=== PATIENT | female | born 1945 | race Hispanic/Latino ===

== ENCOUNTER 2018-02-15 12:09 | Observation (INO) | payer MEDICARE, OTHER ==
[~2018-02-15] VITALS: Ht 144.8 cm; Wt 90.7 kg
[~2018-02-15 12:09] MED LIST: ASPIR 8181 MG PO; BUSPAR15 MG PO; DIOVAN320 MG PO; FLUOXETINE HCL10 M1 PO; FLUOXETINE HCL20 MG PO; K-DUR20 ME2 PO; LEVAQUIN500 MG PO; NOVOLOG 70100 UNITS/ SC; NOVOLOG MI100 UNITS/ SQ; TRAMADOL-ACETAMI1 EA PO; VALIUM PO; VITAMIN D250000 UNIT PO; XARELTO10 MG PO; Z.0.DIOVAN160 MG PO; Z.0.GLUCOPHAGE500 MG PO; Z.0.JANUVIA100 MG PO; Z.0.LASIX40 MG PO; Z.0.NOVOLOG100 UNIT/ SQ; Z.0.PAXIL10 MG PO; Z.0.PRILOSEC OTC20 M PO; Z.0.TYLENOL325 MG PO; Z.0.VALIUM5 MG PO; Z.0.ZOCOR20 MG PO
[2018-02-15] MEDS ORDERED: TRAMADOL HCL 50 MG TAB PO ONE (12:45)
[2018-02-15] MEDS ORDERED: TRAMADOL HCL 50 MG TAB PO SCH (13:15)
[2018-02-15 13:30] LABS: BILIRUBIN,URINE NEGATIVE (NEGATIVE); KETONES,URINE NEGATIVE (NEGATIVE); LEUKOCYTE ESTERASE ,URINE 1+ (NEGATIVE); NITRITE,URINE NEGATIVE (NEGATIVE); PROTEIN,URINE DIPSTICK NEGATIVE (NEGATIVE); URINE UROBILINOGEN 0.2 mg/dL (0.2 - 1)
[2018-02-15 13:31] LABS: CLARITY,URINE HAZY (CLEAR); COLOR,URINE YELLOW (YELLOW)
[2018-02-15 13:32] LABS: BASOPHILS % 0.3 % (0.0-1.0); EOSINOPHILS # (AUTO) 0.2 (0.0-0.4); EOSINOPHILS % 3.1 % (0.0-6.0); HEMOGLOBIN 11.8 g/dL (12.0-16.0); LYMPHOCYTES # (AUTO) 1.9 (1.0-3.2); MEAN CORPUSCULAR HEMOGLOBIN 29.1 pg (28-32); MEAN CORPUSCULAR HGB CONC 32.8 g/dL (31-35); MEAN CORPUSCULAR VOLUME 88.9 fL (81-99); MONOCYTES # (AUTO) 0.5 (0.2-0.8); MONOCYTES % 8.2 % (4.4-11.3); NEUTROPHILS # (AUTO) 3.5 (2.1-6.9); NEUTROPHILS % 57.2 % (38.7-80.0); PLATELET COUNT 265 x10e3/uL (140-360); RED BLOOD COUNT 4.05 x10e6/uL (3.6-5.1); RED CELL DISTRIBUTION WIDTH 13.7 % (11.7-14.4)
[2018-02-15 13:35] LABS: BACTERIA,URINE FEW /HPF; EPITHELIAL CELLS,URINE FEW /LPF; RBC,URINE 0-5 /HPF (0-5)
[2018-02-15 13:46] LABS: INR 1.01; PROTHROMBIN TIME 12.5 seconds (11.9-14.5)
[2018-02-15 13:47] LABS: PARTIAL THROMBOPLASTIN TIME 30.6 seconds (23.8-35.5)
[2018-02-15 13:56] LABS: ALANINE AMINOTRANSFERASE 23 IU/L (0-55); ALBUMIN 3.6 g/dL (3.5-5.0); ALBUMIN/GLOBULIN RATIO 1.2 (0.8-2.0); ALKALINE PHOSPHATASE 76 IU/L (40-150); ANION GAP 9.6 mmol/L (8-16); BLOOD UREA NITROGEN 16 mg/dL (7-26); BUN/CREATININE RATIO 20 (6-25); CALCIUM 8.8 mg/dL (8.4-10.2); CARBON DIOXIDE 32 mmol/L (22-29); CHLORIDE 97 mmol/L (98-107); CREATINE KINASE 174 IU/L (29-168); CREATININE, SERUM 0.82 mg/dL (0.57-1.11); EST GLOMERULAR FILTRATION RATE > 60 ML/MIN (60-); GLUCOSE 190 mg/dL (74-118); MAGNESIUM 1.8 MG/DL (1.3-2.1); POTASSIUM 3.6 mmol/L (3.5-5.1); SODIUM 135 mmol/L (136-145)
--- NOTE | 2018-02-15 14:31 | Diagnostic Imaging Report ---
EXAMINATION: RIBS BILAT W/CXR INDICATION: Low sugar. Cannot breathe. COMPARISON: None FINDINGS: TUBES and LINES: None. LUNGS: Lungs are well inflated. Lungs are clear. There is no evidence of pneumonia or pulmonary edema. PLEURA: No pleural effusion or pneumothorax. HEART AND MEDIASTINUM: The cardiomediastinal silhouette is unremarkable. BONES AND SOFT TISSUES: No acute osseous lesion. Soft tissues are unremarkable. UPPER ABDOMEN: No free air under the diaphragm. IMPRESSION: No acute thoracic abnormality. Signed by: Dr. Emir Collado M.D. on 02/15/2018 2:27 PM
[2018-02-15] MEDS ORDERED: ONDANSETRON HCL INJ 2 MG/ML VIAL IV PRN (15:45)
[2018-02-15] MEDS ORDERED: FAMOTIDINE 20 MG/2 ML VIAL IV SCH (15:45)
[2018-02-15] MEDS ORDERED: DEXTROSE 50% SYRINGE 50 ML IV PRN (15:45)
--- OUTSIDE RECORDS SUMMARY | 2018-02-15 16:05 | XMS REPORT ---
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 Allergies, Adverse Reactions, Alerts This patient has no known allergies or adverse reactions. Medications This patient has no known medications. Results Test Description Test Time Test Comments Text Results Atomic Results Result Comments RIBS BILAT W/CXR [place] [address] Patient Name: SHARI DEAN MR #: [id number] : 1945 Age/Sex: 73/F Req # : [id number] Adm Physician: Ordered by: TARIK KAHN NP Report #: [id number] Location: ER Room/Bed: Procedure: [id number] DX/RIBS BILAT W/CXR Exam Date: 02/15/18 Exam Time: 1335 REPORT STATUS: Signed EXAMINATION: RIBS BILAT W/CXR INDICATION: Low sugar. Cannot breathe. COMPARISON: None FINDINGS: TUBES and LINES: None. LUNGS: Lungs are well inflated. Lungs are clear. There is no evidence of pneumonia or pulmonary edema. PLEURA: No pleural effusion or pneumothorax. HEART AND MEDIASTINUM: The cardiomediastinal silhouette is unremarkable. BONES AND SOFT TISSUES: No acute osseous lesion. Soft tissues are unremarkable. UPPER ABDOMEN: No free air under the diaphragm. IMPRESSION: No acute thoracic abnormality. Signed by: Dr. Carmenza Collado M.D. on 02/15/2018 2:27 PM Dictated By: CARMENZA COLLADO MD 26 Transcribed By: GAUDENCIO on 02/15/181426 COPY TO: TARIK KAHN NP
--- NOTE | 2018-02-15 16:39 | Diagnostic Imaging Report ---
EXAM: CT Chest WITH contrast 02/15/2018 3:27 PM INDICATION: Shortness of breath. \S\PE PROTOCOL. Fell with bruising to the upper body and chest. COMPARISON: None TECHNIQUE: Chest was scanned utilizing a multidetector helical scanner from the lung apex through the level of the adrenal glands without administration of IV contrast. Coronal and sagittal reformations were obtained. Routine protocol was performed. IV CONTRAST: 100 mL of Isovue 370 COMPLICATIONS: None RADIATION DOSE: Total DLP: 528.5 mGy*cm Estimated effective dose: (DLP x 0.014 x size factor) mSv CTDIvol has been reviewed. It is below the limits set by the Radiation Protocol Committee (RPC). FINDINGS: LINES/ TUBES: None. LUNGS AND AIRWAYS: No filling defect is identified within the pulmonary arteries to the segmental level. The lungs are unremarkable. Airways are normal. PLEURA: The pleural spaces are clear. HEART AND MEDIASTINUM: The thyroid gland is normal. No mediastinal, hilar or axillary lymphadenopathy. The heart is normal in size. There is no pericardial effusion. . Main pulmonary artery measures 2.7 cm in diameter and the ascending aorta measures 3.6 cm. UPPER ABDOMEN: Unremarkable BONES: The visualized bony thorax is within normal limits. SOFT TISSUES: Unremarkable. IMPRESSION: No pulmonary emboli. Normal chest. Signed by: Dr. Emir Collado M.D. on 02/15/2018 4:36 PM
--- NOTE | 2018-02-15 16:57 | Diagnostic Imaging Report ---
EXAM: CT Abdomen and Pelvis WITH contrast INDICATION: Low blood sugar. Abdominal pain after fall. Bruising to the upper abdomen. COMPARISON: None. TECHNIQUE: Abdomen and pelvis were scanned utilizing a multidetector helical scanner from the lung base to the pubic symphysis after administration of IV contrast. Coronal and sagittal reformations were obtained. Routine protocol was performed. Scan was performed when during portal venous phase. IV CONTRAST: 100 mL of Isovue 370 ORAL CONTRAST: Water COMPLICATIONS: None RADIATION DOSE: Total DLP: 709.82 mGy*cm Estimated effective dose: (DLP x 0.015 x size factor) mSv CTDIvol has been reviewed. It is below the limits set by the Radiation Protocol Committee (RPC). FINDINGS: LINES and TUBES: None. LOWER THORAX: Unremarkable calcified granuloma in the right lower lobe. HEPATOBILIARY: No focal hepatic lesions. No biliary ductal dilation. GALLBLADDER: No radio-opaque stones or sludge. No wall thickening. SPLEEN: No splenomegaly. PANCREAS: No focal masses or ductal dilatation. ADRENALS: No adrenal nodules KIDNEYS/URETERS: Kidneys enhance symmetrically. No hydronephrosis. No cystic or solid mass lesions. No stones. GI TRACT: No abnormal distention, wall thickening, or evidence of bowel obstruction. There are diverticula within the colon without evidence of diverticulitis. Appendix is not clearly identified. There is however no fat stranding or adenopathy in the right lower quadrant to suggest appendicitis. PELVIC ORGANS/BLADDER: Mild pelvic floor prolapse. Uterus and both ovaries are unremarkable. LYMPH NODES: No lymphadenopathy. VESSELS: There is mild atherosclerotic disease in the aorta and major arterial branches. PERITONEUM / RETROPERITONEUM: No free air or fluid. BONES: There are degenerative changes in the lumbar spine. SOFT TISSUES: Fat-containing umbilical hernia. IMPRESSION: No acute abnormalities in the abdomen and pelvis. Signed by: Dr. Emir Collado M.D. on 02/15/2018 4:53 PM
[2018-02-15] MEDS: INSULIN REGULAR, HUMAN 100 UNIT/1 ML 3ML VIAL SQ SCH ×2 (17:59→20:27)
[2018-02-15] MEDS ORDERED: FAMOTIDINE 10MG/ML 20ML VIAL IV SCH (18:26)
[2018-02-15] MEDS: ENOXAPARIN SOD INJ 40 MG/0.4 ML SYR SC SCH (18:30)
[2018-02-15] MEDS ORDERED: CEFTRIAXONE SOD 1 GM VIAL IM SCH (18:30)
[2018-02-15] MEDS ORDERED: CEFTRIAXONE SOD 1 GM VIAL IV SCH (18:30)
[2018-02-15 19:55] VITALS: BP 136/84
[2018-02-15 20:00] VITALS: BP 137/61
[2018-02-15 20:13] VITALS: BP 136/84
[2018-02-15 21:10] VITALS: BP 136/84
[2018-02-16] VITALS (7 sets, daily range): BP systolic 111–170; BP diastolic 56–72
[2018-02-16 01:56] LABS: CREATINE KINASE MB 3.8 ng/mL (0-5.0)
[2018-02-16] MEDS ORDERED: FAMOTIDINE 20 MG/2 ML VIAL IV SCH (06:15)
[2018-02-16 06:57] LABS: BASOPHILS % 0.2 % (0.0-1.0); EOSINOPHILS # (AUTO) 0.2 (0.0-0.4); EOSINOPHILS % 4.2 % (0.0-6.0); HEMOGLOBIN 12.1 g/dL (12.0-16.0); LYMPHOCYTES # (AUTO) 1.8 (1.0-3.2); LYMPHOCYTES % 32.1 % (18.0-39.1); MEAN CORPUSCULAR HEMOGLOBIN 28.5 pg (28-32); MEAN CORPUSCULAR HGB CONC 31.8 g/dL (31-35); MEAN CORPUSCULAR VOLUME 89.6 fL (81-99); MONOCYTES # (AUTO) 0.5 (0.2-0.8); MONOCYTES % 8.4 % (4.4-11.3); NEUTROPHILS % 54.9 % (38.7-80.0); PLATELET COUNT 278 x10e3/uL (140-360); RED BLOOD COUNT 4.24 x10e6/uL (3.6-5.1); RED CELL DISTRIBUTION WIDTH 13.9 % (11.7-14.4)
[2018-02-16 07:41] LABS: ALANINE AMINOTRANSFERASE 19 IU/L (0-55); ALBUMIN 3.2 g/dL (3.5-5.0); ALBUMIN/GLOBULIN RATIO 1.1 (0.8-2.0); ALKALINE PHOSPHATASE 70 IU/L (40-150); BLOOD UREA NITROGEN 14 mg/dL (7-26); BUN/CREATININE RATIO 17 (6-25); CARBON DIOXIDE 29 mmol/L (22-29); CHLORIDE 102 mmol/L (98-107); CHOL/HDL RATIO 2.6 (3.0-3.6); CHOLESTEROL 125 MD/DL (0-199); CREATININE, SERUM 0.82 mg/dL (0.57-1.11); EST GLOMERULAR FILTRATION RATE > 60 ML/MIN (60-); GLUCOSE 279 mg/dL (74-118); HDL CHOLESTEROL 48 MG/DL (40-60); LDL CHOLESTEROL 50 MG/DL (60-130); MAGNESIUM 1.7 MG/DL (1.3-2.1); PHOSPHORUS 3.2 MG/DL (2.3-4.7); SODIUM 139 mmol/L (136-145); TRIGLYCERIDES 133 MG/DL (0-149)
[2018-02-16] MEDS: INSULIN REGULAR, HUMAN 100 UNIT/1 ML 3ML VIAL SQ SCH ×4 (08:09→20:07)
[2018-02-16] MEDS: ASPIRIN 81 MG ENTERIC COATED PO SCH (08:09)
[2018-02-16] MEDS ORDERED: ACETAMINOPHEN 325 MG TAB PO PRN (11:30)
[2018-02-16] MEDS ORDERED: METFORMIN HCL 500 MG TAB PO SCH (11:30)
[2018-02-16] MEDS ORDERED: VALSARTAN 160 MG PO SCH (11:30)
[2018-02-16] MEDS: ALBUTEROL/IPRATROPIUM 3 ML NEB NEB SCH ×2 (12:00→19:30)
[2018-02-16] MEDS ORDERED: AZITHROMYCIN 500MG/NS 250 ML 250 ML IV SCH (12:00)
[2018-02-16] MEDS ORDERED: SODIUM CHLORIDE 0.9% 250ML 250 ML ONE (12:32)
[2018-02-16] MEDS: GUAIFENESIN 600MG/DEXTROMETHORPHAN 30MG TABSR PO SCH ×3 (12:39→23:05)
--- NOTE | 2018-02-16 12:58 | History and Physical ---
PRIMARY CARE PROVIDER: Dr. North Rousseau CHIEF COMPLAINT: Dyspnea and weakness. HISTORY OF PRESENT ILLNESS: Ms. Parmar is a 73-year-old lady who for the last couple of days has been complaining of generalized weakness, a nonproductive cough and shortness of breath worse with exertion. REVIEW OF SYSTEMS: She denies fever, chills or weight loss. She denies sinus congestion or sore throat. She denies chest pain or palpitation. She has shortness of breath, dyspnea with exertion and a nonproductive cough. She denies wheezing. She denies abdominal pain, nausea, vomiting, or melena. She denies dysuria or flank pain. She denies rash or pruritus. She denies joint pain or swelling. She denies headache, vertigo or loss of consciousness. She denies depression, agitation, homicide, or suicidal ideation. PAST MEDICAL HISTORY: Significant for long-standing hypertension, type 2 diabetes, venous insufficiency, gastroesophageal reflux. CURRENT MEDICATIONS 1. Prozac 20 mg daily. 2. Zocor 20 mg daily. 3. Valsartan 160 mg daily. 4. Tylenol as needed. 5. Omeprazole 20 mg daily. 6. Tramadol as needed. 7. Lasix 40 mg daily. 8. Potassium 20 mEq daily. 9. 70/30 insulin 40 units in the morning and 35 units in the evening. 10. Diazepam 5 mg daily as needed. 11. Aspirin 81 mg daily. She has a history of appendectomy, cataract surgery and left knee surgery. ALLERGIES: SHE HAS A STATED ALLERGY TO PENICILLIN. FAMILY HISTORY: Significant for hypertension and diabetes. SOCIAL HISTORY: The patient is and speaks only Cambodian. She does not smoke, drink or use illegal drugs. She is generally independently functioning. PHYSICAL EXAMINATION PSYCHIATRIC: She is alert and oriented times 3 with normal mood and affect. CONSTITUTIONAL: She has a normal body habitus. Is in no acute distress. She is moderately overweight. VITAL SIGNS: Blood pressure initially 174/74 and currently 149/62, pulse 93 and regular, respiratory rate 18, O2 sat 97% on room air, temperature 97.2. HEENT: Her head is atraumatic. Her eyes are anicteric with clear conjunctivae. Ears and nares are without erythema or discharge. Oropharynx is clear. NECK: Supple with no mass or thyromegaly. LYMPHATICS: She has no palpable cervical, axillary or inguinal adenopathy. CARDIOVASCULAR: Her heart has a regular rate and rhythm without murmur or extra heart sounds. She has no carotid bruit. She has trace bipedal edema. She has palpable dorsal pedal pulses. RESPIRATORY: Lungs reveal diminished breath sounds throughout without wheezing. She has a nonproductive cough and normal respiratory effort. GASTROINTESTINAL: Her abdomen is soft without organomegaly, masses or tenderness. She has normal bowel sounds present. CUTANEOUS: Her skin is warm and dry to touch. No rash or skin breakdown. MUSCULOSKELETAL: Her joints are in normal alignment without erythema or swelling. She has no calf tenderness. She has a contusion with some ecchymosis on the left posterior lower rib cage from a fall a couple of days ago. NEUROLOGIC: Nonfocal with intact cranial nerves and no motor or sensory deficits. Patient is ambulating with a walker. DIAGNOSTIC STUDIES: Chest x-ray shows no acute disease. CT scan of the chest with no acute disease. CT scan of the abdomen and pelvis with no acute disease. UA has 6-10 white cells. Culture with 10,000-50,000 mixed shannan. Flu screen is negative. Troponin 0.002 and 0.004. Cholesterol 125, triglyceride 133, HDL 48, LDL 50. Magnesium 1.7. Phosphorus 3.2. Her chemistry shows normal electrolytes. CO2 29, creatinine 0.82, BUN 14 for a normal GFR. Calcium 9. Glucose initially 44 and currently 279. Transaminases, bilirubin, and alk phos are normal. CBC shows a white count of 5.49 with a normal differential. Hemoglobin 12.1, hematocrit 38, and platelet count 278,000. IMPRESSION AND PLAN 1. Shortness of breath: Likely due to bronchitis and acute asthma exacerbation. The patient will be receiving nebulizer treatments q.6 h. while awake along with intravenous Zithromax and Rocephin, and Mucinex for expectoration and cough control. 2. Generalized weakness: Will check the patient's thyroid levels. Will check hemoglobin A1c level. Will check echocardiogram and carotid Dopplers. 3. Hypertension: Will continue the patient on valsartan and aspirin. 4. Type 2 diabetes: The patient will continue on a slightly reduced dose of 70/30 insulin and sliding scale insulin for additional coverage. 5. For prophylaxis, the patient will be receiving Lovenox for deep venous thrombosis prophylaxis and Pepcid for gastrointestinal prophylaxis. Physical and occupational therapy have been consulted to assess the patient's strength and ambulatory abilities. Job#: [id number] RI
[2018-02-16] MEDS ORDERED: INSULIN ASPART 70/30 100 UNITS/ML VIAL SC SCH (16:30)
--- NOTE | 2018-02-16 16:42 | Cardiology Report ---
DATE OF STUDY: February 16, 2018 ECHOCARDIOGRAM M-MODE: Dilated left atrium. Left ventricular hypertrophy. Normal contractility. Normal mitral and aortic valves. No pericardial effusion. SECTOR SCAN: Dilated left atrium. Left ventricular hypertrophy. Normal contractility. Ejection fraction is approximately 55%. Mitral, aortic, and tricuspid valves are grossly normal. There is no pericardial effusion. No evidence of ASD or VSD. No evidence of intracardiac thrombi or masses. CARDIAC DOPPLER STUDY WITH COLOR: Trace mitral and tricuspid regurgitation. The aortic valve is 1.3 meters per second. CONCLUSIONS 1. Left ventricular hypertrophy with ejection fraction of approximately 55%. 2. Trace mitral regurgitation with mildly dilated left atrium. 3. Trace tricuspid regurgitation. 4. No evidence of atrial septal defect, ventricular septal defect or intracardiac thrombi or masses. Job#: [id number] STEVO cc:MEKHI KLEIN MD
[2018-02-16] MEDS: ENOXAPARIN SOD INJ 40 MG/0.4 ML SYR SC SCH (17:13)
[2018-02-16] MEDS: FAMOTIDINE 20 MG TAB PO SCH (17:13)
[2018-02-16] MEDS ORDERED: CEFTRIAXONE SOD 1 GM VIAL IV SCH (18:30)
[2018-02-16] MEDS ORDERED: SIMVASTATIN 20 MG TAB PO SCH (21:00)
[2018-02-17 04:10] VITALS: BP 156/67
[2018-02-17] MEDS: GUAIFENESIN 600MG/DEXTROMETHORPHAN 30MG TABSR PO SCH (05:17)
[2018-02-17 06:22] LABS: EOSINOPHILS # (AUTO) 0.2 (0.0-0.4); EOSINOPHILS % 3.2 % (0.0-6.0); HEMATOCRIT 36.3 % (34.2-44.1); LYMPHOCYTES % 34.6 % (18.0-39.1); MEAN CORPUSCULAR HEMOGLOBIN 28.7 pg (28-32); MEAN CORPUSCULAR HGB CONC 33.1 g/dL (31-35); MEAN CORPUSCULAR VOLUME 86.8 fL (81-99); MONOCYTES # (AUTO) 0.5 (0.2-0.8); MONOCYTES % 8.5 % (4.4-11.3); NEUTROPHILS # (AUTO) 3.1 (2.1-6.9); NEUTROPHILS % 53.5 % (38.7-80.0); PLATELET COUNT 264 x10e3/uL (140-360); RED BLOOD COUNT 4.18 x10e6/uL (3.6-5.1); RED CELL DISTRIBUTION WIDTH 13.7 % (11.7-14.4)
[2018-02-17 06:45] LABS: ANION GAP 12.7 mmol/L (8-16); BLOOD UREA NITROGEN 11 mg/dL (7-26); BUN/CREATININE RATIO 16 (6-25); CALCIUM 9.1 mg/dL (8.4-10.2); CARBON DIOXIDE 27 mmol/L (22-29); CHLORIDE 104 mmol/L (98-107); CREATININE, SERUM 0.69 mg/dL (0.57-1.11); EST GLOMERULAR FILTRATION RATE > 60 ML/MIN (60-); GLUCOSE 124 mg/dL (74-118); POTASSIUM 3.7 mmol/L (3.5-5.1); SODIUM 140 mmol/L (136-145)
[2018-02-17 07:09] LABS: FREE T4 (FREE THYROXINE) 1.08 ng/dL (0.9-1.8); THYROID STIMULATING HORMONE 1.017 uIU/mL (0.350-4.940)
[2018-02-17] MEDS ORDERED: INSULIN ASPART 70/30 100 UNITS/ML VIAL SC SCH (07:30)
[2018-02-17] MEDS: ALBUTEROL/IPRATROPIUM 3 ML NEB NEB SCH (07:30)
[2018-02-17] MEDS: INSULIN REGULAR, HUMAN 100 UNIT/1 ML 3ML VIAL SQ SCH ×2 (07:30→11:30)
[2018-02-17 07:40] VITALS: BP 159/72
[2018-02-17] MEDS: ASPIRIN 81 MG ENTERIC COATED PO SCH (08:12)
[2018-02-17] MEDS: FAMOTIDINE 20 MG TAB PO SCH (08:50)
[2018-02-17] MEDS ORDERED: FLUOXETINE HCL 20 MG CAP PO SCH (09:00)
[2018-02-17] MEDS ORDERED: ACETAMINOPHEN 325 MG TAB PO PRN (10:00)
[2018-02-17] MEDS ORDERED: ONDANSETRON HCL INJ 2 MG/ML VIAL IV PRN (10:00)
[2018-02-17] MEDS ORDERED: HYDRALAZINE HCL 20 MG/ML VIAL IV PRN (10:00)
[2018-02-17 10:01] VITALS: BP 159/72
[2018-02-17] MEDS ORDERED: CEFTIN PO (10:26)
[2018-02-17] MEDS ORDERED: MUCINEX DM ER1 EACH PO (10:26)
[2018-02-17] MEDS ORDERED: ZITHROMAX500 MG PO (10:26)
[2018-02-17 11:25] VITALS: BP 178/75
[2018-02-17] MEDS ORDERED: VALSARTAN 160 MG TAB PO SCH (12:00)
--- NOTE | 2018-02-17 15:27 | Discharge Summary ---
ADMISSION DIAGNOSES 1. Shortness of breath. 2. Bronchitis. 3. Asthma exacerbation. 4. Hypertension. 5. Generalized weakness. 6. Type 2 diabetes. 7. Hyperlipidemia. DISCHARGE DIAGNOSES 1. Shortness of breath. 2. Bronchitis. 3. Asthma exacerbation. 4. Hypertension. 5. Generalized weakness. 6. Type 2 diabetes. 7. Hyperlipidemia. 8. Ruled out flu. HISTORY: Has a history of hypertension, type 2 diabetes, venous insufficiency and GERD. HOSPITAL COURSE: A 73-year-old female has complaint of generalized weakness for the last couple of days along with nonproductive cough and shortness of breath worse with exertion. She also admits to falling out of bed a week ago as her bed is too high. She was able to pick herself up with no issues. On admission the patient was started on Zithromax and Rocephin as well as Mucinex and nebulizer treatments. Her A1c level was checked, which was 7.5. On admission, chest x-ray with ribs was negative. CT of the chest showed no PE. CT of the abdomen and pelvis was negative. Carotid Doppler showed left carotid evidence of carotid disease without stenosis, and the right was negative. Echo was 55% to 60% with trace tricuspid regurge and mitral regurge. EKG showed normal sinus. Blood cultures were negative x24 hours, and the urine culture was contaminated. The patient did not have any urinary symptoms. Patient was started on home medications of insulin 70/30, sliding-scale insulin and valsartan. For the weakness, she had a PT eval, and TSH-T4 were both within normal limits. On date of discharge, patient was not wheezing and breathing much better. She appointment she made a month ago and she had to get to it today; so, I discharged her home. She has oxygen at home as well as nebulizer and a walker and lives with family. Per PT eval, does not need PT at home. Patient is doing much better and will follow up with . Dictated by: Gardenia Carreon NP MEKHI KLEIN MD Job#: [id number] EV
== END 2018-02-17 12:00 | disposition home or self-care (01) ==
LOC: ER 12:09 → ERHOLD 15:35 → IMCU 17:37
PROVIDERS: ADMIT Internal Medicine; ATTEND Internal Medicine
DX: J45.901 Unspecified asthma with (acute) exacerbation (principal); E16.2 Hypoglycemia, unspecified; I10 Essential (primary) hypertension; E11.9 Type 2 diabetes mellitus without complications; N39.0 Urinary tract infection, site not specified; R53.1 Weakness; E78.5 Hyperlipidemia, unspecified; S30.1XXA Contusion of abdominal wall, initial encounter; I87.2 Venous insufficiency (chronic) (peripheral); I34.0 Nonrheumatic mitral (valve) insufficiency; I07.1 Rheumatic tricuspid insufficiency; K21.9 Gastro-esophageal reflux disease without esophagitis; Z88.0 Allergy status to penicillin; W19.XXXA Unspecified fall, initial encounter; Z99.81 Dependence on supplemental oxygen; Z79.4 Long term (current) use of insulin; Z79.82 Long term (current) use of aspirin
CPT/HCPCS: 36415 ×3; 71111; 71260; 74177; 80048; 80053 ×2; 80061; 81001; 82550 ×2; 82553 ×2; 82948 ×3; 83036; 83735 ×2; 83880; 84100; 84439; 84443; 84484 ×2; 85025 ×3; 85379; 85610; 85730; 87040; 87086; 87400; 93005; 93306; 93880; 94640 ×3; 97116; 97161; 99284; G0378 ×3; J0456; J0696 ×2; J1650 ×2; J1815; J7050

== ENCOUNTER 2018-03-24 13:37 | Emergency (ER) | payer MEDICARE, OTHER ==
[~2018-03-24] VITALS: Ht 144.8 cm; Wt 93.0 kg
[~2018-03-24 13:37] MED LIST changes: +CEFTIN PO; +MUCINEX DM ER1 EACH PO; +ZITHROMAX500 MG PO
--- OUTSIDE RECORDS SUMMARY | 2018-03-24 13:40 | XMS REPORT | Continuity of Care Document ---
Author Author [facility] Organization [facility] Address [address] [place] [address] Phone Unavailable Care Team Providers Care Market Development Director Name Role Phone ADITI SANDERSON MD PCP Insurance Providers Guarantor Shari Parmar Address [address] [place] [address] Email [email or web address] Payer [employer] Hmo Policy Number [id number] Subscriber's Name Shari Parmar Relationship 18 Self / Same As Patient Group Number [id number] Group Name [facility] Effective Date 17 Advance Directives Directive Response Recorded Date/Time Does the patient have an advance directive? No 02/15/18 7:57pm If yes, is advance directive on file with [facility]? No 02/15/18 7:57pm If not on file with [facility] will patient provide a copy? No 02/15/18 7:57pm Do you have a Directive to Physician? No 02/15/18 1:31pm Do you have a Medical Power of Probe Operator? No 02/15/18 1:31pm Do you have an out of hospital Do Not Resuscitate Order? No 02/15/18 1:31pm Do you have any special needs we should be aware of? No 02/15/18 1:31pm Do you have a support person here with you today? Yes 02/15/18 1:31pm Did patient receive Notice of Privacy Practices? Yes 02/15/18 1:31pm Did patient receive patient rights and responsibilities? Yes 02/15/18 1:31pm Problems Medical Problem Onset Date Status Contusion of flank and back Unknown Cough Unknown Diabetes 11/04/2015 Acute Dyspnea 11/04/2015 Acute Fall Unknown Fever 11/04/2015 Acute Hypoglycemia Unknown UTI (urinary tract infection) Unknown Upper respiratory infection 11/04/2015 Acute Medications Current Home Medications Medication Dose Units Route Directions Days Qty Instructions Start Date Acetaminophen (Tylenol) 325 Mg Tablet 325 Mg Oral Every 4 Hours as needed Aspirin (Aspir 81) 81 Mg Tablet. 81 Mg Oral Daily Azithromycin (Zithromax) 500 Mg Tablet 500 Mg Oral Daily 6 Days Ceftin 500 Mg Oral Twice A Day 6 Days 02/17/18 Diazepam (Valium) 5 Mg Tablet 5 Mg Oral Daily as needed Ergocalciferol (Vitamin D2) (Vitamin D2) 50,000 Unit Capsule 1 Tab Oral Weekly Fluoxetine Hcl 20 Mg Capsule 20 Mg Oral Daily 30 Cap Furosemide (Lasix) 40 Mg Tablet 40 Mg Oral Daily Guaifenesin/Dextromethorphan (Mucinex Dm Er 600-30 Mg Tablet) 1 Each Tab.er.12h 1 Each Oral Every 6 Hours 10 Days 02/17/18 Insulin Aspart (Novolog 70/30 10ML Vial) 100 Units/Ml Ml 35 Units Subcutaneously Before Supper Insulin Aspart (Novolog Mix 70-30 Vial) 100 Units/Ml Ml 40 Units Sub-Q Before Breakfast Omeprazole Magnesium (Prilosec Otc) 20 Mg Tablet.dr 20 Mg Oral Daily Potassium Chloride (K-Dur) 20 Meq Tab.er.prt Oral Daily Simvastatin (Zocor) 20 Mg Tablet 20 Mg Oral Daily Tramadol/Acetaminophen (Tramadol-Acetaminophn 37.5-325) 1 Ea Tab 1 Tab Oral As Needed Valsartan (Diovan) 320 Mg Tablet 160 Mg Oral Daily Past Home Medications Medication Directions Ordered Status Diazepam (Valium) 5 Mg/1 Ml Vial, Oral Daily as needed Discontinued Fluoxetine Hcl 10 Mg Tablet, 10 Mg Oral Daily Discontinued Insulin Aspart (Novolog) 100 Unit/1 Ml Cartridge, 25 Unit Sub-Q Pm Hypoglycemic Discontinued Levofloxacin (Levaquin) 500 Mg Tablet, 500 Mg Oral Daily Discontinued Levofloxacin (Levaquin) 500 Mg Tablet, 500 Mg Oral Daily 11/09/15 Discontinued Metformin Hcl (Glucophage) 500 Mg Tablet, 1000 Mg Oral Twice Daily Breakfast & Supper Discontinued Rivaroxaban (Xarelto) 10 Mg Tablet, 15 Mg Oral Twice A Day Discontinued Social History Social History Problem Response Recorded Date/Time Onset Date Status Hx Psychiatric Problems No 02/15/2018 7:57pm Not Applicable Not Applicable Hx Eating Disorder No 02/15/2018 7:57pm Not Applicable Not Applicable Hx Substance Use Disorder No 02/15/2018 7:57pm Not Applicable Not Applicable Hx Depression Yes 02/15/2018 7:57pm Not Applicable Not Applicable Hx Alcohol Use No 02/15/2018 7:57pm Not Applicable Not Applicable Hx Substance Use Treatment No 02/15/2018 7:57pm Not Applicable Not Applicable Hx Physical Abuse No 02/15/2018 7:57pm Not Applicable Not Applicable Smoking Status Start Date Stop Date Never Smoker Hospital Discharge Instructions No hospital discharge instruction information available. Plan of Care Discharge Date 02/17/18 12:00pm Disposition HOME, SELF-CARE Instructions/Education Provided Fall Prevention Prescriptions See Medication Section Additional Instructions/Education F/U WITH PCP IN 1-2 WEEKS Functional Status Query Response Date Recorded Assistive Devices Standard Walker February 15, 2018 8:13pm Ambulation Ability Independent February 15, 2018 8:13pm Toileting Ability Independent February 15, 2018 8:13pm Allergies, Adverse Reactions, Alerts Allergen Type Severity Reaction Status Last Updated Penicillin Allergy Mild Active 02/15/18 Immunizations No immunization information available. Vital Signs Acute Vital Signs Vital Response Date/Time Temperature (Fahrenheit) 98.6 degrees F (97.6 - 99.5) 02/17/2018 11:25am Pulse Pulse Rate (adult) 91 bpm (60 - 90) 02/17/2018 11:25am Respiratory Rate 20 bpm (12 - 24) 02/17/2018 11:25am Blood Pressure 178/75 mm Hg 02/17/2018 11:25am Height 4 ft 9 in 02/15/2018 12:20pm Weight 200.04 lb 02/16/2018 8:20am Body Mass Index 43.3 kg/m^2 02/16/2018 8:20am Results Laboratory Results Test Name Result Units Flags Reference Collection Date/Time Result Date/ Time Comments White Blood Count 5.86 x10e3/uL 4.8-10.8 02/17/2018 5:55am 02/17/2018 6 :24am Red Blood Count 4.18 x10e6/uL 3.6-5.1 02/17/2018 5:55am 02/17/2018 6: 24am Hemoglobin 12.0 g/dL 12.0-16.0 02/17/2018 5:55am 02/17/2018 6:24am Hematocrit 36.3 % 34.2-44.1 02/17/2018 5:55am 02/17/2018 6:24am Mean Corpuscular Volume 86.8 fL 81-99 02/17/2018 5:55am 02/17/2018 6: 24am Mean Corpuscular Hemoglobin 28.7 pg 28-32 02/17/2018 5:55am 02/17/2018 6:24am Mean Corpuscular Hemoglobin Concent 33.1 g/dL 31-35 02/17/2018 5:55am 02/17/2018 6:24am Red Cell Distribution Width 13.7 % 11.7-14.4 02/17/2018 5:55am 2017 6:24am Platelet Count 264 x10e3/uL 140-360 02/17/2018 5:55am 02/17/2018 6: 24am Neutrophils (%) (Auto) 53.5 % 38.7-80.0 02/17/2018 5:55am 02/17/2018 6: 24am Lymphocytes (%) (Auto) 34.6 % 18.0-39.1 02/17/2018 5:55am 02/17/2018 6: 24am Monocytes (%) (Auto) 8.5 % 4.4-11.3 02/17/2018 5:55am 02/17/2018 6: 24am Eosinophils (%) (Auto) 3.2 % 0.0-6.0 02/17/2018 5:55am 02/17/2018 6: 24am Basophils (%) (Auto) 0.0 % 0.0-1.0 02/17/2018 5:55am 02/17/2018 6:24am IM GRANULOCYTES % 0.2 % 0.0-1.0 02/17/2018 5:55am 02/17/2018 6:24am Neutrophils # (Auto) 3.1 2.1-6.9 02/17/2018 5:55am 02/17/2018 6:24am Lymphocytes # (Auto) 2.0 1.0-3.2 02/17/2018 5:55am 02/17/2018 6:24am Monocytes # (Auto) 0.5 0.2-0.8 02/17/2018 5:55am 02/17/2018 6:24am Eosinophils # (Auto) 0.2 0.0-0.4 02/17/2018 5:55am 02/17/2018 6:24am Basophils # (Auto) 0.0 0.0-0.1 02/17/2018 5:55am 02/17/2018 6:24am Absolute Immature Granulocyte (auto 0.01 x10e3/uL 0-0.1 02/17/2018 5: 55am 02/17/2018 6:24am Prothrombin Time 12.5 seconds 11.9-14.5 02/15/2018 12:55pm 02/15/2018 1 :52pm Prothromb Time International Ratio 1.01 02/15/2018 12:55pm 2017 1:52pm Oral Anticoagulant Therapy INR Values: 1. Low Intensity Therapy 1.5 - 2.0 2. Moderate Intensity Therapy 2.0 - 3.0 3. High Intensity Therapy(1) 2.5 - 3.5 4. High Intensity Therapy(2) 3.0 - 4.0 5. Panic Value INR > 5.0 Activated Partial Thromboplast Time 30.6 seconds 23.8-35.5 02/15/2018 12 :55pm 02/15/2018 1:52pm D-Dimer Quantitative (PE/DVT) 0.48 ug/mLFEU H 0.00-0.45 02/15/2018 12: 55pm 02/15/2018 2:07pm As with all in vitro diagnostic tests, the test results should be interpreted by the physician in conjunction with clinical findings and other test results. Test results are reported in NEW D-dimer units(ug/mLFEU). Urine Color YELLOW YELLOW 02/15/2018 12:26pm 02/15/2018 1:31pm Urine Clarity HAZY CLEAR 02/15/2018 12:26pm 02/15/2018 1:31pm Urine Specific [place] 1.005 L 1.010-1.025 02/15/2018 12:26pm 2017 1:31pm Urine pH 5 5 - 7 02/15/2018 12:26pm 02/15/2018 1:31pm Urine Leukocyte Esterase 1+ H NEGATIVE 02/15/2018 12:pm 02/15/2018 1 :31pm Urine Nitrite NEGATIVE NEGATIVE 02/15/2018 12:26pm 02/15/2018 1:31pm Urine Protein NEGATIVE NEGATIVE 02/15/2018 12:26pm 02/15/2018 1:31pm Urine Glucose (UA) NEGATIVE NEGATIVE 02/15/2018 12:pm 02/15/2018 1: 31pm Urine Ketones NEGATIVE NEGATIVE 02/15/2018 12:26pm 02/15/2018 1:31pm Urine Urobilinogen 0.2 mg/dL 0.2 - 1 02/15/2018 12:26pm 02/15/2018 1: 31pm Urine Bilirubin NEGATIVE NEGATIVE 02/15/2018 12:26pm 02/15/2018 1: 31pm Urine Blood NEGATIVE NEGATIVE 02/15/2018 12:26pm 02/15/2018 1:31pm Urine WBC 6-10 /HPF H 0-5 02/15/2018 12:26pm 02/15/2018 1:35pm Urine RBC 0-5 /HPF 0-5 02/15/2018 12:26pm 02/15/2018 1:35pm Urine Bacteria FEW /HPF NONE 02/15/2018 12:26pm 02/15/2018 1:35pm Urine Epithelial Cells FEW /LPF NONE 02/15/2018 12:26pm 02/15/2018 1: 35pm Sodium Level 140 mmol/L 136-145 02/17/2018 5:55am 02/17/2018 6:51am Potassium Level 3.7 mmol/L 3.5-5.1 02/17/2018 5:55am 02/17/2018 6:51am Chloride Level 104 mmol/L 98-107 02/17/2018 5:55am 02/17/2018 6:51am Influenza Virus Types A,B Antigen NEGATIVE NEGATIVE 02/15/2018 12: 55pm 02/15/2018 1:55pm Carbon Dioxide Level 27 mmol/L 22-02/17/2018 5:55am 02/17/2018 6: 51am Anion Gap 12.7 mmol/L 8-16 02/17/2018 5:55am 02/17/2018 6:51am Blood Urea Nitrogen 11 mg/dL 7-02/17/2018 5:55am 02/17/2018 6:51am Creatinine 0.69 mg/dL 0.57-1.11 02/17/2018 5:55am 02/17/2018 6:51am BUN/Creatinine Ratio 16 6-25 02/17/2018 5:55am 02/17/2018 6:51am Estimat Glomerular Filtration Rate > 60 ML/MIN 60- 02/17/2018 5:55am 6:51am Ranges were taken from the National Kidney Disease Education Program and the National Kidney Foundation literature. Reference ranges: 60 or greater: Normal 16-59 (for 3 consecutive months): Chronic kidney disease 15 or less: Kidney failure Glucose Level 124 mg/dL H 74-118 02/17/2018 5:55am 02/17/2018 6:51am Calcium Level 9.1 mg/dL 8.4-10.2 02/17/2018 5:55am 02/17/2018 6:51am Bedside Glucose 208 mg/dL H 70-120 02/17/2018 11:16am 02/17/2018 11: 53am Meter ID: [id number] Hemoglobin A1c Percent 7.5 % H 4.0-7.0 02/17/2018 5:55am 02/17/2018 6: 50am Phosphorus Level 3.2 MG/DL 2.3-4.7 02/16/2018 6:45am 02/16/2018 8:19am Magnesium Level 1.7 MG/DL 1.3-2.1 02/16/2018 6:45am 02/16/2018 8:19am Total Bilirubin 0.4 mg/dL 0.2-1.2 02/16/2018 6:45am 02/16/2018 8:19am Aspartate Amino Transf (AST/SGOT) 23 IU/L 5-34 02/16/2018 6:45am 2017 8:19am Alanine Aminotransferase (ALT/SGPT) 19 IU/L 0-55 02/16/2018 6:45am 8:19am Total Protein 6.0 g/dL L 6.5-8.1 02/16/2018 6:45am 02/16/2018 8:19am Albumin 3.2 g/dL L 3.5-5.0 02/16/2018 6:45am 02/16/2018 8:19am Globulin 2.8 g/dL 2.3-3.5 02/16/2018 6:45am 02/16/2018 8:19am Albumin/Globulin Ratio 1.1 0.8-2.0 02/16/2018 6:45am 02/16/2018 8: 19am Alkaline Phosphatase 70 IU/L 40-150 02/16/2018 6:45am 02/16/2018 8: 19am Triglycerides Level 133 MG/DL 0-149 02/16/2018 6:45am 02/16/2018 8: 19am Cholesterol Level 125 MD/DL 0-199 02/16/2018 6:45am 02/16/2018 8:19am Less than 200 mg/dL Low Risk 201 - 239 mg/dL Borderline Risk 240 mg/dl and greater High Risk LDL Cholesterol 50 MG/DL L 60-130 02/16/2018 6:45am 02/16/2018 8:19am HDL Cholesterol 48 MG/DL 40-60 02/16/2018 6:45am 02/16/2018 8:19am Cholesterol/HDL Ratio 2.6 L 3.0-3.6 02/16/2018 6:45am 02/16/2018 8: 19am B-Type Natriuretic Peptide 30.9 pg/mL 0-100 02/15/2018 12:55pm 2017 1:55pm Creatine Kinase 119 IU/L 29-168 02/16/2018 12:42am 02/16/2018 1:40am Creatine Kinase MB 3.80 ng/mL 0-5.0 02/16/2018 12:42am 02/16/2018 1: 57am Troponin I 0.002 ng/mL 0-0.300 02/16/2018 12:42am 02/16/2018 1:57am Free Thyroxine 1.08 ng/dL 0.9-1.8 02/17/2018 5:55am 02/17/2018 7:11am Thyroid Stimulating Hormone (TSH) 1.017 uIU/mL 0.350-4.940 02/17/2018 5: 55am 02/17/2018 7:11am Microbiology Results Procedure Source Organism/Result Collection Date/Time Result Date/Time Result Status Blood Culture Blood NO GROWTH AFTER 24 HOURS 02/15/2018 6:45am 02/17/2018 7:14am Preliminary Procedures Procedure Status Date Provider(s) Computed tomography of abdomen and pelvis with contrast Active 02/15/18 FROILAN GOFF Computed tomography of chest with contrast Active 02/15/18 FROILAN GOFF Encounters Encounter Location Arrival/Admit Date Discharge/Depart Date Attending Provider Discharged Inpatient (obs) [facility] 02/15/18 3:35pm 12:00pm MEKHI KLEIN MD Departed Emergency Room [facility] 06/03/17 12:20pm 06/03 4:24pm JEAN CLAUDE MARTINEZ MD
--- NOTE | 2018-03-24 14:33 | Diagnostic Imaging Report ---
PROCEDURE:X-RAY PELVIS, AP VIEW COMPARISON:None. INDICATIONS:FALL, PAIN FINDINGS: There are no fractures, dislocations, lytic or blastic lesions. Degenerative changes of the bilateral hips, SI joints, and lower lumbar spine. The soft-tissues are unremarkable. Pelvic phleboliths. CONCLUSION: No acute fracture or dislocation of the pelvis. Dictated by: Baldemar Mcintosh M.D. on 03/24/2018 at 14:35 Electronically approved by: Baldemar Mcintosh M.D. on 03/24/2018 at 14:35
[2018-03-24 20:37] VITALS: BP 198/86
== END 2018-03-24 20:41 | disposition home or self-care (01) ==
LOC: ER 13:37
DX: M54.5 Low back pain (principal); S30.0XXA Contusion of lower back and pelvis, initial encounter; W01.0XXA Fall on same level from slipping, tripping and stumbling without subsequent striking against object, initial encounter; Y92.008 Other place in unspecified non-institutional (private) residence as the place of occurrence of the external cause; I10 Essential (primary) hypertension; E78.5 Hyperlipidemia, unspecified; J45.909 Unspecified asthma, uncomplicated; E07.9 Disorder of thyroid, unspecified; Z86.718 Personal history of other venous thrombosis and embolism
CPT/HCPCS: 72170; 99283

== ENCOUNTER 2018-11-01 00:53 | Emergency (ER) | payer MEDICARE ==
[~2018-11-01] VITALS: Ht 144.8 cm; Wt 93.0 kg
[2018-11-01 02:51] LABS: BASOPHILS % 0.2 % (0.0-1.0); EOSINOPHILS # (AUTO) 0.2 (0.0-0.4); EOSINOPHILS % 2.4 % (0.0-6.0); HEMATOCRIT 37.5 % (34.2-44.1); HEMOGLOBIN 11.9 g/dL (12.0-16.0); LYMPHOCYTES # (AUTO) 2.1 (1.0-3.2); MEAN CORPUSCULAR HGB CONC 31.7 g/dL (31-35); MEAN CORPUSCULAR VOLUME 88.2 fL (81-99); MONOCYTES % 10.3 % (4.4-11.3); NEUTROPHILS # (AUTO) 6.2 (2.1-6.9); NEUTROPHILS % 64.9 % (38.7-80.0); PLATELET COUNT 289 x10e3/uL (140-360); RED BLOOD COUNT 4.25 x10e6/uL (3.6-5.1); RED CELL DISTRIBUTION WIDTH 15.8 % (11.7-14.4)
[2018-11-01 03:03] LABS: BILIRUBIN,URINE NEGATIVE (NEGATIVE); CLARITY,URINE CLOUDY (CLEAR); COLOR,URINE YELLOW (YELLOW); KETONES,URINE TRACE (NEGATIVE); LEUKOCYTE ESTERASE ,URINE TRACE (NEGATIVE); NITRITE,URINE NEGATIVE (NEGATIVE); PROTEIN,URINE DIPSTICK NEGATIVE (NEGATIVE); URINE UROBILINOGEN 0.2 mg/dL (0.2 - 1)
[2018-11-01 03:06] LABS: INR 0.81
[2018-11-01 03:16] LABS: ALBUMIN 3.7 g/dL (3.5-5.0); CREATININE, SERUM 0.91 mg/dL (0.57-1.11); MAGNESIUM 2.4 MG/DL (1.3-2.1)
[2018-11-01 03:23] LABS: BACTERIA,URINE MODERATE /HPF; EPITHELIAL CELLS,URINE MANY /LPF; MUCUS,URINE MANY (RARE); RBC,URINE 0-5 /HPF (0-5)
--- NOTE | 2018-11-01 04:19 | Diagnostic Imaging Report ---
History:Fall Comparison studies:None Technique: Axial images were obtained from the skull base to the vertex. Coronal and sagittal images reconstructed from the axial data. Intravenous contrast: None Dose modulation, iterative reconstruction, and/or weight based adjustment of the mA/kV was utilized to reduce the radiation dose to as low as reasonably achievable. Findings: Scalp/skull: No abnormalities. Extra-axial spaces: No masses. No fluid collections. Brain sulci: Mildly prominent. Ventricles: Mild compensatory dilatation. No hydrocephalus. Parenchyma: Few hypodensities in the supratentorial white matter are small vessel ischemic changes. No masses, hemorrhage, acute or chronic cortical vascular insults. Sellar/suprasellar region: No abnormalities. Craniocervical junction: Patent foramen magnum. No Chiari one malformation. Incidental findings: Atherosclerotic calcifications in the carotid siphons . Impression: No acute abnormalities. Chronic findings: 1. Mild generalized volume loss. 2. Mild supratentorial white matter small vessel ischemic changes. Signed by: DR Rodrigo Corrales M.D. on 11/01/2018 4:16 AM
--- NOTE | 2018-11-01 04:22 | Diagnostic Imaging Report ---
History: Fall Comparison studies: None Technique: Axial images were obtained through the cervical region.. Coronal and sagittal images reconstructed from the axial data.. Intravenous contrast: None Dose modulation, iterative reconstruction, and/or weight based adjustment of the mA/kV was utilized to reduce the radiation dose to as low as reasonably achievable. Findings: Fractures: None. Soft tissues: No gross abnormalities. Atlantoaxial articulation: Intact. Alignment: Straightening of the normal lordosis. No scoliosis. Cervicomedullary junction: No abnormalities. The foramen magnum is patent. Vertebrae: No infection or neoplasm. Degenerative changes: Patent canal and foramina. IMPRESSION: 1. No acute cervical spine abnormalities. 2. Cannot exclude ligament, spinal cord and or vascular abnormalities on the basis of this examination. Signed by: DR Rodrigo Corrales M.D. on 11/01/2018 4:19 AM
--- NOTE | 2018-11-01 04:56 | Diagnostic Imaging Report ---
EXAM: CHEST 2 VIEWS, RIBS UNILAT W/CXR, INDICATION: Right rib pain after fall COMPARISON: PA and lateral view of the chest February 15, 2018 FINDINGS: LINES/TUBES: None LUNGS: No consolidations or edema. PLEURA: No effusions or pneumothorax. HEART AND MEDIASTINUM: Normal size and contour. BONES AND SOFT TISSUES: No acute findings. IMPRESSION: No acute thoracic abnormality. No evidence of a left rib fracture. Signed by: Dr. Josselin Rodríguez M.D. on 11/01/2018 4:52 AM
--- NOTE | 2018-11-01 04:57 | Diagnostic Imaging Report ---
EXAM: PELVIS AP 1-2 VIEWS INDICATION: Fall COMPARISON: None FINDINGS: BONES: No acute fractures. JOINTS: Degenerative changes of the lumbar spine and sacroiliac joints. SOFT TISSUES: Normal IMPRESSION: No pelvic fracture. Signed by: Dr. Josselin Rodríguez M.D. on 11/01/2018 4:53 AM
--- NOTE | 2018-11-01 04:58 | Diagnostic Imaging Report ---
EXAM: KNEE RIGHT THREE VIEWS, AP, lateral and oblique INDICATION: Fall, right knee pain COMPARISON: None FINDINGS: BONES: No acute fractures. JOINTS: Mild tricompartmental osteophytosis and medial compartment joint space narrowing. SOFT TISSUES: Soft tissue swelling of the anterior knee and possible small joint effusion. IMPRESSION: 1. Soft tissue swelling of the anterior knee and possible small joint effusion. 2. No evidence of an acute fracture. 3. Moderate degenerative changes. Signed by: Dr. Josselin Rodríguez M.D. on 11/01/2018 4:55 AM
== END 2018-11-01 05:47 | disposition home or self-care (01) ==
LOC: ER 00:53
DX: S80.02XA Contusion of left knee, initial encounter (principal); S80.01XA Contusion of right knee, initial encounter; S20.212A Contusion of left front wall of thorax, initial encounter; S29.011A Strain of muscle and tendon of front wall of thorax, initial encounter; W01.0XXA Fall on same level from slipping, tripping and stumbling without subsequent striking against object, initial encounter; Y93.01 Activity, walking, marching and hiking; Y92.008 Other place in unspecified non-institutional (private) residence as the place of occurrence of the external cause
CPT/HCPCS: 36415; 70450; 71046; 71101; 72125; 72170; 80053; 81001; 82550; 82553; 83735; 84484; 85025; 85610; 85730; 99284

== ENCOUNTER 2019-05-19 00:23 | Emergency (ER) | payer MEDICARE, OTHER ==
[~2019-05-19] VITALS: Ht 144.8 cm; Wt 93.0 kg
[2019-05-19 00:54] LABS: BASOPHILS % 0.3 % (0.0-1.0); EOSINOPHILS # (AUTO) 0.1 (0.0-0.4); EOSINOPHILS % 1.4 % (0.0-6.0); HEMATOCRIT 40.4 % (34.2-44.1); HEMOGLOBIN 13.1 g/dL (12.0-16.0); LYMPHOCYTES # (AUTO) 2.1 (1.0-3.2); LYMPHOCYTES % 27.3 % (18.0-39.1); MEAN CORPUSCULAR HEMOGLOBIN 28.9 pg (28-32); MEAN CORPUSCULAR HGB CONC 32.4 g/dL (31-35); MONOCYTES # (AUTO) 0.7 (0.2-0.8); NEUTROPHILS # (AUTO) 4.8 (2.1-6.9); NEUTROPHILS % 61.6 % (38.7-80.0); PLATELET COUNT 278 x10e3/uL (140-360); RED BLOOD COUNT 4.54 x10e6/uL (3.6-5.1)
[2019-05-19 01:19] LABS: ALBUMIN 3.5 g/dL (3.5-5.0); ANION GAP 12.9 mmol/L (8-16); CALCIUM 9.7 mg/dL (8.4-10.2); CREATININE, SERUM 0.99 mg/dL (0.57-1.11); POTASSIUM 3.9 mmol/L (3.5-5.1)
[2019-05-19 01:21] LABS: BILIRUBIN,URINE NEGATIVE (NEGATIVE); CLARITY,URINE CLOUDY (CLEAR); COLOR,URINE YELLOW (YELLOW); KETONES,URINE 1+ (NEGATIVE); LEUKOCYTE ESTERASE ,URINE SMALL (NEGATIVE); NITRITE,URINE NEGATIVE (NEGATIVE); PROTEIN,URINE DIPSTICK TRACE (NEGATIVE); URINE UROBILINOGEN 0.2 mg/dL (0.2 - 1)
[2019-05-19 01:31] LABS: BACTERIA,URINE MANY /HPF; EPITHELIAL CELLS,URINE MANY /LPF; MUCUS,URINE MODERATE (RARE); RBC,URINE 21-50 /HPF (0-5); WBC,URINE (MAN) 21-50 /HPF (0-5)
[2019-05-19] MEDS ORDERED: CEFTRIAXONE SOD 1 GM/NS 50 ML 50 ML IV ONE ×2 (01:45→01:49)
[2019-05-19 02:36] VITALS: BP 130/57
== END 2019-05-19 02:46 | disposition home or self-care (01) ==
LOC: ER 00:23
DX: R25.2 Cramp and spasm (principal); N30.91 Cystitis, unspecified with hematuria; I10 Essential (primary) hypertension; E11.9 Type 2 diabetes mellitus without complications; K21.9 Gastro-esophageal reflux disease without esophagitis; E78.5 Hyperlipidemia, unspecified; F41.9 Anxiety disorder, unspecified; Z96.652 Presence of left artificial knee joint
CPT/HCPCS: 36415; 80053; 81001; 85025; 87086; 99283; J0696

== ENCOUNTER 2019-12-27 16:37 | Inpatient (IN) | payer OTHER ==
[~2019-12-27] VITALS: Ht 137.2 cm; Wt 99.0 kg
[2019-12-27 17:40] LABS: BASOPHILS % 0.1 % (0.0-1.0); EOSINOPHILS # (AUTO) 0.2 (0.0-0.4); HEMATOCRIT 37.8 % (34.2-44.1); HEMOGLOBIN 12.2 g/dL (12.0-16.0); LYMPHOCYTES # (AUTO) 1.9 (1.0-3.2); LYMPHOCYTES % 25.9 % (18.0-39.1); MEAN CORPUSCULAR HEMOGLOBIN 28.4 pg (28-32); MEAN CORPUSCULAR HGB CONC 32.3 g/dL (31-35); MEAN CORPUSCULAR VOLUME 88.1 fL (81-99); MONOCYTES # (AUTO) 0.6 (0.2-0.8); MONOCYTES % 8.5 % (4.4-11.3); NEUTROPHILS # (AUTO) 4.7 (2.1-6.9); NEUTROPHILS % 63.4 % (38.7-80.0); PLATELET COUNT 197 x10e3/uL (140-360); RED BLOOD COUNT 4.29 x10e6/uL (3.6-5.1); RED CELL DISTRIBUTION WIDTH 15.3 % (11.7-14.4)
[2019-12-27 17:51] LABS: ALANINE AMINOTRANSFERASE 37 IU/L (0-55); ALBUMIN 3.6 g/dL (3.5-5.0); ALBUMIN/GLOBULIN RATIO 1.2 (0.8-2.0); ALKALINE PHOSPHATASE 107 IU/L (40-150); ANION GAP 11.7 mmol/L (8-16); BLOOD UREA NITROGEN 17 mg/dL (7-26); BUN/CREATININE RATIO 24 (6-25); CALCIUM 9.2 mg/dL (8.4-10.2); CARBON DIOXIDE 28 mmol/L (22-29); CHLORIDE 102 mmol/L (98-107); CREATININE, SERUM 0.72 mg/dL (0.57-1.11); EST GLOMERULAR FILTRATION RATE > 60 ML/MIN (60-); GLUCOSE 138 mg/dL (74-118); POTASSIUM 3.7 mmol/L (3.5-5.1); SODIUM 138 mmol/L (136-145)
[2019-12-27] MEDS ORDERED: SODIUM CHLORIDE FLUSH 10 ML SYR INJ PRN (18:00)
[2019-12-27] MEDS ORDERED: IOPAMIDOL 370 MG/ML 200 ML INFUS..BTL INJ ONE (18:17)
[2019-12-27] MEDS ORDERED: SODIUM CHLORIDE 0.9% 50ML 50 ML ONE (18:17)
[2019-12-27] MEDS: CEFEPIME 1GM/NS 0.9% 50 ML 50 ML IV SCH (19:05)
[2019-12-27 19:10] LABS: CLARITY,URINE CLEAR (CLEAR); COLOR,URINE YELLOW (YELLOW); KETONES,URINE NEGATIVE (NEGATIVE); LEUKOCYTE ESTERASE ,URINE NEGATIVE (NEGATIVE); NITRITE,URINE POSITIVE (NEGATIVE); PROTEIN,URINE DIPSTICK NEGATIVE (NEGATIVE)
[2019-12-27 19:11] LABS: BACTERIA,URINE FEW /HPF; BILIRUBIN,URINE NEGATIVE (NEGATIVE); EPITHELIAL CELLS,URINE FEW /LPF; URINE UROBILINOGEN 0.2 mg/dL (0.2 - 1)
[2019-12-27 20:03] LABS: PLATELET MORPHOLOGY COMMENT FEW LARGE
--- NOTE | 2019-12-27 20:05 | Diagnostic Imaging Report ---
EXAM: CT Pelvis WITH contrast INDICATION: Labia majora abscess COMPARISON: Abdominal CT 02/15/2018 TECHNIQUE: Pelvis were scanned utilizing a multidetector helical scanner from the iliac crest to the pubic symphysis after administration of IV contrast. Coronal and sagittal reformations were obtained. Routine protocol was performed. Scan was performed when during portal venous phase. IV CONTRAST: 100 mL of Isovue 370 ORAL CONTRAST: None COMPLICATIONS: None RADIATION DOSE: Total DLP: 381 mGy*cm Estimated effective dose: (DLP x 0.015 x size factor) mSv CTDIvol has been reviewed. It is below the limits set by the Radiation Protocol Committee (RPC). Dose modulation, iterative reconstruction, and/or weight based adjustment of the mA/kV was utilized to reduce the radiation dose to as low as reasonably achievable. FINDINGS: LINES and TUBES: None. GI TRACT: No abnormal distention, wall thickening, or evidence of bowel obstruction. There are diverticula within the colon without evidence of diverticulitis. Appendix is not clearly identified. There is however no fat stranding or adenopathy in the right lower quadrant to suggest appendicitis. PELVIC ORGANS/BLADDER: Trace air in the nondependent bladder lumen. Bladder is underdistended with mild circumferential bladder wall thickening. Small uterine fibroids. Calcifications in the uterine wall. LYMPH NODES: No lymphadenopathy. VESSELS: Nonstenotic arterial calcific atherosclerosis. PERITONEUM / RETROPERITONEUM: No free air or fluid. BONES: There are degenerative changes in the lumbar spine. SOFT TISSUES: Asymmetric mild soft tissue thickening and subtle heterogeneity in the area of the right labia majora. No discrete fluid loculation. Small fat-containing ventral abdominal hernia. IMPRESSION: 1. Subtle focal inflammatory changes in the area of the right labia majora, without obvious abscess on CT. A subcentimeter abscess is possible. No acute intrapelvic abnormality. 2. Colonic diverticulosis without diverticulitis. 3. Trace air in the bladder lumen, correlate with urinalysis and history of recent catheterization/instrumentation. Signed by: Grant Chacon DO on 12/27/2019 8:03 PM
[2019-12-27] MEDS: CLINDAMYCIN PHOS 900MG/ 50ML 50 ML IV SCH (21:22)
[2019-12-27 22:09] VITALS: BP 140/63
[2019-12-27] MEDS: MORPHINE SULFATE 2 MG/ML SYR 1ML IV PRN (22:31)
[2019-12-27] MEDS: ONDANSETRON HCL INJ 2MG/ML 2ML 2 MG/ML VIAL IV PRN (22:31)
[2019-12-27] MEDS ORDERED: DEXTROSE 50% SYRINGE 50 ML IV PRN (22:45)
[2019-12-27] MEDS: DIAZEPAM 5 MG TAB PO SCH (23:02)
[2019-12-28] VITALS (8 sets, daily range): BP systolic 83–129; BP diastolic 44–60
[2019-12-28] MEDS: CLINDAMYCIN PHOS 900MG/ 50ML 50 ML IV SCH ×2 (03:02→04:01)
[2019-12-28] MEDS: HYDROCODONE/APAP 7.5MG-325MG 1 EA TAB PO PRN (03:02)
[2019-12-28] MEDS ORDERED: SODIUM CHLORIDE 0.9% 250ML 250 ML ONE (03:06)
[2019-12-28] MEDS: MORPHINE SULFATE 2 MG/ML SYR 1ML IV PRN ×2 (04:01→20:15)
[2019-12-28] MEDS: CEFEPIME 1GM/NS 0.9% 50 ML 50 ML IV SCH ×2 (04:01→17:36)
[2019-12-28 05:29] LABS: BASOPHILS % 0.1 % (0.0-1.0); EOSINOPHILS # (AUTO) 0.2 (0.0-0.4); HEMATOCRIT 36.3 % (34.2-44.1); HEMOGLOBIN 11.5 g/dL (12.0-16.0); LYMPHOCYTES % 28.8 % (18.0-39.1); MEAN CORPUSCULAR HEMOGLOBIN 28.1 pg (28-32); MEAN CORPUSCULAR HGB CONC 31.7 g/dL (31-35); MEAN CORPUSCULAR VOLUME 88.8 fL (81-99); MONOCYTES # (AUTO) 0.6 (0.2-0.8); MONOCYTES % 8.1 % (4.4-11.3); NEUTROPHILS # (AUTO) 4.2 (2.1-6.9); NEUTROPHILS % 59.9 % (38.7-80.0); PLATELET COUNT 273 x10e3/uL (140-360); RED BLOOD COUNT 4.09 x10e6/uL (3.6-5.1); RED CELL DISTRIBUTION WIDTH 15.5 % (11.7-14.4)
[2019-12-28] MEDS ORDERED: SODIUM CHLORIDE 0.9% 500ML 500 ML ONE (05:32)
[2019-12-28 05:53] LABS: ALANINE AMINOTRANSFERASE 32 IU/L (0-55); ALBUMIN 3.1 g/dL (3.5-5.0); ALBUMIN/GLOBULIN RATIO 1.1 (0.8-2.0); ALKALINE PHOSPHATASE 81 IU/L (40-150); ANION GAP 10.2 mmol/L (8-16); BLOOD UREA NITROGEN 16 mg/dL (7-26); BUN/CREATININE RATIO 20 (6-25); CALCIUM 8.5 mg/dL (8.4-10.2); CARBON DIOXIDE 28 mmol/L (22-29); CHLORIDE 101 mmol/L (98-107); CREATININE, SERUM 0.82 mg/dL (0.57-1.11); EST GLOMERULAR FILTRATION RATE > 60 ML/MIN (60-); GLUCOSE 257 mg/dL (74-118); POTASSIUM 4.2 mmol/L (3.5-5.1); SODIUM 135 mmol/L (136-145)
--- NOTE | 2019-12-28 07:00 | NUR ---
BEDSIDE REPORT DONE. PT IS ALERT RESTING IN BED, NO S/S OF DISTRESS. PT ASKED RN IF SHE WAS GOING HOME TODAY, INFORMED THE PT THAT THE DR HAD TO SEE THE PATIENT FIRST. CALL LIGHT WITHIN REACH AND INSTRUCTED PT TO CALL RN FOR HELP
[2019-12-28] MEDS ORDERED: INSULIN ASPART 70/30 100 UNITS/ML VIAL SC SCH ×3 (08:00→20:00)
[2019-12-28] MEDS: INSULIN REGULAR, HUMAN 100 UNIT/1 ML 3ML VIAL SQ SCH ×2 (08:10→12:00)
[2019-12-28] MEDS: NYSTATIN 15 GM POWDER UD BTL TOP SCH ×2 (09:59→17:13)
[2019-12-28] MEDS ORDERED: FLUCONAZOLE 100 MG TAB PO ONE (10:00)
[2019-12-28] MEDS: ASPIRIN 81 MG CHEW TAB PO SCH (10:16)
[2019-12-28] MEDS: OMEPRAZOLE 20 MG CAP PO SCH (10:16)
[2019-12-28] MEDS: FLUOXETINE HCL 20 MG CAP PO SCH (10:16)
--- NOTE | 2019-12-28 13:15 | NUR ---
inserted 16F parekh, one attempt, received urine return. assisted by Ginna Callejas LVN
[2019-12-28] MEDS: CLINDAMYCIN 300MG 50 ML IV SCH ×3 (13:22→23:33)
[2019-12-28 14:48] LABS: FREE T4 (FREE THYROXINE) 0.73 ng/dL (0.8-1.8); THYROID STIMULATING HORMONE 2.044 uIU/mL (0.350-4.940)
--- NOTE | 2019-12-28 15:46 | NUR ---
WOUND CARE NURSE INITIAL EVALUATION. 74 YEAR OLD FEMALE ADMITTED TO [facility] WITH DX OF LABIAL ABSCESS. UPON ASSESSMENT PT PRESENTS WITH YEAST INFECTION TO ABDOMINAL FOLDS AND PERINEUM. ERYTHEMA AND TENDERNESS TO MONS PUBIS ALSO NOTED. ORDERS IN CHART FOR NYSTATIN POWDER AND ANTIFUNGAL CREAM. DR. REY CONSULTED FOR POSSIBLE SURGICAL INTERVENTION. NO OTHER AREAS OF CONCERN NOTED AT THIS TIME. LABS: WBC: 7.06 GLUCOSE: 242 ALB: 3.1 URINE AND BLOOD CX PENDING. CT RESULTS PENDING. RECOMMENDATIONS: CONTINUE WITH NYSTATIN POWDER AND ANTIFUNGAL CREAM TO ABDOMINAL FOLDS AND PERINEUM. RECONSULT WOUND CARE PRN. Addendum: 12/28/19 at 1600 by Sudha Luciano RN Amended: Links added.
[2019-12-28] MEDS ORDERED: LOSARTAN POTASS25 MG PO (16:01)
[2019-12-28] MEDS ORDERED: LASIX40 MG PO (16:01)
[2019-12-28] MEDS ORDERED: ATORVASTATIN CA20 MG PO (16:01)
[2019-12-28] MEDS ORDERED: CENTRUM SILVER1 EAC3 PO (16:01)
[2019-12-28] MEDS ORDERED: LUTEIN-ZEAXANT1 EACH PO (16:01)
[2019-12-28] MEDS ORDERED: ACETAMINOPHEN650 M3 PO (16:01)
[2019-12-28] MEDS ORDERED: CALCIUM 600 +1 EAC3 PO (16:01)
[2019-12-28] MEDS ORDERED: INSULIN LISPRO 100 UNIT/1 ML 3ML VIAL SQ SCH (16:30)
[2019-12-28] MEDS: ENOXAPARIN SOD INJ 40 MG/0.4 ML SYR SC SCH (17:13)
[2019-12-28] MEDS: INSULIN LISPRO 100 UNIT/1 ML 3ML VIAL SQ SCH ×3 (17:14→21:00)
--- NOTE | 2019-12-28 19:34 | NUR ---
Received change of shift report from AM nurse. Walking rounds completed.
--- NOTE | 2019-12-28 19:51 | NUR ---
Dr Burns on the floor to see patient. Will f/u with orders.
[2019-12-28] MEDS: DIAZEPAM 5 MG TAB PO SCH (20:12)
[2019-12-28] MEDS: SIMVASTATIN 20 MG TAB PO SCH (20:12)
--- NOTE | 2019-12-28 20:13 | NUR ---
Maribell care completed. Nystatin powder applied. Patient given pain meds as requested.
[2019-12-28] MEDS: ONDANSETRON HCL INJ 2MG/ML 2ML 2 MG/ML VIAL IV PRN (20:16)
[2019-12-28] MEDS ORDERED: INSULIN GLARGINE 100 UNITS/ML VIAL SQ SCH (21:00)
--- NOTE | 2019-12-28 21:34 | Consultation ---
DATE OF CONSULTATION: 12/28/2019 This is the patient of Dr. Lua. HISTORY OF PRESENT ILLNESS: Thank you very much for referring this patient. This is a 74-year-old lady, who was referred to me for evaluation of uncontrolled diabetes mellitus. The patient came to the hospital because of fever and labial cellulitis. She also has urinary tract infection. The patient is a known diabetic for almost 40 years and takes 70/30 insulin, about 30 units in the morning and 20 units in the afternoon. She also has history of obesity, obstructive pulmonary disease, hypertension, hyperlipidemia. The patient is on several other medications at home including Prozac, simvastatin, and Diovan 320 mg once daily. PHYSICAL EXAMINATION: GENERAL: Today, the patient is alert, awake, and a little bit apprehensive. She is moderate to morbidly obese. VITAL SIGNS: Her heart rate is around 70 and her blood pressure 130/80 mmHg. HEENT: Essentially unremarkable. Thyroid is palpable. Clinically, she is near euthyroid. CHEST: Bilateral vesicular breathing. She has mild bronchospasm. CARDIAC: First and second heart sounds. There is no 3rd or 4th heart sound. Ejection systolic murmur sound grade 2/6. EXTREMITIES: The patient has evidence of diabetic sensory neuropathy in both lower extremities. She has bilateral pedal edema and she has also cellulitis of the vulvar area. LABORATORY DATA: Her blood sugars have been significantly elevated during the hospitalization about 350 range. IMPRESSION: 1. Diabetes mellitus type 2, uncontrolled with complications. 2. Labial cellulitis. 3. Candidiasis. 4. Obstructive pulmonary disease. 5. Hypertension. 6. Hyperlipidemia. PLAN: At this time is to change her insulin to Lantus and Humalog insulin. Monitor her blood sugars closely and adjust insulin dose. Thanks again for referring this patient. I will follow this patient with you. MD LADONNA Thomas/ALOL /[id number]
[2019-12-29] VITALS (7 sets, daily range): BP systolic 114–144; BP diastolic 58–72
--- NOTE | 2019-12-29 02:39 | Consultation ---
DATE OF CONSULTATION: 12/28/2019 CHIEF COMPLAINT: Labial pain. HISTORY OF PRESENT ILLNESS: The patient is a 74-year-old female with one-week history of redness and swelling and pain in the labial region. The patient has known history of urinary incontinence with candidiasis. The patient has noted increased swelling and redness in the area. She denies fever or chills. PAST MEDICAL HISTORY: Positive for metabolic syndrome with hypertension, diabetes, hyperlipidemia with morbid obesity and anxiety disorder, and urinary incontinence. PAST SURGICAL HISTORY: Positive for knee surgery. ALLERGIES: THE PATIENT IS ALLERGIC TO PENICILLIN. SOCIAL HABITS: She does not smoke or drink. REVIEW OF SYSTEMS: No chest pain or shortness of breath. PHYSICAL EXAMINATION: VITAL SIGNS: The patient's vital signs stable, afebrile. GENERAL: She is awake, alert, in moderate discomfort. HEENT: Sclerae nonicteric. NECK: Supple. LUNGS: Clear. HEART: Regular rate and rhythm. ABDOMEN: Soft and nontender. GENITAL REGION: Revealed significant erythema around the vagina, introitus with inflamed labia majora bilaterally with the 1 cm open ulcers on the left labia. There is also whitish thick discharge consistent with candidiasis. EXTREMITIES: No cyanosis edema. LABORATORY DATA: The patient's white cell count is 7, hemoglobin 11, hemoglobin A1c of 9.7, and creatinine is 0.8. The patient had CT of the pelvis, which showed inflammatory changes in the labia majora, particularly on the right side without abscess. ASSESSMENT: Vaginal candidiasis with ulceration in the left labia. Planned topical analgesic along with antifungal therapy. Thank you for consultation. Salomón Burns MD DNKaren/MODL /[id number]
--- NOTE | 2019-12-29 04:32 | NUR ---
Patient asst to turn q 2 hours. Patient medicated for pain. Continue monitor.
[2019-12-29] MEDS: CEFEPIME 1GM/NS 0.9% 50 ML 50 ML IV SCH ×2 (05:21→17:40)
[2019-12-29] MEDS: CLINDAMYCIN 300MG 50 ML IV SCH ×4 (05:21→23:32)
[2019-12-29 05:47] LABS: BASOPHILS % 0.1 % (0.0-1.0); EOSINOPHILS % 0.3 % (0.0-6.0); HEMOGLOBIN 11.3 g/dL (12.0-16.0); LYMPHOCYTES % 12.6 % (18.0-39.1); MEAN CORPUSCULAR HEMOGLOBIN 28.1 pg (28-32); MEAN CORPUSCULAR HGB CONC 31.4 g/dL (31-35); MEAN CORPUSCULAR VOLUME 89.6 fL (81-99); MONOCYTES # (AUTO) 0.3 (0.2-0.8); MONOCYTES % 3.6 % (4.4-11.3); NEUTROPHILS # (AUTO) 6.3 (2.1-6.9); NEUTROPHILS % 82.9 % (38.7-80.0); PLATELET COUNT 258 x10e3/uL (140-360); RED BLOOD COUNT 4.02 x10e6/uL (3.6-5.1); RED CELL DISTRIBUTION WIDTH 15.5 % (11.7-14.4)
[2019-12-29 06:04] LABS: ANION GAP 11.6 mmol/L (8-16); BLOOD UREA NITROGEN 17 mg/dL (7-26); BUN/CREATININE RATIO 22 (6-25); CALCIUM 8.5 mg/dL (8.4-10.2); CARBON DIOXIDE 27 mmol/L (22-29); CHLORIDE 100 mmol/L (98-107); CREATININE, SERUM 0.78 mg/dL (0.57-1.11); EST GLOMERULAR FILTRATION RATE > 60 ML/MIN (60-); GLUCOSE 198 mg/dL (74-118); POTASSIUM 4.6 mmol/L (3.5-5.1); SODIUM 134 mmol/L (136-145)
--- NOTE | 2019-12-29 07:00 | NUR ---
bedside rounds done. pt is resting in bed , no s/s of distress. call light within reach and bed safety implemented
[2019-12-29] MEDS ORDERED: INSULIN ASPART 70/30 100 UNITS/ML VIAL SC SCH (07:30)
[2019-12-29] MEDS: INSULIN LISPRO 100 UNIT/1 ML 3ML VIAL SQ SCH ×7 (08:00→21:00)
[2019-12-29] MEDS: OMEPRAZOLE 20 MG CAP PO SCH (08:36)
[2019-12-29] MEDS: FLUOXETINE HCL 20 MG CAP PO SCH (08:36)
[2019-12-29] MEDS: FLUCONAZOLE 100 MG TAB PO SCH (08:36)
[2019-12-29] MEDS: ASPIRIN 81 MG CHEW TAB PO SCH (08:36)
[2019-12-29] MEDS: NYSTATIN 15 GM POWDER UD BTL TOP SCH ×2 (08:36→17:40)
[2019-12-29] MEDS: LACTOBACILLUS ACIDOPHILUS CAPSULE PO SCH ×3 (08:38→21:00)
[2019-12-29] MEDS: HYDROCODONE/APAP 7.5MG-325MG 1 EA TAB PO PRN ×2 (12:00→21:18)
--- NOTE | 2019-12-29 15:09 | NUR ---
Nutrition Screen Note RD Recommendation for Physician: - Continue current diet - Recommend outpatient CDE appointment upon discharge for additional DM management education Plan of Care: RD following, monitoring for tolerance and adequacy Nutrition reason for involvement: MD Consult Primary Diagnose(s): labial abscess PMH: DM2, obesity, COPD, HTN, HLD, candidiasis Ht: 54 in Wt: 214 lb BMI: 51.6 kg/m2 IBW: [address] Assessment: (12/29) 74 YOF admitted for a labial abscess seen today per MD consult- no reason listed. Pt with uncontrolled DM and an A1C of 9.6 on admit. Pt sleeping heavily at time of visit, would fall back asleep immediately when able to wake. 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 Pt's son reports pt does not follow DM diet restrictions, checks her BG once a day in am, and is compliant with insulin. Pt's son provided with diet education materials in American as pt is not appropriate for diet education. Chart reviewed. Labs and meds reviewed. Will continue to monitor. Current Diet: 1800 ADA, Renal Malnutrition Evaluation (12/29/19) The patient does not meet criteria for a specified degree of malnutrition at this time. Will re-evaluate at follow-up as appropriate. Diet Education Needs Assessment: Diet education not indicated. Learner(s): pt's son Barriers: pt sleeping at time of visit Cultural/Language Modifications: education materials in American Readiness: pt sleeping, education provided to pt's son Method: handout, discussion Topics: DM2 nutrition therapy Understanding/Compliance: unable to assess pt comprehension, pt's son reports poor diet compliance previously Diet tolerance: tolerating po Nutrition Care Level: low Signed: Emily Stone RD, LD, [facility]
[2019-12-29] MEDS: ENOXAPARIN SOD INJ 40 MG/0.4 ML SYR SC SCH (17:40)
--- NOTE | 2019-12-29 19:00 | NUR ---
Received change of shift report from AM nurse. Walking rounds completed.
--- NOTE | 2019-12-29 19:59 | NUR ---
Patient sitting up in bed with no noted c/o. Denies pain at this time. Continue monitor for changes in patient status.
[2019-12-29] MEDS: SIMVASTATIN 20 MG TAB PO SCH (21:00)
[2019-12-29] MEDS: DIAZEPAM 5 MG TAB PO SCH (21:00)
[2019-12-29] MEDS ORDERED: INSULIN GLARGINE 100 UNITS/ML VIAL SQ SCH (21:00)
[2019-12-30] VITALS (8 sets, daily range): BP systolic 99–143; BP diastolic 49–57
[2019-12-30] MEDS: CEFEPIME 1GM/NS 0.9% 50 ML 50 ML IV SCH ×2 (05:09→18:14)
[2019-12-30] MEDS: MORPHINE SULFATE 2 MG/ML SYR 1ML IV PRN (05:27)
[2019-12-30] MEDS: ONDANSETRON HCL INJ 2MG/ML 2ML 2 MG/ML VIAL IV PRN (05:27)
[2019-12-30] MEDS: CLINDAMYCIN 300MG 50 ML IV SCH ×3 (05:34→18:36)
--- NOTE | 2019-12-30 07:00 | NUR ---
BEDSIDE SHIFT REPORT RECEIVED FROM FAIZAN SHAHID. PT DENIES NEEDS AT THIS TIME.
[2019-12-30] MEDS: LACTOBACILLUS ACIDOPHILUS CAPSULE PO SCH ×3 (09:05→20:22)
[2019-12-30] MEDS: FLUCONAZOLE 100 MG TAB PO SCH (09:05)
[2019-12-30] MEDS: NYSTATIN 15 GM POWDER UD BTL TOP SCH ×2 (09:05→17:35)
[2019-12-30] MEDS: ASPIRIN 81 MG CHEW TAB PO SCH (09:05)
[2019-12-30] MEDS: OMEPRAZOLE 20 MG CAP PO SCH (09:05)
[2019-12-30] MEDS: FLUOXETINE HCL 20 MG CAP PO SCH (09:05)
[2019-12-30] MEDS: INSULIN LISPRO 100 UNIT/1 ML 3ML VIAL SQ SCH ×7 (09:23→20:27)
[2019-12-30] MEDS: ENOXAPARIN SOD INJ 40 MG/0.4 ML SYR SC SCH (16:27)
--- NOTE | 2019-12-30 19:15 | NUR ---
patient received awake, alert, lying quietly in bed. respirations even and unlabored. 02/2l/nc in use. no c/o pain noted. pm assessment complete. call solis placed with in reach. patient instructed to call for assistance when needed.
[2019-12-30] MEDS: SIMVASTATIN 20 MG TAB PO SCH (20:22)
[2019-12-30] MEDS: DIAZEPAM 5 MG TAB PO SCH (20:22)
[2019-12-30] MEDS: INSULIN GLARGINE 100 UNITS/ML VIAL SQ SCH (20:29)
[2019-12-31] VITALS (8 sets, daily range): BP systolic 101–145; BP diastolic 49–67
[2019-12-31] MEDS: CEFEPIME 1GM/NS 0.9% 50 ML 50 ML IV SCH ×2 (05:09→17:01)
[2019-12-31] MEDS: CLINDAMYCIN 300MG 50 ML IV SCH ×5 (06:00→23:15)
--- NOTE | 2019-12-31 07:25 | NUR ---
PATIENT IN BED TALKING ON THE PHONE, NO DISTRESS NOTED. CALL LIGHT AT REACH.
[2019-12-31] MEDS: INSULIN LISPRO 100 UNIT/1 ML 3ML VIAL SQ SCH ×7 (07:30→20:21)
[2019-12-31] MEDS: OMEPRAZOLE 20 MG CAP PO SCH (08:45)
[2019-12-31] MEDS: NYSTATIN 15 GM POWDER UD BTL TOP SCH ×2 (09:51→17:01)
[2019-12-31] MEDS: FLUOXETINE HCL 20 MG CAP PO SCH (09:51)
[2019-12-31] MEDS: FLUCONAZOLE 100 MG TAB PO SCH (09:51)
[2019-12-31] MEDS: ASPIRIN 81 MG CHEW TAB PO SCH (09:51)
[2019-12-31] MEDS: LACTOBACILLUS ACIDOPHILUS CAPSULE PO SCH ×3 (09:51→20:21)
--- NOTE | 2019-12-31 11:03 | NUR ---
HUTCHINS CATHETER DISCONTINUE ORDERED. PATIENT IS DUE TO VOID. PO FLUID ENCOURAGED. CALL LIGHT AT REACH.
--- NOTE | 2019-12-31 14:00 | NUR ---
PATIENT VOIDED LARGE CLEAR YELLOW URINE TO THE TOILET. BACK TO BED WITH CALL LIGHT AT REACH.
--- NOTE | 2019-12-31 15:55 | NUR ---
PATIENT NOTED WITH BLOOD SUGAR OF 45. NO S/S OF HYPOGLYCEMIA NOTED. DEXTROSE 50% GIVEN ORDERED. ORANGE JUICE GIVEN AND WELL TOLERATED. BLOOD SUGAR RECHECKED WITH THE READING OF 227. WILL CLOSELY MONITOR.
--- NOTE | 2019-12-31 16:20 | NUR ---
PATIENT IN BED WATCHING TV, NO S/S OF DISCOMFORT.
[2019-12-31] MEDS: ENOXAPARIN SOD INJ 40 MG/0.4 ML SYR SC SCH (17:01)
--- NOTE | 2019-12-31 19:15 | NUR ---
Patient received awake, alert, siting up in bed. no c/o pain noted. family at the bedside. pm assessment complete. call solis placed within reach. bed alarm remains on for patient safety. patient instructed to call for assistance when needed.
[2019-12-31] MEDS: SIMVASTATIN 20 MG TAB PO SCH (20:21)
[2019-12-31] MEDS: DIAZEPAM 5 MG TAB PO SCH (20:21)
[2019-12-31] MEDS: INSULIN GLARGINE 100 UNITS/ML VIAL SQ SCH (20:23)
[2020-01-01] VITALS: BP 116/58
[2020-01-01 04:00] VITALS: BP 117/55
[2020-01-01] MEDS: CEFEPIME 1GM/NS 0.9% 50 ML 50 ML IV SCH (05:45)
[2020-01-01] MEDS: CLINDAMYCIN 300MG 50 ML IV SCH ×2 (06:00→12:00)
[2020-01-01 07:15] VITALS: BP 136/64
--- NOTE | 2020-01-01 07:15 | NUR ---
PATIENT IN BED RESTING WITH EYES CLOSED, NO DISTRESS NOTED. CALL LIGHT AT REACH.
[2020-01-01] MEDS: INSULIN LISPRO 100 UNIT/1 ML 3ML VIAL SQ SCH ×4 (07:30→11:30)
[2020-01-01 08:00] VITALS: BP 136/64
[2020-01-01] MEDS: OMEPRAZOLE 20 MG CAP PO SCH (08:15)
[2020-01-01] MEDS: NYSTATIN 15 GM POWDER UD BTL TOP SCH (09:19)
[2020-01-01] MEDS: LACTOBACILLUS ACIDOPHILUS CAPSULE PO SCH (09:19)
[2020-01-01] MEDS: ASPIRIN 81 MG CHEW TAB PO SCH (09:19)
[2020-01-01] MEDS: FLUOXETINE HCL 20 MG CAP PO SCH (09:19)
[2020-01-01] MEDS: FLUCONAZOLE 100 MG TAB PO SCH (09:19)
[2020-01-01 11:28] VITALS: BP 122/58
[2020-01-01] MEDS ORDERED: ONDANSETRON HCL 4 MG ORAL DISINTEGRATING TAB PO PRN (11:30)
--- NOTE | 2020-01-01 11:52 | NUR ---
ORDERS FOR HOME HEALTH REC'D CHOICE LETTER SIGNED BY PT FOR [facility] [phone] FAX: [phone] SPOKE WITH JOYA SANTIAGOS FAXED; CONFIRMATION REC'D [place] IMM EXPLAINED TO PT, SIGNED BY PT AND PLACED IN CHART COPY OF CHOICE LETTER AND IMM PUT IN PT CARE TRANSITION FOLDER TRANSLATION PHONE USED FOR COMMUNICATION
[2020-01-01] MEDS: HYDROCODONE/APAP 7.5MG-325MG 1 EA TAB PO PRN (12:25)
[2020-01-01] MEDS ORDERED: DIFLUCAN100 MG PO (12:40)
[2020-01-01] MEDS ORDERED: KEFLEX500 MG (12:41)
--- NOTE | 2020-01-01 13:02 | NUR ---
PATIENT C/O PAIN, MEDICATED. NO FURTHER C/O PAIN. SITTING AT BED SIDE EATING LUNCH, CALL LIGHT AT REACH.
--- NOTE | 2020-01-01 13:25 | NUR ---
PATIENT DISCHARGED HOME. DISCHARGE INSTRUCTION, PRESCRIPTIONS, AND FOLLOW UP GIVEN TO PATIENT AND SON, THEY VERBALIZED UNDERSTANDING. IV TO RIGHT WRIST REMOVED WITH TIP INTACT. ALL PERSONAL ITEMS TAKEN WITH PATIENT. LEFT UNIT PER WHEEL CHAIR TO FRONT LOBBY IN STABLE CONDITION.
--- NOTE | 2020-01-02 06:08 | Discharge Summary ---
PRIMARY CARE PHYSICIAN: Dr. North Rousseau. CONSULTANTS: Dr. Alfredito Valdez, Dr. Salomón Burns. FINAL DIAGNOSES: 1. Bilateral labial infection secondary to urinary incontinent and swelling associated with candidiasis. 2. Morbidly obese with diabetes type 2, on insulin therapy at home. The patient glycohemoglobin A1c was 9.6. 3. Chronic multiple medical problems. SUMMARY: The patient is 74 years female, came in with labial infection. The patient had a CT of the pelvis showed that she has subtle focal inflammatory changes in the area of the right labia majora without any obvious abscess. The patient is otherwise stable. She was incontinent and a Espinoza catheter placed and the healing much improved. Espinoza catheter was discontinued and urinary bladder training given to the patient. Discussed with the patient at length regarding using the bathroom instead of depending on the diaper at all time. She may use a diaper, but she need to go to the bathroom more frequently. The patient is otherwise stable. She will go home with Diflucan 100 mg once a day for 10 days, Keflex 500 mg t.i.d. for 10 days. The patient will resume home medication. Discussed with the patient regarding diabetic treatment. The patient expressed understanding. She will follow up with Dr. North Rousseau, her family physician within a week. The patient is stable, discharged today. MD STEVEN Tovar/MODL /[id number]
== END 2020-01-01 13:22 | disposition home or self-care (01) | DRG 758 ==
LOC: ER 16:37 → ERHOLD 17:49 → MED/SURG3 21:57
PROVIDERS: ADMIT Internal Medicine; ATTEND Internal Medicine
DX: N76.4 Abscess of vulva (principal); Z68.43 Body mass index [BMI] 50.0-59.9, adult; B37.3 Candidiasis of vulva and vagina; E11.9 Type 2 diabetes mellitus without complications; E66.01 Morbid (severe) obesity due to excess calories; Z71.3 Dietary counseling and surveillance
CPT/HCPCS: 36415; 72193; 80048; 80053; 81001; 82948; 83036; 84439; 84443; 85025; 87040; 87086; 87186; 99284; J0692; J1650; J1815; J1817; J2270; J2405; J7040; J7050; J7799; Q9967

== ENCOUNTER 2020-04-07 09:18 | Observation (INO) | payer OTHER ==
[~2020-04-07] VITALS: Ht 137.2 cm; Wt 100.4 kg
[~2020-04-07 09:18] MED LIST changes: +ACETAMINOPHEN650 M3 PO; +ATORVASTATIN CA20 MG PO; +CALCIUM 600 +1 EAC3 PO; +CENTRUM SILVER1 EAC3 PO; +DIFLUCAN100 MG PO; +KEFLEX500 MG; +LASIX40 MG PO; +LOSARTAN POTASS25 MG PO; +LUTEIN-ZEAXANT1 EACH PO
[2020-04-07] MEDS ORDERED: ASPIRIN 81 MG CHEW TAB PO ONE ×2 (09:30→12:15)
[2020-04-07 09:52] LABS: BASOPHILS % 0.2 % (0.0-1.0); EOSINOPHILS % 0.3 % (0.0-6.0); HEMATOCRIT 39.6 % (34.2-44.1); HEMOGLOBIN 12.4 g/dL (12.0-16.0); LYMPHOCYTES # (AUTO) 1.6 (1.0-3.2); LYMPHOCYTES % 15.7 % (18.0-39.1); MEAN CORPUSCULAR HEMOGLOBIN 26.5 pg (28-32); MEAN CORPUSCULAR HGB CONC 31.3 g/dL (31-35); MEAN CORPUSCULAR VOLUME 84.6 fL (81-99); MONOCYTES # (AUTO) 0.8 (0.2-0.8); MONOCYTES % 7.5 % (4.4-11.3); NEUTROPHILS # (AUTO) 7.8 (2.1-6.9); NEUTROPHILS % 76.1 % (38.7-80.0); PLATELET COUNT 277 x10e3/uL (140-360); RED BLOOD COUNT 4.68 x10e6/uL (3.6-5.1); RED CELL DISTRIBUTION WIDTH 15.9 % (11.7-14.4)
[2020-04-07 10:12] LABS: ALANINE AMINOTRANSFERASE 14 IU/L (0-55); ALBUMIN 3.3 g/dL (3.5-5.0); ALBUMIN/GLOBULIN RATIO 0.9 (0.8-2.0); ALKALINE PHOSPHATASE 77 IU/L (40-150); ANION GAP 13.7 mmol/L (8-16); BLOOD UREA NITROGEN 13 mg/dL (7-26); BUN/CREATININE RATIO 15 (6-25); CALCIUM 8.9 mg/dL (8.4-10.2); CARBON DIOXIDE 30 mmol/L (22-29); CHLORIDE 100 mmol/L (98-107); CREATINE KINASE 74 IU/L (29-168); CREATININE, SERUM 0.87 mg/dL (0.57-1.11); EST GLOMERULAR FILTRATION RATE > 60 ML/MIN (60-); GLUCOSE 222 mg/dL (74-118); POTASSIUM 3.7 mmol/L (3.5-5.1); SODIUM 140 mmol/L (136-145)
--- NOTE | 2020-04-07 10:32 | Diagnostic Imaging Report ---
EXAMINATION: CHEST SINGLE (PORTABLE) INDICATION: Fever COMPARISON: Chest radiograph 11/01/2018 FINDINGS: LINES/TUBES:EKG leads overlie the chest. LUNGS:The lungs are moderately inflated. No focal consolidation or pulmonary edema. PLEURA:No pleural effusion or pneumothorax. MEDIASTINUM:The cardiomediastinal silhouette appears unchanged in size and shape. Atherosclerotic calcifications of the thoracic aorta. BONES/SOFT TISSUES:No acute osseous injury. ABDOMEN:No free air under the diaphragm. IMPRESSION: No focal pneumonia or pulmonary edema. Signed by: Rivera Martino MD on 04/07/2020 10:29 AM
[2020-04-07] MEDS: LEVOFLOXACIN 750MG/D5W 150ML 150 ML IV SCH (10:40)
[2020-04-07 10:42] LABS: STREPTOCOCCUS GRP A ANTIGEN NEGATIVE (NEGATIVE)
[2020-04-07 10:53] LABS: INFLUENZAE A&B ANTIGEN (RAPID) NEGATIVE (NEGATIVE)
[2020-04-07] MEDS ORDERED: BENZONATATE100 MG PO (12:30)
[2020-04-07] MEDS ORDERED: CLINDAMYCIN HC150 MG PO (12:30)
--- NOTE | 2020-04-07 12:45 | NUR ---
home medications reconcilled.
[2020-04-07] MEDS ORDERED: ACETAMINOPHEN 325 MG TAB PO STA (14:27)
[2020-04-07] MEDS ORDERED: DEXTROSE 50% SYRINGE 50 ML IV PRN (15:45)
--- NOTE | 2020-04-07 15:55 | NUR ---
Report given to Radha GLORIA with inpatient psych of patient's status Addendum: 04/07/20 at 1928 by PERLITA REY RN ERROR
--- NOTE | 2020-04-07 16:28 | NUR ---
Received patient from ER via stretcher. AAOX4 to time, person, place, situation. Respirations even and unlabored. On room Air [id number] Tele #[phone]. Oriented patient to room. Instructed to use call light for assistance. Voiced understanding.
[2020-04-07 16:57] VITALS: BP 107/55
[2020-04-07 17:00] VITALS: BP 107/55
[2020-04-07] MEDS: INSULIN REGULAR, HUMAN 100 UNIT/1 ML 3ML VIAL SQ SCH ×2 (17:29→22:41)
[2020-04-07] MEDS ORDERED: BENGAY113 GM TOP (17:47)
[2020-04-07] MEDS ORDERED: DIABETIC TUSSI118 ML PO (17:47)
--- NOTE | 2020-04-07 19:15 | NUR ---
Report given to oncoming nurse of patient's status. Resting in bed AAOX4 to time, person,place, situation, croatian speaking. Respirations even and unlabored. O2 2L NC. Oncoming nurse aware patient due to void. Side rails upx2, call light within reach.
[2020-04-07 20:00] VITALS: BP 102/55
[2020-04-07] MEDS ORDERED: ACETAMINOPHEN 325 MG TAB ONE (21:37)
[2020-04-07] MEDS: ACETAMINOPHEN 325 MG TAB PO PRN (21:46)
[2020-04-08] VITALS (7 sets, daily range): BP systolic 106–129; BP diastolic 54–73
[2020-04-08] MEDS ORDERED: ONDANSETRON HCL INJ 2MG/ML 2ML 2 MG/ML VIAL IV PRN
[2020-04-08] MEDS ORDERED: ALBUTEROL/IPRATROPIUM 3 ML NEB NEB PRN
[2020-04-08] MEDS: GUAIFENESIN 600MG/DEXTROMETHORPHAN 30MG TABSR PO SCH ×6 (00:50→17:11)
--- NOTE | 2020-04-08 00:50 | NUR ---
CARDIAC ENZYME LAB DRAWN W/O DIFFICULTY, SENT TO LAB AWAITING RESULT
[2020-04-08 01:38] LABS: CREATINE KINASE MB 2.4 ng/mL (0-5.0)
[2020-04-08] MEDS: ALBUTEROL/IPRATROPIUM 3 ML NEB NEB SCH ×2 (02:45→07:24)
[2020-04-08 05:24] LABS: BASOPHILS % 0.2 % (0.0-1.0); EOSINOPHILS # (AUTO) 0.1 (0.0-0.4); EOSINOPHILS % 1.1 % (0.0-6.0); HEMATOCRIT 39.7 % (34.2-44.1); HEMOGLOBIN 12.1 g/dL (12.0-16.0); LYMPHOCYTES # (AUTO) 2.1 (1.0-3.2); MEAN CORPUSCULAR HEMOGLOBIN 26.4 pg (28-32); MEAN CORPUSCULAR HGB CONC 30.5 g/dL (31-35); MEAN CORPUSCULAR VOLUME 86.7 fL (81-99); MONOCYTES # (AUTO) 1.1 (0.2-0.8); MONOCYTES % 10.5 % (4.4-11.3); NEUTROPHILS # (AUTO) 7.1 (2.1-6.9); NEUTROPHILS % 67.9 % (38.7-80.0); PLATELET COUNT 208 x10e3/uL (140-360); RED BLOOD COUNT 4.58 x10e6/uL (3.6-5.1); RED CELL DISTRIBUTION WIDTH 16.1 % (11.7-14.4)
[2020-04-08] MEDS: ACETAMINOPHEN 325 MG TAB PO PRN ×2 (05:51→21:25)
[2020-04-08 05:58] LABS: CREATINE KINASE MB 2.3 ng/mL (0-5.0)
[2020-04-08 06:30] LABS: ALBUMIN 2.8 g/dL (3.5-5.0); ALBUMIN/GLOBULIN RATIO 0.8 (0.8-2.0); ANION GAP 10.5 mmol/L (8-16); CREATININE, SERUM 1.01 mg/dL (0.57-1.11); POTASSIUM 4.5 mmol/L (3.5-5.1)
--- NOTE | 2020-04-08 06:55 | NUR ---
A PRECAUTION PATIENT IS TO BE MOVED TO COVID UNIT PER MD REQUEST. CNO AWARE. PM NURSE TO PASS IN REPORT TO AM NURSE TO MOVE PATIENT TO OBS RM#[phone]. PATIENT COVID TEST PENDING
[2020-04-08] MEDS ORDERED: SODIUM CHLORIDE 0.9% 250ML 250 ML ONE (08:54)
[2020-04-08] MEDS: INSULIN REGULAR, HUMAN 100 UNIT/1 ML 3ML VIAL SQ SCH ×4 (09:13→21:00)
[2020-04-08] MEDS: FLUOXETINE HCL 20 MG CAP PO SCH (09:14)
[2020-04-08] MEDS: BENZONATATE 100 MG CAP PO SCH ×3 (09:14→21:00)
[2020-04-08] MEDS: LEVOFLOXACIN 750MG/D5W 150ML 150 ML IV SCH (09:14)
[2020-04-08] MEDS: INSULIN ASPART 70/30 100 UNITS/ML VIAL SC SCH ×2 (09:15→16:30)
--- NOTE | 2020-04-08 09:25 | NUR ---
ASSUMED CARE AT APPROXIMATELY 0905. PATIENT AAOX3. ACYANOTIC. RESTING IN BED. O2 AT 4L NC. NO DISTRESS NOTED. CALL LIGHT IN REACH. SIDE RAILS UP X2. PATIENT'S RELATIVE, ELIDA WAS ON TELEPHONE WITH PATIENT AND TRANSLATED COMMUNICATION BETWEEN MYSELF AND PATIENT ABOUT TODAY'S PLAN, MEDICATIONS I HAD TO ADMINISTER AND HOW TO USE CALL LIGHT FOR ASSISTANCE. PATIENT VERBALIZED UNDERSTANDING.
--- NOTE | 2020-04-08 09:59 | Diagnostic Imaging Report ---
X-ray chest AP portable Comparison: 04/07/2020 History: Altered mental status, fever. Findings: Central airways unremarkable. Heart size borderline enlarged. No definite pleural effusion. No pneumothorax. Poor respiratory effort leads to crowding of the vascular markings in the lungs. No definite focal lung disease. No acute changes in the visualized skeleton are upper abdomen. Impression: No acute disease on this exam. Signed by: Arturo Burns MD on 04/08/2020 9:56 AM
[2020-04-08] MEDS ORDERED: FUROSEMIDE INJ 10 MG/ML 4 ML VIAL IV ONE (11:25)
[2020-04-08] MEDS: LORATADINE 10 MG TAB PO SCH (11:56)
[2020-04-08] MEDS ORDERED: IPRATROPIUM/ALBUTEROL SULFATE 4 GM INH INH PRN (12:45)
[2020-04-08] MEDS: IPRATROPIUM/ALBUTEROL SULFATE 4 GM INH INH SCH ×2 (14:00→19:42)
--- NOTE | 2020-04-08 17:22 | NUR ---
REPORT RECEIVED BY FAIZAN SARKAR FOR PATIENT'S TRANSFER OFF THIS UNIT TO BED 207.
--- NOTE | 2020-04-08 20:30 | NUR ---
report received on patient at this time. patient awake, lying quietly in bed. vss. no c/o pain noted. call [facility]is placed within reach. patient instructed to call for assistance when needed.
[2020-04-08] MEDS ORDERED: SODIUM CHLORIDE 0.9% 50ML 50 ML ONE (20:48)
[2020-04-08] MEDS ORDERED: IOPAMIDOL 370 MG/ML 200 ML INFUS..BTL INJ ONE (20:48)
--- NOTE | 2020-04-08 20:49 | NUR ---
patient to ct via bed for ct abd/pelvis r/o infection at this time.
[2020-04-08] MEDS ORDERED: DIAZEPAM 5 MG TAB PO SCH (21:00)
[2020-04-08] MEDS ORDERED: ATORVASTATIN 40 MG TAB PO SCH (21:00)
--- NOTE | 2020-04-08 21:10 | NUR ---
patient returned to room from ct via bed.
--- NOTE | 2020-04-08 21:25 | NUR ---
patient medicated with tylenol 650mg po for c/o headache 04/10 at this time.
--- NOTE | 2020-04-08 22:00 | NUR ---
report on this patient given to Cornell Lara RN at this time.
--- NOTE | 2020-04-08 22:26 | Diagnostic Imaging Report ---
EXAM: CT Abdomen and Pelvis WITH contrast INDICATION: Fever, cough, short of breath, rule out infection COMPARISON: Abdominal CT 02/15/2018 TECHNIQUE: Abdomen and pelvis were scanned utilizing a multidetector helical scanner from the lung base to the pubic symphysis after administration of IV contrast. Coronal and sagittal reformations were obtained. Routine protocol was performed. Scan was performed when during portal venous phase. IV CONTRAST: 100 mL of Isovue 370 ORAL CONTRAST: None COMPLICATIONS: None RADIATION DOSE: Total DLP: 1212 mGy*cm Estimated effective dose: (DLP x 0.015 x size factor) mSv CTDIvol has been reviewed. It is below the limits set by the Radiation Protocol Committee (RPC). Dose modulation, iterative reconstruction, and/or weight based adjustment of the mA/kV was utilized to reduce the radiation dose to as low as reasonably achievable. FINDINGS: LINES and TUBES: None. LOWER THORAX: Left coronary artery calcific atherosclerosis. Aortic valve calcifications. Mild bibasilar atelectasis. HEPATOBILIARY: No focal hepatic lesions. No biliary ductal dilation. GALLBLADDER: No radio-opaque stones or sludge. No wall thickening. SPLEEN: No splenomegaly. PANCREAS: No focal masses or ductal dilatation. ADRENALS: No adrenal nodules KIDNEYS/URETERS: Kidneys enhance symmetrically. No hydronephrosis. tiny right renal hypodensity, too small to characterize, likely benign No stones. GI TRACT: No abnormal distention, wall thickening, or evidence of bowel obstruction. Appendix is not seen, no inflammation in the right lower quadrant.. PELVIC ORGANS/BLADDER: Unremarkable uterus. No adnexal masses. Urinary bladder unremarkable. . LYMPH NODES: No lymphadenopathy. VESSELS: Arterial calcifications. PERITONEUM / RETROPERITONEUM: No free air or fluid. BONES: Mild L2 vertebral body compression fracture, slightly worse compared to 02/15/2018. Degenerative changes. SOFT TISSUES: Increased size of a fat-containing periumbilical hernia with subtle associated edema. Bilateral gluteal subcutaneous calcified granulomas.. IMPRESSION: 1. Increased size of a fat-containing periumbilical hernia with subtle associated edema, correlate for point tenderness 2. Colonic diverticulosis with no diverticulitis. 3. Left coronary artery calcific atherosclerosis.. 4. Mild L2 vertebral body compression fracture, slightly worse compared to 02/15/2018 Signed by: Grant Chacon DO on 04/08/2020 10:22 PM
[2020-04-09] MEDS: IPRATROPIUM/ALBUTEROL SULFATE 4 GM INH INH SCH ×3 (00:57→12:36)
[2020-04-09 05:47] VITALS: BP 139/65
[2020-04-09] MEDS: GUAIFENESIN 600MG/DEXTROMETHORPHAN 30MG TABSR PO SCH ×3 (06:00→12:09)
[2020-04-09] MEDS: ACETAMINOPHEN 325 MG TAB PO PRN (06:58)
[2020-04-09] MEDS: INSULIN REGULAR, HUMAN 100 UNIT/1 ML 3ML VIAL SQ SCH (07:30)
[2020-04-09 08:16] VITALS: BP 175/77
[2020-04-09] MEDS: LEVOFLOXACIN 750MG/D5W 150ML 150 ML IV SCH (08:48)
[2020-04-09] MEDS: LORATADINE 10 MG TAB PO SCH (08:49)
[2020-04-09] MEDS: FLUOXETINE HCL 20 MG CAP PO SCH (08:49)
[2020-04-09] MEDS ORDERED: FUROSEMIDE INJ 10 MG/ML 4 ML VIAL IV SCH (09:00)
--- NOTE | 2020-04-09 09:50 | NUR ---
/Chanell here to see pt.
[2020-04-09] MEDS ORDERED: FUROSEMIDE INJ 10 MG/ML 4 ML VIAL IV ONE (10:00)
[2020-04-09] MEDS: BENZONATATE 100 MG CAP PO SCH (10:52)
[2020-04-09 11:04] VITALS: BP 175/77
--- NOTE | 2020-04-09 14:00 | NUR ---
pt alert resp even no distress noted at this time, pt discharged, home with family members, pt given prescription and medications and pt was educated on medications, pt iv site removed no swelling no redness to site.
--- NOTE | 2020-04-11 09:53 | Discharge Summary ---
The patient is on observation. FINAL DIAGNOSES: 1. Upper respiratory infection. COVID-19 negative. 2. Allergic rhinitis associated with wheezing and cough much improved. 3. Acute on chronic diastolic dysfunction congestive heart failure with fluid overload. SUMMARY: A 75-year-old morbidly obese female with chronic heart failure, diastolic dysfunction. The patient is morbidly obese with pulmonary hypertension. She has taken oral Lasix 80 mg once a day. The patient again came in because she was worried that she may have the coronavirus. The patient in the emergency room, she was stable, she was doing okay, but because of her low-grade fever and cough, the patient wanted the coronavirus test and that was done and which came back to be negative. She was started on oral antibiotics and giving cough medication and also decongestant. The patient is doing much better today. She will get extra dose of IV furosemide since the patient did not take oral medication. The patient is stable. She will go home today. Resume home medication. Levaquin 500 mg daily for 7 days, Cheratussin AC 5 mL q.4h p.r.n. for cough, Claritin-D 24 hours one tab as needed for sinus congestion. The patient is stable. Resume her other usual home medication. The patient will be discharged home today after furosemide IV. MD STEVEN Tovar/LIAM /[id number]
--- NOTE | 2020-04-11 09:58 | Progress Note ---
DATE: SUBJECTIVE: Ms. Watkins is doing better. REVIEW OF SYSTEMS: HEENT: Negative. PULMONARY: Negative. CARDIAC: Negative. GI: Negative. There is no cough. No shortness of breath. PHYSICAL EXAMINATION: GENERAL: She is currently alert, oriented, does not seem to be in acute distress. VITAL SIGNS: Stable. Afebrile. HEENT: She is not icteric. NECK: Supple. CHEST: Clear. HEART: S1, S2. ABDOMEN: Soft. Bowel sounds present. No tenderness. No hepatosplenomegaly. EXTREMITIES: No edema. SKIN: No rash. LABORATORY DATA: Cultures were negative. White count is 10.53, hemoglobin of 12. The patient with fever and chills on admission, so far workup is negative. CAT scan showed periumbilical hernia, diverticulosis. Chest x-ray was negative. COVID-19 was negative. Influenza is negative. IMPRESSION: Fever, clinically stable, probably viral illness, so far workup is negative, could be discharged home. Discontinue antibiotic. MD CLINT Mendez/LIAM /[id number]
--- NOTE | 2020-04-11 10:08 | Consultation ---
DATE OF CONSULTATION: HISTORY OF PRESENT ILLNESS: This is a 75-year-old female, history of diabetes mellitus, history of hypertension, and obesity, comes in the emergency room with 4 days of cough and pain in the right side of the chest as well as right upper quadrant. She denies any fever and chills. She denies any contact with any one with COVID-19. The patient is being admitted to be ruled out for COVID-19. PAST MEDICAL HISTORY: Hypertension, diabetes, and obesity. PAST SURGICAL HISTORY: She denies. ALLERGIES: NKA. SOCIAL HISTORY: Otherwise, no smoking, drug abuse, or alcohol abuse. FAMILY HISTORY: Noncontributory. REVIEW OF SYSTEMS: At present time, HEENT: Negative. PULMONARY: Negative. CARDIAC: Negative except the pain, which as mentioned and dry cough, she denies any. LABORATORY DATA: White count 10.53, hemoglobin 12, and her platelet 258. Her COVID-19 was negative. Influenza A and B negative. MEDICATIONS: She is currently on Claritin, insulin, and levofloxacin. PHYSICAL EXAMINATION: GENERAL: She is currently alert and oriented. Does not seem to be in acute distress. VITAL SIGNS: Stable, currently afebrile. HEENT: She is not icteric. NECK: Supple. CHEST: Clear bilateral. HEART: S1 and S2. No S3, S4, or murmur. ABDOMEN: Soft. Bowel sounds present. No tenderness. EXTREMITIES: No edema. SKIN: No rash. IMPRESSION: Abdominal pain, chest pain, cough, concerned about abdominal process. We will obtain CAT scan of abdomen and pelvis. Agree with Levaquin for the time being. Recheck liver enzyme and discontinue isolation, and we will follow with you. MD CLINT Mendez/MODL /[id number]
== END 2020-04-09 14:02 | disposition home or self-care (01) ==
LOC: ER 09:18 → ERHOLD 09:28 → MED/SURG2 16:43 → IMCU 04-08 08:32 → MED/SURG2 04-08 18:30
PROVIDERS: ADMIT Internal Medicine; ATTEND Internal Medicine
DX: J06.9 Acute upper respiratory infection, unspecified (principal); I11.0 Hypertensive heart disease with heart failure; Z03.818 Encounter for observation for suspected exposure to other biological agents ruled out; J30.9 Allergic rhinitis, unspecified; I50.33 Acute on chronic diastolic (congestive) heart failure
CPT/HCPCS: 36415 ×2; 71045 ×2; 74177; 80053 ×2; 82550 ×2; 82553 ×2; 82948 ×3; 83518; 83880; 84484 ×2; 85025 ×2; 87040; 87070; 87400; 87635; 93005; 94640 ×2; 96372; 99285; G0378 ×3; J1815 ×2; J1817 ×2; J1940 ×2; J2405; J7050; Q9967

== ENCOUNTER 2020-04-28 15:05 | Emergency (ER) | payer OTHER ==
[~2020-04-28] VITALS: Ht 137.2 cm; Wt 100.2 kg
[~2020-04-28 15:05] MED LIST changes: +BENGAY113 GM TOP; +BENZONATATE100 MG PO; +CLINDAMYCIN HC150 MG PO; +DIABETIC TUSSI118 ML PO
--- OUTSIDE RECORDS SUMMARY | 2020-04-28 15:09 | XMS REPORT ---
Author Author [facility] t Organization [facility] Address [address] Ernandez [address] [place] [id number] Phone Unavailable Care Team Providers Care Harness Brusher Name Role Phone MARIA E NUNEZ, MD [place] PCP LILLI, RENZO Attphys Unavailable SANDHIR, AMBICA Attphys Unavailable SWEET, A LAIRD Attphys Unavailable HUSBY, T JEAN CLAUDE Attphys Unavailable KILLAM, MEKHI Attphys Unavailable REEDER, RENZO Admphys Unavailable KILLAM, MEKHI Admphys Unavailable Payers Payer Name Policy Type Policy Number Effective Date Expiration Date Oscar Noonan Plus NA 2019 00:00:00 [facility] Medicare [id number] 2008 00:00[facility]00 [facility] [id number] 2017 00:00:00 [facility] Problems Condition Name Condition Details Condition Category Status Onset Date Resolution Date Last Treatment Date Treating Clinician Comments Source Diabetes mellitus Diabetes Problem Active 2015-11-04 00:00:00 [facility] Dyspnea Dyspnea Problem Active 2015-11-04 00:00:00 [facility] Fever Fever Problem Active 2015-11-04 00:00:00 [facility] Upper respiratory tract infection Upper respiratory infection Probl em Active 2015-11-04 00:00:00 [facility] Contusion of flank Contusion of flank and back Problem Active [facility] Cough Cough Problem Active [facility] Fall Fall Problem Active [facility] Hypoglycemia Hypoglycemia Problem Active [facility] Urinary tract infection UTI (urinary tract infection) Problem Active [facility] Allergies, Adverse Reactions, Alerts Allergy Name Allergy Type Status Severity Reaction(s) Onset Date Inacti ve Date Treating Clinician Comments Source Penicillin Allergy to substance Active Mild 2018-02-15 00:00:00 [facility] Social History Social Habit Start Date Stop Date Quantity Comments Source Sex Assigned At 1945 00:00:00 1945 00:00:00 Female [facility] Medications Ordered Medication Name Filled Medication Name Start Date Stop Da te Current Medication? Ordering Clinician Indication Dosage Frequency Signature (SIG) Comments Components Source Guaifenesin/Dextromethorphan (Mucinex Dm Er 600-30 Mg Tablet) 1 Each TAB.ER.12H Guaifenesin/Dextromethorphan (Mucinex Dm Er 600-30 Mg Tablet) 1 Each TAB.ER.12H 2018-02-17 10:26:00 Yes 1 Every 6 Hours [facility] Azithromycin (Zithromax) 500 Mg TABLET Azithromycin (Zithrom ax) 500 Mg TABLET 2018-02-17 10:26:00 2019-12-28 00:00:00 No 500 Daily [facility] Ceftin Ceftin 2018-02-17 10:26:00 2019-12-28 00:00:00 No 50 0 Twice A Day [facility] Levofloxacin (Levaquin) 500 Mg TABLET Levofloxacin (Levaquin ) 500 Mg TABLET 2015-11-09 15:07:00 2018-02-17 00:00:00 No 500 Daily [facility] Acetaminophen (Acetaminophen 8 Hour) 650 Mg TABLET.ER Acetaminophen (Acetaminophen 8 Hour) 650 Mg TABLET.ER Yes 2 Twice A Day [facility] Atorvastatin Calcium Atorvastatin Calcium Yes 40 Bedtime [facility] Benzonatate Benzonatate Yes 100 Three Times A Da y [facility] Calcium Carbonate/Vitamin D3 (Calcium 600 + Vit D Tabl et) 1 Each TABLET Calcium Carbonate/Vitamin D3 (Calcium 600 + Vit D Tablet) 1 Each TABLET Yes 1 Daily [facility] Diazepam (Valium) 5 Mg TABLET Diazepam (Valium) 5 Mg TABLET Yes 5 Bedtime [facility] Fluoxetine Hcl Fluoxetine Hcl Yes 20 Daily [facility] Furosemide (Lasix) 40 Mg TABLET Furosemide (Lasix) 40 Mg TABLET Yes 80 Daily [facility] Guaifenesin/Dextromethorphan (Diabetic Tussin Dm Liqui d) 118 Ml LIQUID Guaifenesin/Dextromethorphan (Diabetic Tussin Dm Liquid) 118 Ml LIQUID Yes 10 Every 6 Hours [facility] Insulin Aspart (Novolog 70/30 10ML Vial) 100 Units/Ml ML Insulin Aspart (Novolog 70/30 10ML Vial) 100 Units/Ml ML Yes 35 Twice A Day [facility] Losartan Potassium Losartan Potassium Yes 50 Da darvin [facility] Lutein/Zeaxanthin (Lutein-Zeaxanthin 25-5 Mg Sfgl) 1 E ach CAPSULE Lutein/Zeaxanthin (Lutein-Zeaxanthin 25-5 Mg Sfgl) 1 Each CAPSULE Yes 1 Daily [facility] Menthol ([facility]) 113 Gm GEL..GRAM. Menthol (Bengay) 113 Gm GEL..GRAM. Yes 1 As Needed [facility] Mu-Vits-Min Th/Lycopene/Lutein (Centrum Silver Tablet) 1 Each TABLET Mu-Vits-Min Th/Lycopene/Lutein (Centrum Silver Tablet) 1 Each TABLET Yes 1 Daily [facility] Omeprazole Magnesium (Prilosec Otc) 20 Mg TABLET.DR Geol eprazole Magnesium (Prilosec Otc) 20 Mg TABLET. Yes 20 Daily [facility] Clindamycin Hcl Clindamycin Hcl 2020-04-09 00:00:00 No 150 Every 8 Hours [facility] Aspirin (Aspir 81) 81 Mg TABLET. Aspirin (Aspir 81) 81 Mg TABL ET. 2020-04-07 00:00:00 No 81 Daily [facility] Cephalexin Monohydrate (Keflex) 500 Mg CAPSULE Cephale jazzmine Monohydrate (Keflex) 500 Mg CAPSULE 2020-04-07 00:00:00 No 500 Three Davey es A Day [facility] Fluconazole (Diflucan) 100 Mg TABLET Fluconazole (Diflucan) 100 Mg TABLET 2020-04-07 00:00:00 No 100 Daily [facility] Insulin Aspart (Novolog Mix 70-30 Vial) 100 Units/Ml M L Insulin Aspart (Novolog Mix 70-30 Vial) 100 Units/Ml ML 2020-04-07 00:00:00 No 40 Before Breakfast [facility] Potassium Chloride (K-Dur) 20 Meq TAB.ER.PRT Potassium Chloride (K-Dur) 20 Meq TAB.ER.PRT 2020-04-07 00:00:00 No Daily [facility] Tramadol/Acetaminophen (Tramadol-Acetaminophn 37.5-325 ) 1 Ea TAB Tramadol/Acetaminophen (Tramadol-Acetaminophn 37.5-325) 1 Ea TAB 2020-04-07 00:00:00 No 1 As Needed [facility] Acetaminophen (Tylenol) 325 Mg TABLET Acetaminophen (Tylenol) 32 5 Mg TABLET 2019-12-28 00:00:00 No 325 Every 4 Hours as nee ded [facility] Ergocalciferol (Vitamin D2) (Vitamin D2) 50,000 Unit C APSULE Ergocalciferol (Vitamin D2) (Vitamin D2) 50,000 Unit CAPSULE 2019-12-28 00:00:00 No 1 Weekly [facility] Furosemide (Lasix) 40 Mg TABLET Furosemide (Lasix) 40 Mg TABLET 2019-12-28 00:00:00 No 40 Daily [facility] Simvastatin (Zocor) 20 Mg TABLET Simvastatin (Zocor) 20 Mg TABLE T 2019-12-28 00:00:00 No 20 Daily [facility] Valsartan (Diovan) 320 Mg TABLET Valsartan (Diovan) 320 Mg TABLE T 2019-12-28 00:00:00 No 160 Daily [facility] Levofloxacin (Levaquin) 500 Mg TABLET Levofloxacin (Levaquin) 50 0 Mg TABLET 2018-02-17 00:00:00 No 500 Daily [facility] Metformin Hcl (Glucophage) 500 Mg TABLET Metformin Hcl (Glucophage) 500 Mg TABLET 2018-02-17 00:00:00 No 1000 Twice Daily Break fast & Supper [facility] Rivaroxaban (Xarelto) 10 Mg TABLET Rivaroxaban (Xarelto) 10 Mg T ABLET 2015-11-04 00:00:00 No 15 Twice A Day [facility] Fluoxetine Hcl Fluoxetine Hcl 2015-02-21 00:00:00 No 10 Daily [facility] Insulin Aspart (Novolog) 100 Unit/1 Ml CARTRIDGE Insul in Aspart (Novolog) 100 Unit/1 Ml CARTRIDGE 2014-06-11 00:00:00 No 25 Pm H ypoglycemic [facility] Diazepam (Valium) 5 Mg/1 Ml VIAL Diazepam (Valium) 5 Mg/1 Ml VIA L 2012-07-23 00:00:00 No Daily as needed [facility] Vital Signs Vital Name Observation Time Observation Value Comments Source Body Temperature 2020-04-09 11:04:00 100.2 [degF] [facility] Weight 2020-04-07 17:40:00 221.31 [lb_av] [facility] BMI (Body Mass Index) 2020-04-07 17:40:00 53.4 kg/m2 [facility] Procedures Procedure Date / Time Performed Performing Clinician [facility] e Computed tomography of abdomen and pelvis with contrast 00:00:00 [facility] Computed tomography of pelvis with contrast 2019-12-27 00:00:00 SUZANNE CARRILLO [facility] Computed tomography of brain without radiopaque contrast 00:00:00 MARTHA MORRIS [facility] Computed tomography of cervical spine without contrast 12-04 00:00:00 MARTHA MORRIS [facility] Plan of Care Planned Activity Planned Date Details Comments Source Instructions Diabetes and Diet [facility] Instructions Upper Respiratory Infection - Adult [facility] Encounters Start Date/Time End Date/Time Encounter Type Admission Type [facility] Care Facility Care Department Encounter ID Source 2020-04-07 09:28:00 2020-04-09 14:02:00 Discharged Inpatient (obs) 1 RENZO REEDER [facility] [id number] [facility] 2019-12-27 16:49:00 2020-01-01 12:22:00 Discharged Inpatient 1 RENZO REEDER [facility] [id number] [facility] 2019-12-18 13:27:00 2019-12-18 15:15:00 Departed Emergency Room [facility] [id number] [facility] 2019-12-04 17:05:00 2019-12-04 20:10:00 Departed Emergency Room 1 SHAYLEE MORROW [facility] [id number] [facility] 2019-05-19 00:23:00 2019-05-19 02:46:00 Departed Emergency Room [facility] [id number] [facility] 2018-11-01 00:53:00 2018-11-01 05:47:00 Departed Emergency Room 1 KRISTEN COLVIN [facility] [id number] [facility] 2018-03-24 13:37:00 2018-03-24 20:41:00 Departed Emergency Room ER JEAN CLAUDE MARTINEZ [facility] [id number] [facility] 2018-02-15 15:35:00 2018-02-17 12:00:00 Discharged Inpatient (obs) ER MEKHI KLEIN [facility] [id number] [facility] 2017-06-03 12:20:00 2017-06-03 16:24:00 Departed Emergency Room [facility] [id number] [facility]. [facility] Results Test Description Test Time Test Comments Results Result Comments Source Capillary blood glucose measurement by glucometer (mas s/volume) 2020-04-09 10:58:00 Test Item Bedside Glucose (test code = 11560-5) 324 70-120 Meter ID: [id number] [facility] W 2020-04-08 22:13:00 [facility] [address] [address] Patient Name: SHARI DEAN MR #: [id number] : 1945 Age/Sex: 75/F Req #: [id number] Adm Physician: RENZO REEDER MD Ordered by: KALYN JOYCE MD Report #: [id number] Location: MED/SURG2 Room/Bed: [facility] Procedure: [id number] CT/CT ABDOMEN/P JOSS W Exam Date: 04/08/20 Exam Time: 2049 REPORT STATUS: Signed EXAM: CT Abdomen a nd Pelvis WITH contrast INDICATION: Fever, cough, short of breath, rule out infection COMPARISON: Abdominal CT 02/15/2018 TECHNIQUE: Abdomen and pe lvis were scanned utilizing a multidetector helical scanner from the lung base to the pubic symphysis after administration of IV contrast. Coronal and sagit tammy reformations were obtained. Routine protocol was performed. Scan was perfo rmed when during portal venous phase. IV CONTRAST: 100 mL of Isovue 3 70 ORAL CONTRAST: None COMPLICATIONS: None RADIATIO N DOSE: Total DLP: 1212 mGy*cm Estimated effective dose: (DLP x 0. 015 x size factor) mSv CTDIvol has been reviewed. It is below the limits set by the Radiation Protocol Committee (RPC). Dose modulation, iterati ve reconstruction, and/or weight based adjustment of the mA/kV was utilized to reduce the radiation dose to as low as reasonably achievable. FINDINGS: LINES and TUBES: None. LOWER THORAX: Left coronary artery calcific a therosclerosis. Aortic valve calcifications. Mild bibasilar atelectasis. HEPATOBILIARY: No focal hepatic lesions. No biliary ductal dilation. GALLBLADDER: No radio-opaque stones or sludge. No wall thickening. SPLEEN: No splenomegaly. PANCREAS: No focal masses or ductal dilatation. A DRENALS: No adrenal nodules KIDNEYS/URETERS: Kidneys enhance symmetrica lly. No hydronephrosis. tiny right renal hypodensity, too small to character ize, likely benign No stones. GI TRACT: No abnormal distention, wall thick ening, or evidence of bowel obstruction. Appendix is not seen, no inflam mation in the right lower quadrant.. PELVIC ORGANS/BLADDER: Unremarkable uterus. No adnexal masses. Urinary bladder unremarkable. . LYMPH NODES: N o lymphadenopathy. VESSELS: Arterial calcifications. PERITONEUM / RETR OPERITONEUM: No free air or fluid. BONES: Mild L2 vertebral body compressio n fracture, slightly worse compared to 02/15/2018. Degenerative changes. S OFT TISSUES: Increased size of a fat-containing periumbilical hernia with subt le associated edema. Bilateral gluteal subcutaneous calcified granulomas.. IMPRESSION: 1. Increased size of a fat-containing periu mbilical hernia with subtle associated edema, correlate for point tenderness 2. Colonic diverticulosis with no diverticulitis. 3. Left coronary ar cholo calcific atherosclerosis.. 4. Mild L2 vertebral body compression fra cture, slightly worse compared to 02/15/2018 Signed by: Grant Celeste DO on 04/08/2020 10:22 PM Dictated By: GRANT CELESTE DO Electronically Si gned By: GRANT CELESTE DO on 04/08/202221 Transcribed By: GAUDENCIO on 2221 COPY TO: KALYN JOYCE MD CHEST SINGLE (PORTABLE) 2020-04-08 09:54:[address] [address] Patient Name: SHARI DEAN MR #: [id number] : 1945 Age/Sex: 75/F Req #: [id number] Adm Physician: RENZO REEDER MD Ordered by: TARIK REEDER DO Report #: [id number] Location: [facility] Room/Bed: [address] [address] Procedure: [id number] DX/CHEST SINGLE (PORTABLE) Exam Date: 04/08/20 Exam Time: 609 REPORT STATUS: Signed X-ray chest AP portable Comparison: 04/07/2020 History: Altered mental status, fever. Findings: Central airways unremarkable. Heart size borderline enlarged. No definite pleural effusion. No pneumothorax. Poor respiratory effort leads to crowding of the vascular markings in the lungs. No definite focal lung disease. No acute changes in the visualized skeleton are upper abdomen. Impressio n: No acute disease on this exam. Signed by: Arturo Savage MD on 04/08/2020 9:56 AM Dictated By: ARTURO SAVAGE MD 0956 Transcribed By: GAUDENCIO on 04/08/20 0956 CO PY TO: TARIK REEDER DO Blood leukocytes automated count (number/volume)2020-04-08 04:30:00* Test Item Value Reference Range Interpretation Comments White Blood Count (test code = 6690-2) 10.53 4.8-10.8 [facility] automated count (number/volume)2020-04-08 04:30:00* Test Item Value Reference Range Interpretation Comments Red Blood Count (test code = 789-8) 4.58 3.6-5.1 [facility] hemoglobin measurement (moles/volume)2020-04-08 04:30:00* Test Item Value Reference Range Interpretation Comments Hemoglobin (test code = 31572-0) 12.1 12.0-16.0 [facility]ney[facility] blood hematocrit (volume fraction)2020-04-08 04:30:00* Test Item Value Reference Range Interpretation Comments Hematocrit (test code = 4544-3) 39.7 34.2-44.1 [facility]ney[facility] erythrocyte mean corpuscular [id number] 04:30:00* Test Item Value Reference Range Interpretation Comments Mean Corpuscular Volume (test code = 787-2) 86.7 81-99 [facility]ney[facility] erythrocyte mean corpuscular hemoglobin (mass per erythrocyte)2020-04-08 04:30:00* Test Item Value Reference Range Interpretation Comments Mean Corpuscular Hemoglobin (test code = 785-6) 26.4 28-32 [facility]ney[facility] erythrocyte mean corpuscular hemoglobin concentration measurement (mass/volume)2020-04-08 04:30:00* Test Item Value Reference Range Interpretation Comments Mean Corpuscular Hemoglobin Concent (test code = 786-4) 30.5 31-35 [facility] McKinneyRDW [id number]-[id number] 04:30:00* Test Item Value Reference Range Interpretation Comments Red Cell Distribution Width (test code = 99183-9) 16.1 11.7 -14.4 [facility]ney[facility] blood platelet count (count/volume)2020-04-08 04:30:00* Test Item Value Reference Range Interpretation Comments Platelet Count (test code = 777-3) 208 140-360 [facility]neyAutom[facility] blood segmented neutrophil count as percentage of total [id number] 04:30:00* Test Item Value Reference Range Interpretation Comments Neutrophils (%) (Auto) (test code = 18088-0) 67.9 38.7-80.0 [facility]ney[facility] blood lymphocyte count as percentage ot total [id number] 04:30:00* Test Item Value Reference Range Interpretation Comments Lymphocytes (%) (Auto) (test code = 736-9) 20.0 18.0-39.1 [facility]ney[facility] blood monocyte count as percentage of total pwmjqrrvum7133-89-71 04:30:00* Test Item Value Reference Range Interpretation Comments Monocytes (%) (Auto) (test code = 5905-5) 10.5 4.4-11.3 [facility]ney[facility] blood eosinophil count as percentage of total [id number] 04:30:00* Test Item Value Reference Range Interpretation Comments Eosinophils (%) (Auto) (test code = 713-8) 1.1 0.0-6.0 [facility]ney[facility] blood basophil count as percentage of total [id number] 04:30:00* Test Item Value Reference Range Interpretation Comments Basophils (%) (Auto) (test code = 706-2) 0.2 0.0-1.0 [facility] McKinneyFluoroscopic procedure less than one hour [id number] 04:30:00* Test Item Value Reference Range Interpretation Comments IM GRANULOCYTES % (test code = IM GRANULOCYTES %) 0.3 0.0- 1.0 [facility]ney[facility] blood neutrophil count 2020-04-08 04:30:00* Test Item Value Reference Range Interpretation Comments Neutrophils # (Auto) (test code = 751-8) 7.1 2.1-6.9 [facility]ney[facility] lymphocytes count (number/volume) 2020-04-08 04:30:00* Test Item Value Reference Range Interpretation Comments Lymphocytes # (Auto) (test code = 90614-9) 2.1 1.0-3.2 [facility]ney[facility] monocytes automated count (number/volume)2020-04-08 04:30:00* Test Item Value Reference Range Interpretation Comments Monocytes # (Auto) (test code = 742-7) 1.1 0.2-0.8 [facility]ney[facility] blood eosinophil count 2020-04-08 04:30:00* Test Item Value Reference Range Interpretation Comments Eosinophils # (Auto) (test code = 711-2) 0.1 0.0-0.4 [facility]ney[facility] blood basophil count (count/volume)2020-04-08 04:30:00* Test Item Value Reference Range Interpretation Comments Basophils # (Auto) (test code = 704-7) 0.0 0.0-[address] [facility] procedure less than one hour [id number] 04:30:00* Test Item Value Reference Range Interpretation Comments Absolute Immature Granulocyte (auto (nazia t code = Absolute Immature Granulocyte (auto) 0.03 0-0.1 [facility] sodium measurement (moles/volume)2020-04-08 04:30:00* Test Item Value Reference Range Interpretation Comments Sodium Level (test code = 2951-2) 138 136-145 [facility] potassium measurement (moles/volume)2020-04-08 04:30:00* Test Item Value Reference Range Interpretation Comments Potassium Level (test code = 2823-3) 4.5 3.5-5.1 [facility] chloride measurement (moles/volume)2020-04-08 04:30:00* Test Item Value Reference Range Interpretation Comments Chloride Level (test code = 2075-0) 101 98-107 [facility] plasma carbon dioxide, total measurement (moles/volume)2020-04-08 04:30:00* Test Item Value Reference Range Interpretation Comments Carbon Dioxide Level (test code = 2028-9) 31 22-29 [facility] plasma anion [id number] 04:30:00* Test Item Value Reference Range Interpretation Comments Anion Gap (test code = 54308-1) 10.5 8-16 [facility] urea nitrogen measurement (mass/volume)2020-04-08 04:30:00* Test Item Value Reference Range Interpretation Comments Blood Urea Nitrogen (test code = 3094-0) 13 7-26 [facility] creatinine measurement (mass/volume)2020-04-08 04:30:00* Test Item Value Reference Range Interpretation Comments Creatinine (test code = 2160-0) 1.01 0.57-1.11 [facility] plasma urea nitrogen/creatinine mass [id number] 04:30:00* Test Item Value Reference Range Interpretation Comments BUN/Creatinine Ratio (test code = 3097-3) 13 6-25 [facility]neyEstimated glomerular filtration rate (GFR) keoqmuapwfmmq4355-73-89 04:30:00* Test Item Value Reference Range Interpretation Comments Estimat Glomerular Filtration Rate (test code = 698737254) 53 >60 Ranges were taken from the National Kidney Disease Education Program and the [facility] literature.Reference ranges:60 or greater: Vkehsp07-28 ( for 3 consecutive months): Chronic kidney disease 15 or less: Kidney failureB[facility] McKinneyGlucose axkprsrzvek9396-61-86 04:30:00* Test Item Value Reference Range Interpretation Comments Glucose Level (test code = BTQ6462) 234 74-118 [facility] plasma calcium measurement (mass/volume)2020-04-08 04:30:00* Test Item Value Reference Range Interpretation Comments Calcium Level (test code = 88186-6) 9.0 8.4-10.2 [facility] plasma total bilirubin measurement (mass/volume)2020-04-08 04:30:00* Test Item Value Reference Range Interpretation Comments Total Bilirubin (test code = 1975-2) 0.4 0.2-1.2 [facility] McKinneyFluoroscopic procedure less than one hour pvvuqmjx2458-55-53 04:30:00* Test Item Value Reference Range Interpretation Comments Aspartate Amino Transf (AST/SGOT) (test code = Aspartate Amino Transf (AST/SGOT)) 20 5-34 [facility]um or plasma alanine aminotransferase measurement (enzymatic activity/volume)2020-04-08 04:30:00* Test Item Value Reference Range Interpretation Comments Alanine Aminotransferase (ALT/SGPT) (test code = 1742-6) 15 0-55 [facility] plasma protein measurement (mass/volume)2020-04-08 04:30:00* Test Item Value Reference Range Interpretation Comments Total Protein (test code = 2885-2) 6.5 6.5-8.1 [facility] Hospital[facility] or plasma albumin measurement (mass/volume)2020-04-08 04:30:00* Test Item Value Reference Range Interpretation Comments Albumin (test code = 1751-7) 2.8 3.5-5.0 [facility] McKinneyPlasma globulin measurement (mass/volume) 2020-04-08 04:30:00* Test Item Value Reference Range Interpretation Comments Globulin (test code = 62393-4) 3.7 2.3-3.5 [facility] plasma albumin/globulin mass pilos2364-45-60 04:30:00* Test Item Value Reference Range Interpretation Comments Albumin/Globulin Ratio (test code = 1759-0) 0.8 0.8-2.0 [facility]er[facility] or plasma alkaline phosphatase measurement (enzymatic activity/volume)2020-04-08 04:30:00* Test Item Value Reference Range Interpretation Comments Alkaline Phosphatase (test code = 6768-6) 69 40-150 [facility]erum or plasma creatine kinase measurement (enzymatic activity/volume)2020-04-08 04:30:00* Test Item Value Reference Range Interpretation Comments Creatine Kinase (test code = 2157-6) 122 29-168 [facility] Hospitalerum or plasma creatine kinase MB measurement (mass/volume)2020-04-08 04:30:00* Test Item Value Reference Range Interpretation Comments Creatine Kinase MB (test code = 75125-5) 2.30 0-5.0 [facility] McKinneyTroponin I measurement by highly sensitive enzyme sragnaujwug1111-25-39 04:30:00* Test Item Value Reference Range Interpretation Comments Troponin I (test code = 17850-8) 0.011 0-0.300 [facility]neyCHEST SINGLE (PORTABLE)2020-04-07 10:28:00 [place] [address] Patient Name: SHARI DEAN MR #: [id number] : 1945 Age/Sex: 75/F Req #: [id number] Adm Physician: Ordered by: TARIK REEDER DO Report #: [id number] Location: ER Room/Bed: Procedure: [id number] DX/CHEST SINGLE (PORTABLE) Exam Date: 04/07/20 Exam Time: 0945 REPORT STATUS: Signed EXAMINATION: CHEST SINGLE (PORTABLE) INDICATION: Fever COMPARISON: Chest radiog raph 11/01/2018 FINDINGS: LINES/TUBES:EKG leads overlie the chest. LUNGS:The lungs are moderately inflated. No focal consolidation or pulmona ry edema. PLEURA:No pleural effusion or pneumothorax. MEDIASTINUM:Th e cardiomediastinal silhouette appears unchanged in size and shape. Atheroscle rotic calcifications of the thoracic aorta. BONES/SOFT TISSUES:No acute os seous injury. ABDOMEN:No free air under the diaphragm. IMPRESSION: No focal pneumonia or pulmonary edema. Signed by: Destiny Rizzo MD on 2019 10:29 AM Dictated By: DESTINY RIZZO MD 1029 Transcribed By: GAUDENCIO on 04/07/20 1029 COPY T O: TARIK REEDER DO Influenza virus A and B antigen identification by pjvrzhnqxipuzbaocc8746-11-37 10:09:00* Test Item Value Reference Range Interpretation Comments Influenza Virus Types A,B Antigen (test code = 31102-6) NEGATIVE NEGATIVE [facility] McKinneyFluoroscopic procedure less than one hour uyasooah5539-66-17 10:09:00* Test Item Value Reference Range Interpretation Comments Coronavirus (PCR) (test code = Coronavirus (PCR)) NOT DETECTED NOTD ETECTED [facility] Hospitaltreptococcus pyogenes antigen detection in dgfqad2932-26-90 10:09:00* Test Item Value Reference Range Interpretation Comments Group A Streptococcus Screen (test code = 21715-5) NEGATIVE NEG ATIVE [facility] McKinneyBNP Mkn-rZgc2764-94-07 09:33:00* Test Item Value Reference Range Interpretation Comments B-Type Natriuretic Peptide (test code = 44971-0) 79.6 0-100 [facility] McKinneyBlood kulrkbq7794-74-64 09:33:00* Test Item Value Reference Range Interpretation Comments Blood Culture (test code = 17298376) NO GROWTH AFTER 48 HOURS [facility] McKinneyBedside Ohhqisb8300-40-60 12:48:00* Test Item Value Reference Range Interpretation Comments Bedside Glucose (test code = 44155-1) 120 70-120 Meter ID: [id number] [facility] Stephenvilleood Culture 2019-12-30 17:49:00* Test Item Value Reference Range Interpretation Comments Blood Culture (test code = 77180468) NO GROWTH AFTER 72 HOURS [facility] McKinneyUrine Xvauoks4558-33-84 10:26:00* Test Item Value Reference Range Interpretation Comments Urine Culture (test code = 630-4) No Result Data Provided [facility] Hospitalodium Ntogz9668-88-15 06:05:00* Test Item Value Reference Range Interpretation Comments Sodium Level (test code = 2951-2) 134 136-145 L [facility] McKinneyPotassium Pjjzy5318-27-10 06:05:00* Test Item Value Reference Range Interpretation Comments Potassium Level (test code = 2823-3) 4.6 3.5-5.1 [facility] McKinneyChloride Rzvwm4808-89-26 06:05:00* Test Item Value Reference Range Interpretation Comments Chloride Level (test code = 2075-0) 100 98-107 [facility] McKinneyCarbon Dioxide Wrplw1878-08-12 06:05:00* Test Item Value Reference Range Interpretation Comments Carbon Dioxide Level (test code = 2028-9) 27 - [facility] McKinneyAnion Pka5160-30-83 06:05:00* Test Item Value Reference Range Interpretation Comments Anion Gap (test code = 32019-4) 11.6 8-16 [facility] McKinneyBlood Urea Hqqigaiz2529-75-06 06:05:00* Test Item Value Reference Range Interpretation Comments Blood Urea Nitrogen (test code = 3094-0) 17 7-26 [facility] McKinneyCreatinine2020-01-28 06:05:00* Test Item Value Reference Range Interpretation Comments Creatinine (test code = 2160-0) 0.78 0.57-1.11 [facility] McKinneyBUN/Creatinine Clebj5817-77-86 06:05:00* Test Item Value Reference Range Interpretation Comments BUN/Creatinine Ratio (test code = 3097-3) 22 6-25 [facility] McKinneyEstimat Glomerular Filtration Rate 2019-12-29 06:05:00* Test Item Value Reference Range Interpretation Comments Estimat Glomerular Filtration Rate (test code = 314469359) > 60 >60 Ranges were taken from the National Kidney Disease Education Program and the [facility] [employer] literature.Reference ranges:60 or greater: Oddwja62-54 ( for 3 consecutive months): Chronic kidney disease 15 or less: Kidney failureBaylor Scott & White Medical Center – McKinneyGlucose Tfumm2421-95-42 06:05:00* Test Item Value Reference Range Interpretation Comments Glucose Level (test code = JFJ9894) 198 74-118 H [facility] McKinneyCalcium Ezuqz5044-04-37 06:05:00* Test Item Value Reference Range Interpretation Comments Calcium Level (test code = 15643-1) 8.5 8.4-10.2 [facility] McKinneyHemoglobin A1c Zlsekzl1041-44-04 05:55:00 * Test Item Value Reference Range Interpretation Comments Hemoglobin A1c Percent (test code = Hemoglobin A1c Percent) 9.6 4.0-7.0 H [facility] McKinneyWhite Blood Aspck6344-08-08 05:49:00* Test Item Value Reference Range Interpretation Comments White Blood Count (test code = 6690-2) 7.56 4.8-10.8 [facility] McKinneyRed Blood Ijazs0465-12-55 05:49:00* Test Item Value Reference Range Interpretation Comments Red Blood Count (test code = 789-8) 4.02 3.6-5.1 [facility] McKinneyHemoglobin2020-01-28 05:49:00* Test Item Value Reference Range Interpretation Comments Hemoglobin (test code = 16420-7) 11.3 12.0-16.0 L [facility] McKinneyHematocrit2020-01-28 05:49:00* Test Item Value Reference Range Interpretation Comments Hematocrit (test code = 4544-3) 36.0 34.2-44.1 [facility] McKinneyMean Corpuscular Awevnk0236-42-93 05:49:00* Test Item Value Reference Range Interpretation Comments Mean Corpuscular Volume (test code = 787-2) 89.6 81-99 [facility] McKinneyMean Corpuscular Fcunowfzlw8936-12-32 05:49:00* Test Item Value Reference Range Interpretation Comments Mean Corpuscular Hemoglobin (test code = 785-6) 28.1 28-32 [facility] McKinneyMean Corpuscular Hemoglobin Concent 2019-12-29 05:49:00* Test Item Value Reference Range Interpretation Comments Mean Corpuscular Hemoglobin Concent (test code = 786-4) 31.4 31-35 [facility] McKinneyRed Cell Distribution Ydayg7992-21-99 05:49:00* Test Item Value Reference Range Interpretation Comments Red Cell Distribution Width (test code = 27475-8) 15.5 11.7 -14.4 H [facility] McKinneyPlatelet Velwy9080-68-39 05:49:00* Test Item Value Reference Range Interpretation Comments Platelet Count (test code = 777-3) 258 140-360 [facility] McKinneyNeutrophils (%) (Auto)2019-12-29 05:49:00 * Test Item Value Reference Range Interpretation Comments Neutrophils (%) (Auto) (test code = 78109-5) 82.9 38.7-80.0 H [facility] McKinneyLymphocytes (%) (Auto)2019-12-29 05:49:00 * Test Item Value Reference Range Interpretation Comments Lymphocytes (%) (Auto) (test code = 736-9) 12.6 18.0-39.1 L [facility] McKinneyMonocytes (%) (Auto)2019-12-29 05:49:00* Test Item Value Reference Range Interpretation Comments Monocytes (%) (Auto) (test code = 5905-5) 3.6 4.4-11.3 L [facility] McKinneyEosinophils (%) (Auto)2019-12-29 05:49:00 * Test Item Value Reference Range Interpretation Comments Eosinophils (%) (Auto) (test code = 713-8) 0.3 0.0-6.0 [facility] McKinneyBasophils (%) (Auto)2019-12-29 05:49:00* Test Item Value Reference Range Interpretation Comments Basophils (%) (Auto) (test code = 706-2) 0.1 0.0-1.0 [facility] McKinneyIM GRANULOCYTES %2019-12-29 05:49:00* Test Item Value Reference Range Interpretation Comments IM GRANULOCYTES % (test code = IM GRANULOCYTES %) 0.5 0.0- 1.0 [facility] McKinneyNeutrophils # (Auto)2019-12-29 05:49:00* Test Item Value Reference Range Interpretation Comments Neutrophils # (Auto) (test code = 751-8) 6.3 2.1-6.9 [facility] McKinneyLymphocytes # (Auto)2019-12-29 05:49:00* Test Item Value Reference Range Interpretation Comments Lymphocytes # (Auto) (test code = 26455-7) 1.0 1.0-3.2 [facility] McKinneyMonocytes # (Auto)2019-12-29 05:49:00* Test Item Value Reference Range Interpretation Comments Monocytes # (Auto) (test code = 742-7) 0.3 0.2-0.8 [facility] McKinneyEosinophils # (Auto)2019-12-29 05:49:00* Test Item Value Reference Range Interpretation Comments Eosinophils # (Auto) (test code = 711-2) 0.0 0.0-0.4 [facility] McKinneyBasophils # (Auto)2019-12-29 05:49:00* Test Item Value Reference Range Interpretation Comments Basophils # (Auto) (test code = 704-7) 0.0 0.0-0.1 [facility] McKinneyAbsolute Immature Granulocyte (auto 2019-12-29 05:49:00* Test Item Value Reference Range Interpretation Comments Absolute Immature Granulocyte (auto (nazia t code = Absolute Immature Granulocyte (auto) 0.04 0-0.1 [facility] McKinneyFluoroscopic procedure less than one hour sdbsagaj4426-55-07 04:35:00* Test Item Value Reference Range Interpretation Comments Hemoglobin A1c Percent (test code = Hemoglobin A1c Percent) 9.6 4.0-7.0 [facility] McKinneyFree Suewuqqgl5105-19-83 14:50:00* Test Item Value Reference Range Interpretation Comments Free Thyroxine (test code = 3024-7) 0.73 0.8-1.8 L [facility] McKinneyThyroid Stimulating Hormone (TSH) 2019-12-28 14:50:00* Test Item Value Reference Range Interpretation Comments Thyroid Stimulating Hormone (TSH) (test code = 42838-9) 2.044 0.350-4.940 [facility] McKinneyTotal Sdolaccte4460-68-11 05:56:00* Test Item Value Reference Range Interpretation Comments Total Bilirubin (test code = 1975-2) 0.4 0.2-1.2 [facility] McKinneyAspartate Amino Transf (AST/SGOT) 2019-12-28 05:56:00* Test Item Value Reference Range Interpretation Comments Aspartate Amino Transf (AST/SGOT) (test code = Aspartate Amino Transf (AST/SGOT)) 24 5-34 [facility] McKinneyAlanine Aminotransferase (ALT/SGPT) 2019-12-28 05:56:00* Test Item Value Reference Range Interpretation Comments Alanine Aminotransferase (ALT/SGPT) (test code = 1742-6) 32 0-55 [facility] McKinneyTotal Ossvtvm3956-78-45 05:56:00* Test Item Value Reference Range Interpretation Comments Total Protein (test code = 2885-2) 5.8 6.5-8.1 L [facility] McKinneyAlbumin2020-01-27 05:56:00* Test Item Value Reference Range Interpretation Comments Albumin (test code = 1751-7) 3.1 3.5-5.0 L [facility] McKinneyGlobulin2020-01-27 05:56:00* Test Item Value Reference Range Interpretation Comments Globulin (test code = 57444-3) 2.7 2.3-3.5 [facility] McKinneyAlbumin/Globulin Xstki3963-82-08 05:56:00 * Test Item Value Reference Range Interpretation Comments Albumin/Globulin Ratio (test code = 1759-0) 1.1 0.8-2.0 [facility] McKinneyAlkaline Ajwdumvtldg7621-19-34 05:56:00* Test Item Value Reference Range Interpretation Comments Alkaline Phosphatase (test code = 6768-6) 81 40-150 [facility] Hospitalerum or plasma thyroxine (T4) free measurement (mass/volume)2019-12-28 04:18:00* Test Item Value Reference Range Interpretation Comments Free Thyroxine (test code = 3024-7) 0.73 0.8-1.8 [facility] Hospitalerum or plasma thyrotropin measurement by detection limit <= 0.005 miu/l (units/volume)2019-12-28 04:18:00* Test Item Value Reference Range Interpretation Comments Thyroid Stimulating Hormone (TSH) (test code = 60810-2) 2.044 0.350-4.940 [facility] McKinneyPlatelet Morphology Tmbqsbe9601-01-91 20:03:00* Test Item Value Reference Range Interpretation Comments Platelet Morphology Comment (test code = 24848-3) FEW LARGE NO EDTA PLT CLUMPS SEENBaylor Scott & White Medical Center – McKinneyCT PELVIS W 2019-12-27 19:57:00 [facility] [address] [place] [address] Patient Name: SHARI DEAN MR #: [id number] : 1945 Age/Sex: 74/F Req #: [id number] Adm Physician: RENZO REEDER MD Ordered by: SUZANNE CARRILLO [employer] Report #: [id number] Location: [facility] Room/Bed: [place] [address] Procedure: [id number] C T/CT PELVIS W Exam Date: 12/27/19 Exam Time: 1830 REPORT STATUS: Signed EXAM: CT Pel vis WITH contrast INDICATION: Labia majora abscess COMPARISON: Abdominal CT 02/15/2018 TECHNIQUE: Pelvis were scanned utilizing a multidetector helical scanner from the iliac crest to the pubic symphysis after administration of I V contrast. Coronal and sagittal reformations were obtained. Routine protocol was performed. Scan was performed when during portal venous phase. IV C ONTRAST: 100 mL of Isovue 370 ORAL CONTRAST: None COMPLI CATIONS: None RADIATION DOSE: Total DLP: 381 mGy*cm Estimated effective dose: (DLP x 0.015 x size factor) mSv CTDIvol has been reviewe d. It is below the limits set by the Radiation Protocol Committee (RPC). Dose modulation, iterative reconstruction, and/or weight based adjustment of the mA/kV was utilized to reduce the radiation dose to as low as reasonably a chievable. FINDINGS: LINES and TUBES: None. GI TRACT: No abnorma l distention, wall thickening, or evidence of bowel obstruction. There are di verticula within the colon without evidence of diverticulitis. Appendix is no t clearly identified. There is however no fat stranding or adenopathy in the r ight lower quadrant to suggest appendicitis. PELVIC ORGANS/BLADDER: Trace a ir in the nondependent bladder lumen. Bladder is underdistended with mild circ umferential bladder wall thickening. Small uterine fibroids. Calcifications in the uterine wall. LYMPH NODES: No lymphadenopathy. VESSELS: Nonstenot ic arterial calcific atherosclerosis. PERITONEUM / RETROPERITONEUM: No free air or fluid. BONES: There are degenerative changes in the lumbar spine. SOFT TISSUES: Asymmetric mild soft tissue thickening and subtle heterogeneit y in the area of the right labia majora. No discrete fluid loculation. Sm all fat-containing ventral abdominal hernia. IMPRESSION: 1. Cano btle focal inflammatory changes in the area of the right labia majora, without obvious abscess on CT. A subcentimeter abscess is possible. No acute intrapel ute abnormality. 2. Colonic diverticulosis without diverticulitis. 3. Trac e air in the bladder lumen, correlate with urinalysis and history of recent ca theterization/instrumentation. Signed by: Grant Celeste DO on 12/27/2019 8 :03 PM Dictated By: GRANT CELESTE DO 02 Transcribed By: GAUDENCIO on 12/27/192002 [place] OPY TO: SUZANNE CARRILLO NP Urine Hekkv0948-49-96 19:11:00* Test Item Value Reference Range Interpretation Comments Urine Color (test code = 5778-6) YELLOW YELLOW [facility] McKinneyUrine Wapzaaz4178-26-45 19:11:00* Test Item Value Reference Range Interpretation Comments Urine Clarity (test code = 17210-2) CLEAR CLEAR [facility] McKinneyUrine Specific Wirkydu9148-52-39 19:11:00 * Test Item Value Reference Range Interpretation Comments Urine Specific [place] (test code = 5811-5) 1.020 1.010-1.02 5 [facility] McKinneyUrine yI2440-52-81 19:11:00* Test Item Value Reference Range Interpretation Comments Urine pH (test code = 36445-0) 6 5-7 [facility] McKinneyUrine Leukocyte Zaexpktz1100-57-06 19:11:00* Test Item Value Reference Range Interpretation Comments Urine Leukocyte Esterase (test code = 5799-2) NEGATIVE NEGATIVE [facility] McKinneyUrine Wmqeise2439-83-19 19:11:00* Test Item Value Reference Range Interpretation Comments Urine Nitrite (test code = 49874-8) POSITIVE NEGATIVE [facility] McKinneyUrine Fkchdgz1197-21-71 19:11:00* Test Item Value Reference Range Interpretation Comments Urine Protein (test code = 5804-0) NEGATIVE NEGATIVE [facility] McKinneyUrine Glucose (UA)2019-12-27 19:11:00* Test Item Value Reference Range Interpretation Comments Urine Glucose (UA) (test code = 2349-9) NEGATIVE NEGATIVE [facility] McKinneyUrine Tpbhmlg5412-72-51 19:11:00* Test Item Value Reference Range Interpretation Comments Urine Ketones (test code = 51606-6) NEGATIVE NEGATIVE [facility] McKinneyUrine Svybjhugphzm2918-33-48 19:11:00* Test Item Value Reference Range Interpretation Comments Urine Urobilinogen (test code = 44928-9) 0.2 0.2-1 [facility] McKinneyUrine Dslofnrco4392-88-22 19:11:00* Test Item Value Reference Range Interpretation Comments Urine Bilirubin (test code = 1978-6) NEGATIVE NEGATIVE [facility] McKinneyUrine Wwuap2878-74-24 19:11:00* Test Item Value Reference Range Interpretation Comments Urine Blood (test code = 92387-3) 1+ NEGATIVE [facility] McKinneyUrine GCA4534-27-44 19:11:00* Test Item Value Reference Range Interpretation Comments Urine WBC (test code = 5821-4) 6-10 0-5 H [facility] McKinneyUrine DVX9045-35-34 19:11:00* Test Item Value Reference Range Interpretation Comments Urine RBC (test code = 35267-0) 6-10 0-5 H [facility] McKinneyUrine Rcgfxdnz0488-14-51 19:11:00* Test Item Value Reference Range Interpretation Comments Urine Bacteria (test code = 30907-7) FEW NONE [facility] McKinneyUrine Epithelial Rfzfu8775-27-53 19:11:00 * Test Item Value Reference Range Interpretation Comments Urine Epithelial Cells (test code = 67177-2) FEW NONE [facility] McKinneyUrine color zarofmxevxosj6616-86-80 17:29:00* Test Item Value Reference Range Interpretation Comments Urine Color (test code = 5778-6) YELLOW YELLOW [facility] McKinneyUrine tauvzdi4135-65-41 17:29:00* Test Item Value Reference Range Interpretation Comments Urine Clarity (test code = 99548-0) CLEAR CLEAR [facility] Hospitalpecific gravity of Urine by Test strip 2019-12-27 17:29:00* Test Item Value Reference Range Interpretation Comments Urine Specific [place] (test code = 5811-5) 1.020 1.010-1.02 5 [facility] McKinneyUrine pH measurement by automated test eiksl4341-10-69 17:29:00* Test Item Value Reference Range Interpretation Comments Urine pH (test code = 02201-7) 6 5-7 [facility] McKinneyUrine leukocyte esterase detection by uxxxifmr1871-08-41 17:29:00* Test Item Value Reference Range Interpretation Comments Urine Leukocyte Esterase (test code = 5799-2) NEGATIVE NEGATIVE [facility] McKinneyUrine nitrite spqmcifzy5077-87-11 17:29:00* Test Item Value Reference Range Interpretation Comments Urine Nitrite (test code = 92519-5) POSITIVE NEGATIVE [facility] McKinneyUrine protein measurement by test strip (mass/volume)2019-12-27 17:29:00* Test Item Value Reference Range Interpretation Comments Urine Protein (test code = 5804-0) NEGATIVE NEGATIVE [facility] McKinneyUrine glucose krwxyzrpo1823-41-74 17:29:00* Test Item Value Reference Range Interpretation Comments Urine Glucose (UA) (test code = 2349-9) NEGATIVE NEGATIVE [facility] McKinneyUrine ketones detection by automated test sitix4835-36-14 17:29:00* Test Item Value Reference Range Interpretation Comments Urine Ketones (test code = 43331-9) NEGATIVE NEGATIVE [facility] McKinneyUrine urobilinogen measurement by test strip (mass/volume)2019-12-27 17:29:00* Test Item Value Reference Range Interpretation Comments Urine Urobilinogen (test code = 20224-3) 0.2 0.2-1 [facility] McKinneyUrine total bilirubin measurement (mass/volume)2019-12-27 17:29:00* Test Item Value Reference Range Interpretation Comments Urine Bilirubin (test code = 1978-6) NEGATIVE NEGATIVE [facility] McKinneyUrine erythrocytes ynmhkwymq7213-36-70 17:29:00* Test Item Value Reference Range Interpretation Comments Urine Blood (test code = 73640-1) 1+ NEGATIVE [facility] McKinneyAutomated urine sediment leukocyte count by microscopy (number/high power field)2019-12-27 17:29:00* Test Item Value Reference Range Interpretation Comments Urine WBC (test code = 5821-4) 6-10 0-5 [facility] McKinneyErythrocytes detection in urine sediment by light xuoxmqswux4162-23-94 17:29:00* Test Item Value Reference Range Interpretation Comments Urine RBC (test code = 02943-4) 6-10 0-5 [facility] McKinneyBacteria detection in urine sediment by light esfgkldnbf5710-62-30 17:29:00* Test Item Value Reference Range Interpretation Comments Urine Bacteria (test code = 96491-9) FEW NONE [facility] McKinneyEpithelial cells detection in urine sediment by light wznoovbyvz9795-69-59 17:29:00* Test Item Value Reference Range Interpretation Comments Urine Epithelial Cells (test code = 37915-2) FEW NONE [facility] McKinneyBacterial urine tqoyrgr5402-41-53 17:29:00* Test Item Value Reference Range Interpretation Comments Urine Culture (test code = 630-4) ENTEROBACTER AEROGENES [facility] McKinneyPlatelet kmgrsjhgvo7051-62-43 16:10:00* Test Item Value Reference Range Interpretation Comments Platelet Morphology Comment (test code = 22057-7) FEW LARGE NO EDTA PLT CLUMPS SEENBaylor Scott & White Medical Center – McKinneyCT CERVICAL SPINE VO1062-89-70 19:52:00 [facility] [address] [address] Patient Name: SHARI DEAN MR #: [id number] : 1945 Age/Sex: 74/F Req #: [id number] Adm Physician: Ordered by: MARTHA MORRIS [employer] S[employer] COUNSELOR Report #: [id number] Location: ER Room/Bed: Procedure: [id number] CT/CT CERVICAL SPINE WO Exam Date: Exam Time: REPORT STATUS: Signed History: Statu s post fall. Comparison studies: CT cervical spine from 11/01/2018. Jaiden kessler: Axial images were obtained through the cervical region.. Coronal a nd sagittal images reconstructed from the axial data. Dose modulation, iterati ve reconstruction, and/or weight based adjustment of the mA/kV was utilized to reduce the radiation dose to as low as reasonably achievable. Intravenou s contrast: None Findings: Fractures: None. Soft tissue injuries: No ne. Atlantoaxial articulation: Intact. Alignment: Loss of normal cervical lordosis is either positional or due to muscle spasm. No scoliosis. No sublux ation. Cervicomedullary junction: No abnormalities. The foramen magnum is pimentel nt. Soft tissues: No abnormalities. Vertebrae: No fractures, infectio n or neoplasm. Degenerative changes: Mild right uncovertebral arthrosis at C5-C6 and left uncovertebral arthrosis at C6-C7 without significant foramin al stenosis. No canal stenosis. IMPRESSION: 1. No acute cervical sp ine fracture or dislocation. Loss of normal cervical lordosis is either positi onal or due to muscle spasm. 2. Ligament, spinal cord and or vascular abno rmalities cannot be excluded on the basis of this examination. Sign ed by: Dr. Nitza Saucedo M.D. on 12/04/2019 7:57 PM Dictated By: CABRERA SAUCEDO MD 54 Reeder scribed By: GAUDENCIO on 12/04/191956 COPY TO: MARTHA MORRIS NP CT BRAIN [id number] 19:48:00 [place] [id number] Patient Name: SHARI DEAN MR #: [id number] : 1945 Age/Sex: 74/F Req #: [id number] Adm Physician: Ordered by: MARTHA MORRIS NP Report #: [id number] Location: Room/Bed: Procedure: [id number] CT/CT BRAIN WO Exam Date: Exam Time: REPORT STATUS: Signed EXAMINATION: Head CT wi thout contrast. HISTORY:Status post fall. COMPARISON:CT brain fro m 11/01/2018. TECHNIQUE: Multidetector axial images were obtained from the fora men magnum to the vertex without contrast. The images were reconstructed using brain and bone algorithms. Thin section brain images were reformatted into c oronal and sagittal planes. Dose modulation, iterative reconstruction, and/o r weight based adjustment of the mA/kV was utilized to reduce the radiation do se to as low as reasonably achievable. Intravenous contrast: None IMAGE QUALITY: Acceptable. FINDINGS: Skull/scalp: Mild posterior francia etal scalp soft tissue edema/hematoma. No radiopaque foreign body or soft tiss ue emphysema. No acute displaced or depressed calvarial fracture. No lytic o r blastic. lesions. No surgical changes. Parenchyma: Nonspecific few, sca ttered supratentorial white matter hypodensity are likely related to small ves allyssa ischemic changes. No acute hemorrhage, mass or acute major vascular territ orial infarct. Arteries: No density suggestive of thrombosis. Mild atheros clerotic calcification in bilateral carotid siphon. Dural sinuses: No abnormal density suggestive of thrombosis. Ventricles: No hydrocephalus or displacement. Extra-axial spaces: No abnormal density. Brain vo lume: Normal for age. Craniocervical junction: No mass, Chiari malformatio n, or basilar invagination. Sella: No mass. Paranasal/mastoid sin uses: Partial opacification with air-fluid level in right sphenoid sinus. IMPRESSION: No acute intracranial abnormality. Mild posterior parietal s calp soft tissue edema/hematoma. No acute fracture. Otherwise no change since CT brain from 11/01/2018. Chronic findings: 1. Mild generalized cerebral v olume loss. 2. Mild supratentorial white matter microvascular ischemic changes . Signed by: Dr. Nitza Saucedo M.D. on 12/04/2019 7:52 PM Dictated By: NITZA SAUCEDO MD 51 Transcribed By: GAUDENCIO on 12/04/191951 COPY TO: MARTHA MORRIS [employer] Urine [id number] 01:31:00* Test Item Value Reference Range Interpretation Comments Urine WBC (test code = 5821-4) 21-50 0-5 [facility] [id number] 01:31:00* Test Item Value Reference Range Interpretation Comments Urine RBC (test code = 71911-0) 21-50 0-5 [facility] Aqbxxjzv0589-33-27 01:31:00* Test Item Value Reference Range Interpretation Comments Urine Bacteria (test code = 34777-4) MANY NONE [facility] Epithelial Tzcuv1435-60-87 01:31:00 * Test Item Value Reference Range Interpretation Comments Urine Epithelial Cells (test code = 20470-7) MANY NONE [facility] Gdzok3829-22-92 01:31:00* Test Item Value Reference Range Interpretation Comments Urine Mucus (test code = 8247-9) MODERATE RARE H [facility] [id number] 01:31:00* Test Item Value Reference Range Interpretation Comments Urine WBC (test code = 5821-4) 21-50 0-5 [facility] [id number] 01:31:00* Test Item Value Reference Range Interpretation Comments Urine RBC (test code = 02088-4) 21-50 0-5 [facility] Hvkyndez1085-34-18 01:31:00* Test Item Value Reference Range Interpretation Comments Urine Bacteria (test code = 91978-9) MANY NONE [facility] Epithelial Tirqp5424-85-41 01:31:00 * Test Item Value Reference Range Interpretation Comments Urine Epithelial Cells (test code = 79624-4) MANY NONE [facility] Vpjge6901-52-15 01:31:00* Test Item Value Reference Range Interpretation Comments Urine Mucus (test code = 8247-9) MODERATE RARE H [facility] [id number] 01:31:00* Test Item Value Reference Range Interpretation Comments Urine WBC (test code = 5821-4) 21-50 0-5 [facility] [id number] 01:31:00* Test Item Value Reference Range Interpretation Comments Urine RBC (test code = 77112-8) 21-50 0-5 [facility] Gxestkot8405-88-90 01:31:00* Test Item Value Reference Range Interpretation Comments Urine Bacteria (test code = 53135-1) MANY NONE [facility] Epithelial Zjnco1529-34-30 01:31:00 * Test Item Value Reference Range Interpretation Comments Urine Epithelial Cells (test code = 59120-3) MANY NONE [facility] Itbzy1916-29-91 01:31:00* Test Item Value Reference Range Interpretation Comments Urine Mucus (test code = 8247-9) MODERATE RARE [facility] Mhowe5050-74-13 01:31:00* Test Item Value Reference Range Interpretation Comments Urine Mucus (test code = 8247-9) MODERATE RARE [facility] Hzvyk8848-81-67 01:22:00* Test Item Value Reference Range Interpretation Comments Urine Color (test code = 5778-6) YELLOW YELLOW [facility] Hqtpixw3341-73-70 01:22:00* Test Item Value Reference Range Interpretation Comments Urine Clarity (test code = 07913-6) CLOUDY CLEAR H [facility] Specific Kjtfvay0708-75-47 01:22:00 * Test Item Value Reference Range Interpretation Comments Urine Specific [place] (test code = 5811-5) 1.025 1.010-1.02 5 [facility] [id number] 01:22:00* Test Item Value Reference Range Interpretation Comments Urine pH (test code = 90014-3) 6 5-7 [facility] Leukocyte Qcdkdpqc0694-91-83 01:22:00* Test Item Value Reference Range Interpretation Comments Urine Leukocyte Esterase (test code = 88797-6) SMALL NEGATIV E [facility] Srtyuro6285-72-92 01:22:00* Test Item Value Reference Range Interpretation Comments Urine Nitrite (test code = 78721-8) NEGATIVE NEGATIVE [facility] Zzpehtb0308-59-68 01:22:00* Test Item Value Reference Range Interpretation Comments Urine Protein (test code = 21624-0) TRACE NEGATIVE H [facility] Glucose (UA)2019-05-19 01:22:00* Test Item Value Reference Range Interpretation Comments Urine Glucose (UA) (test code = 62290-5) 2+ NEGATIVE [facility] Mmyrhkm9739-45-33 01:22:00* Test Item Value Reference Range Interpretation Comments Urine Ketones (test code = 31394-8) 1+ NEGATIVE H [facility] Mzshtjnjfvut5583-56-89 01:22:00* Test Item Value Reference Range Interpretation Comments Urine Urobilinogen (test code = 10060-1) 0.2 0.2-1 [facility] Zxgqowqxd8606-65-16 01:22:00* Test Item Value Reference Range Interpretation Comments Urine Bilirubin (test code = 1977-8) NEGATIVE NEGATIVE [facility] Mmxpi9731-59-52 01:22:00* Test Item Value Reference Range Interpretation Comments Urine Blood (test code = 56037-0) MODERATE NEGATIVE [facility] Nghcz9050-31-73 01:22:00* Test Item Value Reference Range Interpretation Comments Urine Color (test code = 5778-6) YELLOW YELLOW [facility] Pkgtiez6194-01-26 01:22:00* Test Item Value Reference Range Interpretation Comments Urine Clarity (test code = 23494-0) CLOUDY CLEAR H [facility] Specific Zilvnaq6234-56-85 01:22:00 * Test Item Value Reference Range Interpretation Comments Urine Specific [place] (test code = 5811-5) 1.025 1.010-1.02 5 [facility] pJ9096-56-30 01:22:00* Test Item Value Reference Range Interpretation Comments Urine pH (test code = 20266-7) 6 5-7 [facility] Leukocyte Jhfkkrzd6561-89-16 01:22:00* Test Item Value Reference Range Interpretation Comments Urine Leukocyte Esterase (test code = 96817-7) SMALL NEGATIV E [facility] Xmhizmm0260-42-15 01:22:00* Test Item Value Reference Range Interpretation Comments Urine Nitrite (test code = 89170-2) NEGATIVE NEGATIVE [facility] Sfyqnfl9641-51-87 01:22:00* Test Item Value Reference Range Interpretation Comments Urine Protein (test code = 27133-8) TRACE NEGATIVE [facility] Glucose (UA)2019-05-19 01:22:00* Test Item Value Reference Range Interpretation Comments Urine Glucose (UA) (test code = 31402-2) 2+ NEGATIVE [facility] Amndcge0565-81-41 01:22:00* Test Item Value Reference Range Interpretation Comments Urine Ketones (test code = 84456-3) 1+ NEGATIVE [facility] Mrvsprlsuupf6648-71-98 01:22:00* Test Item Value Reference Range Interpretation Comments Urine Urobilinogen (test code = 54441-0) 0.2 0.2-1 [facility] Syjlzzcul4848-89-84 01:22:00* Test Item Value Reference Range Interpretation Comments Urine Bilirubin (test code = 1977-8) NEGATIVE NEGATIVE [facility] Iqlow6293-52-08 01:22:00* Test Item Value Reference Range Interpretation Comments Urine Blood (test code = 03018-6) MODERATE NEGATIVE [facility] Kvdxa9737-02-28 01:22:00* Test Item Value Reference Range Interpretation Comments Urine Color (test code = 5778-6) YELLOW YELLOW [facility] Kvclver9213-90-91 01:22:00* Test Item Value Reference Range Interpretation Comments Urine Clarity (test code = 19716-3) CLOUDY CLEAR H [facility] Specific Shhiqlu2226-34-33 01:22:00 * Test Item Value Reference Range Interpretation Comments Urine Specific [place] (test code = 5811-5) 1.025 1.010-1.02 5 [facility] [id number] 01:22:00* Test Item Value Reference Range Interpretation Comments Urine pH (test code = 53788-3) 6 5-7 [facility] Leukocyte Rzooqsld0167-63-97 01:22:00* Test Item Value Reference Range Interpretation Comments Urine Leukocyte Esterase (test code = 56283-9) SMALL NEGATIV E [facility] Tpfsycr0735-22-29 01:22:00* Test Item Value Reference Range Interpretation Comments Urine Nitrite (test code = 94601-5) NEGATIVE NEGATIVE [facility] Fkedudq4355-88-72 01:22:00* Test Item Value Reference Range Interpretation Comments Urine Protein (test code = 09153-9) TRACE NEGATIVE [facility] Glucose (UA)2019-05-19 01:22:00* Test Item Value Reference Range Interpretation Comments Urine Glucose (UA) (test code = 68487-1) 2+ NEGATIVE [facility] Omrpall8841-32-68 01:22:00* Test Item Value Reference Range Interpretation Comments Urine Ketones (test code = 52666-5) 1+ NEGATIVE H [facility] Tfngvmpofipc5070-55-44 01:22:00* Test Item Value Reference Range Interpretation Comments Urine Urobilinogen (test code = 63665-3) 0.2 0.2-1 [facility] Wtitldmly1399-59-17 01:22:00* Test Item Value Reference Range Interpretation Comments Urine Bilirubin (test code = 1977-8) NEGATIVE NEGATIVE [facility] Wzehp9920-87-68 01:22:00* Test Item Value Reference Range Interpretation Comments Urine Blood (test code = 99665-4) MODERATE NEGATIVE [facility] Dwqmx3011-76-59 01:21:00* Test Item Value Reference Range Interpretation Comments Sodium Level (test code = 2951-2) 139 136-145 [facility]neyPotassium Byogv1002-58-45 01:21:00* Test Item Value Reference Range Interpretation Comments Potassium Level (test code = 2823-3) 3.9 3.5-5.1 [facility] McKinneyChloride Egygo9582-78-63 01:21:00* Test Item Value Reference Range Interpretation Comments Chloride Level (test code = 2075-0) 101 98-107 [facility] McKinneyCarbon Dioxide Kvlsl2961-88-38 01:21:00* Test Item Value Reference Range Interpretation Comments Carbon Dioxide Level (test code = 2028-9) 29 22-29 [facility] McKinneyAnion Acw7392-89-84 01:21:00* Test Item Value Reference Range Interpretation Comments Anion Gap (test code = 08405-2) 12.9 8-16 [facility] McKinneyBlood Urea Lvrkgmxv6887-71-53 01:21:00* Test Item Value Reference Range Interpretation Comments Blood Urea Nitrogen (test code = 3094-0) 18 7-26 [facility] McKinneyCreatinine2019-06-18 01:21:00* Test Item Value Reference Range Interpretation Comments Creatinine (test code = 2160-0) 0.99 0.57-1.11 [facility]neyBUN/Creatinine Sfszd3593-19-72 01:21:00* Test Item Value Reference Range Interpretation Comments BUN/Creatinine Ratio (test code = 3097-3) 18 6-25 [facility] McKinneyEstimat Glomerular Filtration Rate 2019-05-19 01:21:00* Test Item Value Reference Range Interpretation Comments Estimat Glomerular Filtration Rate (test code = 528287988) 55 >60 L Ranges were taken from the National Kidney Disease Education Program and the [facility] Kid[facility] Foundation literature.Reference ranges:60 or greater: Snvkea42-86 ( for 3 consecutive months): Chronic kidney disease 15 or less: Kidney failureBaylor Scott & [facility] Medical Center – McKinneyGlucose Cfzrx6246-62-76 01:21:00* Test Item Value Reference Range Interpretation Comments Glucose Level (test code = ECW3837) 136 74-118 H [facility] McKinneyCalcium Uvtyf5613-83-07 01:21:00* Test Item Value Reference Range Interpretation Comments Calcium Level (test code = 53621-1) 9.7 8.4-10.2 [facility] McKinneyTotal Wfralfddl9803-69-98 01:21:00* Test Item Value Reference Range Interpretation Comments Total Bilirubin (test code = 1975-2) 0.3 0.2-1.2 [facility] McKinneyAspartate Amino Transf (AST/SGOT) 2019-05-19 01:21:00* Test Item Value Reference Range Interpretation Comments Aspartate Amino Transf (AST/SGOT) (test code = Aspartate Amino Transf (AST/SGOT)) 17 5-34 [facility] McKinneyAlanine Aminotransferase (ALT/SGPT) 2019-05-19 01:21:00* Test Item Value Reference Range Interpretation Comments Alanine Aminotransferase (ALT/SGPT) (test code = 1742-6) 22 0-55 [facility] Czcqlyw0480-82-81 01:21:00* Test Item Value Reference Range Interpretation Comments Total Protein (test code = 2885-2) 7.0 6.5-8.1 [facility] McKinneyAlbumin2019-06-18 01:21:00* Test Item Value Reference Range Interpretation Comments Albumin (test code = 1751-7) 3.5 3.5-5.0 [facility] McKinneyGlobulin2019-06-18 01:21:00* Test Item Value Reference Range Interpretation Comments Globulin (test code = 89180-9) 3.5 2.3-3.5 [facility] McKinneyAlbumin/Globulin Fimnp5030-55-84 01:21:00 * Test Item Value Reference Range Interpretation Comments Albumin/Globulin Ratio (test code = 1759-0) 1.0 0.8-2.0 [facility] McKinneyAlkaline Xkibppaobni1242-80-50 01:21:00* Test Item Value Reference Range Interpretation Comments Alkaline Phosphatase (test code = 6768-6) 127 40-150 [facility] Szfnu3273-37-54 01:21:00* Test Item Value Reference Range Interpretation Comments Sodium Level (test code = 2951-2) 139 136-145 [facility] McKinneyPotassium Cjwtg2270-22-88 01:21:00* Test Item Value Reference Range Interpretation Comments Potassium Level (test code = 2823-3) 3.9 3.5-5.1 [facility] McKinneyChloride Xwfug6365-06-53 01:21:00* Test Item Value Reference Range Interpretation Comments Chloride Level (test code = 2075-0) 101 98-107 [facility] McKinneyCarbon Dioxide Sgnuv5728-69-30 01:21:00* Test Item Value Reference Range Interpretation Comments Carbon Dioxide Level (test code = 2028-9) 29 22-29 [facility] McKinneyAnion Klp7836-45-74 01:21:00* Test Item Value Reference Range Interpretation Comments Anion Gap (test code = 22969-2) 12.9 8-16 [facility] McKinneyBlood Urea Ayyhdhik2174-04-18 01:21:00* Test Item Value Reference Range Interpretation Comments Blood Urea Nitrogen (test code = 3094-0) 18 7-26 [facility] McKinneyCreatinine2019-06-18 01:21:00* Test Item Value Reference Range Interpretation Comments Creatinine (test code = 2160-0) 0.99 0.57-1.11 [facility] McKinneyBUN/Creatinine Wtofe9777-92-24 01:21:00* Test Item Value Reference Range Interpretation Comments BUN/Creatinine Ratio (test code = 3097-3) 18 6-25 [facility] McKinneyEstimat Glomerular Filtration Rate 2019-05-19 01:21:00* Test Item Value Reference Range Interpretation Comments Estimat Glomerular Filtration Rate (test code = 316486276) 55 >60 L Ranges were taken from the National Kidney Disease Education Program and the [facility] Kid[facility] Foundation literature.Reference ranges:60 or greater: Ypfvbd27-27 ( for 3 consecutive months): Chronic kidney disease 15 or less: Kidney failureBaylor Scott & White Medical Center – McKinneyGlucose Yotmg1600-69-03 01:21:00* Test Item Value Reference Range Interpretation Comments Glucose Level (test code = ANZ3148) 136 74-118 H [facility] McKinneyCalcium Vcrlm2153-38-62 01:21:00* Test Item Value Reference Range Interpretation Comments Calcium Level (test code = 56922-8) 9.7 8.4-10.2 [facility] McKinneyTotal Ozbsmnran3830-20-81 01:21:00* Test Item Value Reference Range Interpretation Comments Total Bilirubin (test code = 1975-2) 0.3 0.2-1.2 [facility] McKinneyAspartate Amino Transf (AST/SGOT) 2019-05-19 01:21:00* Test Item Value Reference Range Interpretation Comments Aspartate Amino Transf (AST/SGOT) (test code = Aspartate Amino Transf (AST/SGOT)) 17 5-34 [facility] McKinneyAlanine Aminotransferase (ALT/SGPT) 2019-05-19 01:21:00* Test Item Value Reference Range Interpretation Comments Alanine Aminotransferase (ALT/SGPT) (test code = 1742-6) 22 0-55 [facility] Mibxozp6173-55-40 01:21:00* Test Item Value Reference Range Interpretation Comments Total Protein (test code = 2885-2) 7.0 6.5-8.1 [facility] McKinneyAlbumin2019-06-18 01:21:00* Test Item Value Reference Range Interpretation Comments Albumin (test code = 1751-7) 3.5 3.5-5.0 [facility] McKinneyGlobulin2019-06-18 01:21:00* Test Item Value Reference Range Interpretation Comments Globulin (test code = 17537-2) 3.5 2.3-3.5 [facility] McKinneyAlbumin/Globulin Cspzt8526-11-63 01:21:00 * Test Item Value Reference Range Interpretation Comments Albumin/Globulin Ratio (test code = 1759-0) 1.0 0.8-2.0 [facility] McKinneyAlkaline Cyadljxnncw6844-33-87 01:21:00* Test Item Value Reference Range Interpretation Comments Alkaline Phosphatase (test code = 6768-6) 127 40-150 [facility]odium Aanqw4370-73-16 01:21:00* Test Item Value Reference Range Interpretation Comments Sodium Level (test code = 2951-2) 139 136-145 [facility] McKinneyPotassium Jeqka1628-65-78 01:21:00* Test Item Value Reference Range Interpretation Comments Potassium Level (test code = 2823-3) 3.9 3.5-5.1 [facility] McKinneyChloride Zllnw5696-46-85 01:21:00* Test Item Value Reference Range Interpretation Comments Chloride Level (test code = 2075-0) 101 98-107 [facility] McKinneyCarbon Dioxide Oksbd6381-12-59 01:21:00* Test Item Value Reference Range Interpretation Comments Carbon Dioxide Level (test code = 2028-9) 29 22-29 [facility] McKinneyAnion Uqs5440-07-55 01:21:00* Test Item Value Reference Range Interpretation Comments Anion Gap (test code = 66294-7) 12.9 8-16 [facility] McKinneyBlood Urea Qgxmnrai4684-10-40 01:21:00* Test Item Value Reference Range Interpretation Comments Blood Urea Nitrogen (test code = 3094-0) 18 7-26 [facility] McKinneyCreatinine2019-06-18 01:21:00* Test Item Value Reference Range Interpretation Comments Creatinine (test code = 2160-0) 0.99 0.57-1.11 [facility]neyBUN/Creatinine Spwgp2961-84-77 01:21:00* Test Item Value Reference Range Interpretation Comments BUN/Creatinine Ratio (test code = 3097-3) 18 6-25 [facility] McKinneyEstimat Glomerular Filtration Rate 2019-05-19 01:21:00* Test Item Value Reference Range Interpretation Comments Estimat Glomerular Filtration Rate (test code = 899297680) 55 >60 L Ranges were taken from the National Kidney Disease Education Program and the [facility] Kid[facility] Foundation literature.Reference ranges:60 or greater: Nvexpf77-20 ( for 3 consecutive months): Chronic kidney disease 15 or less: Kidney failureBaylor Scott & White Medical Center – McKinneyGlucose Fehda4782-58-11 01:21:00* Test Item Value Reference Range Interpretation Comments Glucose Level (test code = FMY5802) 136 74-118 H [facility] McKinneyCalcium Lripv6268-52-50 01:21:00* Test Item Value Reference Range Interpretation Comments Calcium Level (test code = 49379-5) 9.7 8.4-10.2 [facility] McKinneyTotal Rrztlrsty3532-74-41 01:21:00* Test Item Value Reference Range Interpretation Comments Total Bilirubin (test code = 1975-2) 0.3 0.2-1.2 [facility] McKinneyAspartate Amino Transf (AST/SGOT) 2019-05-19 01:21:00* Test Item Value Reference Range Interpretation Comments Aspartate Amino Transf (AST/SGOT) (test code = Aspartate Amino Transf (AST/SGOT)) 17 5-34 [facility] McKinneyAlanine Aminotransferase (ALT/SGPT) 2019-05-19 01:21:00* Test Item Value Reference Range Interpretation Comments Alanine Aminotransferase (ALT/SGPT) (test code = 1742-6) 22 0-55 [facility]neyTotal Daejxtw0941-54-31 01:21:00* Test Item Value Reference Range Interpretation Comments Total Protein (test code = 2885-2) 7.0 6.5-8.1 [facility] McKinneyAlbumin2019-06-18 01:21:00* Test Item Value Reference Range Interpretation Comments Albumin (test code = 1751-7) 3.5 3.5-5.0 [facility]neyGlobulin2019-06-18 01:21:00* Test Item Value Reference Range Interpretation Comments Globulin (test code = 28321-5) 3.5 2.3-3.5 [facility] McKinneyAlbumin/Globulin Pwxfm8401-39-26 01:21:00 * Test Item Value Reference Range Interpretation Comments Albumin/Globulin Ratio (test code = 1759-0) 1.0 0.8-2.0 [facility] McKinneyAlkaline Xkjhuzyicpj3291-00-00 01:21:00* Test Item Value Reference Range Interpretation Comments Alkaline Phosphatase (test code = 6768-6) 127 40-150 [facility] McKinneyWhite Blood Nzwnm9715-81-92 00:58:00* Test Item Value Reference Range Interpretation Comments White Blood Count (test code = 6690-2) 7.85 4.8-10.8 [facility] McKinneyRed Blood Vhdnh1491-41-96 00:58:00* Test Item Value Reference Range Interpretation Comments Red Blood Count (test code = 789-8) 4.54 3.6-5.1 [facility] McKinneyHemoglobin2019-06-18 00:58:00* Test Item Value Reference Range Interpretation Comments Hemoglobin (test code = 16274-3) 13.1 12.0-16.0 [facility] McKinneyHematocrit2019-06-18 00:58:00* Test Item Value Reference Range Interpretation Comments Hematocrit (test code = 4544-3) 40.4 34.2-44.1 [facility]neyMean Corpuscular Azozzt6143-38-81 00:58:00* Test Item Value Reference Range Interpretation Comments Mean Corpuscular Volume (test code = 787-2) 89.0 81-99 [facility]neyMean Corpuscular Jogrbfwzqh2359-32-50 00:58:00* Test Item Value Reference Range Interpretation Comments Mean Corpuscular Hemoglobin (test code = 785-6) 28.9 28-32 [facility]neyMean Corpuscular Hemoglobin Concent 2019-05-19 00:58:00* Test Item Value Reference Range Interpretation Comments Mean Corpuscular Hemoglobin Concent (test code = 786-4) 32.4 31-35 [facility]neyRed Cell Distribution Igqws8528-48-60 00:58:00* Test Item Value Reference Range Interpretation Comments Red Cell Distribution Width (test code = 03355-6) 14.0 11.7 -14.4 [facility] McKinneyPlatelet Hdgdb4947-04-24 00:58:00* Test Item Value Reference Range Interpretation Comments Platelet Count (test code = 777-3) 278 140-360 [facility] McKinneyNeutrophils (%) (Auto)2019-05-19 00:58:00 * Test Item Value Reference Range Interpretation Comments Neutrophils (%) (Auto) (test code = 72617-0) 61.6 38.7-80.0 [facility] McKinneyLymphocytes (%) (Auto)2019-05-19 00:58:00 * Test Item Value Reference Range Interpretation Comments Lymphocytes (%) (Auto) (test code = 736-9) 27.3 18.0-39.1 [facility] McKinneyMonocytes (%) (Auto)2019-05-19 00:58:00* Test Item Value Reference Range Interpretation Comments Monocytes (%) (Auto) (test code = 5905-5) 9.0 4.4-11.3 [facility] McKinneyEosinophils (%) (Auto)2019-05-19 00:58:00 * Test Item Value Reference Range Interpretation Comments Eosinophils (%) (Auto) (test code = 713-8) 1.4 0.0-6.0 [facility]neyBasophils (%) (Auto)2019-05-19 00:58:00* Test Item Value Reference Range Interpretation Comments Basophils (%) (Auto) (test code = 706-2) 0.3 0.0-1.0 [facility] McKinneyIM GRANULOCYTES %2019-05-19 00:58:00* Test Item Value Reference Range Interpretation Comments IM GRANULOCYTES % (test code = IM GRANULOCYTES %) 0.4 0.0- 1.0 [facility] McKinneyNeutrophils # (Auto)2019-05-19 00:58:00* Test Item Value Reference Range Interpretation Comments Neutrophils # (Auto) (test code = 751-8) 4.8 2.1-6.9 [facility] McKinneyLymphocytes # (Auto)2019-05-19 00:58:00* Test Item Value Reference Range Interpretation Comments Lymphocytes # (Auto) (test code = 53289-3) 2.1 1.0-3.2 [facility]neyMonocytes # (Auto)2019-05-19 00:58:00* Test Item Value Reference Range Interpretation Comments Monocytes # (Auto) (test code = 742-7) 0.7 0.2-0.8 [facility]neyEosinophils # (Auto)2019-05-19 00:58:00* Test Item Value Reference Range Interpretation Comments Eosinophils # (Auto) (test code = 711-2) 0.1 0.0-0.4 [facility] McKinneyBasophils # (Auto)2019-05-19 00:58:00* Test Item Value Reference Range Interpretation Comments Basophils # (Auto) (test code = 704-7) 0.0 0.0-0.1 [facility] McKinneyAbsolute Immature Granulocyte (auto 2019-05-19 00:58:00* Test Item Value Reference Range Interpretation Comments Absolute Immature Granulocyte (auto (nazia t code = Absolute Immature Granulocyte (auto) 0.03 0-0.1 [facility]neyWhite Blood Qashb1601-51-65 00:58:00* Test Item Value Reference Range Interpretation Comments White Blood Count (test code = 6690-2) 7.85 4.8-10.8 [facility]neyRed Blood Pttze7977-05-54 00:58:00* Test Item Value Reference Range Interpretation Comments Red Blood Count (test code = 789-8) 4.54 3.6-5.1 [facility] McKinneyHemoglobin2019-06-18 00:58:00* Test Item Value Reference Range Interpretation Comments Hemoglobin (test code = 21287-5) 13.1 12.0-16.0 [facility] McKinneyHematocrit2019-06-18 00:58:00* Test Item Value Reference Range Interpretation Comments Hematocrit (test code = 4544-3) 40.4 34.2-44.1 [facility]neyMean Corpuscular Iwkmqg7870-61-13 00:58:00* Test Item Value Reference Range Interpretation Comments Mean Corpuscular Volume (test code = 787-2) 89.0 81-99 [facility]neyMean Corpuscular Gsjhweasmu2177-70-33 00:58:00* Test Item Value Reference Range Interpretation Comments Mean Corpuscular Hemoglobin (test code = 785-6) 28.9 28-32 [facility] McKinneyMean Corpuscular Hemoglobin Concent 2019-05-19 00:58:00* Test Item Value Reference Range Interpretation Comments Mean Corpuscular Hemoglobin Concent (test code = 786-4) 32.4 31-35 [facility]neyRed Cell Distribution Rtunh9830-18-94 00:58:00* Test Item Value Reference Range Interpretation Comments Red Cell Distribution Width (test code = 08716-1) 14.0 11.7 -14.4 [facility] McKinneyPlatelet Skskx3179-80-09 00:58:00* Test Item Value Reference Range Interpretation Comments Platelet Count (test code = 777-3) 278 140-360 [facility] McKinneyNeutrophils (%) (Auto)2019-05-19 00:58:00 * Test Item Value Reference Range Interpretation Comments Neutrophils (%) (Auto) (test code = 48662-0) 61.6 38.7-80.0 [facility] McKinneyLymphocytes (%) (Auto)2019-05-19 00:58:00 * Test Item Value Reference Range Interpretation Comments Lymphocytes (%) (Auto) (test code = 736-9) 27.3 18.0-39.1 [facility]neyMonocytes (%) (Auto)2019-05-19 00:58:00* Test Item Value Reference Range Interpretation Comments Monocytes (%) (Auto) (test code = 5905-5) 9.0 4.4-11.3 [facility]neyEosinophils (%) (Auto)2019-05-19 00:58:00 * Test Item Value Reference Range Interpretation Comments Eosinophils (%) (Auto) (test code = 713-8) 1.4 0.0-6.0 [facility]neyBasophils (%) (Auto)2019-05-19 00:58:00* Test Item Value Reference Range Interpretation Comments Basophils (%) (Auto) (test code = 706-2) 0.3 0.0-1.0 [facility] McKinneyIM GRANULOCYTES %2019-05-19 00:58:00* Test Item Value Reference Range Interpretation Comments IM GRANULOCYTES % (test code = IM GRANULOCYTES %) 0.4 0.0- 1.0 [facility]neyNeutrophils # (Auto)2019-05-19 00:58:00* Test Item Value Reference Range Interpretation Comments Neutrophils # (Auto) (test code = 751-8) 4.8 2.1-6.9 [facility] McKinneyLymphocytes # (Auto)2019-05-19 00:58:00* Test Item Value Reference Range Interpretation Comments Lymphocytes # (Auto) (test code = 43437-6) 2.1 1.0-3.2 [facility]neyMonocytes # (Auto)2019-05-19 00:58:00* Test Item Value Reference Range Interpretation Comments Monocytes # (Auto) (test code = 742-7) 0.7 0.2-0.8 [facility]neyEosinophils # (Auto)2019-05-19 00:58:00* Test Item Value Reference Range Interpretation Comments Eosinophils # (Auto) (test code = 711-2) 0.1 0.0-0.4 [facility]neyBasophils # (Auto)2019-05-19 00:58:00* Test Item Value Reference Range Interpretation Comments Basophils # (Auto) (test code = 704-7) 0.0 0.0-0.1 [facility]neyAbsolute Immature Granulocyte (auto 2019-05-19 00:58:00* Test Item Value Reference Range Interpretation Comments Absolute Immature Granulocyte (auto (nazia t code = Absolute Immature Granulocyte (auto) 0.03 0-0.1 [facility]neyWhite Blood Xdekq9851-91-40 00:58:00* Test Item Value Reference Range Interpretation Comments White Blood Count (test code = 6690-2) 7.85 4.8-10.8 [facility]neyRed Blood Wdjib5196-15-24 00:58:00* Test Item Value Reference Range Interpretation Comments Red Blood Count (test code = 789-8) 4.54 3.6-5.1 [facility] McKinneyHemoglobin2019-06-18 00:58:00* Test Item Value Reference Range Interpretation Comments Hemoglobin (test code = 67581-4) 13.1 12.0-16.0 [facility] McKinneyHematocrit2019-06-18 00:58:00* Test Item Value Reference Range Interpretation Comments Hematocrit (test code = 4544-3) 40.4 34.2-44.1 [facility]neyMean Corpuscular Kjqlly8496-43-93 00:58:00* Test Item Value Reference Range Interpretation Comments Mean Corpuscular Volume (test code = 787-2) 89.0 81-99 [facility]neyMean Corpuscular Jdporxbfgs7127-62-40 00:58:00* Test Item Value Reference Range Interpretation Comments Mean Corpuscular Hemoglobin (test code = 785-6) 28.9 28-32 [facility]neyMean Corpuscular Hemoglobin Concent 2019-05-19 00:58:00* Test Item Value Reference Range Interpretation Comments Mean Corpuscular Hemoglobin Concent (test code = 786-4) 32.4 31-35 [facility] McKinneyRed Cell Distribution Oexci7194-20-42 00:58:00* Test Item Value Reference Range Interpretation Comments Red Cell Distribution Width (test code = 65986-3) 14.0 11.7 -14.4 [facility] McKinneyPlatelet Yzija3520-56-55 00:58:00* Test Item Value Reference Range Interpretation Comments Platelet Count (test code = 777-3) 278 140-360 [facility] McKinneyNeutrophils (%) (Auto)2019-05-19 00:58:00 * Test Item Value Reference Range Interpretation Comments Neutrophils (%) (Auto) (test code = 87969-0) 61.6 38.7-80.0 [facility] McKinneyLymphocytes (%) (Auto)2019-05-19 00:58:00 * Test Item Value Reference Range Interpretation Comments Lymphocytes (%) (Auto) (test code = 736-9) 27.3 18.0-39.1 [facility]neyMonocytes (%) (Auto)2019-05-19 00:58:00* Test Item Value Reference Range Interpretation Comments Monocytes (%) (Auto) (test code = 5905-5) 9.0 4.4-11.3 [facility]neyEosinophils (%) (Auto)2019-05-19 00:58:00 * Test Item Value Reference Range Interpretation Comments Eosinophils (%) (Auto) (test code = 713-8) 1.4 0.0-6.0 [facility]neyBasophils (%) (Auto)2019-05-19 00:58:00* Test Item Value Reference Range Interpretation Comments Basophils (%) (Auto) (test code = 706-2) 0.3 0.0-1.0 [facility]neyIM GRANULOCYTES %2019-05-19 00:58:00* Test Item Value Reference Range Interpretation Comments IM GRANULOCYTES % (test code = IM GRANULOCYTES %) 0.4 0.0- 1.0 [facility]neyNeutrophils # (Auto)2019-05-19 00:58:00* Test Item Value Reference Range Interpretation Comments Neutrophils # (Auto) (test code = 751-8) 4.8 2.1-6.9 [facility] McKinneyLymphocytes # (Auto)2019-05-19 00:58:00* Test Item Value Reference Range Interpretation Comments Lymphocytes # (Auto) (test code = 90725-7) 2.1 1.0-3.2 [facility]neyMonocytes # (Auto)2019-05-19 00:58:00* Test Item Value Reference Range Interpretation Comments Monocytes # (Auto) (test code = 742-7) 0.7 0.2-0.8 [facility]neyEosinophils # (Auto)2019-05-19 00:58:00* Test Item Value Reference Range Interpretation Comments Eosinophils # (Auto) (test code = 711-2) 0.1 0.0-0.4 [facility]neyBasophils # (Auto)2019-05-19 00:58:00* Test Item Value Reference Range Interpretation Comments Basophils # (Auto) (test code = 704-7) 0.0 0.0-0.1 [facility] McKinneyAbsolute Immature Granulocyte (auto 2019-05-19 00:58:00* Test Item Value Reference Range Interpretation Comments Absolute Immature Granulocyte (auto (nazia t code = Absolute Immature Granulocyte (auto) 0.03 0-0.1 [facility]CR M[facility]M BILATERAL JASON CAD DIGITAL 2019-02-18 16:30:28 - SCR MAMM BILATERAL JASON CAD DIGITALBILATERAL DIGITAL SCREENING MAMMOGRAM 3D/2D WITH CAD: 02/18/2019CLINICAL: Asymptomatic. Current mammographic images were evaluated by either a sciencebite-Vu or an mCASH version 7.2 computer aided detection system. Comparison is made to exams dated 10/11/2017 mammogram, 11/10/2015 mammogram, and 11/01/2014 mammogram - [facility]. There are scattered fibroglandular tissues in both breasts. No suspicious mass, architectural distortion, malignant type calcification, or lymph node abnormality detected. Breast architecture is stable compared to prior exams.IMPRESSION: NEGATIVEThere is no mammographic evidence of malignancy. Resume annual screening mammography in one year. Yordan macn/penrad:02/18/2019 16:30:28 Attending Technologist: Albertina MCKNIGHT, [facility]FWImaging Technologist: Allison MCKNIGHT, [facility]FWletter sent: BIRADS 1-2 Normal Mammogram BI-RADS: 1 NegativeKNEE RIGHT THREE UGDMX9322-77-39 04:53:00 [facility] [address] [place] [address] Patient Name: SHARI DEAN MR #: [id number] : 1945 Age/Sex: 73/F Req #: [id number] Adm Physician: Ordered by: KRISTEN COLVIN MD Report #: [id number] Location: ER Room/Bed: Procedure: [id number] DX/ KNEE RIGHT THREE VIEWS Exam Date: 11/01/18 Exam Time : 0430 REPORT STATUS: Signed EXA M: KNEE RIGHT THREE VIEWS, AP, lateral and oblique INDICATION: Fall, right kne e pain COMPARISON: None FINDINGS: BONES: No acute fractures. ELKE INTS: Mild tricompartmental osteophytosis and medial compartment joint space narrowing. SOFT TISSUES: Soft tissue swelling of the anterior knee and p ossible small joint effusion. IMPRESSION: 1. Soft tissue swelling of t he anterior knee and possible small joint effusion. 2. No evidence of an acute fracture. 3. Moderate degenerative changes. Signed by: Dr. Lizandro Rodríguez M.D. on 11/01/2018 4:55 AM Dictated By: LIZANDRO RODRÍGUEZ MD Electro nically Signed By: LIZANDRO RODRÍGUEZ MD on 11/01/18454 Transcribed By: GAUDENCIO on 11/01/18454 COPY TO: KRISTEN COLVIN MD PELVIS AP 1-2 VIEWS 2018-11-01 04:52:00 [place] [address] Patient Name: SHARI DEAN MR #: [id number] : 1945 Age/Sex: 73/F Req #: [id number] Adm Physician: Ordered by: KRISTEN COLVIN MD Report #: [id number] Location: ER Room/Bed: Procedure: [id number] DX/ PELVIS AP 1-2 VIEWS Exam Date: 11/01/18 Exam Time: 0 430 REPORT STATUS: Signed EXAM: PELVIS AP 1-2 VIEWS INDICATION: Fall COMPARISON: None FINDINGS: BONES : No acute fractures. JOINTS: Degenerative changes of the lumbar spine and sacroiliac joints. SOFT TISSUES: Normal IMPRESSION: No pelvic fracture. Signed by: Dr. Lizandro Rodríguez M.D. on 11/01/2018 4:53 AM Dictated By: LIZANDRO RODRÍGUEZ MD 2 Transcribed By: GAUDENCIO on 11/01/18452 COPY TO: KRISTEN GRAYSON MD RIBS UNILAT W/CIX3522-40-77 04:50:00 [place] [address] Patient Name: SHARI DEAN MR #: [id number] : 1945 Age/Sex: 73/F Req #: [id number] Adm Physician: Ordered by: KRISTEN COLVIN MD Report #: [id number] Location: ER Room/Bed: Procedure: [id number] DX/ RIBS UNILAT W/CXR Exam Date: 11/01/18 Exam Time: 041 5 REPORT STATUS: Signed EXAM: CH EST 2 VIEWS, RIBS UNILAT W/CXR, INDICATION: Right rib pain after fall ALFRED RISON: PA and lateral view of the chest February 15, 2018 FINDINGS: LINES/TU BES: None LUNGS: No consolidations or edema. PLEURA: No effusions or pneumothorax. HEART AND MEDIASTINUM: Normal size and contour. BONES AN D SOFT TISSUES: No acute findings. IMPRESSION: No acute thoracic abnorma lity. No evidence of a left rib fracture. Signed by: Dr. Lizandro Rodríguez M.D. on 11/01/2018 4:52 AM Dictated By: LIZANDRO RODRÍGUEZ MD Elec tronically Signed By: LIZANDRO RODRÍGUEZ MD on 11/01/18451 Transcribed By: GAUDENCIO on 11/01/18451 COPY TO: KRISTEN COLVIN MD CHEST 2 VIEWS 2018-11-01 04:50:00 [place] [address] Patient Name: SHARI DEAN MR #: [id number] : 1945 Age/Sex: 73/F Req #: [id number] Adm Physician: Ordered by: KRISTEN COLVIN MD Report #: [id number] Location: ER Room/Bed: Procedure: [id number] DX/ CHEST 2 VIEWS Exam Date: 11/01/18 Exam Time: 0415 REPORT STATUS: Signed EXAM: CHEST 2 VIEWS, RIBS UNILAT W/CXR, INDICATION: Right rib pain after fall COMPARISO N: PA and lateral view of the chest February 15, 2018 FINDINGS: LINES/TUBES: None LUNGS: No consolidations or edema. PLEURA: No effusions or pneu mothorax. HEART AND MEDIASTINUM: Normal size and contour. BONES AND SO FT TISSUES: No acute findings. IMPRESSION: No acute thoracic abnormality . No evidence of a left rib fracture. Signed by: Dr. Lizandro us M.D. on 11/01/2018 4:52 AM Dictated By: LIZANDRO RODRÍGUEZ MD [facility] Signed By: LIZANDRO RODRÍGUEZ MD on 11/01/18451 Transcribed By: GAUDENCIO on 11/01/18451 COPY TO: KRISTEN COLVIN MD CT CERVICAL SPINE WO 2018-11-01 04:16:00 [place] [address] Patient Name: SHARI DEAN MR #: [id number] : 1945 Age/Sex: 73/F Req #: [id number] Adm Physician: Ordered by: KRISTEN COLVIN MD Report #: [id number] Location: ER Room/Bed: Procedure: [id number] CT/ CT CERVICAL SPINE WO Exam Date: Exam Time: REPORT STATUS: Signed History: Fall C omparison studies: None Technique: Axial images were obtained through th e cervical region.. Coronal and sagittal images reconstructed from the axial d purnima.. Intravenous contrast: None Dose modulation, iterative reconstructio n, and/or weight based adjustment of the mA/kV was utilized to reduce the radi ation dose to as low as reasonably achievable. Findings: Fractures: None. Soft tissues: No gross abnormalities. Atlantoaxial articulation: In tact. Alignment: Straightening of the normal lordosis. No scoliosis. Cervico medullary junction: No abnormalities. The foramen magnum is patent. Vertebr ae: No infection or neoplasm. Degenerative changes: Patent canal and foramina. IMPRESSION: 1. No acute cervical spine abnormalities. 2. Cannot exclude ligament, spinal cord and or vascular abnormalities on the basis of this examination. Signed by: DR Rodrigo Corrales M.D. on 11/01 4:19 AM Dictated By: RODRIGO MATHEWS MD 0419 Transcribed By: GAUDENCIO on 11/01/18 0 419 COPY TO: KRISTEN COLVIN MD CT BRAIN [id number] 04:14:00 [place] [address] Patient Name: SHARI DEAN MR #: [id number] : 1945 [facility] 73[id number] Req #: [id number] Adm Physician: Ordered by: KRISTEN COLVIN MD Report #: [id number] Location: Room/Bed: Procedure: [id number] CT/ CT BRAIN WO Exam Date: Exam Time: REPORT STATUS: Signed History:Fall Comparison studies:None Technique: Axial images were obtained from the skull base to the vertex. Coronal and sagittal images reconstructed from the axial data. Intravenous contrast: None Dose modulation, iterative reconstruction, and/or w eight based adjustment of the mA/kV was utilized to reduce the radiation dose to as low as reasonably achievable. Findings: Scalp/skull: No abn ormalities. Extra-axial spaces: No masses. No fluid collections. B rain sulci: Mildly prominent. Ventricles: Mild compensatory dilatation. No hyd rocephalus. Parenchyma: Few hypodensities in the supratentorial white ma tter are small vessel ischemic changes. No masses, hemorrhage, acute or chroni c cortical vascular insults. Sellar/suprasellar region: No abnormalities. Craniocervical junction: Patent foramen magnum. No Chiari one malformation. Incidental findings: Atherosclerotic calcifications in the carotid siphons . Impression: No acute abnormalities. Chronic findings: 1. Mil d generalized volume loss. 2. Mild supratentorial white matter small vessel i schemic changes. Signed by: DR Rodrigo Corrales M.D. on 11/01/2018 4:16 AM Dictated By: RODRIGO MATHEWS MD 5 Transcribed By: GAUDENCIO on 11/01/18415 COPY TO: KRISTEN COLVIN MD Creatine Kinase DF2019-20-03 03:33:00* Test Item Value Reference Range Interpretation Comments Creatine Kinase MB (test code = 62182-4) 3.00 0-5.0 [facility]neyTroponin [id number] 03:33:00* Test Item Value Reference Range Interpretation Comments Troponin I (test code = FXI4995) 0.005 0-0.300 [facility] McKinneyCreatine Kinase RI1104-84-64 03:33:00* Test Item Value Reference Range Interpretation Comments Creatine Kinase MB (test code = 38622-2) 3.00 0-5.0 [facility] McKinneyTroponin [id number] 03:33:00* Test Item Value Reference Range Interpretation Comments Troponin I (test code = SCY3419) 0.005 0-0.300 [facility] Ivrzj4913-23-16 03:24:00* Test Item Value Reference Range Interpretation Comments Sodium Level (test code = 2951-2) 140 136-145 [facility] McKinneyPotassium Yekvk7719-09-23 03:24:00* Test Item Value Reference Range Interpretation Comments Potassium Level (test code = 2823-3) 4.0 3.5-5.1 [facility] McKinneyChloride Btoai8585-98-11 03:24:00* Test Item Value Reference Range Interpretation Comments Chloride Level (test code = 2075-0) 100 98-107 [facility] McKinneyCarbon Dioxide Qkbpp5607-61-73 03:24:00* Test Item Value Reference Range Interpretation Comments Carbon Dioxide Level (test code = 2028-9) 31 22-29 H [facility] McKinneyAnion Ein6249-52-28 03:24:00* Test Item Value Reference Range Interpretation Comments Anion Gap (test code = 14793-4) 13.0 8-16 [facility] McKinneyBlood Urea Tbuhfnny7122-73-93 03:24:00* Test Item Value Reference Range Interpretation Comments Blood Urea Nitrogen (test code = 3094-0) 20 7-26 [facility] McKinneyCreatinine2018-12-01 03:24:00* Test Item Value Reference Range Interpretation Comments Creatinine (test code = 2160-0) 0.91 0.57-1.11 [facility] McKinneyBUN/Creatinine Rrhgo9512-16-24 03:24:00* Test Item Value Reference Range Interpretation Comments BUN/Creatinine Ratio (test code = 3097-3) 22 6-25 [facility] McKinneyEstimat Glomerular Filtration Rate 2018-11-01 03:24:00* Test Item Value Reference Range Interpretation Comments Estimat Glomerular Filtration Rate (test code = 063683089) 60 >60 Ranges were taken from the National Kidney Disease Education Program and the [facility] literature.Reference ranges:60 or greater: Jpxkpa90-94 ( for 3 consecutive months): Chronic kidney disease 15 or less: Kidney failureB[facility] – McKinneyGlucose Zkdtd1593-47-97 03:24:00* Test Item Value Reference Range Interpretation Comments Glucose Level (test code = AOK4341) 202 74-118 H [facility] McKinneyCalcium Dfwlg3951-67-50 03:24:00* Test Item Value Reference Range Interpretation Comments Calcium Level (test code = 25086-4) 10.0 8.4-10.2 [facility] McKinneyMagnesium Inlxo0131-65-17 03:24:00* Test Item Value Reference Range Interpretation Comments Magnesium Level (test code = 53050-4) 2.4 1.3-2.1 H [facility] McKinneyTotal Bgqrzsnqw5364-34-11 03:24:00* Test Item Value Reference Range Interpretation Comments Total Bilirubin (test code = 1975-2) 0.3 0.2-1.2 [facility] McKinneyAspartate Amino Transf (AST/SGOT) 2018-11-01 03:24:00* Test Item Value Reference Range Interpretation Comments Aspartate Amino Transf (AST/SGOT) (test code = Aspartate Amino Transf (AST/SGOT)) 24 5-34 [facility] McKinneyAlanine Aminotransferase (ALT/SGPT) 2018-11-01 03:24:00* Test Item Value Reference Range Interpretation Comments Alanine Aminotransferase (ALT/SGPT) (test code = 1742-6) 22 0-55 [facility] McKinneyTotal Wmwrhrb7724-18-19 03:24:00* Test Item Value Reference Range Interpretation Comments Total Protein (test code = 2885-2) 7.3 6.5-8.1 [facility] McKinneyAlbumin2018-12-01 03:24:00* Test Item Value Reference Range Interpretation Comments Albumin (test code = 1751-7) 3.7 3.5-5.0 [facility] McKinneyGlobulin2018-12-01 03:24:00* Test Item Value Reference Range Interpretation Comments Globulin (test code = 72706-2) 3.6 2.3-3.5 H [facility] McKinneyAlbumin/Globulin Xqjpe3808-10-50 03:24:00 * Test Item Value Reference Range Interpretation Comments Albumin/Globulin Ratio (test code = 1759-0) 1.0 0.8-2.0 [facility] McKinneyAlkaline Bwsyiwrapbb5660-05-18 03:24:00* Test Item Value Reference Range Interpretation Comments Alkaline Phosphatase (test code = 6768-6) 114 40-150 [facility] McKinneyCreatine Ifmorl2601-69-52 03:24:00* Test Item Value Reference Range Interpretation Comments Creatine Kinase (test code = 2157-6) 188 29-168 H [facility] McKinneyMagnesium Oipjr1528-15-82 03:24:00* Test Item Value Reference Range Interpretation Comments Magnesium Level (test code = 21540-0) 2.4 1.3-2.1 H [facility] McKinneyCreatine Fbjiir7851-38-25 03:24:00* Test Item Value Reference Range Interpretation Comments Creatine Kinase (test code = 2157-6) 188 29-168 [facility] McKinneyUrine VOP2294-01-77 03:23:00* Test Item Value Reference Range Interpretation Comments Urine WBC (test code = 5821-4) 6-10 0-5 H [facility] McKinneyUrine TBP8569-55-09 03:23:00* Test Item Value Reference Range Interpretation Comments Urine RBC (test code = 21288-6) 0-5 0-5 [facility] McKinneyUrine Odtzbpht7609-96-44 03:23:00* Test Item Value Reference Range Interpretation Comments Urine Bacteria (test code = 23065-0) MODERATE NONE H [facility] McKinneyUrine Epithelial Fjhmp0319-17-27 03:23:00 * Test Item Value Reference Range Interpretation Comments Urine Epithelial Cells (test code = 16936-9) MANY NONE [facility] McKinneyUrine Whhui4144-92-60 03:23:00* Test Item Value Reference Range Interpretation Comments Urine Mucus (test code = 8247-9) MANY RARE H [facility] McKinneyProthrombin Jcep3123-84-62 03:08:00* Test Item Value Reference Range Interpretation Comments Prothrombin Time (test code = 5902-2) 12.0 11.9-14.5 [facility] McKinneyProthromb Time International Ratio 2018-11-01 03:08:00* Test Item Value Reference Range Interpretation Comments Prothromb Time International Ratio (test code = 6301-6) 0.81 Oral Anticoagulant Therapy INR Values:1. Low Intensity Therapy 1.5 - 2.02 . Moderate Intensity Therapy 2.0 - 3.03. High Intensity Therapy(1) 2.5 - 3. 54. High Intensity Therapy(2) 3.0 - 4.05. Panic Value INR > 5.0 [facility] McKinneyActivated Partial Thromboplast Time 2018-11-01 03:08:00* Test Item Value Reference Range Interpretation Comments Activated Partial Thromboplast Time (test code = 01232-4) 28.0 23.8-35.5 [facility] McKinneyProthrombin Avtq4738-52-02 03:08:00* Test Item Value Reference Range Interpretation Comments Prothrombin Time (test code = 5902-2) 12.0 11.9-14.5 [facility] McKinneyProthromb Time International Ratio 2018-11-01 03:08:00* Test Item Value Reference Range Interpretation Comments Prothromb Time International Ratio (test code = 6301-6) 0.81 Oral Anticoagulant Therapy INR Values:1. Low Intensity Therapy 1.5 - 2.02 . Moderate Intensity Therapy 2.0 - 3.03. High Intensity Therapy(1) 2.5 - 3. 54. High Intensity Therapy(2) 3.0 - 4.05. Panic Value INR > 5.0 [facility] McKinneyActivated Partial Thromboplast Time 2018-11-01 03:08:00* Test Item Value Reference Range Interpretation Comments Activated Partial Thromboplast Time (test code = 52165-3) 28.0 23.8-35.5 [facility] McKinneyUrine Xxyoz0286-57-41 03:04:00* Test Item Value Reference Range Interpretation Comments Urine Color (test code = 5778-6) YELLOW YELLOW [facility] McKinneyUrine Mnjficw6692-92-54 03:04:00* Test Item Value Reference Range Interpretation Comments Urine Clarity (test code = 49768-0) CLOUDY CLEAR [facility] HospitalU[facility] Specific Jaefojz9104-57-99 03:04:00 * Test Item Value Reference Range Interpretation Comments Urine Specific [place] (test code = 5811-5) 1.020 1.010-1.02 5 [facility] McKinneyUrine bR0810-74-29 03:04:00* Test Item Value Reference Range Interpretation Comments Urine pH (test code = 56623-6) 6 5-7 [facility] McKinneyUrine Leukocyte Ozyqpuqy9802-76-75 03:04:00* Test Item Value Reference Range Interpretation Comments Urine Leukocyte Esterase (test code = 5799-2) TRACE NEGATIVE [facility] HospitalUrine Feanbak1224-46-38 03:04:00* Test Item Value Reference Range Interpretation Comments Urine Nitrite (test code = 85421-3) NEGATIVE NEGATIVE [facility] McKinneyUrine Qgvdryh8064-39-79 03:04:00* Test Item Value Reference Range Interpretation Comments Urine Protein (test code = 5804-0) NEGATIVE NEGATIVE [facility] McKinneyUrine Glucose (UA)2018-11-01 03:04:00* Test Item Value Reference Range Interpretation Comments Urine Glucose (UA) (test code = 2349-9) 2+ NEGATIVE H [facility] McKinneyUrine Rfjjxyn5461-10-68 03:04:00* Test Item Value Reference Range Interpretation Comments Urine Ketones (test code = 21552-2) TRACE NEGATIVE H [facility]neyUrine Ovzwsbjzopjk9765-39-99 03:04:00* Test Item Value Reference Range Interpretation Comments Urine Urobilinogen (test code = 86495-3) 0.2 0.2-1 [facility] McKinneyUrine Utbfqommy7022-95-03 03:04:00* Test Item Value Reference Range Interpretation Comments Urine Bilirubin (test code = 1978-6) NEGATIVE NEGATIVE [facility]neyUrine Coaoc2472-44-53 03:04:00* Test Item Value Reference Range Interpretation Comments Urine Blood (test code = 43595-8) NEGATIVE NEGATIVE [facility] McKinneyWhite Blood Obthn1147-43-65 02:58:00* Test Item Value Reference Range Interpretation Comments White Blood Count (test code = 6690-2) 9.59 4.8-10.8 [facility] McKinneyRed Blood Vlhpn0032-14-78 02:58:00* Test Item Value Reference Range Interpretation Comments Red Blood Count (test code = 789-8) 4.25 3.6-5.1 [facility] McKinneyHemoglobin2018-12-01 02:58:00* Test Item Value Reference Range Interpretation Comments Hemoglobin (test code = 65399-2) 11.9 12.0-16.0 L [facility] McKinneyHematocrit2018-12-01 02:58:00* Test Item Value Reference Range Interpretation Comments Hematocrit (test code = 4544-3) 37.5 34.2-44.1 [facility] McKinneyMean Corpuscular Wrufik9651-84-11 02:58:00* Test Item Value Reference Range Interpretation Comments Mean Corpuscular Volume (test code = 787-2) 88.2 81-99 [facility] McKinneyMean Corpuscular Ygiiocvstb5586-02-47 02:58:00* Test Item Value Reference Range Interpretation Comments Mean Corpuscular Hemoglobin (test code = 785-6) 28.0 28-32 [facility] McKinneyMean Corpuscular Hemoglobin Concent 2018-11-01 02:58:00* Test Item Value Reference Range Interpretation Comments Mean Corpuscular Hemoglobin Concent (test code = 786-4) 31.7 31-35 [facility] McKinneyRed Cell Distribution Tqlld9800-31-03 02:58:00* Test Item Value Reference Range Interpretation Comments Red Cell Distribution Width (test code = 71987-8) 15.8 11.7 -14.4 H [facility] McKinneyPlatelet Lbnef5651-01-65 02:58:00* Test Item Value Reference Range Interpretation Comments Platelet Count (test code = 777-3) 289 140-360 [facility] McKinneyNeutrophils (%) (Auto)2018-11-01 02:58:00 * Test Item Value Reference Range Interpretation Comments Neutrophils (%) (Auto) (test code = 17578-4) 64.9 38.7-80.0 [facility] McKinneyLymphocytes (%) (Auto)2018-11-01 02:58:00 * Test Item Value Reference Range Interpretation Comments Lymphocytes (%) (Auto) (test code = 736-9) 22.0 18.0-39.1 [facility] McKinneyMonocytes (%) (Auto)2018-11-01 02:58:00* Test Item Value Reference Range Interpretation Comments Monocytes (%) (Auto) (test code = 5905-5) 10.3 4.4-11.3 [facility]neyEosinophils (%) (Auto)2018-11-01 02:58:00 * Test Item Value Reference Range Interpretation Comments Eosinophils (%) (Auto) (test code = 713-8) 2.4 0.0-6.0 [facility]neyBasophils (%) (Auto)2018-11-01 02:58:00* Test Item Value Reference Range Interpretation Comments Basophils (%) (Auto) (test code = 706-2) 0.2 0.0-1.0 [facility] McKinneyIM GRANULOCYTES %2018-11-01 02:58:00* Test Item Value Reference Range Interpretation Comments IM GRANULOCYTES % (test code = IM GRANULOCYTES %) 0.2 0.0- 1.0 [facility] McKinneyNeutrophils # (Auto)2018-11-01 02:58:00* Test Item Value Reference Range Interpretation Comments Neutrophils # (Auto) (test code = 751-8) 6.2 2.1-6.9 [facility] McKinneyLymphocytes # (Auto)2018-11-01 02:58:00* Test Item Value Reference Range Interpretation Comments Lymphocytes # (Auto) (test code = 58736-8) 2.1 1.0-3.2 [facility] McKinneyMonocytes # (Auto)2018-11-01 02:58:00* Test Item Value Reference Range Interpretation Comments Monocytes # (Auto) (test code = 742-7) 1.0 0.2-0.8 H [facility]neyEosinophils # (Auto)2018-11-01 02:58:00* Test Item Value Reference Range Interpretation Comments Eosinophils # (Auto) (test code = 711-2) 0.2 0.0-0.4 [facility]neyBasophils # (Auto)2018-11-01 02:58:00* Test Item Value Reference Range Interpretation Comments Basophils # (Auto) (test code = 704-7) 0.0 0.0-0.1 [facility] McKinneyAbsolute Immature Granulocyte (auto 2018-11-01 02:58:00* Test Item Value Reference Range Interpretation Comments Absolute Immature Granulocyte (auto (nazia t code = Absolute Immature Granulocyte (auto) 0.02 0-0.1 [facility] McKinneyBlood Idmsflx7789-43-48 07:14:00* Test Item Value Reference Range Interpretation Comments Blood Culture (test code = 14513097) NO GROWTH AFTER 5 DAYS, FINAL REPORT [facility] Wxmxjdf9529-93-16 07:14:00* Test Item Value Reference Range Interpretation Comments Blood Culture (test code = 63738495) NO GROWTH AFTER 5 DAYS, FINAL REPORT [facility] Zdwzecl9703-74-65 11:53:00* Test Item Value Reference Range Interpretation Comments Bedside Glucose (test code = 66099-0) 208 70-120 H Meter ID: [id number] Glucose 2018-02-17 11:53:00* Test Item Value Reference Range Interpretation Comments Bedside Glucose (test code = 99806-6) 208 70-120 H Meter ID: [id number] [facility] Glucose 2018-02-17 11:53:00* Test Item Value Reference Range Interpretation Comments Bedside Glucose (test code = 46463-0) 208 70-120 H Meter ID: [id number] [facility] ParkwayBlood Culture 2018-02-17 07:14:00* Test Item Value Reference Range Interpretation Comments Blood Culture (test code = 72938640) NO GROWTH AFTER 24 HOURS [facility] Evxzwhydl5578-29-31 07:11:00* Test Item Value Reference Range Interpretation Comments Free Thyroxine (test code = 3024-7) 1.08 0.9-1.8 [facility] McKinneyThyroid Stimulating Hormone (TSH) 2018-02-17 07:11:00* Test Item Value Reference Range Interpretation Comments Thyroid Stimulating Hormone (TSH) (test code = 96620-3) 1.017 0.350-4.940 [facility] Zgwywftjw0465-19-23 07:11:00* Test Item Value Reference Range Interpretation Comments Free Thyroxine (test code = 3024-7) 1.08 0.9-1.8 [facility] McKinneyThyroid Stimulating Hormone (TSH) 2018-02-17 07:11:00* Test Item Value Reference Range Interpretation Comments Thyroid Stimulating Hormone (TSH) (test code = 24771-7) 1.017 0.350-4.940 [facility] Bpdgncgnd2578-66-66 07:11:00* Test Item Value Reference Range Interpretation Comments Free Thyroxine (test code = 3024-7) 1.08 0.9-1.8 [facility] McKinneyThyroid Stimulating Hormone (TSH) 2018-02-17 07:11:00* Test Item Value Reference Range Interpretation Comments Thyroid Stimulating Hormone (TSH) (test code = 41191-6) 1.017 0.350-4.940 [facility] Cfwgk5699-28-02 06:51:00* Test Item Value Reference Range Interpretation Comments Sodium Level (test code = 2951-2) 140 136-145 [facility] McKinneyPotassium Xxyej4570-42-44 06:51:00* Test Item Value Reference Range Interpretation Comments Potassium Level (test code = 2823-3) 3.7 3.5-5.1 [facility] McKinneyChloride Zlwtv6720-06-95 06:51:00* Test Item Value Reference Range Interpretation Comments Chloride Level (test code = 2075-0) 104 98-107 [facility] McKinneyCarbon Dioxide Chvfz5124-31-31 06:51:00* Test Item Value Reference Range Interpretation Comments Carbon Dioxide Level (test code = 2028-9) 27 22-29 [facility] McKinneyAnion Amj6254-06-77 06:51:00* Test Item Value Reference Range Interpretation Comments Anion Gap (test code = 08058-1) 12.7 8-16 [facility] McKinneyBlood Urea Byrgnuaq8242-63-03 06:51:00* Test Item Value Reference Range Interpretation Comments Blood Urea Nitrogen (test code = 3094-0) 11 7-26 [facility] McKinneyCreatinine2018-03-19 06:51:00* Test Item Value Reference Range Interpretation Comments Creatinine (test code = 2160-0) 0.69 0.57-1.11 [facility] McKinneyBUN/Creatinine Ntqjm9286-56-99 06:51:00* Test Item Value Reference Range Interpretation Comments BUN/Creatinine Ratio (test code = 3097-3) 16 6-25 [facility] McKinneyEstimat Glomerular Filtration Rate 2018-02-17 06:51:00* Test Item Value Reference Range Interpretation Comments Estimat Glomerular Filtration Rate (test code = 03135-2) 60- >60 Ranges were taken from the National Kidney Disease Education Program and the [facility] Kid[facility] Foundation literature.Reference ranges:60 or greater: Wmptru51-23 ( for 3 consecutive months): Chronic kidney disease 15 or less: Kidney failureCHI [facility] ParkwayGlucose Fnrao6248-86-91 06:51:00* Test Item Value Reference Range Interpretation Comments Glucose Level (test code = VPG9789) 124 74-118 H [facility] McKinneyCalcium Jjpkk3994-16-67 06:51:00* Test Item Value Reference Range Interpretation Comments Calcium Level (test code = 01089-6) 9.1 8.4-10.2 [facility]odium Ykxmx7507-07-29 06:51:00* Test Item Value Reference Range Interpretation Comments Sodium Level (test code = 2951-2) 140 136-145 [facility] McKinneyPotassium Spfsg0354-43-95 06:51:00* Test Item Value Reference Range Interpretation Comments Potassium Level (test code = 2823-3) 3.7 3.5-5.1 [facility] McKinneyChloride Enduh1029-36-94 06:51:00* Test Item Value Reference Range Interpretation Comments Chloride Level (test code = 2075-0) 104 98-107 [facility] McKinneyCarbon Dioxide Hwjju4896-59-93 06:51:00* Test Item Value Reference Range Interpretation Comments Carbon Dioxide Level (test code = 2028-9) 27 22-29 [facility] McKinneyAnion Qei1573-24-87 06:51:00* Test Item Value Reference Range Interpretation Comments Anion Gap (test code = 16421-6) 12.7 8-16 [facility] McKinneyBlood Urea Nqrqprxv5182-60-55 06:51:00* Test Item Value Reference Range Interpretation Comments Blood Urea Nitrogen (test code = 3094-0) 11 7-26 [facility] McKinneyCreatinine2018-03-19 06:51:00* Test Item Value Reference Range Interpretation Comments Creatinine (test code = 2160-0) 0.69 0.57-1.11 [facility] McKinneyBUN/Creatinine Kvuaf9721-52-37 06:51:00* Test Item Value Reference Range Interpretation Comments BUN/Creatinine Ratio (test code = 3097-3) 16 6-25 [facility] McKinneyEstimat Glomerular Filtration Rate 2018-02-17 06:51:00* Test Item Value Reference Range Interpretation Comments Estimat Glomerular Filtration Rate (test code = 06535-5) 60- >60 Ranges were taken from the National Kidney Disease Education Program and the [facility] Kidney Foundation literature.Reference ranges:60 or greater: Sjegzw50-62 ( for 3 consecutive months): Chronic kidney disease 15 or less: Kidney failureB[facility] McKinneyGlucose Zstdg4045-54-11 06:51:00* Test Item Value Reference Range Interpretation Comments Glucose Level (test code = FMS7080) 124 74-118 H [facility] McKinneyCalcium Jtjyh0132-10-00 06:51:00* Test Item Value Reference Range Interpretation Comments Calcium Level (test code = 02027-5) 9.1 8.4-10.2 [facility] McKinneyHemoglobin A1c Offeqyr4246-39-60 06:50:00 * Test Item Value Reference Range Interpretation Comments Hemoglobin A1c Percent (test code = Hemoglobin A1c Percent) 7.5 4.0-7.0 H [facility] McKinneyHemoglobin A1c Cdiwgyq0705-76-27 06:50:00 * Test Item Value Reference Range Interpretation Comments Hemoglobin A1c Percent (test code = Hemoglobin A1c Percent) 7.5 4.0-7.0 H [facility] McKinneyHemoglobin A1c Ymcnwot5451-81-33 06:50:00 * Test Item Value Reference Range Interpretation Comments Hemoglobin A1c Percent (test code = Hemoglobin A1c Percent) 7.5 4.0-7.0 H [facility] McKinneyWhite Blood Kruwa8808-34-72 06:24:00* Test Item Value Reference Range Interpretation Comments White Blood Count (test code = 6690-2) 5.86 4.8-10.8 [facility] McKinneyRed Blood Nujoa2070-45-37 06:24:00* Test Item Value Reference Range Interpretation Comments Red Blood Count (test code = 789-8) 4.18 3.6-5.1 [facility] McKinneyHemoglobin2018-03-19 06:24:00* Test Item Value Reference Range Interpretation Comments Hemoglobin (test code = 57061-9) 12.0 12.0-16.0 [facility] McKinneyHematocrit2018-03-19 06:24:00* Test Item Value Reference Range Interpretation Comments Hematocrit (test code = 4544-3) 36.3 34.2-44.1 [facility] McKinneyMean Corpuscular Ehxfas0621-99-68 06:24:00* Test Item Value Reference Range Interpretation Comments Mean Corpuscular Volume (test code = 787-2) 86.8 81-99 [facility] McKinneyMean Corpuscular Fhlxaqhuko0044-70-58 06:24:00* Test Item Value Reference Range Interpretation Comments Mean Corpuscular Hemoglobin (test code = 785-6) 28.7 28-32 [facility] McKinneyMean Corpuscular Hemoglobin Concent 2018-02-17 06:24:00* Test Item Value Reference Range Interpretation Comments Mean Corpuscular Hemoglobin Concent (test code = 786-4) 33.1 31-35 [facility] McKinneyRed Cell Distribution Hugxv2474-91-40 06:24:00* Test Item Value Reference Range Interpretation Comments Red Cell Distribution Width (test code = 03027-9) 13.7 11.7 -14.4 [facility] McKinneyPlatelet Jiagi2184-78-05 06:24:00* Test Item Value Reference Range Interpretation Comments Platelet Count (test code = 777-3) 264 140-360 [facility] McKinneyNeutrophils (%) (Auto)2018-02-17 06:24:00 * Test Item Value Reference Range Interpretation Comments Neutrophils (%) (Auto) (test code = 43818-8) 53.5 38.7-80.0 [facility] McKinneyLymphocytes (%) (Auto)2018-02-17 06:24:00 * Test Item Value Reference Range Interpretation Comments Lymphocytes (%) (Auto) (test code = 736-9) 34.6 18.0-39.1 [facility]neyMonocytes (%) (Auto)2018-02-17 06:24:00* Test Item Value Reference Range Interpretation Comments Monocytes (%) (Auto) (test code = 5905-5) 8.5 4.4-11.3 [facility]neyEosinophils (%) (Auto)2018-02-17 06:24:00 * Test Item Value Reference Range Interpretation Comments Eosinophils (%) (Auto) (test code = 713-8) 3.2 0.0-6.0 [facility] McKinneyBasophils (%) (Auto)2018-02-17 06:24:00* Test Item Value Reference Range Interpretation Comments Basophils (%) (Auto) (test code = 706-2) 0.0 0.0-1.0 [facility] McKinneyIM GRANULOCYTES %2018-02-17 06:24:00* Test Item Value Reference Range Interpretation Comments IM GRANULOCYTES % (test code = IM GRANULOCYTES %) 0.2 0.0- 1.0 [facility]neyNeutrophils # (Auto)2018-02-17 06:24:00* Test Item Value Reference Range Interpretation Comments Neutrophils # (Auto) (test code = 751-8) 3.1 2.1-6.9 [facility] McKinneyLymphocytes # (Auto)2018-02-17 06:24:00* Test Item Value Reference Range Interpretation Comments Lymphocytes # (Auto) (test code = 32789-9) 2.0 1.0-3.2 [facility] McKinneyMonocytes # (Auto)2018-02-17 06:24:00* Test Item Value Reference Range Interpretation Comments Monocytes # (Auto) (test code = 742-7) 0.5 0.2-0.8 [facility]neyEosinophils # (Auto)2018-02-17 06:24:00* Test Item Value Reference Range Interpretation Comments Eosinophils # (Auto) (test code = 711-2) 0.2 0.0-0.4 [facility]neyBasophils # (Auto)2018-02-17 06:24:00* Test Item Value Reference Range Interpretation Comments Basophils # (Auto) (test code = 704-7) 0.0 0.0-0.1 [facility] McKinneyAbsolute Immature Granulocyte (auto 2018-02-17 06:24:00* Test Item Value Reference Range Interpretation Comments Absolute Immature Granulocyte (auto (nazia t code = Absolute Immature Granulocyte (auto) 0.01 0-0.1 [facility] McKinneyWhite Blood Tijqj9960-05-84 06:24:00* Test Item Value Reference Range Interpretation Comments White Blood Count (test code = 6690-2) 5.86 4.8-10.8 [facility] [facility]neyRed Blood Rzcww3069-96-07 06:24:00* Test Item Value Reference Range Interpretation Comments Red Blood Count (test code = 789-8) 4.18 3.6-5.1 [facility]neyHemoglobin2018-03-19 06:24:00* Test Item Value Reference Range Interpretation Comments Hemoglobin (test code = 67673-0) 12.0 12.0-16.0 [facility]neyHematocrit2018-03-19 06:24:00* Test Item Value Reference Range Interpretation Comments Hematocrit (test code = 4544-3) 36.3 34.2-44.1 [facility]neyMean Corpuscular Hmirom2825-46-19 06:24:00* Test Item Value Reference Range Interpretation Comments Mean Corpuscular Volume (test code = 787-2) 86.8 81-99 [facility]neyMean Corpuscular Zmpqvsklhs6301-07-51 06:24:00* Test Item Value Reference Range Interpretation Comments Mean Corpuscular Hemoglobin (test code = 785-6) 28.7 28-32 [facility]neyMean Corpuscular Hemoglobin Concent 2018-02-17 06:24:00* Test Item Value Reference Range Interpretation Comments Mean Corpuscular Hemoglobin Concent (test code = 786-4) 33.1 31-35 [facility]neyRed Cell Distribution Kapgu0333-46-28 06:24:00* Test Item Value Reference Range Interpretation Comments Red Cell Distribution Width (test code = 71500-4) 13.7 11.7 -14.4 [facility] McKinneyPlatelet Yeujq3084-75-56 06:24:00* Test Item Value Reference Range Interpretation Comments Platelet Count (test code = 777-3) 264 140-360 [facility] McKinneyNeutrophils (%) (Auto)2018-02-17 06:24:00 * Test Item Value Reference Range Interpretation Comments Neutrophils (%) (Auto) (test code = 40462-4) 53.5 38.7-80.0 [facility] McKinneyLymphocytes (%) (Auto)2018-02-17 06:24:00 * Test Item Value Reference Range Interpretation Comments Lymphocytes (%) (Auto) (test code = 736-9) 34.6 18.0-39.1 [facility]neyMonocytes (%) (Auto)2018-02-17 06:24:00* Test Item Value Reference Range Interpretation Comments Monocytes (%) (Auto) (test code = 5905-5) 8.5 4.4-11.3 [facility]neyEosinophils (%) (Auto)2018-02-17 06:24:00 * Test Item Value Reference Range Interpretation Comments Eosinophils (%) (Auto) (test code = 713-8) 3.2 0.0-6.0 [facility]neyBasophils (%) (Auto)2018-02-17 06:24:00* Test Item Value Reference Range Interpretation Comments Basophils (%) (Auto) (test code = 706-2) 0.0 0.0-1.0 [facility]neyIM GRANULOCYTES %2018-02-17 06:24:00* Test Item Value Reference Range Interpretation Comments IM GRANULOCYTES % (test code = IM GRANULOCYTES %) 0.2 0.0- 1.0 [facility]neyNeutrophils # (Auto)2018-02-17 06:24:00* Test Item Value Reference Range Interpretation Comments Neutrophils # (Auto) (test code = 751-8) 3.1 2.1-6.9 [facility] McKinneyLymphocytes # (Auto)2018-02-17 06:24:00* Test Item Value Reference Range Interpretation Comments Lymphocytes # (Auto) (test code = 74866-0) 2.0 1.0-3.2 [facility]neyMonocytes # (Auto)2018-02-17 06:24:00* Test Item Value Reference Range Interpretation Comments Monocytes # (Auto) (test code = 742-7) 0.5 0.2-0.8 [facility]neyEosinophils # (Auto)2018-02-17 06:24:00* Test Item Value Reference Range Interpretation Comments Eosinophils # (Auto) (test code = 711-2) 0.2 0.0-0.4 [facility]neyBasophils # (Auto)2018-02-17 06:24:00* Test Item Value Reference Range Interpretation Comments Basophils # (Auto) (test code = 704-7) 0.0 0.0-0.1 [facility] McKinneyAbsolute Immature Granulocyte (auto 2018-02-17 06:24:00* Test Item Value Reference Range Interpretation Comments Absolute Immature Granulocyte (auto (nazia t code = Absolute Immature Granulocyte (auto) 0.01 0-0.1 [facility] McKinneyPhosphorus Ccpna0980-31-94 08:19:00* Test Item Value Reference Range Interpretation Comments Phosphorus Level (test code = YGF6794) 3.2 2.3-4.7 [facility] McKinneyMagnesium Ykdby3079-25-28 08:19:00* Test Item Value Reference Range Interpretation Comments Magnesium Level (test code = 94401-7) 1.7 1.3-2.1 [facility] McKinneyTotal Glawnetrm5720-46-18 08:19:00* Test Item Value Reference Range Interpretation Comments Total Bilirubin (test code = 1975-2) 0.4 0.2-1.2 [facility] McKinneyAspartate Amino Transf (AST/SGOT) 2018-02-16 08:19:00* Test Item Value Reference Range Interpretation Comments Aspartate Amino Transf (AST/SGOT) (test code = Aspartate Amino Transf (AST/SGOT)) 23 5-34 [facility] McKinneyAlanine Aminotransferase (ALT/SGPT) 2018-02-16 08:19:00* Test Item Value Reference Range Interpretation Comments Alanine Aminotransferase (ALT/SGPT) (test code = 1742-6) 19 0-55 [facility] McKinneyTotal Tzpbjaf5292-66-96 08:19:00* Test Item Value Reference Range Interpretation Comments Total Protein (test code = 2885-2) 6.0 6.5-8.1 L [facility] McKinneyAlbumin2018-03-18 08:19:00* Test Item Value Reference Range Interpretation Comments Albumin (test code = 1751-7) 3.2 3.5-5.0 L [facility] McKinneyGlobulin2018-03-18 08:19:00* Test Item Value Reference Range Interpretation Comments Globulin (test code = 77087-1) 2.8 2.3-3.5 [facility] McKinneyAlbumin/Globulin Iwzqx2355-27-88 08:19:00 * Test Item Value Reference Range Interpretation Comments Albumin/Globulin Ratio (test code = 1759-0) 1.1 0.8-2.0 [facility] McKinneyAlkaline Trtvavopwiw1549-41-00 08:19:00* Test Item Value Reference Range Interpretation Comments Alkaline Phosphatase (test code = 6768-6) 70 40-150 [facility] McKinneyTriglycerides Fgsaf8725-40-83 08:19:00* Test Item Value Reference Range Interpretation Comments Triglycerides Level (test code = 2571-8) 133 0-149 [facility] McKinneyCholesterol Fzlho0528-49-96 08:19:00* Test Item Value Reference Range Interpretation Comments Cholesterol Level (test code = 2093-3) 125 0-199 Less than 200 mg/dL Low Npjq837 - 239 mg/dL Borderline Ycsh353 m g/dl and greater High Risk [facility] McKinneyLDL Tquukfavont3010-27-48 08:19:00* Test Item Value Reference Range Interpretation Comments LDL Cholesterol (test code = 2089-1) 50 60-130 L [facility] McKinneyHDL Rhpqeoyzrdj0510-76-57 08:19:00* Test Item Value Reference Range Interpretation Comments HDL Cholesterol (test code = 2085-9) 48 40-60 [facility] McKinneyCholesterol/HDL Vamdk9550-38-34 08:19:00 * Test Item Value Reference Range Interpretation Comments Cholesterol/HDL Ratio (test code = 9830-1) 2.6 3.0-3.6 L [facility] McKinneyPhosphorus Hrezi1901-95-46 08:19:00* Test Item Value Reference Range Interpretation Comments Phosphorus Level (test code = NTU2019) 3.2 2.3-4.7 [facility] McKinneyMagnesium Fucda7204-50-99 08:19:00* Test Item Value Reference Range Interpretation Comments Magnesium Level (test code = 68706-9) 1.7 1.3-2.1 [facility] McKinneyTotal Omldkmxfw6802-03-00 08:19:00* Test Item Value Reference Range Interpretation Comments Total Bilirubin (test code = 1975-2) 0.4 0.2-1.2 [facility] McKinneyAspartate Amino Transf (AST/SGOT) 2018-02-16 08:19:00* Test Item Value Reference Range Interpretation Comments Aspartate Amino Transf (AST/SGOT) (test code = Aspartate Amino Transf (AST/SGOT)) 23 5-34 [facility] McKinneyAlanine Aminotransferase (ALT/SGPT) 2018-02-16 08:19:00* Test Item Value Reference Range Interpretation Comments Alanine Aminotransferase (ALT/SGPT) (test code = 1742-6) 19 0-55 [facility] Zifmmbj3748-10-18 08:19:00* Test Item Value Reference Range Interpretation Comments Total Protein (test code = 2885-2) 6.0 6.5-8.1 L [facility] McKinneyAlbumin2018-03-18 08:19:00* Test Item Value Reference Range Interpretation Comments Albumin (test code = 1751-7) 3.2 3.5-5.0 L [facility] McKinneyGlobulin2018-03-18 08:19:00* Test Item Value Reference Range Interpretation Comments Globulin (test code = 43344-2) 2.8 2.3-3.5 [facility]neyAlbumin/Globulin Dgrbw2607-60-24 08:19:00 * Test Item Value Reference Range Interpretation Comments Albumin/Globulin Ratio (test code = 1759-0) 1.1 0.8-2.0 [facility] McKinneyAlkaline Kqdwoztvxag3728-01-06 08:19:00* Test Item Value Reference Range Interpretation Comments Alkaline Phosphatase (test code = 6768-6) 70 40-150 [facility] McKinneyTriglycerides Mnwdw4141-46-31 08:19:00* Test Item Value Reference Range Interpretation Comments Triglycerides Level (test code = 2571-8) 133 0-149 [facility]neyCholesterol Mmfdl8666-45-51 08:19:00* Test Item Value Reference Range Interpretation Comments Cholesterol Level (test code = 2093-3) 125 0-199 Less than 200 mg/dL Low Sbjt286 - 239 mg/dL Borderline Uctf465 m g/dl and greater High Risk [facility] McKinneyLDL Dsireargqdx0919-71-94 08:19:00* Test Item Value Reference Range Interpretation Comments LDL Cholesterol (test code = 2089-1) 50 60-130 L [facility] McKinneyHDL Rvstblobelb0876-03-89 08:19:00* Test Item Value Reference Range Interpretation Comments HDL Cholesterol (test code = 2085-9) 48 40-60 [facility]neyCholesterol/HDL Zeoqq2342-82-91 08:19:00 * Test Item Value Reference Range Interpretation Comments Cholesterol/HDL Ratio (test code = 9830-1) 2.6 3.0-3.6 L [facility] McKinneyPhosphorus Wnrgk9440-57-47 08:19:00* Test Item Value Reference Range Interpretation Comments Phosphorus Level (test code = NYB5543) 3.2 2.3-4.7 [facility]neyTriglycerides Bkvjy4215-96-84 08:19:00* Test Item Value Reference Range Interpretation Comments Triglycerides Level (test code = 2571-8) 133 0-149 [facility]neyCholesterol Tmwcy6854-77-61 08:19:00* Test Item Value Reference Range Interpretation Comments Cholesterol Level (test code = 2093-3) 125 0-199 Less than 200 mg/dL Low Fsyx783 - 239 mg/dL Borderline Lxlx471 m g/dl and greater High Risk [facility] McKinneyLDL Bahehkhmvsu2673-42-00 08:19:00* Test Item Value Reference Range Interpretation Comments LDL Cholesterol (test code = 2089-1) 50 60-130 L [facility] McKinneyHDL Xnahujdyhrt7613-03-97 08:19:00* Test Item Value Reference Range Interpretation Comments HDL Cholesterol (test code = 2085-9) 48 40-60 [facility]neyCholesterol/HDL Mftzx7526-61-22 08:19:00 * Test Item Value Reference Range Interpretation Comments Cholesterol/HDL Ratio (test code = 9830-1) 2.6 3.0-3.6 L [facility] McKinneyCreatine Kinase ZC9733-16-09 01:57:00* Test Item Value Reference Range Interpretation Comments Creatine Kinase MB (test code = 83242-3) 3.80 0-5.0 [facility] McKinneyTroponin M3271-16-96 01:57:00* Test Item Value Reference Range Interpretation Comments Troponin I (test code = CMY6303) 0.002 0-0.300 [facility] McKinneyCreatine Kinase BZ6773-89-50 01:57:00* Test Item Value Reference Range Interpretation Comments Creatine Kinase MB (test code = 73559-1) 3.80 0-5.0 [facility] McKinneyTropon U5576-60-57 01:57:00* Test Item Value Reference Range Interpretation Comments Troponin I (test code = ERX0098) 0.002 0-0.300 [facility] McKinneyCreatine Dqprle2125-90-39 01:40:00* Test Item Value Reference Range Interpretation Comments Creatine Kinase (test code = 2157-6) 119 29-168 [facility] McKinneyCreatine Lneoen9027-11-02 01:40:00* Test Item Value Reference Range Interpretation Comments Creatine Kinase (test code = 2157-6) 119 29-168 [facility] McKinneyD-Dimer Quantitative (PE/DVT)2018-02-15 14:07:00* Test Item Value Reference Range Interpretation Comments D-Dimer Quantitative (PE/DVT) (test code = 70941-8) 0.48 0. 00-0.45 H As with all in vitro diagnostic tests, the test results should be interpreted by the physician in conjunction with clinical findings and other test results.Test results are reported in NEW D-dimer units(ug/mLFEU).[facility] McKinneyD-Dimer Quantitative (PE/DVT)2018-02-15 14:07:00* Test Item Value Reference Range Interpretation Comments D-Dimer Quantitative (PE/DVT) (test code = 84878-8) 0.48 0. 00-0.45 H As with all in vitro diagnostic tests, the test results should be interpreted by the physician in conjunction with clinical findings and other test results.Test results are reported in NEW D-dimer units(ug/mLFEU).[facility] McKinneyD-Dimer Quantitative (PE/DVT)2018-02-15 14:07:00* Test Item Value Reference Range Interpretation Comments D-Dimer Quantitative (PE/DVT) (test code = 37573-2) 0.48 0. 00-0.45 H As with all in vitro diagnostic tests, the test results should be interpreted by the physician in conjunction with clinical findings and other test results.Test results are reported in NEW D-dimer units(ug/mLFEU).[facility] McKinneyInfluenza Virus Types A,B Qlatavj3866-18-70 13:55:00* Test Item Value Reference Range Interpretation Comments Influenza Virus Types A,B Antigen (test code = 41645-1) NEGATIVE NEGATIVE [facility] McKinneyB-Type Natriuretic Vzhyrju2483-53-80 13:55:00* Test Item Value Reference Range Interpretation Comments B-Type Natriuretic Peptide (test code = 22118-3) 30.9 0-100 [facility] McKinneyInfluenza Virus Types A,B Antigen 2018-02-15 13:55:00* Test Item Value Reference Range Interpretation Comments Influenza Virus Types A,B Antigen (test code = 80708-8) NEGATIVE NEGATIVE [facility] McKinneyB-Type Natriuretic Eyqgdht3721-74-01 13:55:00* Test Item Value Reference Range Interpretation Comments B-Type Natriuretic Peptide (test code = 04839-9) 30.9 0-100 [facility] McKinneyInfluenza Virus Types A,B Antigen 2018-02-15 13:55:00* Test Item Value Reference Range Interpretation Comments Influenza Virus Types A,B Antigen (test code = 24225-0) NEGATIVE NEGATIVE [facility] McKinneyB-Type Natriuretic Scdrckp2040-51-94 13:55:00* Test Item Value Reference Range Interpretation Comments B-Type Natriuretic Peptide (test code = 64043-9) 30.9 0-100 [facility] McKinneyProthrombin Xnqp9275-75-36 13:52:00* Test Item Value Reference Range Interpretation Comments Prothrombin Time (test code = 5902-2) 12.5 11.9-14.5 [facility] McKinneyProthromb Time International Ratio 2018-02-15 13:52:00* Test Item Value Reference Range Interpretation Comments Prothromb Time International Ratio (test code = 6301-6) 1.01 Oral Anticoagulant Therapy INR Values:1. Low Intensity Therapy 1.5 - 2.02 . Moderate Intensity Therapy 2.0 - 3.03. High Intensity Therapy(1) 2.5 - 3. 54. High Intensity Therapy(2) 3.0 - 4.05. Panic Value INR > 5.0 [facility] McKinneyActivated Partial Thromboplast Time 2018-02-15 13:52:00* Test Item Value Reference Range Interpretation Comments Activated Partial Thromboplast Time (test code = 00351-2) 30.6 23.8-35.5 [facility] McKinneyProthrombin Tcak0605-70-36 13:52:00* Test Item Value Reference Range Interpretation Comments Prothrombin Time (test code = 5902-2) 12.5 11.9-14.5 [facility] McKinneyProthromb Time International Ratio 2018-02-15 13:52:00* Test Item Value Reference Range Interpretation Comments Prothromb Time International Ratio (test code = 6301-6) 1.01 Oral Anticoagulant Therapy INR Values:1. Low Intensity Therapy 1.5 - 2.02 . Moderate Intensity Therapy 2.0 - 3.03. High Intensity Therapy(1) 2.5 - 3. 54. High Intensity Therapy(2) 3.0 - 4.05. Panic Value INR > 5.0 [facility] McKinneyActivated Partial Thromboplast Time 2018-02-15 13:52:00* Test Item Value Reference Range Interpretation Comments Activated Partial Thromboplast Time (test code = 38328-3) 30.6 23.8-35.5 [facility] McKinneyUrine LQL1453-86-50 13:35:00* Test Item Value Reference Range Interpretation Comments Urine WBC (test code = 5821-4) 6-10 0-5 H [facility] McKinneyUrine PXK0626-15-48 13:35:00* Test Item Value Reference Range Interpretation Comments Urine RBC (test code = 47815-4) 0-5 0-5 [facility] McKinneyUrine Ceheveej9032-99-22 13:35:00* Test Item Value Reference Range Interpretation Comments Urine Bacteria (test code = 38120-1) FEW NONE [facility] McKinneyUrine Epithelial Rsolx1238-57-91 13:35:00 * Test Item Value Reference Range Interpretation Comments Urine Epithelial Cells (test code = 20960-5) FEW NONE [facility] McKinneyUrine TTI9596-66-70 13:35:00* Test Item Value Reference Range Interpretation Comments Urine WBC (test code = 5821-4) 6-10 0-5 H [facility] McKinneyUrine XMO1352-01-49 13:35:00* Test Item Value Reference Range Interpretation Comments Urine RBC (test code = 72307-4) 0-5 0-5 [facility] McKinneyUrine Tnyavxfk4375-85-51 13:35:00* Test Item Value Reference Range Interpretation Comments Urine Bacteria (test code = 91454-7) FEW NONE [facility] McKinneyUrine Epithelial Xyvwd8790-09-18 13:35:00 * Test Item Value Reference Range Interpretation Comments Urine Epithelial Cells (test code = 00808-3) FEW NONE [facility] McKinneyUrine Sblry8126-35-85 13:31:00* Test Item Value Reference Range Interpretation Comments Urine Color (test code = 5778-6) YELLOW YELLOW [facility] McKinneyUrine Zcedddt6093-64-43 13:31:00* Test Item Value Reference Range Interpretation Comments Urine Clarity (test code = 86962-5) HAZY CLEAR [facility] Specific Dugccax7153-27-81 13:31:00 * Test Item Value Reference Range Interpretation Comments Urine Specific [place] (test code = 5811-5) 1.005 1.010-1.02 5 L [facility] McKinneyUrine bV8772-38-39 13:31:00* Test Item Value Reference Range Interpretation Comments Urine pH (test code = 35958-2) 5 5-7 [facility] Leukocyte Zlvyeowv3872-96-34 13:31:00* Test Item Value Reference Range Interpretation Comments Urine Leukocyte Esterase (test code = 5799-2) 1+ NEGATIVE H [facility] Kzqqomn6031-30-22 13:31:00* Test Item Value Reference Range Interpretation Comments Urine Nitrite (test code = 74644-7) NEGATIVE NEGATIVE [facility] Mseeedq0138-97-32 13:31:00* Test Item Value Reference Range Interpretation Comments Urine Protein (test code = 5804-0) NEGATIVE NEGATIVE [facility] Glucose (UA)2018-02-15 13:31:00* Test Item Value Reference Range Interpretation Comments Urine Glucose (UA) (test code = 2349-9) NEGATIVE NEGATIVE [facility] Pshtiaj6886-29-45 13:31:00* Test Item Value Reference Range Interpretation Comments Urine Ketones (test code = 66558-2) NEGATIVE NEGATIVE [facility] Okfigejrbrmi5796-75-00 13:31:00* Test Item Value Reference Range Interpretation Comments Urine Urobilinogen (test code = 52673-8) 0.2 0.2-1 [facility] Dncjmergi2204-83-66 13:31:00* Test Item Value Reference Range Interpretation Comments Urine Bilirubin (test code = 1978-6) NEGATIVE NEGATIVE [facility] Suoma0230-64-92 13:31:00* Test Item Value Reference Range Interpretation Comments Urine Blood (test code = 10043-3) NEGATIVE NEGATIVE [facility]neyUrine Vusep2831-18-37 13:31:00* Test Item Value Reference Range Interpretation Comments Urine Color (test code = 5778-6) YELLOW YELLOW [facility]neyUrine Fzgedag4140-26-42 13:31:00* Test Item Value Reference Range Interpretation Comments Urine Clarity (test code = 99340-3) HAZY CLEAR [facility] McKinneyUrine Specific Etnchor8086-55-25 13:31:00 * Test Item Value Reference Range Interpretation Comments Urine Specific [place] (test code = 5811-5) 1.005 1.010-1.02 5 L [facility] McKinneyUrine tL6437-51-58 13:31:00* Test Item Value Reference Range Interpretation Comments Urine pH (test code = 57393-7) 5 5-7 [facility] Leukocyte Rwxklcjr4304-86-28 13:31:00* Test Item Value Reference Range Interpretation Comments Urine Leukocyte Esterase (test code = 5799-2) 1+ NEGATIVE H [facility] Wnwdsta4204-75-86 13:31:00* Test Item Value Reference Range Interpretation Comments Urine Nitrite (test code = 62294-6) NEGATIVE NEGATIVE [facility] Managrv3622-30-09 13:31:00* Test Item Value Reference Range Interpretation Comments Urine Protein (test code = 5804-0) NEGATIVE NEGATIVE [facility] Glucose (UA)2018-02-15 13:31:00* Test Item Value Reference Range Interpretation Comments Urine Glucose (UA) (test code = 2349-9) NEGATIVE NEGATIVE [facility] Qljbakr8552-82-18 13:31:00* Test Item Value Reference Range Interpretation Comments Urine Ketones (test code = 12210-9) NEGATIVE NEGATIVE [facility] Fvdkwnrtdibu7103-16-26 13:31:00* Test Item Value Reference Range Interpretation Comments Urine Urobilinogen (test code = 97843-7) 0.2 0.2-1 [facility]neyUrine Ndwjabrsw9490-42-08 13:31:00* Test Item Value Reference Range Interpretation Comments Urine Bilirubin (test code = 1978-6) NEGATIVE NEGATIVE [facility] Fakgw1467-86-17 13:31:00* Test Item Value Reference Range Interpretation Comments Urine Blood (test code = 39903-1) NEGATIVE NEGATIVE [facility]wayPELVIS AP 1-2 VIEWS [place] [address] Patient Name: SHARI DEAN MR #: [id number] : 1945 Age/Sex: 73/F Req #: [id number] Adm Physician: Ordered by: JEAN CLAUDE MARTINEZ MD Report #: [id number] Location: ER Room/Bed: Procedure: [id number] DX/PELVIS AP 1-2 VIEWS Exam Date: 03/24/18 Exam Time: 1415 REPORT STATUS: Signed PROCEDURE: X-RAY PELVIS, AP VIEW COMPARISON: None. IND ICATIONS: FALL, PAIN FINDINGS: There are no fractures, dislocations , lytic or blastic lesions. Degenerative changes of the bilateral hips, SI elke ints, and lower lumbar spine. The soft-tissues are unremarkable. Pelvic phleb oliths. CONCLUSION: No acute fracture or dislocation of the pelvi s. Dictated by: Baldemar Cohen M.D. on 03/24/2018 at 14:35 Electro nically approved by: Baldemar Cohen M.D. on 03/24/2018 at 14:35 Dictated By: BALDEMAR COHEN MD 1435 COPY TO: THONG MARTINEZ MD CT CHEST W [place] [address] Patient Name: SHARI DEAN MR #: [id number] : 1945 Age/Sex: 73/F Req #: [id number] Adm Physician: MEKHI KLEIN MD Ordered by: FROILAN GOFF MD, MD Report #: [id number] [facility]: [facility] Room/Bed: [place] [address] Procedure: [id number]/CT CHEST W Exam Date: 02/15/18 Exam Time: 1550 REPORT STATUS: Signed EXAM: CT Chest WITH contrast 02/15/2018 3:27 PM INDICATION: Shortness of breath. S PE PROTOCOL. Fell with bruising to the up per body and chest. COMPARISON: None TECHNIQUE: Chest was scanned utili 360Learningng a multidetector helical scanner from the lung apex through the level of t he adrenal glands without administration of IV contrast. Coronal and sagittal reformations were obtained. Routine protocol was performed. IV CONTRAST : 100 mL of Isovue 370 COMPLICATIONS: None RADIATION DOSE: Tot al DLP: 528.5 mGy*cm Estimated effective dose: (DLP x 0.014 x size factor ) mSv CTDIvol has been reviewed. It is below the limits set by the Radiat ion Protocol Committee (RPC). FINDINGS: LINES/ TUBES: None. CAROL GS AND AIRWAYS: No filling defect is identified within the pulmonary arteries to the segmental level. The lungs are unremarkable. Airways are normal. PLEURA: The pleural spaces are clear. HEART AND MEDIASTINUM: The thyroid g land is normal. No mediastinal, hilar or axillary lymphadenopathy. The heart is normal in size. There is no pericardial effusion. . Main pulmonary ar cholo measures 2.7 cm in diameter and the ascending aorta measures 3.6 cm. UPPER ABDOMEN: Unremarkable BONES: The visualized bony thorax is within no rmal limits. SOFT TISSUES: Unremarkable. IMPRESSION: No pulmonary e mboli. Normal chest. Signed by: Dr. Emir Melvin M.D. on 02/15/2018 4:36 PM Dictated By: EMIR MELVIN MD 1 636 Transcribed By: GAUDENCIO on 02/15/18 1636 COPY TO: FROILAN GOFF CT ABDOMEN/PELVIS W [place] [address] Patient Name: SHARI DEAN MR #: [id number] : 1945 Age/Sex: 73/F Req #: [id number] Adm Physician: MEKHI KLEIN MD Ordered by: FROILAN GOFF MD, MD Report #: [id number] Location: [facility] Room/Bed: [place] [address] Procedure: [id number]/CT ABDOMEN/PELVIS W Exam Date: 02/15/18 Exam Ti me: 1550 REPORT STATUS: Signed EXAM: CT Abdomen and Pelvis WITH contras t INDICATION: Low blood sugar. Abdominal pain after fall. Bruising to t he upper abdomen. COMPARISON: None. TECHNIQUE: Abdomen and pelvis were sc anned utilizing a multidetector helical scanner from the lung base to the pubi c symphysis after administration of IV contrast. Coronal and sagittal reformat ions were obtained. Routine protocol was performed. Scan was performed when du ring portal venous phase. IV CONTRAST: 100 mL of Isovue 370 OR AL CONTRAST: Water COMPLICATIONS: None RADIATION DOSE: Total DLP: 709.82 mGy*cm Estimated effective dose: (DLP x 0.015 x siz e factor) mSv CTDIvol has been reviewed. It is below the limits set by [facility] Radiation Protocol Committee (RPC). FINDINGS: LINES and TUBES: Non e. LOWER THORAX: Unremarkable calcified granuloma in the right lower lobe. HEPATOBILIARY: No focal hepatic lesions. No biliary ductal dilation. GALLBLADDER: No radio-opaque stones or sludge. No wall thickening. S PLEEN: No splenomegaly. PANCREAS: No focal masses or ductal dilatation. ADRENALS: No adrenal nodules KIDNEYS/URETERS: Kidneys enhance symm etrically. No hydronephrosis. No cystic or solid mass lesions. No stones. GI TRACT: No abnormal distention, wall thickening, or evidence of bowel obs truction. There are diverticula within the colon without evidence of divertic ulitis. Appendix is not clearly identified. There is however no fat stranding or adenopathy in the right lower quadrant to suggest appendicitis. PELVIC ORGANS/BLADDER: Mild pelvic floor prolapse. Uterus and both ovaries are unrema rkable. LYMPH NODES: No lymphadenopathy. VESSELS: There is mild athero sclerotic disease in the aorta and major arterial branches. PERITONEUM / RETROPERITONEUM: No free air or fluid. BONES: There are degenerative change s in the lumbar spine. SOFT TISSUES: Fat-containing umbilical hernia. IMPRESSION: No acute abnormalities in the abdomen and pelvis. Signed by: Dr. Emir Melvin M.D. on 02/15/2018 4:53 PM Dictated By: EMIR MELVIN MD 52 Transcribed By: DENTON ALAMO on 02/15/181652 COPY TO: FROILAN GOFF ECHO COMPLETE (ECHOCARDIOGRAM) [place] [address] Patient Name : SHARI DEAN MR #: [id number] : 1945 Age/Sex: 73/F Adm Physician : MEKHI KLEIN MD Admit Date : 02/15/18 Location : [facility] Room/Bed : [place] [address] REPORT: Cardiology Repor t DATE OF STUDY: February 16, 2018 ECHOCARDIOGRAM M-MODE: Dilated left atrium. Left ventricular hypertrophy. Normal contractility. Normal m itral and aortic valves. No pericardial effusion. SECTOR SCAN: Dilat ed left atrium. Left ventricular hypertrophy. Normal contractility. Ejecti on fraction is approximately 55%. Mitral, aortic, and tricuspid valves are g rossly normal. There is no pericardial effusion. No evidence of ASD or VSD. No evidence of intracardiac thrombi or masses. CARDIAC DOPPLER STUDY WITH COLOR: Trace mitral and tricuspid regurgitation. The aortic valve is 1.3 meters per second. CONCLUSIONS 1. Left ventricular hypertrophy wit h ejection fraction of approximately 55%. 2. Trace mitral regurgitation wi th mildly dilated left atrium. 3. Trace tricuspid regurgitation. 4. No evidence of atrial septal defect, ventricular septal defect or intracardiac thrombi or masses. Elke b#: [id number] STEVO cc: MEKHI KLEIN MD Signature Date Dictated By: MIRELLA SILVER MD Transcribed By: SMEDS on 02/16/18 < Electronically signed by MIRELLA SILVER MD><<Signature on File>>02/17/18 0943 COPY TO: NOLA FRIEDMAN W/CXR [place] [address] Patient Name: SHARI DEAN MR #: [id number] : 1945 Age/Sex: 73/F Req #: [id number] Adm Physician: Ordered by: TARIK KAHN [employer] Report #: [id number] Location: ER Room/Bed: Procedure: [id number] DX/NOLA FRIEDMAN W/CXR Exam Da te: 02/15/18 Exam Time: 1335 REPORT STATUS: Sig rosie EXAMINATION: RIBS BILAT W/CXR INDICATION: Low sugar. Canno t breathe. COMPARISON: None FINDINGS: TUBES and LINES: None. LUNGS: Lungs are well inflated. Lungs are clear. There is no evidence o f pneumonia or pulmonary edema. PLEURA: No pleural effusion or pneumotho rax. HEART AND MEDIASTINUM: The cardiomediastinal silhouette is unremarkab le. BONES AND SOFT TISSUES: No acute osseous lesion. Soft tissues are unremarkable. UPPER ABDOMEN: No free air under the diaphragm. I MPRESSION: No acute thoracic abnormality. Signed by: Dr. Emir Melvin M.D. o n 02/15/2018 2:27 PM Dictated By: EMIR MELVIN MD 26 Transcribed By: GAUDENCIO on 02/15/181426 COPY T O: TARIK KAHN NP
[2020-04-28 16:03] LABS: BILIRUBIN,URINE NEGATIVE (NEGATIVE); CLARITY,URINE SL CLOUDY (CLEAR); COLOR,URINE YELLOW (YELLOW); KETONES,URINE NEGATIVE (NEGATIVE); LEUKOCYTE ESTERASE ,URINE SMALL (NEGATIVE); NITRITE,URINE NEGATIVE (NEGATIVE); PROTEIN,URINE DIPSTICK TRACE (NEGATIVE); URINE UROBILINOGEN 0.2 mg/dL (0.2 - 1)
[2020-04-28 16:17] LABS: BACTERIA,URINE MANY /HPF; EPITHELIAL CELLS,URINE MODERATE /LPF
[2020-04-28 16:18] LABS: AMORPHOUS SEDIMENT,URINE MODERATE (FEW); HYALINE CASTS 0-1 (0-1)
--- NOTE | 2020-04-28 16:25 | Diagnostic Imaging Report ---
EXAMINATION: CHEST SINGLE (PORTABLE) INDICATION: Fever COMPARISON: Chest radiograph of 04/07/2020 FINDINGS: LINES/TUBES:None LUNGS:The lungs are well-inflated. No focal consolidation or pulmonary edema. PLEURA:No pleural effusion or pneumothorax. MEDIASTINUM:The cardiomediastinal silhouette appears normal in size and shape. BONES/SOFT TISSUES:No acute osseous injury. ABDOMEN:No free air under the diaphragm. IMPRESSION: No focal pneumonia or pulmonary edema. Signed by: Rivera Martino MD on 04/28/2020 4:21 PM
--- NOTE | 2020-04-28 16:41 | Emergency Department Note ---
History of Present Illnes History of Present Illness Chief Complaint: General Medicine Complaints History of Present Illness This is a 75 year old female states she had fever x 2 days says it got up to 104 denies n/v denies muscle aches denies chills denies pain denies cough/sore throat states she feels a little sob. Historian: Patient Arrival Mode: Car Dental Service Chief Required: No Onset (how long ago): day(s) (2) Radiation: non-radiation Severity: mild Timing of current episode: intermittent Chronicity: new Context: recent illness Relieving factors: none Exacerbating factors: none Associated symptoms: denies other symptoms Treatments prior to arrival: none Past Medical/Family History Physician Review I have reviewed the patient's past medical and family history. Any updates have been documented here. Past Medical History Recent Fever: Yes Clinical Suspicion of Infectio: No New/Unexplained Change in Ment: No Past Medical History: Hypertension, Diabetes, CVA, Anxiety, Depression, Osteoarthritis Other Medical History: VENOUS STASIS MORBID OBESITY Past Surgical History: Appendectomy, Hysterectomy, Cataract Removal Other Surgery: CATARACT Left knee replacement Other Last Tetanus: UNK Review of Systems Review of Systems Constitutional: fever EENTM: no symptoms Cardiovascular: no symptoms Respiratory: no symptoms Gastrointestinal: no symptoms Genitourinary: no symptoms Musculoskeletal: no symptoms Neurological: no symptoms Psychological: no symptoms Endocrine: no symptoms Hematological/Lymphatic: no symptoms Review of other systems All other systems reviewed and negative. Physical Exam Related Data Allergies: Coded Allergies: Penicillins (Verified Allergy, Mild, 02/15/18) Triage Vital Signs Vital Signs Date Time Temp Pulse Resp B/P (MAP) Pulse Ox O2 Delivery O2 Flow Rate FiO2 04/28/20 15:25 98.5 83 16 102/59 97 Vital signs reviewed: Yes Physical Exam CONSTITUTIONAL Constitutional: well-developed, well-nourished HENT HENT: normocephalic, atraumatic, oropharynx clear/moist, oropharynx normal, nose normal HENT L/R: left ext ear normal, right ext ear normal EYES Eyes: PERRL, conjunctivae normal NECK Neck: ROM normal PULMONARY Pulmonary: effort normal, breath sounds normal; respiratory distress, rales, rhonchi CARDIOVASCULAR Cardiovascular: regular rhythm, heart sounds normal, capillary refill normal, normal rate GASTROINTESTINAL Abdominal: soft, nontender, bowel sounds normal; tender GENITOURINARY Genitourinary: exam deferred SKIN Skin: warm, dry MUSCULOSKELETAL Musculoskeletal: ROM normal NEUROLOGICAL Neurological: alert, oriented x 3, no gross motor or sensory deficits PSYCHOLOGICAL Psychological: mood/affect normal, judgement normal Results Laboratory Laboratory Laboratory Tests Test 04/28/20 15:30 Urine Color Yellow (YELLOW) Urine Clarity Sl cloudy (CLEAR) Urine pH 5.5 (5 - 7) Urine Specific [place] 1.015 (1.010-1.025) Urine Protein Trace (NEGATIVE) Urine Glucose (UA) Negative (NEGATIVE) Urine Ketones Negative (NEGATIVE) Urine Blood Moderate (NEGATIVE) Urine Nitrite Negative (NEGATIVE) Urine Bilirubin Negative (NEGATIVE) Urine Urobilinogen 0.2 mg/dL (0.2 - 1) Urine Leukocyte Esterase Small (NEGATIVE) Urine RBC 11-20 /HPF (0-5) Urine WBC 6-10 /HPF (0-5) Urine Epithelial Cells Moderate /LPF (NONE) Urine Amorphous Sediment Moderate (FEW) Urine Bacteria Many /HPF (NONE) Urine Hyaline Casts 0-1 (0-1) Urine Waxy Casts 1-5 (0) Lab results reviewed: Yes Laboratory comments uti Imaging Imaging results reviewed: Yes Impressions EXAMINATION: CHEST SINGLE (PORTABLE) INDICATION: Fever COMPARISON: Chest radiograph of 04/07/2020 FINDINGS: LINES/TUBES:None LUNGS:The lungs are well-inflated. No focal consolidation or pulmonary edema. PLEURA:No pleural effusion or pneumothorax. MEDIASTINUM:The cardiomediastinal silhouette appears normal in size and shape. BONES/SOFT TISSUES:No acute osseous injury. ABDOMEN:No free air under the diaphragm. IMPRESSION: No focal pneumonia or pulmonary edema. Signed by: Rivera Martino MD on 04/28/2020 4:21 PM Diagnostics Tests Diagnostic test(s) reviewed: Yes Critical Care Time Subsequent provider I assumed direction of critical care for this patient from another provider of my specialty. Assessment & Plan Assessment & Plan Final Impression: (1) UTI (urinary tract infection) Assessment & Plan dc home, Omnicef 300 mg po BID x 10 days Depart Disposition: HOME, SELF-CARE Last Vital Signs Date Time Temp Pulse Resp B/P (MAP) Pulse Ox O2 Delivery O2 Flow Rate FiO2 04/28/20 15:25 98.5 83 16 102/59 97 Home Meds Active Scripts Guaifenesin/Dextromethorphan (MUCINEX DM ER 600-30 MG TABLET) 1 Each Tab.er.12h, 1 EACH PO Q6HR for 10 Days Prov:VALE SOL CUT OFF SAW OPERATOR METAL 02/17/18 Reported Medications Menthol (BENGAY) 113 Gm Gel..gram., 1 APPLIC TOP PRN 04/07/20 Guaifenesin/Dextromethorphan (DIABETIC TUSSIN DM LIQUID) 118 Ml Liquid, 10 ML PO Q6H 04/07/20 Benzonatate (BENZONATATE) 100 Mg Capsule, 100 MG PO TID, CAP 04/07/20 Lutein/Zeaxanthin (LUTEIN-ZEAXANTHIN 25-5 MG SFGL) 1 Each Capsule, 1 CAP PO DAILY 12/28/19 Calcium Carbonate/Vitamin D3 (CALCIUM 600 + VIT D TABLET) 1 Each Tablet, 1 TAB PO DAILY 12/28/19 Mu-Vits-Min Th/Lycopene/Lutein (CENTRUM SILVER TABLET) 1 Each Tablet, 1 TAB PO DAILY 12/28/19 Acetaminophen (ACETAMINOPHEN 8 HOUR) 650 Mg Tablet.er, 2 TAB PO BID 12/28/19 Atorvastatin Calcium (ATORVASTATIN CALCIUM) 20 Mg Tablet, 40 MG PO HS, #30 TAB 12/28/19 Losartan Potassium (LOSARTAN POTASSIUM) 25 Mg Tablet, 50 MG PO DAILY 12/28/19 Furosemide (LASIX) 40 Mg Tablet, 80 MG PO DAILY, #30 TAB 12/28/19 Fluoxetine Hcl (FLUOXETINE HCL) 20 Mg Capsule, 20 MG PO DAILY, #30 CAP 02/21/15 Diazepam (Valium) 5 Mg Tablet, 5 MG PO HS 07/23/12 Insulin Aspart (Novolog 70/30 10ML Vial) 100 Units/Ml Ml, 35 UNITS SC BID 07/23/12 Omeprazole Magnesium (Prilosec Otc) 20 Mg Tablet.dr, 20 MG PO DAILY 07/23/12 KRISTEN COLVIN MD April 28, 2020 16:41
== END 2020-04-28 17:09 | disposition home or self-care (01) ==
LOC: ER 15:05
DX: R50.9 Fever, unspecified (principal); R06.02 Shortness of breath; N39.0 Urinary tract infection, site not specified; I10 Essential (primary) hypertension; E11.9 Type 2 diabetes mellitus without complications; F41.9 Anxiety disorder, unspecified; Z96.652 Presence of left artificial knee joint; Z86.73 Personal history of transient ischemic attack (TIA), and cerebral infarction without residual deficits
CPT/HCPCS: 71045; 81001; 87086; 99283

== ENCOUNTER 2020-10-13 00:37 | Observation (INO) | payer OTHER ==
[~2020-10-13] VITALS: Ht 137.2 cm; Wt 97.1 kg
[2020-10-13 01:06] LABS: BASOPHILS % 0.2 % (0.0-1.0); EOSINOPHILS # (AUTO) 0.2 (0.0-0.4); EOSINOPHILS % 2.3 % (0.0-6.0); HEMATOCRIT 35.5 % (34.2-44.1); HEMOGLOBIN 11.3 g/dL (12.0-16.0); LYMPHOCYTES % 22.6 % (18.0-39.1); MEAN CORPUSCULAR HEMOGLOBIN 28.3 pg (28-32); MEAN CORPUSCULAR HGB CONC 31.8 g/dL (31-35); MEAN CORPUSCULAR VOLUME 88.8 fL (81-99); MONOCYTES # (AUTO) 0.6 (0.2-0.8); MONOCYTES % 7.3 % (4.4-11.3); NEUTROPHILS # (AUTO) 5.8 (2.1-6.9); NEUTROPHILS % 67.3 % (38.7-80.0); PLATELET COUNT 322 x10e3/uL (140-360); RED CELL DISTRIBUTION WIDTH 14.2 % (11.7-14.4)
--- NOTE | 2020-10-13 01:08 | Emergency Department Note ---
History of Present Illnes History of Present Illness Chief Complaint: General Medicine Complaints History of Present Illness This is a 75 year old female . Chief Complaint Comment PT C/O PAIN TO AREA UNDER LEFT BREAST, PAIN IS REPRODUCIBLE, PAIN BEGAN APPROX 5 HOURS, PAIN IS WORSE WITH MOVEMENT AND WITH DEEP RESPIRATIONS, PT HAD MD APPT IN AM WITH REG DOC FOR BLE SWELLING, STATES SHE FELL LAST WEEK SATURDAY AND SINCE THEN HAS HAD GENERALIZED ACHES AND PAIN TO BODY GIGI TO BLE, BUT THE PAIN TO AREA UNDER LEFT BREAST ONLY STARTED TODAY. Historian: Patient Arrival Mode: Car Onset (how long ago): hour(s) Radiation: Reports non-radiation Severity: mild Onset quality: sudden Duration (how long): hour(s) Timing of current episode: constant Progression: worsening Chronicity: recurrent Context: Denies recent illness Relieving factors: none Past Medical/Family History Physician Review I have reviewed the patient's past medical and family history. Any updates have been documented here. Past Medical History Recent Fever: No Clinical Suspicion of Infectio: No New/Unexplained Change in Ment: No Past Medical History: Hypertension, Diabetes, CVA, Anxiety, Depression, Osteoarthritis Other Medical History: VENOUS STASIS MORBID OBESITY Past Surgical History: Appendectomy, Hysterectomy, Cataract Removal Other Surgery: CATARACT Left knee replacement Social History Smoking Cessation: Never Smoker Counseling Performed: No Alcohol Use: None Any Illegal Drug Use: No Physically hurt or threatened: No Other Last Tetanus: UNK Any Pre-Existing Lines (PICC,: No Review of Systems Review of Systems Constitutional: Reports no symptoms EENTM: Reports no symptoms Cardiovascular: Reports as per HPI, Reports chest pain, Reports edema, Reports palpitations Respiratory: Reports no symptoms Gastrointestinal: Reports no symptoms Genitourinary: Reports no symptoms Musculoskeletal: Reports no symptoms Integumentary: Reports no symptoms Neurological: Reports no symptoms Psychological: Reports no symptoms Endocrine: Reports no symptoms Hematological/Lymphatic: Reports no symptoms Physical Exam Related Data Allergies: Coded Allergies: Penicillins (Verified Allergy, Mild, 02/15/18) Triage Vital Signs Vital Signs Date Time Temp Pulse Resp B/P (MAP) Pulse Ox O2 Delivery O2 Flow Rate FiO2 10/13/20 00:46 97.3 88 24 130/60 97 Room Air Vital signs reviewed: Yes Physical Exam CONSTITUTIONAL Constitutional: Present well-developed, Present well-nourished, Present obese HENT HENT: Present normocephalic, Present atraumatic, Present oropharynx clear/moist, Present nose normal HENT L/R: Present left ext ear normal, Present right ext ear normal EYES Eyes: Reports PERRL, Reports conjunctivae normal NECK Neck: Present ROM normal PULMONARY Pulmonary: Present effort normal, Present breath sounds normal CARDIOVASCULAR Cardiovascular: Present regular rhythm, Present heart sounds normal, Present capillary refill normal, Present normal rate, Present LLE edema, Present RLE edema GASTROINTESTINAL Abdominal: Present soft, Present nontender, Present bowel sounds normal GENITOURINARY Genitourinary: Present exam deferred SKIN Skin: Present warm, Present dry MUSCULOSKELETAL Musculoskeletal: Present ROM normal NEUROLOGICAL Neurological: Present alert, Present oriented x 3, Present no gross motor or sensory deficits PSYCHOLOGICAL Psychological: Present mood/affect normal, Present judgement normal Results Laboratory Laboratory Laboratory Tests Test 10/13/20 01:01 Lab results reviewed: Yes Assessment & Plan Medical Decision Making MDM + dyspnea +LE edema + Non adherence to medication regimen Last estimated EF: ___ Workup: ECG, CBC, BMP, Troponin, BNP, CXR Findings: EKG: No STEMI and no evidence of Brugadas sign, delta wave, epsilon wave, significantly prolonged QTc, or malignant arrhythmia. BNP: CXR: Based on history, exam and findings, presentation most consistent with acute on chronic heart failure. Low suspicion for PNA, ACS, tamponade, aortic dissection. Interventions: Oxygen, Diuresis Reassessment: Symptoms improved in ED with oxygen and diuresis Disposition (Stable): OBS admission Disposition (Stable but not significantly improved): Admit to medicine for further monitoring and for improvement of medication regimen to control symptoms. Last Vital Signs Date Time Temp Pulse Resp B/P (MAP) Pulse Ox O2 Delivery O2 Flow Rate FiO2 10/13/20 00:46 97.3 88 24 130/60 97 Room Air Home Meds Active Scripts Guaifenesin/Dextromethorphan (MUCINEX DM ER 600-30 MG TABLET) 1 Each Tab.er.12h, 1 EACH PO Q6HR for 10 Days Prov:VALE SOL POLYMER ENGINEER 02/17/18 Reported Medications Menthol (BENGAY) 113 Gm Gel..gram., 1 APPLIC TOP PRN 04/07/20 Guaifenesin/Dextromethorphan (DIABETIC TUSSIN DM LIQUID) 118 Ml Liquid, 10 ML PO Q6H 04/07/20 Benzonatate (BENZONATATE) 100 Mg Capsule, 100 MG PO TID, CAP 04/07/20 Lutein/Zeaxanthin (LUTEIN-ZEAXANTHIN 25-5 MG SFGL) 1 Each Capsule, 1 CAP PO DAILY 12/28/19 Calcium Carbonate/Vitamin D3 (CALCIUM 600 + VIT D TABLET) 1 Each Tablet, 1 TAB PO DAILY 12/28/19 Mu-Vits-Min Th/Lycopene/Lutein (CENTRUM SILVER TABLET) 1 Each Tablet, 1 TAB PO DAILY 12/28/19 Acetaminophen (ACETAMINOPHEN 8 HOUR) 650 Mg Tablet.er, 2 TAB PO BID 12/28/19 Atorvastatin Calcium (ATORVASTATIN CALCIUM) 20 Mg Tablet, 40 MG PO HS, #30 TAB 12/28/19 Losartan Potassium (LOSARTAN POTASSIUM) 25 Mg Tablet, 50 MG PO DAILY 12/28/19 Furosemide (LASIX) 40 Mg Tablet, 80 MG PO DAILY, #30 TAB 12/28/19 Fluoxetine Hcl (FLUOXETINE HCL) 20 Mg Capsule, 20 MG PO DAILY, #30 CAP 02/21/15 Diazepam (Valium) 5 Mg Tablet, 5 MG PO HS 07/23/12 Insulin Aspart (Novolog 70/30 10ML Vial) 100 Units/Ml Ml, 35 UNITS SC BID 07/23/12 Omeprazole Magnesium (Prilosec Otc) 20 Mg Tablet.dr, 20 MG PO DAILY 07/23/12 SHAYLEE MORROW DO Oct 13, 2020 01:08
--- OUTSIDE RECORDS SUMMARY | 2020-10-13 01:17 | XMS REPORT | Continuity of Care Document ---
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 Medicare [id number] 2008 [id number] 2017 [facility]00 [facility] Problems Condition Name Condition Details Condition Category Status Onset Date Resolution Date Last Treatment Date Treating Clinician Comments Source Diabetes mellitus Diabetes Problem Active 2015-11-04 00:00:00 [facility] Dyspnea Dyspnea Problem Active 2015-11-04 00:00:00 [facility] Fever Fever Problem Active 2015-11-04 00:00:00 [facility] Upper respiratory tract infection Upper respiratory infection Probl em Active 2015-11-04 00:00:00 [facility] Contusion of flank Contusion of flank and back Problem Active [facility] Cough Cough Problem Active [facility] Fall Fall Problem Active [facility] Hypoglycemia Hypoglycemia Problem Active [facility] Urinary tract infection UTI (urinary tract infection) Problem Active [facility] Allergies, Adverse Reactions, Alerts Allergy Name Allergy Type Status Severity Reaction(s) Onset Date Inacti ve Date Treating Clinician Comments Source Penicillin Allergy to substance Active Mild 2018-02-15 00:00:00 [facility] Social History Social Habit Start Date Stop Date Quantity Comments Source Sex Assigned At 1945 00:00:00 1945 00:00:00 Female [facility] Medications Ordered Medication Name Filled Medication Name Start Date Stop Da te Current Medication? Ordering Clinician Indication Dosage Frequency Signature (SIG) Comments Components Source Guaifenesin/Dextromethorphan (Mucinex Dm Er 600-30 Mg Tablet) 1 Each TAB.ER.12H Guaifenesin/Dextromethorphan (Mucinex Dm Er 600-30 Mg Tablet) 1 Each TAB.ER.12H 2018-02-17 10:26:00 Yes 1 Every 6 Hours [facility] Azithromycin (Zithromax) 500 Mg TABLET Azithromycin (Zithrom ax) 500 Mg TABLET 2018-02-17 10:26:00 2019-12-28 00:00:00 No 500 Daily [facility] Ceftin Ceftin 2018-02-17 10:26:00 2019-12-28 00:00:00 No 50 0 Twice A Day [facility] Levofloxacin (Levaquin) 500 Mg TABLET Levofloxacin (Levaquin ) 500 Mg TABLET 2015-11-09 15:07:00 2018-02-17 00:00:00 No 500 Daily [facility] Acetaminophen (Acetaminophen 8 Hour) 650 Mg TABLET.ER Acetaminophen (Acetaminophen 8 Hour) 650 Mg TABLET.ER Yes 2 Twice A Day [facility] Atorvastatin Calcium Atorvastatin Calcium Yes 40 Bedtime [facility] Benzonatate Benzonatate Yes 100 Three Times A Da y [facility] Calcium Carbonate/Vitamin D3 (Calcium 600 + Vit D Tabl et) 1 Each TABLET Calcium Carbonate/Vitamin D3 (Calcium 600 + Vit D Tablet) 1 Each TABLET Yes 1 Daily [facility] Diazepam (Valium) 5 Mg TABLET Diazepam (Valium) 5 Mg TABLET Yes 5 Bedtime [facility] Fluoxetine Hcl Fluoxetine Hcl Yes 20 Daily [facility] Furosemide (Lasix) 40 Mg TABLET Furosemide (Lasix) 40 Mg TABLET Yes 80 Daily [facility] Guaifenesin/Dextromethorphan (Diabetic Tussin Dm Liqui d) 118 Ml LIQUID Guaifenesin/Dextromethorphan (Diabetic Tussin Dm Liquid) 118 Ml LIQUID Yes 10 Every 6 Hours [facility] Insulin Aspart (Novolog 70/30 10ML Vial) 100 Units/Ml ML Insulin Aspart (Novolog 70/30 10ML Vial) 100 Units/Ml ML Yes 35 Twice A Day [facility] Losartan Potassium Losartan Potassium Yes 50 Da darvin [facility] Lutein/Zeaxanthin (Lutein-Zeaxanthin 25-5 Mg Sfgl) 1 E ach CAPSULE Lutein/Zeaxanthin (Lutein-Zeaxanthin 25-5 Mg Sfgl) 1 Each CAPSULE Yes 1 Daily [facility] Menthol (Bengay) 113 Gm GEL..GRAM. Menthol (Bengay) 113 Gm GEL..GRAM. Yes 1 As Needed [facility] Mu-Vits-Min Th/Lycopene/Lutein (Centrum Silver Tablet) 1 Each TABLET Mu-Vits-Min Th/Lycopene/Lutein (Centrum Silver Tablet) 1 Each TABLET Yes 1 Daily [facility] Omeprazole Magnesium (Prilosec Otc) 20 Mg TABLET.DR Goel eprazole Magnesium (Prilosec Otc) 20 Mg TABLET. Yes 20 Daily [facility] Clindamycin Hcl Clindamycin Hcl 2020-04-09 00:00:00 No 150 Every 8 Hours [facility] Aspirin (Aspir 81) 81 Mg TABLET. Aspirin (Aspir 81) 81 Mg TABKaren ET. 2020-04-07 00:00:00 No 81 Daily [facility] Cephalexin Monohydrate (Keflex) 500 Mg CAPSULE Cephale jazzmine Monohydrate (Keflex) 500 Mg CAPSULE 2020-04-07 00:00:00 No 500 Three Davey es A Day [facility] Fluconazole (Diflucan) 100 Mg TABLET Fluconazole (Diflucan) 100 Mg TABLET 2020-04-07 00:00:00 No 100 Daily [facility] Insulin Aspart (Novolog Mix 70-30 Vial) 100 Units/Ml M L Insulin Aspart (Novolog Mix 70-30 Vial) 100 Units/Ml ML 2020-04-07 00:00:00 No 40 Before Breakfast [facility] Potassium Chloride (K-Dur) 20 Meq TAB.ER.PRT Potassium Chloride (K-Dur) 20 Meq TAB.ER.PRT 2020-04-07 00:00:00 No Daily [facility] Tramadol/Acetaminophen (Tramadol-Acetaminophn 37.5-325 ) 1 Ea TAB Tramadol/Acetaminophen (Tramadol-Acetaminophn 37.5-325) 1 Ea TAB 2020-04-07 00:00:00 No 1 As Needed [facility] Acetaminophen (Tylenol) 325 Mg TABLET Acetaminophen (Tylenol) 32 5 Mg TABLET 2019-12-28 00:00:00 No 325 Every 4 Hours as nee ded [facility] Ergocalciferol (Vitamin D2) (Vitamin D2) 50,000 Unit C APSULE Ergocalciferol (Vitamin D2) (Vitamin D2) 50,000 Unit CAPSULE 2019-12-28 00:00:00 No 1 Weekly [facility] Furosemide (Lasix) 40 Mg TABLET Furosemide (Lasix) 40 Mg TABLET 2019-12-28 00:00:00 No 40 Daily [facility] Simvastatin (Zocor) 20 Mg TABLET Simvastatin (Zocor) 20 Mg TABLE T 2019-12-28 00:00:00 No 20 Daily [facility] Valsartan (Diovan) 320 Mg TABLET Valsartan (Diovan) 320 Mg TABLE T 2019-12-28 00:00:00 No 160 Daily [facility] Levofloxacin (Levaquin) 500 Mg TABLET Levofloxacin (Levaquin) 50 0 Mg TABLET 2018-02-17 00:00:00 No 500 Daily [facility] Metformin Hcl (Glucophage) 500 Mg TABLET Metformin Hcl (Glucophage) 500 Mg TABLET 2018-02-17 00:00:00 No 1000 Twice Daily Break fast & Supper [facility] Rivaroxaban (Xarelto) 10 Mg TABLET Rivaroxaban (Xarelto) 10 Mg T ABLET 2015-11-04 00:00:00 No 15 Twice A Day [facility] Fluoxetine Hcl Fluoxetine Hcl 2015-02-21 00:00:00 No 10 Daily [facility] Insulin Aspart (Novolog) 100 Unit/1 Ml CARTRIDGE Insul in Aspart (Novolog) 100 Unit/1 Ml CARTRIDGE 2014-06-11 00:00:00 No 25 Pm H ypoglycemic [facility] Diazepam (Valium) 5 Mg/1 Ml VIAL Diazepam (Valium) 5 Mg/1 Ml VIA L 2012-07-23 00:00:00 No Daily as needed [facility] Vital Signs Vital Name Observation Time Observation Value Comments Source Weight 2020-04-28 15:25:00 221 [lb_av] [facility] BMI (Body Mass Index) 2020-04-28 15:25:00 53.3 kg/m2 [facility] Body Temperature 2020-04-09 11:04:00 100.2 [degF] [facility] Weight 2020-04-07 17:40:00 221.31 [lb_av] [facility] BMI (Body Mass Index) 2020-04-07 17:40:00 53.4 kg/m2 [facility] Procedures Procedure Date / Time Performed Performing Clinician [facility] Computed tomography of abdomen and pelvis with contrast 00:00:00 [facility] Computed tomography of pelvis with contrast 2019-12-27 00:00:00 SUZANNE CARRILLO [facility] Computed tomography of brain without radiopaque contrast 00:00:00 MARTHA MORRIS [facility] Computed tomography of cervical spine without contrast 12-04 00:00:00 MARTHA MORRIS [facility] Plan of Care Planned Activity Planned Date Details Comments Source Instructions Urinary Tract Infection - Women [facility] Encounters Start Date/Time End Date/Time Encounter Type Admission Type Attendi [facility] Care Department Encounter ID Source 2020-04-28 15:05:00 2020-04-28 17:09:00 Departed Emergency Room 1 KRISTEN COLVIN [facility] [id number] [facility] 2020-04-07 09:28:00 2020-04-09 14:02:00 Discharged Inpatient (obs) 1 RENZO REEDER [facility] [id number] [facility] 2019-12-27 16:49:00 2020-01-01 12:22:00 Discharged Inpatient 1 RENZO REEDER [facility] [id number] [facility] 2019-12-18 13:27:00 2019-12-18 15:15:00 Departed Emergency Room [facility] [id number] [facility] 2019-12-04 17:05:00 2019-12-04 20:10:00 Departed Emergency Room 1 SHAYLEE MORROW [facility] [id number] [facility] 2019-05-19 00:23:00 2019-05-19 02:46:00 Departed Emergency Room [facility] [id number] [facility] 2018-11-01 00:53:00 2018-11-01 05:47:00 Departed Emergency Room 1 KRISTEN COLVIN [facility] [id number] [facility] 2018-03-24 13:37:00 2018-03-24 20:41:00 Departed Emergency Room ER JEAN CLAUDE MARTINEZ [facility] [id number] [facility] 2018-02-15 15:35:00 2018-02-17 12:00:00 Discharged Inpatient (obs) ER MEKHI KLEIN [facility] [id number] [facility] 2017-06-03 12:20:00 2017-06-03 16:24:00 Departed Emergency Room [facility] [id number] [facility] Results Test Description Test Time Test Comments Results Result Comments Source CHEST SINGLE (PORTABLE) 2020-04-28 16:21:00 [facility] [address] [address] Patient Name: SHARI DEAN MR #: [id number] : 1945 Age/Sex: 75/F Req #: [id number] Adm Physician: Ordered by: KRISTEN COLVIN MD Report #: [id number] Location: ER Room/Bed: Procedure: [id number] DX/CHEST SINGLE (PORTABLE) Exam Date: 04/28/20 Exam Time: 1610 REPORT STATUS: Signed EXAMINATION: CHEST SINGLE (PORTABLE) INDICATION: Fever COMPARISON: Chest radiograph of 04/07/2020 FINDINGS: LINES/TUBES:None LUNGS:The lungs are well-inflated. No focal consolidation or pulmonary edema. PLEURA:No pleural effusion or pneumothorax. MEDIASTINUM:The cardiomediastinal silhouette appears normal in size and shape. BONES/SOFT TISSUES:No acute osseous injury. ABDOMEN:No free air under the diaphragm. IMPRESSION: No focal pneumonia or pulmonary edema. Signed by: Destiny Rizzo MD on 04/28/2020 4:21 PM Dictated By: DESTINY RIZZO MD 20 Transcribed By: GAUDENCIO on 04/28/20 162 COPY TO: KRISTEN COLVIN MD Urine color determination 2020-04-28 15:30:00 Test Item Urine Color (test code = 5778-6) YELLOW YELLOW [facility] [id number] 15:30:00* Test Item Value Reference Range Interpretation Comments Urine Clarity (test code = 01458-6) SL CLOUDY CLEAR [facility] Urine by Test strip 2020-04-28 15:30:00* Test Item Value Reference Range Interpretation Comments Urine Specific [place] (test code = 5811-5) 1.015 1.010-1.02 5 [facility] pH measurement by automated test [id number] 15:30:00* Test Item Value Reference Range Interpretation Comments Urine pH (test code = 26885-2) 5.5 5-7 [facility] leukocyte esterase detection by [id number] 15:30:00* Test Item Value Reference Range Interpretation Comments Urine Leukocyte Esterase (test code = 5799-2) SMALL NEGATIVE [facility] nitrite [id number] 15:30:00* Test Item Value Reference Range Interpretation Comments Urine Nitrite (test code = 66193-7) NEGATIVE NEGATIVE [facility] protein measurement by test strip (mass/volume)2020-04-28 15:30:00* Test Item Value Reference Range Interpretation Comments Urine Protein (test code = 5804-0) TRACE NEGATIVE [facility] glucose [id number] 15:30:00* Test Item Value Reference Range Interpretation Comments Urine Glucose (UA) (test code = 2349-9) NEGATIVE NEGATIVE [facility] ketones detection by automated test [id number] 15:30:00* Test Item Value Reference Range Interpretation Comments Urine Ketones (test code = 75930-1) NEGATIVE NEGATIVE [facility] urobilinogen measurement by test strip (mass/volume)2020-04-28 15:30:00* Test Item Value Reference Range Interpretation Comments Urine Urobilinogen (test code = 40751-0) 0.2 0.2-1 [facility] total bilirubin measurement (mass/volume)2020-04-28 15:30:00* Test Item Value Reference Range Interpretation Comments Urine Bilirubin (test code = 1978-6) NEGATIVE NEGATIVE [facility] Center[facility] erythrocytes [id number] 15:30:00* Test Item Value Reference Range Interpretation Comments Urine Blood (test code = 45668-5) MODERATE NEGATIVE [facility] CenterAutomated urine sediment leukocyte count by microscopy (number/high power field)2020-04-28 15:30:00* Test Item Value Reference Range Interpretation Comments Urine WBC (test code = 5821-4) 6-10 0-5 [facility] CenterErythrocytes detection in urine sediment by light [id number] 15:30:00* Test Item Value Reference Range Interpretation Comments Urine RBC (test code = 69706-2) 11-20 0-5 [facility] CenterBacteria detection in urine sediment by light [id number] 15:30:00* Test Item Value Reference Range Interpretation Comments Urine Bacteria (test code = 47455-2) MANY NONE [facility] CenterEpithelial cells detection in urine sediment by light [id number] 15:30:00* Test Item Value Reference Range Interpretation Comments Urine Epithelial Cells (test code = 22904-7) MODERATE NONE [facility] CenterAmorphous sediment detection in urine sediment by light yrlemwiwhs2619-46-31 15:30:00* Test Item Value Reference Range Interpretation Comments Urine Amorphous Sediment (test code = 8246-1) MODERATE FEW [facility] CenterHyaline casts detection in urine sediment by light chuqfwquxv1530-75-05 15:30:00* Test Item Value Reference Range Interpretation Comments Urine Hyaline Casts (test code = 97358-8) 0-1 0-1 [facility] CenterWaxy casts detection in urine sediment by light [id number] 15:30:00* Test Item Value Reference Range Interpretation Comments Urine Waxy Casts (test code = 68909-3) 1-5 >0 [facility] CenterCapillary blood glucose measurement by glucometer (mass/volume)2020-04-09 10:58:00* Test Item Value Reference Range Interpretation Comments Bedside Glucose (test code = 65503-2) 324 70-120 Meter ID: [id number] [facility] by glucometer (mass/volume)2020-04-09 10:58:00* Test Item Value Reference Range Interpretation Comments Bedside Glucose (test code = 98087-4) 324 70-120 Meter ID: [id number] [facility]PELVIS W 2020-04-08 22:13:00 [facility] [address] [address] Patient Name: SHARI DEAN MR #: [id number] : 1945 Age/Sex: 75/F Req #: [id number] Adm Physician: RENZO REEDER MD Ordered by: KALYN JOYCE MD Report #: [id number] Location: [facility] Room[facility]Bed: [facility] Procedure: [id number] CT/CT ABDOMEN/P JOSS W Exam Date: 04/08/20 [...] JOYCE MD CHEST SINGLE (PORTABLE) 2020-04-08 09:54:[address] [address] Patient Name: SHARI DEAN #: [id number] : 1945 Age/Sex: 75/F Req #: [id number] [facility] Physician: RENZO REEDER MD Ordered by: TARIK REEDER DO Report #: [id number] Location: [facility] Room/Bed: [address] [address] Procedure: [id number] DX/CHEST SINGLE (PORTABLE) Exam Date: 04/08/20 Exam Time: 0610 REPORT STATUS: Signed X-ray chest AP portable [...] 9:56 AM Dictated By: ARTURO SAVAGE MD 5 Transcribed By: GAUDENCIO on 04/08/20955 CO PY TO: TARIK REEDER DO Blood leukocytes automated count (number/volume)2020-04-08 04:30:00* Test Item Value Reference Range Interpretation Comments White Blood Count (test code = 6690-2) 10.53 4.8-10.8 [facility] erythrocytes automated count (number/volume)2020-04-08 04:30:00* Test Item Value Reference Range Interpretation Comments Red Blood Count (test code = 789-8) 4.58 3.6-5.1 [facility] CenterBlood hemoglobin measurement (moles/volume)2020-04-08 04:30:00* Test Item Value Reference Range Interpretation Comments Hemoglobin (test code = 06536-4) 12.1 12.0-16.0 [facility] CenterAutomated blood hematocrit (volume fraction)2020-04-08 04:30:00* Test Item Value Reference Range Interpretation Comments Hematocrit (test code = 4544-3) 39.7 34.2-44.1 [facility] CenterAutomated erythrocyte mean corpuscular [id number] 04:30:00* Test Item Value Reference Range Interpretation Comments Mean Corpuscular Volume (test code = 787-2) 86.7 81-99 [facility] CenterAutomated erythrocyte mean corpuscular hemoglobin (mass per erythrocyte)2020-04-08 04:30:00* Test Item Value Reference Range Interpretation Comments Mean Corpuscular Hemoglobin (test code = 785-6) 26.4 28-32 [facility] CenterAutnov[facility] erythrocyte mean corpuscular hemoglobin concentration measurement (mass/volume)2020-04-08 04:30:00* Test Item Value Reference Range Interpretation Comments Mean Corpuscular Hemoglobin Concent (test code = 786-4) 30.5 31-35 [facility] CenterRDW WzsPd-Oxn4842-91-08 04:30:00* Test Item Value Reference Range Interpretation Comments Red Cell Distribution Width (test code = 18531-9) 16.1 11.7 -14.4 [facility] CenterAut[facility] blood platelet count (count/volume)2020-04-08 04:30:00* Test Item Value Reference Range Interpretation Comments Platelet Count (test code = 777-3) 208 140-360 [facility] CenterAutomated blood segmented neutrophil count as percentage of total gkwvwxezuu9859-10-50 04:30:00* Test Item Value Reference Range Interpretation Comments Neutrophils (%) (Auto) (test code = 52039-0) 67.9 38.7-80.0 [facility] CenterAutnov[facility] blood lymphocyte count as percentage ot total mjtcszirpz0915-22-50 04:30:00* Test Item Value Reference Range Interpretation Comments Lymphocytes (%) (Auto) (test code = 736-9) 20.0 18.0-39.1 [facility] CenterAutomated blood monocyte count as percentage of total zzqznvgdab2485-60-18 04:30:00* Test Item Value Reference Range Interpretation Comments Monocytes (%) (Auto) (test code = 5905-5) 10.5 4.4-11.3 [facility] CenterAutomated blood eosinophil count as percentage of total gzaiwohtxt2308-58-92 04:30:00* Test Item Value Reference Range Interpretation Comments Eosinophils (%) (Auto) (test code = 713-8) 1.1 0.0-6.0 [facility] CenterAutomated blood basophil count as percentage of total bxkahjflgp9258-50-46 04:30:00* Test Item Value Reference Range Interpretation Comments Basophils (%) (Auto) (test code = 706-2) 0.2 0.0-1.0 [facility] CenterFluoroscopic procedure less than one hour cnjszqmr3826-72-07 04:30:00* Test Item Value Reference Range Interpretation Comments IM GRANULOCYTES % (test code = IM GRANULOCYTES %) 0.3 0.0- 1.0 [facility] CenterAutomated blood neutrophil count 2020-04-08 04:30:00* Test Item Value Reference Range Interpretation Comments Neutrophils # (Auto) (test code = 751-8) 7.1 2.1-6.9 [facility] CenterBlood lymphocytes count (number/volume) 2020-04-08 04:30:00* Test Item Value Reference Range Interpretation Comments Lymphocytes # (Auto) (test code = 27241-9) 2.1 1.0-3.2 [facility] CenterBlood monocytes automated count (number/volume)2020-04-08 04:30:00* Test Item Value Reference Range Interpretation Comments Monocytes # (Auto) (test code = 742-7) 1.1 0.2-0.8 [facility] CenterAutomated blood eosinophil count 2020-04-08 04:30:00* Test Item Value Reference Range Interpretation Comments Eosinophils # (Auto) (test code = 711-2) 0.1 0.0-0.4 [facility] CenterAutomated blood basophil count (count/volume)2020-04-08 04:30:00* Test Item Value Reference Range Interpretation Comments Basophils # (Auto) (test code = 704-7) 0.0 0.0-0.1 [facility] CenterFluoroscopic procedure less than one hour [id number] 04:30:00* Test Item Value Reference Range Interpretation Comments Absolute Immature Granulocyte (auto (nazia t code = Absolute Immature Granulocyte (auto) 0.03 0-0.1 [facility] or plasma sodium measurement (moles/volume)2020-04-08 04:30:00* Test Item Value Reference Range Interpretation Comments Sodium Level (test code = 2951-2) 138 136-145 [facility] or plasma potassium measurement (moles/volume)2020-04-08 04:30:00* Test Item Value Reference Range Interpretation Comments Potassium Level (test code = 2823-3) 4.5 3.5-5.1 [facility] or plasma chloride measurement (moles/volume)2020-04-08 04:30:00* Test Item Value Reference Range Interpretation Comments Chloride Level (test code = 2075-0) 101 98-107 [facility] or plasma carbon dioxide, total measurement (moles/volume)2020-04-08 04:30:00* Test Item Value Reference Range Interpretation Comments Carbon Dioxide Level (test code = 2028-9) 31 22-29 [facility] or plasma anion [id number] 04:30:00* Test Item Value Reference Range Interpretation Comments Anion Gap (test code = 82118-2) 10.5 8-16 [facility] or plasma urea nitrogen measurement (mass/volume)2020-04-08 04:30:00* Test Item Value Reference Range Interpretation Comments Blood Urea Nitrogen (test code = 3094-0) 13 7-26 [facility] or plasma creatinine measurement (mass/volume)2020-04-08 04:30:00* Test Item Value Reference Range Interpretation Comments Creatinine (test code = 2160-0) 1.01 0.57-1.11 [facility] or plasma urea nitrogen/creatinine mass [id number] 04:30:00* Test Item Value Reference Range Interpretation Comments BUN/Creatinine Ratio (test code = 3097-3) 13 6-25 [facility] CenterEstimated glomerular filtration rate (GFR) xtlysowqqmywo0634-27-05 04:30:00* Test Item Value Reference Range Interpretation Comments Estimat Glomerular Filtration Rate (test code = 440695235) 53 >60 Ranges were taken from the National Kidney Disease Education Program and the [facility] Kidney Foundation literature.Reference ranges:60 or greater: Lhzxpe70-22 ( for 3 consecutive months): Chronic kidney disease 15 or less: Kidney failureM[facility] Regional [facility] CenterGlucose aweumhrqevh5979-35-08 04:30:00* Test Item Value Reference Range Interpretation Comments Glucose Level (test code = JRB9014) 234 74-118 [facility] plasma calcium measurement (mass/volume)2020-04-08 04:30:00* Test Item Value Reference Range Interpretation Comments Calcium Level (test code = 65779-6) 9.0 8.4-10.2 [facility] or plasma total bilirubin measurement (mass/volume)2020-04-08 04:30:00* Test Item Value Reference Range Interpretation Comments Total Bilirubin (test code = 1975-2) 0.4 0.2-1.2 [facility] CenterFluoroscopic procedure less than one hour ptopsmqm5855-77-51 04:30:00* Test Item Value Reference Range Interpretation Comments Aspartate Amino Transf (AST/SGOT) (test code = Aspartate Amino Transf (AST/SGOT)) 20 5-34 [facility] or plasma alanine aminotransferase measurement (enzymatic activity/volume)2020-04-08 04:30:00* Test Item Value Reference Range Interpretation Comments Alanine Aminotransferase (ALT/SGPT) (test code = 1742-6) 15 0-55 [facility] or plasma protein measurement (mass/volume)2020-04-08 04:30:00* Test Item Value Reference Range Interpretation Comments Total Protein (test code = 2885-2) 6.5 6.5-8.1 [facility] plasma albumin measurement (mass/volume)2020-04-08 04:30:00* Test Item Value Reference Range Interpretation Comments Albumin (test code = 1751-7) 2.8 3.5-5.0 [facility] CenterPlasma globulin measurement (mass/volume) 2020-04-08 04:30:00* Test Item Value Reference Range Interpretation Comments Globulin (test code = 31307-5) 3.7 2.3-3.5 [facility] or plasma albumin/globulin mass xbnzy2632-68-40 04:30:00* Test Item Value Reference Range Interpretation Comments Albumin/Globulin Ratio (test code = 1759-0) 0.8 0.8-2.0 [facility] plasma alkaline phosphatase measurement (enzymatic activity/volume)2020-04-08 04:30:00* Test Item Value Reference Range Interpretation Comments Alkaline Phosphatase (test code = 6768-6) 69 40-150 [facility] or plasma creatine kinase measurement (enzymatic activity/volume)2020-04-08 04:30:00* Test Item Value Reference Range Interpretation Comments Creatine Kinase (test code = 2157-6) 122 29-168 [facility] or plasma creatine kinase MB measurement (mass/volume)2020-04-08 04:30:00* Test Item Value Reference Range Interpretation Comments Creatine Kinase MB (test code = 34354-2) 2.30 0-5.0 [facility] CenterTroponin I measurement by highly sensitive enzyme bswhvjsqkoh8953-63-78 04:30:00* Test Item Value Reference Range Interpretation Comments Troponin I (test code = 00974-1) 0.011 0-0.300 [facility] CenterBlood leukocytes automated count (number/volume)2020-04-08 04:30:00* Test Item Value Reference Range Interpretation Comments White Blood Count (test code = 6690-2) 10.53 4.8-10.8 [facility] CenterBlood erythrocytes automated count (number/volume)2020-04-08 04:30:00* Test Item Value Reference Range Interpretation Comments Red Blood Count (test code = 789-8) 4.58 3.6-5.1 [facility] CenterBlood hemoglobin measurement (moles/volume)2020-04-08 04:30:00* Test Item Value Reference Range Interpretation Comments Hemoglobin (test code = 83242-7) 12.1 12.0-16.0 [facility] CenterAutomated blood hematocrit (volume fraction)2020-04-08 04:30:00* Test Item Value Reference Range Interpretation Comments Hematocrit (test code = 4544-3) 39.7 34.2-44.1 [facility] CenterAutomated erythrocyte mean corpuscular jluqlw0021-04-07 04:30:00* Test Item Value Reference Range Interpretation Comments Mean Corpuscular Volume (test code = 787-2) 86.7 81-99 [facility] CenterAutomated erythrocyte mean corpuscular hemoglobin (mass per erythrocyte)2020-04-08 04:30:00* Test Item Value Reference Range Interpretation Comments Mean Corpuscular Hemoglobin (test code = 785-6) 26.4 28-32 [facility] CenterAutomated erythrocyte mean corpuscular hemoglobin concentration measurement (mass/volume)2020-04-08 04:30:00* Test Item Value Reference Range Interpretation Comments Mean Corpuscular Hemoglobin Concent (test code = 786-4) 30.5 31-35 [facility] CenterRDW VtcQu-Bys5885-62-08 04:30:00* Test Item Value Reference Range Interpretation Comments Red Cell Distribution Width (test code = 96921-5) 16.1 11.7 -14.4 [facility] CenterAutomated blood platelet count (count/volume)2020-04-08 04:30:00* Test Item Value Reference Range Interpretation Comments Platelet Count (test code = 777-3) 208 140-360 [facility] neutrophil count as percentage of total eqicpbbrtz6008-04-11 04:30:00* Test Item Value Reference Range Interpretation Comments Neutrophils (%) (Auto) (test code = 76072-4) 67.9 38.7-80.0 [facility] CenterAutomated blood lymphocyte count as percentage ot total tlwyydbbxq3016-65-98 04:30:00* Test Item Value Reference Range Interpretation Comments Lymphocytes (%) (Auto) (test code = 736-9) 20.0 18.0-39.1 [facility] CenterAutomated blood monocyte count as percentage of total bindsinujn4050-84-05 04:30:00* Test Item Value Reference Range Interpretation Comments Monocytes (%) (Auto) (test code = 5905-5) 10.5 4.4-11.3 [facility] CenterAutomated blood eosinophil count as percentage of total bokbpcayjz8029-90-21 04:30:00* Test Item Value Reference Range Interpretation Comments Eosinophils (%) (Auto) (test code = 713-8) 1.1 0.0-6.0 [facility] CenterAutomated blood basophil count as percentage of total nuintnzwcn3583-13-78 04:30:00* Test Item Value Reference Range Interpretation Comments Basophils (%) (Auto) (test code = 706-2) 0.2 0.0-1.0 [facility] CenterFluoroscopic procedure less than one hour bpcigcng7848-34-98 04:30:00* Test Item Value Reference Range Interpretation Comments IM GRANULOCYTES % (test code = IM GRANULOCYTES %) 0.3 0.0- 1.0 [facility] CenterAutomated blood neutrophil count 2020-04-08 04:30:00* Test Item Value Reference Range Interpretation Comments Neutrophils # (Auto) (test code = 751-8) 7.1 2.1-6.9 [facility] CenterBlood lymphocytes count (number/volume) 2020-04-08 04:30:00* Test Item Value Reference Range Interpretation Comments Lymphocytes # (Auto) (test code = 41817-9) 2.1 1.0-3.2 [facility] CenterBlood monocytes automated count (number/volume)2020-04-08 04:30:00* Test Item Value Reference Range Interpretation Comments Monocytes # (Auto) (test code = 742-7) 1.1 0.2-0.8 [facility] eosinophil count 2020-04-08 04:30:00* Test Item Value Reference Range Interpretation Comments Eosinophils # (Auto) (test code = 711-2) 0.1 0.0-0.4 [facility] CenterAutomated blood basophil count (count/volume)2020-04-08 04:30:00* Test Item Value Reference Range Interpretation Comments Basophils # (Auto) (test code = 704-7) 0.0 0.0-0.1 [facility] CenterFluoroscopic procedure less than one hour zgieahaa5990-59-16 04:30:00* Test Item Value Reference Range Interpretation Comments Absolute Immature Granulocyte (auto (nazia t code = Absolute Immature Granulocyte (auto) 0.03 0-0.1 [facility] or plasma sodium measurement (moles/volume)2020-04-08 04:30:00* Test Item Value Reference Range Interpretation Comments Sodium Level (test code = 2951-2) 138 136-145 [facility]erum or plasma potassium measurement (moles/volume)2020-04-08 04:30:00* Test Item Value Reference Range Interpretation Comments Potassium Level (test code = 2823-3) 4.5 3.5-5.1 [facility] or plasma chloride measurement (moles/volume)2020-04-08 04:30:00* Test Item Value Reference Range Interpretation Comments Chloride Level (test code = 2075-0) 101 98-107 [facility]erum or plasma carbon dioxide, total measurement (moles/volume)2020-04-08 04:30:00* Test Item Value Reference Range Interpretation Comments Carbon Dioxide Level (test code = 2028-9) 31 22-29 [facility] or plasma anion qud2684-05-81 04:30:00* Test Item Value Reference Range Interpretation Comments Anion Gap (test code = 86661-1) 10.5 8-16 [facility] or plasma urea nitrogen measurement (mass/volume)2020-04-08 04:30:00* Test Item Value Reference Range Interpretation Comments Blood Urea Nitrogen (test code = 3094-0) 13 7-26 [facility] or plasma creatinine measurement (mass/volume)2020-04-08 04:30:00* Test Item Value Reference Range Interpretation Comments Creatinine (test code = 2160-0) 1.01 0.57-1.11 [facility] or plasma urea nitrogen/creatinine mass jmvnj5649-02-24 04:30:00* Test Item Value Reference Range Interpretation Comments BUN/Creatinine Ratio (test code = 3097-3) 13 6-25 [facility] CenterEstimated glomerular filtration rate (GFR) vgobqsbuxpsae8860-40-12 04:30:00* Test Item Value Reference Range Interpretation Comments Estimat Glomerular Filtration Rate (test code = 766094331) 53 >60 Ranges were taken from the National Kidney Disease Education Program and the [facility] Kidney Foundation literature.Reference ranges:60 or greater: Eocqja01-32 ( for 3 consecutive months): Chronic kidney disease 15 or less: Kidney failureMission Regional Medical CenterGlucose ckymablnyzz4359-92-25 04:30:00* Test Item Value Reference Range Interpretation Comments Glucose Level (test code = EQT8089) 234 74-118 [facility] or plasma calcium measurement (mass/volume)2020-04-08 04:30:00* Test Item Value Reference Range Interpretation Comments Calcium Level (test code = 50080-4) 9.0 8.4-10.2 [facility] or plasma total bilirubin measurement (mass/volume)2020-04-08 04:30:00* Test Item Value Reference Range Interpretation Comments Total Bilirubin (test code = 1975-2) 0.4 0.2-1.2 [facility] CenterFluoroscopic procedure less than one hour ijpapozk2857-34-87 04:30:00* Test Item Value Reference Range Interpretation Comments Aspartate Amino Transf (AST/SGOT) (test code = Aspartate Amino Transf (AST/SGOT)) 20 5-34 [facility] or plasma alanine aminotransferase measurement (enzymatic activity/volume)2020-04-08 04:30:00* Test Item Value Reference Range Interpretation Comments Alanine Aminotransferase (ALT/SGPT) (test code = 1742-6) 15 0-55 [facility] or plasma protein measurement (mass/volume)2020-04-08 04:30:00* Test Item Value Reference Range Interpretation Comments Total Protein (test code = 2885-2) 6.5 6.5-8.1 [facility] or plasma albumin measurement (mass/volume)2020-04-08 04:30:00* Test Item Value Reference Range Interpretation Comments Albumin (test code = 1751-7) 2.8 3.5-5.0 [facility] CenterPlasma globulin measurement (mass/volume) 2020-04-08 04:30:00* Test Item Value Reference Range Interpretation Comments Globulin (test code = 71797-2) 3.7 2.3-3.5 [facility] or plasma albumin/globulin mass mpgya8153-90-90 04:30:00* Test Item Value Reference Range Interpretation Comments Albumin/Globulin Ratio (test code = 1759-0) 0.8 0.8-2.0 [facility] or plasma alkaline phosphatase measurement (enzymatic activity/volume)2020-04-08 04:30:00* Test Item Value Reference Range Interpretation Comments Alkaline Phosphatase (test code = 6768-6) 69 40-150 [facility]um or plasma creatine kinase measurement (enzymatic activity/volume)2020-04-08 04:30:00* Test Item Value Reference Range Interpretation Comments Creatine Kinase (test code = 2157-6) 122 29-168 [facility]um or plasma creatine kinase MB measurement (mass/volume)2020-04-08 04:30:00* Test Item Value Reference Range Interpretation Comments Creatine Kinase MB (test code = 06667-3) 2.30 0-5.0 [facility] CenterTroponin I measurement by highly sensitive enzyme gymfdscoafo2403-53-75 04:30:00* Test Item Value Reference Range Interpretation Comments Troponin I (test code = 89853-2) 0.011 0-0.300 [facility] CenterCHEST SINGLE (PORTABLE)2020-04-07 10:28:00 [facility] [address] [place] [address] Patient Name: SHARI DEAN MR #: [id number] : 1945 Age/Sex: 75/F Req #: [id number] Adm Physician: Ordered by: TARIK REEDER DO Report #: [id number] Location: ER Room/Bed: Procedure: [id number] DX/CHEST SINGLE (PORTABLE) Exam Date: 04/07/20 Exam [...] virus A and B antigen identification by oavvnfbjmxaymughxy6978-49-46 10:09:00* Test Item Value Reference Range Interpretation Comments Influenza Virus Types A,B Antigen (test code = 50938-8) NEGATIVE NEGATIVE [facility] CenterFluoroscopic procedure less than one hour qalxnzkv3100-49-96 10:09:00* Test Item Value Reference Range Interpretation Comments Coronavirus (PCR) (test code = Coronavirus (PCR)) NOT DETECTED NOTD ETECTED [facility] Shorelinetreptococcus pyogenes antigen detection in sybhxu2681-78-88 10:09:00* Test Item Value Reference Range Interpretation Comments Group A Streptococcus Screen (test code = 73590-2) NEGATIVE NEG ATIVE [facility] CenterInfluenza virus A and B antigen identification by usujccyfkwsrwvgujd1801-98-87 10:09:00* Test Item Value Reference Range Interpretation Comments Influenza Virus Types A,B Antigen (test code = 43965-1) NEGATIVE NEGATIVE [facility] CenterFluoroscopic procedure less than one hour ezmzdlwy4582-17-12 10:09:00* Test Item Value Reference Range Interpretation Comments Coronavirus (PCR) (test code = Coronavirus (PCR)) NOT DETECTED NOTD ETECTED [facility]linetreptococcus pyogenes antigen detection in xlapbz3134-87-08 10:09:00* Test Item Value Reference Range Interpretation Comments Group A Streptococcus Screen (test code = 03282-9) NEGATIVE NEG ATIVE [facility]2020-05-07 09:33:00* Test Item Value Reference Range Interpretation Comments B-Type Natriuretic Peptide (test code = 72772-3) 79.6 0-100 [facility] aujehkp1986-22-17 09:33:00* Test Item Value Reference Range Interpretation Comments Blood Culture (test code = 14656054) NO GROWTH AFTER 48 HOURS [facility]2020-05-07 09:33:00* Test Item Value Reference Range Interpretation Comments B-Type Natriuretic Peptide (test code = 83792-8) 79.6 0-100 [facility] vmanosb8976-77-56 09:33:00* Test Item Value Reference Range Interpretation Comments Blood Culture (test code = 74696333) NO GROWTH AFTER 5 DAYS, FINAL REPORT [facility] CenterBedb[facility] Wctsajv7593-83-04 12:48:00* Test Item Value Reference Range Interpretation Comments Bedside Glucose (test code = 66149-6) 120 70-120 Meter ID: [id number]. [facility] Culture 2019-12-30 17:49:00* Test Item Value Reference Range Interpretation Comments Blood Culture (test code = 56427713) NO GROWTH AFTER 72 HOURS [facility] CenterUrine Dcodhph1369-30-10 10:26:00* Test Item Value Reference Range Interpretation Comments Urine Culture (test code = 630-4) No Result Data Provided [facility]lineodium Wvcxp3441-64-69 06:05:00* Test Item Value Reference Range Interpretation Comments Sodium Level (test code = 2951-2) 134 136-145 L [facility] CenterPotassium Lcufn2908-82-98 06:05:00* Test Item Value Reference Range Interpretation Comments Potassium Level (test code = 2823-3) 4.6 3.5-5.1 [facility] CenterChloride Mjywt9905-90-15 06:05:00* Test Item Value Reference Range Interpretation Comments Chloride Level (test code = 2075-0) 100 98-107 [facility] CenterCarbon Dioxide Bhnsn9362-31-01 06:05:00* Test Item Value Reference Range Interpretation Comments Carbon Dioxide Level (test code = 2028-9) 27 22-29 [facility] CenterAnion Qfw3637-38-80 06:05:00* Test Item Value Reference Range Interpretation Comments Anion Gap (test code = 29569-3) 11.6 8-16 [facility] CenterBlood Urea Svotfffp9663-36-66 06:05:00* Test Item Value Reference Range Interpretation Comments Blood Urea Nitrogen (test code = 3094-0) 17 7-26 [facility] CenterCreatinine2020-01-28 06:05:00* Test Item Value Reference Range Interpretation Comments Creatinine (test code = 2160-0) 0.78 0.57-1.11 [facility] CenterBUN/Creatinine Mqqad8685-19-86 06:05:00* Test Item Value Reference Range Interpretation Comments BUN/Creatinine Ratio (test code = 3097-3) 22 6-25 [facility] CenterEstimat Glomerular Filtration Rate 2019-12-29 06:05:00* Test Item Value Reference Range Interpretation Comments Estimat Glomerular Filtration Rate (test code = 188781863) > 60 >60 Ranges were taken from the National Kidney Disease Education Program and the [facility] Kidney Foundation literature.Reference ranges:60 or greater: Rgrsuq12-89 ( for 3 consecutive months): Chronic kidney disease 15 or less: Kidney failureM[facility] Regional Medical CenterGlucose Cjeet7883-19-93 06:05:00* Test Item Value Reference Range Interpretation Comments Glucose Level (test code = FCY5511) 198 74-118 H [facility] CenterCalcium Kkoaj6257-13-12 06:05:00* Test Item Value Reference Range Interpretation Comments Calcium Level (test code = 98772-5) 8.5 8.4-10.2 [facility] CenterHemoglobin A1c Yomjjkf8682-42-86 05:55:00 * Test Item Value Reference Range Interpretation Comments Hemoglobin A1c Percent (test code = Hemoglobin A1c Percent) 9.6 4.0-7.0 H [facility] CenterWhite Blood Tmccd7197-16-66 05:49:00* Test Item Value Reference Range Interpretation Comments White Blood Count (test code = 6690-2) 7.56 4.8-10.8 [facility] CenterRed Blood Afhvj5305-20-36 05:49:00* Test Item Value Reference Range Interpretation Comments Red Blood Count (test code = 789-8) 4.02 3.6-5.1 [facility] CenterHemoglobin2020-01-28 05:49:00* Test Item Value Reference Range Interpretation Comments Hemoglobin (test code = 91959-1) 11.3 12.0-16.0 L [facility] CenterHematocrit2020-01-28 05:49:00* Test Item Value Reference Range Interpretation Comments Hematocrit (test code = 4544-3) 36.0 34.2-44.1 [facility] CenterMean Corpuscular Fmfife4855-43-28 05:49:00* Test Item Value Reference Range Interpretation Comments Mean Corpuscular Volume (test code = 787-2) 89.6 81-99 [facility] CenterMean Corpuscular Ipcreuhhht7855-60-78 05:49:00* Test Item Value Reference Range Interpretation Comments Mean Corpuscular Hemoglobin (test code = 785-6) 28.1 28-32 [facility] CenterMean Corpuscular Hemoglobin Concent 2019-12-29 05:49:00* Test Item Value Reference Range Interpretation Comments Mean Corpuscular Hemoglobin Concent (test code = 786-4) 31.4 31-35 [facility] CenterRed Cell Distribution Vyilr1365-63-36 05:49:00* Test Item Value Reference Range Interpretation Comments Red Cell Distribution Width (test code = 72775-3) 15.5 11.7 -14.4 H [facility] CenterPlatelet Pzvkc2470-72-72 05:49:00* Test Item Value Reference Range Interpretation Comments Platelet Count (test code = 777-3) 258 140-360 [facility] CenterNeutrophils (%) (Auto)2019-12-29 05:49:00 * Test Item Value Reference Range Interpretation Comments Neutrophils (%) (Auto) (test code = 89890-4) 82.9 38.7-80.0 H [facility] CenterLymphocytes (%) (Auto)2019-12-29 05:49:00 * Test Item Value Reference Range Interpretation Comments Lymphocytes (%) (Auto) (test code = 736-9) 12.6 18.0-39.1 L [facility] CenterMonocytes (%) (Auto)2019-12-29 05:49:00* Test Item Value Reference Range Interpretation Comments Monocytes (%) (Auto) (test code = 5905-5) 3.6 4.4-11.3 L [facility] CenterEosinophils (%) (Auto)2019-12-29 05:49:00 * Test Item Value Reference Range Interpretation Comments Eosinophils (%) (Auto) (test code = 713-8) 0.3 0.0-6.0 [facility] CenterBasophils (%) (Auto)2019-12-29 05:49:00* Test Item Value Reference Range Interpretation Comments Basophils (%) (Auto) (test code = 706-2) 0.1 0.0-1.0 [facility] CenterIM GRANULOCYTES %2019-12-29 05:49:00* Test Item Value Reference Range Interpretation Comments IM GRANULOCYTES % (test code = IM GRANULOCYTES %) 0.5 0.0- 1.0 [facility] CenterNeutrophils # (Auto)2019-12-29 05:49:00* Test Item Value Reference Range Interpretation Comments Neutrophils # (Auto) (test code = 751-8) 6.3 2.1-6.9 [facility] CenterLymphocytes # (Auto)2019-12-29 05:49:00* Test Item Value Reference Range Interpretation Comments Lymphocytes # (Auto) (test code = 76411-3) 1.0 1.0-3.2 [facility] CenterMonocytes # (Auto)2019-12-29 05:49:00* Test Item Value Reference Range Interpretation Comments Monocytes # (Auto) (test code = 742-7) 0.3 0.2-0.8 [facility] CenterEosinophils # (Auto)2019-12-29 05:49:00* Test Item Value Reference Range Interpretation Comments Eosinophils # (Auto) (test code = 711-2) 0.0 0.0-0.4 [facility] CenterBasophils # (Auto)2019-12-29 05:49:00* Test Item Value Reference Range Interpretation Comments Basophils # (Auto) (test code = 704-7) 0.0 0.0-0.1 [facility] CenterAbsolute Immature Granulocyte (auto 2019-12-29 05:49:00* Test Item Value Reference Range Interpretation Comments Absolute Immature Granulocyte (auto (nazia t code = Absolute Immature Granulocyte (auto) 0.04 0-0.1 [facility] CenterFluoroscopic procedure less than one hour fmztsumc4784-61-56 04:35:00* Test Item Value Reference Range Interpretation Comments Hemoglobin A1c Percent (test code = Hemoglobin A1c Percent) 9.6 4.0-7.0 [facility] CenterFluoroscopic procedure less than one hour agwroogx1759-52-35 04:35:00* Test Item Value Reference Range Interpretation Comments Hemoglobin A1c Percent (test code = Hemoglobin A1c Percent) 9.6 4.0-7.0 [facility] CenterFree Sjsqaatzy1495-30-78 14:50:00* Test Item Value Reference Range Interpretation Comments Free Thyroxine (test code = 3024-7) 0.73 0.8-1.8 L [facility] CenterThyroid Stimulating Hormone (TSH) 2019-12-28 14:50:00* Test Item Value Reference Range Interpretation Comments Thyroid Stimulating Hormone (TSH) (test code = 34252-8) 2.044 0.350-4.940 [facility] CenterTotal Lwlehzkiz8499-36-10 05:56:00* Test Item Value Reference Range Interpretation Comments Total Bilirubin (test code = 1975-2) 0.4 0.2-1.2 [facility] CenterAspartate Amino Transf (AST/SGOT) 2019-12-28 05:56:00* Test Item Value Reference Range Interpretation Comments Aspartate Amino Transf (AST/SGOT) (test code = Aspartate Amino Transf (AST/SGOT)) 24 5-34 [facility] CenterAlanine Aminotransferase (ALT/SGPT) 2019-12-28 05:56:00* Test Item Value Reference Range Interpretation Comments Alanine Aminotransferase (ALT/SGPT) (test code = 1742-6) 32 0-55 [facility] CenterTotal Hwiqcvl2497-66-15 05:56:00* Test Item Value Reference Range Interpretation Comments Total Protein (test code = 2885-2) 5.8 6.5-8.1 L [facility] CenterAlbumin2020-01-27 05:56:00* Test Item Value Reference Range Interpretation Comments Albumin (test code = 1751-7) 3.1 3.5-5.0 L [facility] CenterGlobulin2020-01-27 05:56:00* Test Item Value Reference Range Interpretation Comments Globulin (test code = 56077-4) 2.7 2.3-3.5 [facility] CenterAlbumin/Globulin Wjisz9195-09-09 05:56:00 * Test Item Value Reference Range Interpretation Comments Albumin/Globulin Ratio (test code = 1759-0) 1.1 0.8-2.0 [facility] CenterAlkaline Ukxytnfdrmc3954-76-67 05:56:00* Test Item Value Reference Range Interpretation Comments Alkaline Phosphatase (test code = 6768-6) 81 40-150 [facility] or plasma thyroxine (T4) free measurement (mass/volume)2019-12-28 04:18:00* Test Item Value Reference Range Interpretation Comments Free Thyroxine (test code = 3024-7) 0.73 0.8-1.8 [facility] or plasma thyrotropin measurement by detection limit <= 0.005 miu/l (units/volume)2019-12-28 04:18:00* Test Item Value Reference Range Interpretation Comments Thyroid Stimulating Hormone (TSH) (test code = 62855-7) 2.044 0.350-4.940 [facility] or plasma thyroxine (T4) free measurement (mass/volume)2019-12-28 04:18:00* Test Item Value Reference Range Interpretation Comments Free Thyroxine (test code = 3024-7) 0.73 0.8-1.8 [facility] or plasma thyrotropin measurement by detection limit <= 0.005 miu/l (units/volume)2019-12-28 04:18:00* Test Item Value Reference Range Interpretation Comments Thyroid Stimulating Hormone (TSH) (test code = 48283-9) 2.044 0.350-4.940 [facility] CenterPlatelet Morphology Gmsnmnb1982-71-33 20:03:00* Test Item Value Reference Range Interpretation Comments Platelet Morphology Comment (test code = 94363-9) FEW LARGE NO EDTA PLT CLUMPS SEENMission Regional Medical CenterCT PELVIS W 2019-12-27 19:57:00 [facility] [address], [place] [address] Patient Name: SHARI DEAN MR #: [id number] : 1945 Age/Sex: 74/F Req #: [id number] Adm Physician: RENZO REEDER MD Ordered by: SUZANNE CARRILLO NP Report #: [id number] [facility] Procedure: [id number] C T/CT PELVIS W Exam Date: 12/27/19 [...] DO 02 Transcribed By: GAUDENCIO on 12/27/192002 C OPY TO: SUZANNE CARRILLO NP Urine Wovod7890-42-25 19:11:00* Test Item Value Reference Range Interpretation Comments Urine Color (test code = 5778-6) YELLOW YELLOW [facility] CenterU[facility] Utylutq7416-23-76 19:11:00* Test Item Value Reference Range Interpretation Comments Urine Clarity (test code = 74985-2) CLEAR CLEAR [facility] CenterU[facility] Specific Cqszkdy6237-69-78 19:11:00 * Test Item Value Reference Range Interpretation Comments Urine Specific [place] (test code = 5811-5) 1.020 1.010-1.02 5 [facility] CenterU[facility] aO3575-92-57 19:11:00* Test Item Value Reference Range Interpretation Comments Urine pH (test code = 92257-8) 6 5-7 [facility] Center[facility] Leukocyte Qtotwjdh9315-31-11 19:11:00* Test Item Value Reference Range Interpretation Comments Urine Leukocyte Esterase (test code = 5799-2) NEGATIVE NEGATIVE [facility] CenterU[facility] Bffdohv8106-94-35 19:11:00* Test Item Value Reference Range Interpretation Comments Urine Nitrite (test code = 62491-3) POSITIVE NEGATIVE [facility] CenterU[facility] Rpbhpgu6278-51-94 19:11:00* Test Item Value Reference Range Interpretation Comments Urine Protein (test code = 5804-0) NEGATIVE NEGATIVE [facility] CenterU[facility] Glucose (UA)2019-12-27 19:11:00* Test Item Value Reference Range Interpretation Comments Urine Glucose (UA) (test code = 2349-9) NEGATIVE NEGATIVE [facility] CenterU[facility] Jxedxwo1407-42-61 19:11:00* Test Item Value Reference Range Interpretation Comments Urine Ketones (test code = 75604-0) NEGATIVE NEGATIVE [facility] Center[facility] Sqghgplitffi5010-41-39 19:11:00* Test Item Value Reference Range Interpretation Comments Urine Urobilinogen (test code = 54338-7) 0.2 0.2-1 [facility] CenterU[facility] Wjpliettk5594-52-07 19:11:00* Test Item Value Reference Range Interpretation Comments Urine Bilirubin (test code = 1978-6) NEGATIVE NEGATIVE [facility] CenterU[facility] Equcu2162-27-98 19:11:00* Test Item Value Reference Range Interpretation Comments Urine Blood (test code = 43472-8) 1+ NEGATIVE [facility] Center[facility] KFZ1312-99-81 19:11:00* Test Item Value Reference Range Interpretation Comments Urine WBC (test code = 5821-4) 6-10 0-5 H [facility] CenterU[facility] NNZ5352-20-53 19:11:00* Test Item Value Reference Range Interpretation Comments Urine RBC (test code = 82875-0) 6-10 0-5 H [facility] CenterU[facility] Mgcakriz7251-06-32 19:11:00* Test Item Value Reference Range Interpretation Comments Urine Bacteria (test code = 72998-6) FEW NONE [facility] CenterU[facility] Epithelial Lgbdn0072-39-95 19:11:00 * Test Item Value Reference Range Interpretation Comments Urine Epithelial Cells (test code = 77596-3) FEW NONE [facility] CenterUrine color chysnbbmvwpdo5799-90-92 17:29:00* Test Item Value Reference Range Interpretation Comments Urine Color (test code = 5778-6) YELLOW YELLOW [facility] CenterU[facility] oppyonl4624-49-10 17:29:00* Test Item Value Reference Range Interpretation Comments Urine Clarity (test code = 44084-9) CLEAR CLEAR [facility] gravity of Urine by Test strip 2019-12-27 17:29:00* Test Item Value Reference Range Interpretation Comments Urine Specific [place] (test code = 5811-5) 1.020 1.010-1.02 5 [facility] CenterUrine pH measurement by automated test zxekd1093-12-60 17:29:00* Test Item Value Reference Range Interpretation Comments Urine pH (test code = 08889-7) 6 5-7 [facility] CenterUrine leukocyte esterase detection by akzbochq1341-24-30 17:29:00* Test Item Value Reference Range Interpretation Comments Urine Leukocyte Esterase (test code = 5799-2) NEGATIVE NEGATIVE [facility] CenterUrine nitrite gcqubfwfd1387-11-59 17:29:00* Test Item Value Reference Range Interpretation Comments Urine Nitrite (test code = 98268-8) POSITIVE NEGATIVE [facility] CenterUrine protein measurement by test strip (mass/volume)2019-12-27 17:29:00* Test Item Value Reference Range Interpretation Comments Urine Protein (test code = 5804-0) NEGATIVE NEGATIVE [facility] CenterUrine glucose oxjokxlmw7712-88-72 17:29:00* Test Item Value Reference Range Interpretation Comments Urine Glucose (UA) (test code = 2349-9) NEGATIVE NEGATIVE [facility] CenterUrine ketones detection by automated test pmqrn6293-58-36 17:29:00* Test Item Value Reference Range Interpretation Comments Urine Ketones (test code = 27909-3) NEGATIVE NEGATIVE [facility] CenterUrine urobilinogen measurement by test strip (mass/volume)2019-12-27 17:29:00* Test Item Value Reference Range Interpretation Comments Urine Urobilinogen (test code = 51108-4) 0.2 0.2-1 [facility] CenterUrine total bilirubin measurement (mass/volume)2019-12-27 17:29:00* Test Item Value Reference Range Interpretation Comments Urine Bilirubin (test code = 1978-6) NEGATIVE NEGATIVE [facility] CenterUrine erythrocytes pjhmqsksr1195-92-61 17:29:00* Test Item Value Reference Range Interpretation Comments Urine Blood (test code = 76863-8) 1+ NEGATIVE [facility] CenterAutomated urine sediment leukocyte count by microscopy (number/high power field)2019-12-27 17:29:00* Test Item Value Reference Range Interpretation Comments Urine WBC (test code = 5821-4) 6-10 0-5 [facility] CenterErythrocytes detection in urine sediment by light znlodettkz7972-91-57 17:29:00* Test Item Value Reference Range Interpretation Comments Urine RBC (test code = 24565-0) 6-10 0-5 [facility] CenterBacteria detection in urine sediment by light bvjxwpxhve1192-11-33 17:29:00* Test Item Value Reference Range Interpretation Comments Urine Bacteria (test code = 22467-3) FEW NONE [facility] CenterEpithelial cells detection in urine sediment by light iyvjcghxgb9174-18-40 17:29:00* Test Item Value Reference Range Interpretation Comments Urine Epithelial Cells (test code = 32511-0) FEW NONE [facility] CenterBacterial urine zerxgmk9344-44-38 17:29:00* Test Item Value Reference Range Interpretation Comments Urine Culture (test code = 630-4) ENTEROBACTER AEROGENES [facility] CenterBacterial urine dnvwnnl1956-22-86 17:29:00* Test Item Value Reference Range Interpretation Comments Urine Culture (test code = 630-4) ENTEROBACTER AEROGENES [facility] CenterPlatelet efsqeickym7893-35-60 16:10:00* Test Item Value Reference Range Interpretation Comments Platelet Morphology Comment (test code = 80775-2) FEW LARGE NO EDTA PLT CLUMPS SEENMission Regional Medical CenterPlatelet hcsquiqtlj7951-07-18 16:10:00* Test Item Value Reference Range Interpretation Comments Platelet Morphology Comment (test code = 86094-3) FEW LARGE NO EDTA PLT CLUMPS SEENMission Regional Medical CenterCT CERVICAL SPINE IJ3391-06-48 19:52:00 [place] [address] Patient Name: SHARI DEAN MR #: [id number] : 1945 Age/Sex: 74/F Req #: [id number] Adm Physician: Ordered by: MARTHA MORRIS OFFBEARER Report #: [id number] Location: ER Room/Bed: Procedure: [id number] CT/CT CERVICAL SPINE WO Exam Date: Exam Time: REPORT STATUS: Signed History: Statu s post fall. Comparison studies: CT cervical spine from 11/01/2018. Te chnique: Axial images were obtained through the cervical [...] GAUDENCIO on 12/04/191956 COPY TO: MARTHA MORRIS OFFBEARER CT BRAIN ZW1554-17-11 19:48:00 [place] [address] Patient Name: SHARI DEAN MR #: [id number] : 1945 Age/Sex: 74/F Req #: [id number] Adm Physician: Ordered by: MARTHA MORRIS NP Report #: [id number] Location: ER Room/Bed: Procedure: [id number] CT/CT BRAIN WO Exam Date: Exam Time: [...] GAUDENCIO on 12/04/191951 COPY TO: MARTHA MORRIS OFFBEARER Urine JSV5275-29-26 01:31:00* Test Item Value Reference Range Interpretation Comments Urine WBC (test code = 5821-4) 21-50 0-5 H [facility] CenterUrine ZDI0197-61-88 01:31:00* Test Item Value Reference Range Interpretation Comments Urine RBC (test code = 90776-2) 21-50 0-5 H [facility] CenterUrine Nktmgpks3706-81-15 01:31:00* Test Item Value Reference Range Interpretation Comments Urine Bacteria (test code = 61381-3) MANY NONE H [facility] CenterUrine Epithelial Ckfzn4468-22-85 01:31:00 * Test Item Value Reference Range Interpretation Comments Urine Epithelial Cells (test code = 89315-1) MANY NONE [facility] CenterU[facility] Wtony7234-91-20 01:31:00* Test Item Value Reference Range Interpretation Comments Urine Mucus (test code = 8247-9) MODERATE RARE H [facility] CenterU[facility] EUV0799-00-20 01:31:00* Test Item Value Reference Range Interpretation Comments Urine WBC (test code = 5821-4) 21-50 0-5 H [facility] CenterU[facility] AEA9145-03-71 01:31:00* Test Item Value Reference Range Interpretation Comments Urine RBC (test code = 79768-3) 21-50 0-5 H [facility] Ahldwksc7354-72-65 01:31:00* Test Item Value Reference Range Interpretation Comments Urine Bacteria (test code = 85417-0) MANY NONE H [facility] Epithelial Wujrv2399-95-28 01:31:00 * Test Item Value Reference Range Interpretation Comments Urine Epithelial Cells (test code = 64499-6) MANY NONE [facility] Ouhur2343-72-27 01:31:00* Test Item Value Reference Range Interpretation Comments Urine Mucus (test code = 8247-9) MODERATE RARE H [facility] ZLX7091-71-71 01:31:00* Test Item Value Reference Range Interpretation Comments Urine WBC (test code = 5821-4) 21-50 0-5 H [facility] DGA5803-31-21 01:31:00* Test Item Value Reference Range Interpretation Comments Urine RBC (test code = 57948-4) 21-50 0-5 H [facility] Ovzkrbur2123-01-12 01:31:00* Test Item Value Reference Range Interpretation Comments Urine Bacteria (test code = 66172-2) MANY NONE [facility] Epithelial Ijytj6894-45-21 01:31:00 * Test Item Value Reference Range Interpretation Comments Urine Epithelial Cells (test code = 93712-3) MANY NONE [facility] Crxna8630-27-31 01:31:00* Test Item Value Reference Range Interpretation Comments Urine Mucus (test code = 8247-9) MODERATE RARE H [facility] Tecyu5790-66-51 01:31:00* Test Item Value Reference Range Interpretation Comments Urine Mucus (test code = 8247-9) MODERATE RARE H [facility] Zfwya4420-93-54 01:22:00* Test Item Value Reference Range Interpretation Comments Urine Color (test code = 5778-6) YELLOW YELLOW [facility] Dabjymq8477-60-86 01:22:00* Test Item Value Reference Range Interpretation Comments Urine Clarity (test code = 91108-1) CLOUDY CLEAR H [facility] CenterU[facility] Specific Dahmnzh2234-65-26 01:22:00 * Test Item Value Reference Range Interpretation Comments Urine Specific [place] (test code = 5811-5) 1.025 1.010-1.02 5 [facility] CenterU[facility] hQ9567-50-38 01:22:00* Test Item Value Reference Range Interpretation Comments Urine pH (test code = 62638-4) 6 5-7 [facility] CenterU[facility] Leukocyte Byficwsa0207-40-16 01:22:00* Test Item Value Reference Range Interpretation Comments Urine Leukocyte Esterase (test code = 24463-5) SMALL NEGATIV E [facility] CenterU[facility] Qjgjanp1810-79-60 01:22:00* Test Item Value Reference Range Interpretation Comments Urine Nitrite (test code = 56673-0) NEGATIVE NEGATIVE [facility] CenterU[facility] Zloidmj1021-22-19 01:22:00* Test Item Value Reference Range Interpretation Comments Urine Protein (test code = 69976-1) TRACE NEGATIVE H [facility] CenterU[facility] Glucose (UA)2019-05-19 01:22:00* Test Item Value Reference Range Interpretation Comments Urine Glucose (UA) (test code = 76209-7) 2+ NEGATIVE H [facility] CenterU[facility] Bzfhuio6207-72-54 01:22:00* Test Item Value Reference Range Interpretation Comments Urine Ketones (test code = 32325-2) 1+ NEGATIVE H [facility] CenterU[facility] Lxbzmxdgqoge8250-42-55 01:22:00* Test Item Value Reference Range Interpretation Comments Urine Urobilinogen (test code = 66726-4) 0.2 0.2-1 [facility] Tvpnyhysq1240-61-26 01:22:00* Test Item Value Reference Range Interpretation Comments Urine Bilirubin (test code = 1977-8) NEGATIVE NEGATIVE [facility] CenterU[facility] Ktqoe5032-05-92 01:22:00* Test Item Value Reference Range Interpretation Comments Urine Blood (test code = 66474-4) MODERATE NEGATIVE [facility] CenterU[facility] Haidq3859-96-53 01:22:00* Test Item Value Reference Range Interpretation Comments Urine Color (test code = 5778-6) YELLOW YELLOW [facility] Gkrtrxi4063-92-89 01:22:00* Test Item Value Reference Range Interpretation Comments Urine Clarity (test code = 45865-7) CLOUDY CLEAR H [facility] CenterU[facility] Specific Zopedbg4603-65-80 01:22:00 * Test Item Value Reference Range Interpretation Comments Urine Specific [place] (test code = 5811-5) 1.025 1.010-1.02 5 [facility] CenterU[facility] vO2788-78-56 01:22:00* Test Item Value Reference Range Interpretation Comments Urine pH (test code = 15651-8) 6 5-7 [facility] Center[facility] Leukocyte Xqoqrkjg4513-42-16 01:22:00* Test Item Value Reference Range Interpretation Comments Urine Leukocyte Esterase (test code = 62886-1) SMALL NEGATIV E [facility] CenterU[facility] Lnfgwti7029-69-85 01:22:00* Test Item Value Reference Range Interpretation Comments Urine Nitrite (test code = 22733-9) NEGATIVE NEGATIVE [facility] CenterU[facility] Yfovokn8126-42-74 01:22:00* Test Item Value Reference Range Interpretation Comments Urine Protein (test code = 81682-1) TRACE NEGATIVE H [facility] CenterU[facility] Glucose (UA)2019-05-19 01:22:00* Test Item Value Reference Range Interpretation Comments Urine Glucose (UA) (test code = 45027-4) 2+ NEGATIVE H [facility] CenterU[facility] Jeewqwp5286-00-87 01:22:00* Test Item Value Reference Range Interpretation Comments Urine Ketones (test code = 15241-1) 1+ NEGATIVE [facility] Ossnktzsmuko3177-91-76 01:22:00* Test Item Value Reference Range Interpretation Comments Urine Urobilinogen (test code = 89964-3) 0.2 0.2-1 [facility] CenterU[facility] Nomtmdcyv2447-73-00 01:22:00* Test Item Value Reference Range Interpretation Comments Urine Bilirubin (test code = 1977-8) NEGATIVE NEGATIVE [facility] CenterU[facility] Doijo3038-04-97 01:22:00* Test Item Value Reference Range Interpretation Comments Urine Blood (test code = 50287-4) MODERATE NEGATIVE [facility] CenterU[facility] Kefwc7836-60-21 01:22:00* Test Item Value Reference Range Interpretation Comments Urine Color (test code = 5778-6) YELLOW YELLOW [facility] CenterU[facility] Blvtjhx3687-40-52 01:22:00* Test Item Value Reference Range Interpretation Comments Urine Clarity (test code = 60437-1) CLOUDY CLEAR [facility] Specific Encrrzv8542-54-80 01:22:00 * Test Item Value Reference Range Interpretation Comments Urine Specific [place] (test code = 5811-5) 1.025 1.010-1.02 5 [facility] Center[facility] bT7428-57-04 01:22:00* Test Item Value Reference Range Interpretation Comments Urine pH (test code = 00837-3) 6 5-7 [facility] Center[facility] Leukocyte Fjhjlzhh5335-35-93 01:22:00* Test Item Value Reference Range Interpretation Comments Urine Leukocyte Esterase (test code = 98090-8) SMALL NEGATIV E [facility] CenterU[facility] Swizpcy8217-59-69 01:22:00* Test Item Value Reference Range Interpretation Comments Urine Nitrite (test code = 05368-4) NEGATIVE NEGATIVE [facility] Yguavnz9550-61-30 01:22:00* Test Item Value Reference Range Interpretation Comments Urine Protein (test code = 68256-7) TRACE NEGATIVE H [facility] CenterU[facility] Glucose (UA)2019-05-19 01:22:00* Test Item Value Reference Range Interpretation Comments Urine Glucose (UA) (test code = 53158-1) 2+ NEGATIVE H [facility] CenterU[facility] Didnssg1023-83-66 01:22:00* Test Item Value Reference Range Interpretation Comments Urine Ketones (test code = 26434-5) 1+ NEGATIVE [facility] Lgsxfrbbcifh3021-02-58 01:22:00* Test Item Value Reference Range Interpretation Comments Urine Urobilinogen (test code = 63321-3) 0.2 0.2-1 [facility] Qmplpnuck6931-26-23 01:22:00* Test Item Value Reference Range Interpretation Comments Urine Bilirubin (test code = 1977-8) NEGATIVE NEGATIVE [facility] CenterU[facility] Fmhfz1000-79-76 01:22:00* Test Item Value Reference Range Interpretation Comments Urine Blood (test code = 00733-2) MODERATE NEGATIVE [facility] Bswxn9033-27-47 01:21:00* Test Item Value Reference Range Interpretation Comments Sodium Level (test code = 2951-2) 139 136-145 [facility] CenterPotassium Vwmea1741-18-85 01:21:00* Test Item Value Reference Range Interpretation Comments Potassium Level (test code = 2823-3) 3.9 3.5-5.1 [facility] CenterChloride Zyqgq0674-49-42 01:21:00* Test Item Value Reference Range Interpretation Comments Chloride Level (test code = 2075-0) 101 98-107 [facility] CenterCarbon Dioxide Uehln0624-97-30 01:21:00* Test Item Value Reference Range Interpretation Comments Carbon Dioxide Level (test code = 2028-9) 29 22-29 [facility] CenterAnion Mki2405-30-94 01:21:00* Test Item Value Reference Range Interpretation Comments Anion Gap (test code = 72188-1) 12.9 8-16 [facility] CenterBlood Urea Cjccvcqg5029-23-21 01:21:00* Test Item Value Reference Range Interpretation Comments Blood Urea Nitrogen (test code = 3094-0) 18 7-26 [facility] CenterCreatinine2019-06-18 01:21:00* Test Item Value Reference Range Interpretation Comments Creatinine (test code = 2160-0) 0.99 0.57-1.11 [facility] CenterBUN/Creatinine Smkpf3757-61-68 01:21:00* Test Item Value Reference Range Interpretation Comments BUN/Creatinine Ratio (test code = 3097-3) 18 6-25 [facility] CenterEstimat Glomerular Filtration Rate 2019-05-19 01:21:00* Test Item Value Reference Range Interpretation Comments Estimat Glomerular Filtration Rate (test code = 823242617) 55 >60 L Ranges were taken from the National Kidney Disease Education Program and the [facility] [employer] literature.Reference ranges:60 or greater: Degils40-64 ( for 3 consecutive months): Chronic kidney disease 15 or less: Kidney failureMission Regional Medical CenterGlucose Ggnzt5549-46-16 01:21:00* Test Item Value Reference Range Interpretation Comments Glucose Level (test code = LWB7416) 136 74-118 H [facility] CenterCalcium Eofha6109-33-95 01:21:00* Test Item Value Reference Range Interpretation Comments Calcium Level (test code = 00371-2) 9.7 8.4-10.2 [facility] CenterTotal Jxgdyizja7929-42-98 01:21:00* Test Item Value Reference Range Interpretation Comments Total Bilirubin (test code = 1975-2) 0.3 0.2-1.2 [facility] CenterAspartate Amino Transf (AST/SGOT) 2019-05-19 01:21:00* Test Item Value Reference Range Interpretation Comments Aspartate Amino Transf (AST/SGOT) (test code = Aspartate Amino Transf (AST/SGOT)) 17 5-34 [facility] CenterAlanine Aminotransferase (ALT/SGPT) 2019-05-19 01:21:00* Test Item Value Reference Range Interpretation Comments Alanine Aminotransferase (ALT/SGPT) (test code = 1742-6) 22 0-55 [facility] CenterTotal Wdcujjw8202-07-36 01:21:00* Test Item Value Reference Range Interpretation Comments Total Protein (test code = 2885-2) 7.0 6.5-8.1 [facility] CenterAlbumin2019-06-18 01:21:00* Test Item Value Reference Range Interpretation Comments Albumin (test code = 1751-7) 3.5 3.5-5.0 [facility] CenterGlobulin2019-06-18 01:21:00* Test Item Value Reference Range Interpretation Comments Globulin (test code = 27396-5) 3.5 2.3-3.5 [facility] CenterAlbumin/Globulin Sgekw8017-64-93 01:21:00 * Test Item Value Reference Range Interpretation Comments Albumin/Globulin Ratio (test code = 1759-0) 1.0 0.8-2.0 [facility] CenterAlkaline Othxzpbqqkn2204-82-78 01:21:00* Test Item Value Reference Range Interpretation Comments Alkaline Phosphatase (test code = 6768-6) 127 40-150 [facility] Nqcbn3042-99-73 01:21:00* Test Item Value Reference Range Interpretation Comments Sodium Level (test code = 2951-2) 139 136-145 [facility] CenterPotassium Seilf7388-35-58 01:21:00* Test Item Value Reference Range Interpretation Comments Potassium Level (test code = 2823-3) 3.9 3.5-5.1 [facility] CenterChloride Nhqia0919-70-99 01:21:00* Test Item Value Reference Range Interpretation Comments Chloride Level (test code = 2075-0) 101 98-107 [facility] CenterCarbon Dioxide Kaaef7626-06-12 01:21:00* Test Item Value Reference Range Interpretation Comments Carbon Dioxide Level (test code = 2028-9) 29 22-29 [facility] CenterAnion Rek4226-44-71 01:21:00* Test Item Value Reference Range Interpretation Comments Anion Gap (test code = 12125-0) 12.9 8-16 [facility] CenterBlood Urea Yhimrpxb2675-67-01 01:21:00* Test Item Value Reference Range Interpretation Comments Blood Urea Nitrogen (test code = 3094-0) 18 7-26 [facility] CenterCreatinine2019-06-18 01:21:00* Test Item Value Reference Range Interpretation Comments Creatinine (test code = 2160-0) 0.99 0.57-1.11 [facility] CenterBUN/Creatinine Nnowi9128-33-39 01:21:00* Test Item Value Reference Range Interpretation Comments BUN/Creatinine Ratio (test code = 3097-3) 18 6-25 [facility] CenterEstimat Glomerular Filtration Rate 2019-05-19 01:21:00* Test Item Value Reference Range Interpretation Comments Estimat Glomerular Filtration Rate (test code = 499613005) 55 >60 L Ranges were taken from the National Kidney Disease Education Program and the [facility] literature.Reference ranges:60 or greater: Qpezng54-87 ( for 3 consecutive months): Chronic kidney disease 15 or less: Kidney failureMission Regional Medical CenterGlucose Qkebg8865-79-17 01:21:00* Test Item Value Reference Range Interpretation Comments Glucose Level (test code = FUC0539) 136 74-118 H [facility] CenterCalcium Nxpre2560-78-71 01:21:00* Test Item Value Reference Range Interpretation Comments Calcium Level (test code = 63435-9) 9.7 8.4-10.2 [facility] CenterTotal Juamgbona4262-31-24 01:21:00* Test Item Value Reference Range Interpretation Comments Total Bilirubin (test code = 1975-2) 0.3 0.2-1.2 [facility] CenterAspartate Amino Transf (AST/SGOT) 2019-05-19 01:21:00* Test Item Value Reference Range Interpretation Comments Aspartate Amino Transf (AST/SGOT) (test code = Aspartate Amino Transf (AST/SGOT)) 17 5-34 [facility] CenterAlanine Aminotransferase (ALT/SGPT) 2019-05-19 01:21:00* Test Item Value Reference Range Interpretation Comments Alanine Aminotransferase (ALT/SGPT) (test code = 1742-6) 22 0-55 [facility] CenterTotal Hkgibwt7812-74-80 01:21:00* Test Item Value Reference Range Interpretation Comments Total Protein (test code = 2885-2) 7.0 6.5-8.1 [facility] CenterAlbumin2019-06-18 01:21:00* Test Item Value Reference Range Interpretation Comments Albumin (test code = 1751-7) 3.5 3.5-5.0 [facility] CenterGlobulin2019-06-18 01:21:00* Test Item Value Reference Range Interpretation Comments Globulin (test code = 96041-1) 3.5 2.3-3.5 [facility] CenterAlbumin/Globulin Lgrwv2956-21-68 01:21:00 * Test Item Value Reference Range Interpretation Comments Albumin/Globulin Ratio (test code = 1759-0) 1.0 0.8-2.0 [facility] CenterAlkaline Mdkdcuoblma2620-29-67 01:21:00* Test Item Value Reference Range Interpretation Comments Alkaline Phosphatase (test code = 6768-6) 127 40-150 [facility] Obwpb2057-99-85 01:21:00* Test Item Value Reference Range Interpretation Comments Sodium Level (test code = 2951-2) 139 136-145 [facility] CenterPotassium Vtjuk7938-77-22 01:21:00* Test Item Value Reference Range Interpretation Comments Potassium Level (test code = 2823-3) 3.9 3.5-5.1 [facility] CenterChloride Bgtsx7193-00-41 01:21:00* Test Item Value Reference Range Interpretation Comments Chloride Level (test code = 2075-0) 101 98-107 [facility] CenterCarbon Dioxide Pdxta9160-53-13 01:21:00* Test Item Value Reference Range Interpretation Comments Carbon Dioxide Level (test code = 2028-9) 29 22-29 [facility] CenterAnion Zoi8018-34-52 01:21:00* Test Item Value Reference Range Interpretation Comments Anion Gap (test code = 95342-2) 12.9 8-16 [facility] CenterBlood Urea Iskxbpuq3970-64-64 01:21:00* Test Item Value Reference Range Interpretation Comments Blood Urea Nitrogen (test code = 3094-0) 18 7-26 [facility] CenterCreatinine2019-06-18 01:21:00* Test Item Value Reference Range Interpretation Comments Creatinine (test code = 2160-0) 0.99 0.57-1.11 [facility] CenterBUN/Creatinine Uxbhe3182-28-31 01:21:00* Test Item Value Reference Range Interpretation Comments BUN/Creatinine Ratio (test code = 3097-3) 18 6-25 [facility] CenterEstimat Glomerular Filtration Rate 2019-05-19 01:21:00* Test Item Value Reference Range Interpretation Comments Estimat Glomerular Filtration Rate (test code = 935359503) 55 >60 L Ranges were taken from the National Kidney Disease Education Program and the [facility] Kidney Foundation literature.Reference ranges:60 or greater: Kejvmj78-90 ( for 3 consecutive months): Chronic kidney disease 15 or less: Kidney failureMission Regional Medical CenterGlucose Zzfzk0406-15-53 01:21:00* Test Item Value Reference Range Interpretation Comments Glucose Level (test code = YRM8434) 136 74-118 H [facility] CenterCalcium Wrnrh2796-60-29 01:21:00* Test Item Value Reference Range Interpretation Comments Calcium Level (test code = 97635-0) 9.7 8.4-10.2 [facility] CenterTotal Hhlcytgtu5371-82-53 01:21:00* Test Item Value Reference Range Interpretation Comments Total Bilirubin (test code = 1975-2) 0.3 0.2-1.2 [facility] CenterAspartate Amino Transf (AST/SGOT) 2019-05-19 01:21:00* Test Item Value Reference Range Interpretation Comments Aspartate Amino Transf (AST/SGOT) (test code = Aspartate Amino Transf (AST/SGOT)) 17 5-34 [facility] CenterAlanine Aminotransferase (ALT/SGPT) 2019-05-19 01:21:00* Test Item Value Reference Range Interpretation Comments Alanine Aminotransferase (ALT/SGPT) (test code = 1742-6) 22 0-55 [facility] CenterTotal Gifazzd6970-64-99 01:21:00* Test Item Value Reference Range Interpretation Comments Total Protein (test code = 2885-2) 7.0 6.5-8.1 [facility] CenterAlbumin2019-06-18 01:21:00* Test Item Value Reference Range Interpretation Comments Albumin (test code = 1751-7) 3.5 3.5-5.0 [facility] CenterGlobulin2019-06-18 01:21:00* Test Item Value Reference Range Interpretation Comments Globulin (test code = 64514-1) 3.5 2.3-3.5 [facility] CenterAlbumin/Globulin Jxegx0695-68-79 01:21:00 * Test Item Value Reference Range Interpretation Comments Albumin/Globulin Ratio (test code = 1759-0) 1.0 0.8-2.0 [facility] CenterAlkaline Oiyftmrzmsp1741-06-88 01:21:00* Test Item Value Reference Range Interpretation Comments Alkaline Phosphatase (test code = 6768-6) 127 40-150 [facility] CenterWhite Blood Zguuz7320-44-19 00:58:00* Test Item Value Reference Range Interpretation Comments White Blood Count (test code = 6690-2) 7.85 4.8-10.8 [facility] CenterRed Blood Fympq1905-68-64 00:58:00* Test Item Value Reference Range Interpretation Comments Red Blood Count (test code = 789-8) 4.54 3.6-5.1 [facility] CenterHemoglobin2019-06-18 00:58:00* Test Item Value Reference Range Interpretation Comments Hemoglobin (test code = 03628-6) 13.1 12.0-16.0 [facility] CenterHematocrit2019-06-18 00:58:00* Test Item Value Reference Range Interpretation Comments Hematocrit (test code = 4544-3) 40.4 34.2-44.1 [facility] CenterMean Corpuscular Klszpv6897-37-91 00:58:00* Test Item Value Reference Range Interpretation Comments Mean Corpuscular Volume (test code = 787-2) 89.0 81-99 [facility] CenterMean Corpuscular Fjivcfnsss5811-62-90 00:58:00* Test Item Value Reference Range Interpretation Comments Mean Corpuscular Hemoglobin (test code = 785-6) 28.9 28-32 [facility] CenterMean Corpuscular Hemoglobin Concent 2019-05-19 00:58:00* Test Item Value Reference Range Interpretation Comments Mean Corpuscular Hemoglobin Concent (test code = 786-4) 32.4 31-35 [facility] CenterRed Cell Distribution Esnyk2780-99-46 00:58:00* Test Item Value Reference Range Interpretation Comments Red Cell Distribution Width (test code = 43632-4) 14.0 11.7 -14.4 [facility] CenterPlatelet Rfxjf3363-71-73 00:58:00* Test Item Value Reference Range Interpretation Comments Platelet Count (test code = 777-3) 278 140-360 [facility] CenterNeutrophils (%) (Auto)2019-05-19 00:58:00 * Test Item Value Reference Range Interpretation Comments Neutrophils (%) (Auto) (test code = 21114-0) 61.6 38.7-80.0 [facility] CenterLymphocytes (%) (Auto)2019-05-19 00:58:00 * Test Item Value Reference Range Interpretation Comments Lymphocytes (%) (Auto) (test code = 736-9) 27.3 18.0-39.1 [facility] CenterMonocytes (%) (Auto)2019-05-19 00:58:00* Test Item Value Reference Range Interpretation Comments Monocytes (%) (Auto) (test code = 5905-5) 9.0 4.4-11.3 [facility] CenterEosinophils (%) (Auto)2019-05-19 00:58:00 * Test Item Value Reference Range Interpretation Comments Eosinophils (%) (Auto) (test code = 713-8) 1.4 0.0-6.0 [facility] CenterBasophils (%) (Auto)2019-05-19 00:58:00* Test Item Value Reference Range Interpretation Comments Basophils (%) (Auto) (test code = 706-2) 0.3 0.0-1.0 [facility] CenterIM GRANULOCYTES %2019-05-19 00:58:00* Test Item Value Reference Range Interpretation Comments IM GRANULOCYTES % (test code = IM GRANULOCYTES %) 0.4 0.0- 1.0 [facility] CenterNeutrophils # (Auto)2019-05-19 00:58:00* Test Item Value Reference Range Interpretation Comments Neutrophils # (Auto) (test code = 751-8) 4.8 2.1-6.9 [facility] CenterLymphocytes # (Auto)2019-05-19 00:58:00* Test Item Value Reference Range Interpretation Comments Lymphocytes # (Auto) (test code = 35062-9) 2.1 1.0-3.2 [facility] CenterMonocytes # (Auto)2019-05-19 00:58:00* Test Item Value Reference Range Interpretation Comments Monocytes # (Auto) (test code = 742-7) 0.7 0.2-0.8 [facility] CenterEosinophils # (Auto)2019-05-19 00:58:00* Test Item Value Reference Range Interpretation Comments Eosinophils # (Auto) (test code = 711-2) 0.1 0.0-0.4 [facility] CenterBasophils # (Auto)2019-05-19 00:58:00* Test Item Value Reference Range Interpretation Comments Basophils # (Auto) (test code = 704-7) 0.0 0.0-0.1 [facility] CenterAbsolute Immature Granulocyte (auto 2019-05-19 00:58:00* Test Item Value Reference Range Interpretation Comments Absolute Immature Granulocyte (auto (nazia t code = Absolute Immature Granulocyte (auto) 0.03 0-0.1 [facility] CenterWhite Blood Vtrch4005-44-26 00:58:00* Test Item Value Reference Range Interpretation Comments White Blood Count (test code = 6690-2) 7.85 4.8-10.8 [facility] CenterRed Blood Yliky8646-73-59 00:58:00* Test Item Value Reference Range Interpretation Comments Red Blood Count (test code = 789-8) 4.54 3.6-5.1 [facility] CenterHemoglobin2019-06-18 00:58:00* Test Item Value Reference Range Interpretation Comments Hemoglobin (test code = 99414-8) 13.1 12.0-16.0 [facility] CenterHematocrit2019-06-18 00:58:00* Test Item Value Reference Range Interpretation Comments Hematocrit (test code = 4544-3) 40.4 34.2-44.1 [facility] CenterMean Corpuscular Xugisa7511-19-38 00:58:00* Test Item Value Reference Range Interpretation Comments Mean Corpuscular Volume (test code = 787-2) 89.0 81-99 [facility] CenterMean Corpuscular Ikahgkfbhe7885-82-25 00:58:00* Test Item Value Reference Range Interpretation Comments Mean Corpuscular Hemoglobin (test code = 785-6) 28.9 28-32 [facility] CenterMean Corpuscular Hemoglobin Concent 2019-05-19 00:58:00* Test Item Value Reference Range Interpretation Comments Mean Corpuscular Hemoglobin Concent (test code = 786-4) 32.4 31-35 [facility] CenterRed Cell Distribution Laavy0688-89-06 00:58:00* Test Item Value Reference Range Interpretation Comments Red Cell Distribution Width (test code = 55965-2) 14.0 11.7 -14.4 [facility] CenterPlatelet Mabdc4173-06-79 00:58:00* Test Item Value Reference Range Interpretation Comments Platelet Count (test code = 777-3) 278 140-360 [facility] CenterNeutrophils (%) (Auto)2019-05-19 00:58:00 * Test Item Value Reference Range Interpretation Comments Neutrophils (%) (Auto) (test code = 84784-5) 61.6 38.7-80.0 [facility] CenterLymphocytes (%) (Auto)2019-05-19 00:58:00 * Test Item Value Reference Range Interpretation Comments Lymphocytes (%) (Auto) (test code = 736-9) 27.3 18.0-39.1 [facility] CenterMonocytes (%) (Auto)2019-05-19 00:58:00* Test Item Value Reference Range Interpretation Comments Monocytes (%) (Auto) (test code = 5905-5) 9.0 4.4-11.3 [facility] CenterEosinophils (%) (Auto)2019-05-19 00:58:00 * Test Item Value Reference Range Interpretation Comments Eosinophils (%) (Auto) (test code = 713-8) 1.4 0.0-6.0 [facility] CenterBasophils (%) (Auto)2019-05-19 00:58:00* Test Item Value Reference Range Interpretation Comments Basophils (%) (Auto) (test code = 706-2) 0.3 0.0-1.0 [facility] CenterIM GRANULOCYTES %2019-05-19 00:58:00* Test Item Value Reference Range Interpretation Comments IM GRANULOCYTES % (test code = IM GRANULOCYTES %) 0.4 0.0- 1.0 [facility] CenterNeutrophils # (Auto)2019-05-19 00:58:00* Test Item Value Reference Range Interpretation Comments Neutrophils # (Auto) (test code = 751-8) 4.8 2.1-6.9 [facility] CenterLymphocytes # (Auto)2019-05-19 00:58:00* Test Item Value Reference Range Interpretation Comments Lymphocytes # (Auto) (test code = 08741-0) 2.1 1.0-3.2 [facility] CenterMonocytes # (Auto)2019-05-19 00:58:00* Test Item Value Reference Range Interpretation Comments Monocytes # (Auto) (test code = 742-7) 0.7 0.2-0.8 [facility] CenterEosinophils # (Auto)2019-05-19 00:58:00* Test Item Value Reference Range Interpretation Comments Eosinophils # (Auto) (test code = 711-2) 0.1 0.0-0.4 [facility] CenterBasophils # (Auto)2019-05-19 00:58:00* Test Item Value Reference Range Interpretation Comments Basophils # (Auto) (test code = 704-7) 0.0 0.0-0.1 [facility] CenterAbsolute Immature Granulocyte (auto 2019-05-19 00:58:00* Test Item Value Reference Range Interpretation Comments Absolute Immature Granulocyte (auto (nazia t code = Absolute Immature Granulocyte (auto) 0.03 0-0.1 [facility] CenterWhite Blood Lfign2221-76-27 00:58:00* Test Item Value Reference Range Interpretation Comments White Blood Count (test code = 6690-2) 7.85 4.8-10.8 [facility] CenterRed Blood Uxrtm5241-72-91 00:58:00* Test Item Value Reference Range Interpretation Comments Red Blood Count (test code = 789-8) 4.54 3.6-5.1 [facility] CenterHemoglobin2019-06-18 00:58:00* Test Item Value Reference Range Interpretation Comments Hemoglobin (test code = 52769-4) 13.1 12.0-16.0 [facility] CenterHematocrit2019-06-18 00:58:00* Test Item Value Reference Range Interpretation Comments Hematocrit (test code = 4544-3) 40.4 34.2-44.1 [facility] CenterMean Corpuscular Bwjkqt7942-58-42 00:58:00* Test Item Value Reference Range Interpretation Comments Mean Corpuscular Volume (test code = 787-2) 89.0 81-99 [facility] CenterMean Corpuscular Lckuksemnc6765-36-12 00:58:00* Test Item Value Reference Range Interpretation Comments Mean Corpuscular Hemoglobin (test code = 785-6) 28.9 28-32 [facility] CenterMean Corpuscular Hemoglobin Concent 2019-05-19 00:58:00* Test Item Value Reference Range Interpretation Comments Mean Corpuscular Hemoglobin Concent (test code = 786-4) 32.4 31-35 [facility] CenterRed Cell Distribution Kqtcf0592-05-54 00:58:00* Test Item Value Reference Range Interpretation Comments Red Cell Distribution Width (test code = 02813-9) 14.0 11.7 -14.4 [facility] CenterPlatelet Iqqhv7151-57-46 00:58:00* Test Item Value Reference Range Interpretation Comments Platelet Count (test code = 777-3) 382 699-360 [facility] CenterNeutrophils (%) (Auto)2019-05-19 00:58:00 * Test Item Value Reference Range Interpretation Comments Neutrophils (%) (Auto) (test code = 06171-9) 61.6 38.7-80.0 [facility] CenterLymphocytes (%) (Auto)2019-05-19 00:58:00 * Test Item Value Reference Range Interpretation Comments Lymphocytes (%) (Auto) (test code = 736-9) 27.3 18.0-39.1 [facility] CenterMonocytes (%) (Auto)2019-05-19 00:58:00* Test Item Value Reference Range Interpretation Comments Monocytes (%) (Auto) (test code = 5905-5) 9.0 4.4-11.3 [facility] CenterEosinophils (%) (Auto)2019-05-19 00:58:00 * Test Item Value Reference Range Interpretation Comments Eosinophils (%) (Auto) (test code = 713-8) 1.4 0.0-6.0 [facility] CenterBasophils (%) (Auto)2019-05-19 00:58:00* Test Item Value Reference Range Interpretation Comments Basophils (%) (Auto) (test code = 706-2) 0.3 0.0-1.0 [facility] CenterIM GRANULOCYTES %2019-05-19 00:58:00* Test Item Value Reference Range Interpretation Comments IM GRANULOCYTES % (test code = IM GRANULOCYTES %) 0.4 0.0- 1.0 [facility] CenterNeutrophils # (Auto)2019-05-19 00:58:00* Test Item Value Reference Range Interpretation Comments Neutrophils # (Auto) (test code = 751-8) 4.8 2.1-6.9 [facility] CenterLymphocytes # (Auto)2019-05-19 00:58:00* Test Item Value Reference Range Interpretation Comments Lymphocytes # (Auto) (test code = 75328-5) 2.1 1.0-3.2 [facility] CenterMonocytes # (Auto)2019-05-19 00:58:00* Test Item Value Reference Range Interpretation Comments Monocytes # (Auto) (test code = 742-7) 0.7 0.2-0.8 [facility] CenterEosinophils # (Auto)2019-05-19 00:58:00* Test Item Value Reference Range Interpretation Comments Eosinophils # (Auto) (test code = 711-2) 0.1 0.0-0.4 [facility] CenterBasophils # (Auto)2019-05-19 00:58:00* Test Item Value Reference Range Interpretation Comments Basophils # (Auto) (test code = 704-7) 0.0 0.0-0.1 [facility] CenterAbsolute Immature Granulocyte (auto 2019-05-19 00:58:00* Test Item Value Reference Range Interpretation Comments Absolute Immature Granulocyte (auto (nazia t code = Absolute Immature Granulocyte (auto) 0.03 0-0.1 [facility] BIL[facility] JASON CAD DIGITAL 2019-02-18 16:30:28 - SCR MAMM BILATERAL JASON CAD DIGITALBILATERAL DIGITAL SCREENING MAMMOGRAM 3D/2D WITH CAD: 02/18/2019CLINICAL: Asymptomatic. Current mammographic images were evaluated by either a [employer] M-Vu or an [employer] version 7.2 computer aided detection system. Comparison is made to exams dated 10/11/2017 mammogram, 11/10/2015 mammogram, and 11/01/2014 mammogram - [facility]-. There are scattered fibroglandular tissues in both breasts. No suspicious mass, architectural distortion, malignant type calcification, or lymph node abnormality detected. Breast architecture is stable compared to prior exams.IMPRESSION: NEGATIVEThere is no mammographic evidence of malignancy. Resume annual screening mammography in one year. Yordan nguyen/penrad:02/18/2019 16:30:28 Attending Technologist: Albertina MCKNIGHT, [facility]-FWImaging Technologist: Allison MCKNIGHT, [facility]-FWletter sent: BIRADS 1-2 Normal Mammogram BI-RADS: 1 NegativeKNEE RIGHT THREE LFPVH0498-44-15 04:53:00 [facility] [address] [address] Patient Name: SHARI DEAN MR #: [id number] : 1945 Age/Sex: 73/F Req #: [id number] Adm Physician: Ordered by: KRISTEN COLVIN MD Report #: [id number] Location: ER Room/Bed: Procedure: [id number] DX/ KNEE RIGHT THREE VIEWS Exam Date: [...] nically Signed By: LIZANDRO RODRÍGUEZ MD on 11/01/185 Transcribed By: GAUDENCIO on 11/01/18454 COPY TO: KRISTEN COLVIN MD PELVIS AP 1-2 VIEWS 2018-11-01 04:52:[address] [address] Patient Name: SHARI DEAN MR #: [id number] : 1945 Age/Sex: 73/F Req #: [id number] Adm Physician: Ordered by: KRISTEN COLVIN MD Report #: [id number] Location: ER Room/Bed: Procedure: [id number] DX/ PELVIS AP 1-2 VIEWS Exam Date: [...] on 11/01/18452 COPY TO: KRISTEN GRAYSON MD [facility]/TSR7202-35-09 04:50:00 [address] [place] [address] Patient Name: SHARI DEAN MR #: [id number] : 1945 Age/Sex: 73/F Req #: [id number] Adm Physician: Ordered by: KRISTEN COLVIN MD Report #: [id number] Location: ER Room/Bed: Procedure: [id number] DX/ RIBS UNILAT W/CXR Exam Date: 11/01/18 [...] COLVIN MD CHEST 2 VIEWS 2018-11-01 04:50:[address] [place] [address] Patient Name: SHARI DEAN MR #: [id number] : 1945 Age/Sex: 73/F Req #: [id number] [facility] Physician: Ordered by: KRISTEN COLVIN MD Report #: [id number] Location: ER Room/Bed: Procedure: [id number] DX/ CHEST 2 VIEWS Exam Date: 11/01/18 [...] 4:52 AM Dictated By: LIZANDRO RODRÍGUEZ MD Electron ically Signed By: LIZANDRO RODRÍGUEZ MD on 11/01/18451 Transcribed By: GAUDENCIO on 11/01/18451 COPY TO: KRISTEN COLVIN MD CT CERVICAL SPINE WO 2018-11-01 04:16:00 [place] [address] Patient Name: SHARI DEAN MR #: [id number] : 1945 Age/Sex: 73/F Req #: [id number] Adm Physician: Ordered by: KRISTEN COLVIN MD Report #: [id number] Location: ER Room/Bed: Procedure: [id number] CT/ CT CERVICAL SPINE WO Exam Date: [...] COPY TO: KRISTEN COLVIN MD CT BRAIN SK2081-27-90 04:14:00 [place] [address] Patient Name: SHARI DEAN MR #: [id number] : 1945 Age/Sex: 73/F Req #: [id number] Adm Physician: Ordered by: KRISTEN COLVIN MD Report #: [id number] Location: ER Room/Bed: Procedure: [id number] CT/ CT BRAIN WO Exam Date: Exam [...] COPY TO: KRISTEN COLVIN MD Creatine Kinase ZQ7432-40-68 03:33:00* Test Item Value Reference Range Interpretation Comments Creatine Kinase MB (test code = 19171-5) 3.00 0-5.0 [place] 16908018-12-01 03:33:00* Test Item Value Reference Range Interpretation Comments Troponin I (test code = OUQ0881) 0.005 0-0.300 [facility] CenterCreatine Kinase EB7579-47-41 03:33:00* Test Item Value Reference Range Interpretation Comments Creatine Kinase MB (test code = 82960-8) 3.00 0-5.0 [place] 16908018-12-01 03:33:00* Test Item Value Reference Range Interpretation Comments Troponin I (test code = CPL2286) 0.005 0-0.300 [facility] Ngeoh4172-04-63 03:24:00* Test Item Value Reference Range Interpretation Comments Sodium Level (test code = 2951-2) 140 136-145 [facility] CenterPotassium Evcpq2130-19-25 03:24:00* Test Item Value Reference Range Interpretation Comments Potassium Level (test code = 2823-3) 4.0 3.5-5.1 [facility] CenterChloride Qgxoo7826-64-49 03:24:00* Test Item Value Reference Range Interpretation Comments Chloride Level (test code = 2075-0) 100 98-107 [facility] CenterCarbon Dioxide Tqaum9736-10-32 03:24:00* Test Item Value Reference Range Interpretation Comments Carbon Dioxide Level (test code = 2028-9) 31 22-29 H [facility] CenterAnion Jlb0011-35-66 03:24:00* Test Item Value Reference Range Interpretation Comments Anion Gap (test code = 55310-6) 13.0 8-16 [facility] CenterBlood Urea Wcimsncp5366-07-34 03:24:00* Test Item Value Reference Range Interpretation Comments Blood Urea Nitrogen (test code = 3094-0) 20 7-26 [facility] CenterCreatinine2018-12-01 03:24:00* Test Item Value Reference Range Interpretation Comments Creatinine (test code = 2160-0) 0.91 0.57-1.11 [facility] CenterBUN/Creatinine Vhxji6329-81-47 03:24:00* Test Item Value Reference Range Interpretation Comments BUN/Creatinine Ratio (test code = 3097-3) 22 6-25 [facility] CenterEstimat Glomerular Filtration Rate 2018-11-01 03:24:00* Test Item Value Reference Range Interpretation Comments Estimat Glomerular Filtration Rate (test code = 937239505) 60 >60 Ranges were taken from the National Kidney Disease Education Program and the [facility] Foundation literature.Reference ranges:60 or greater: Wmxeog32-89 ( for 3 consecutive months): Chronic kidney disease 15 or less: Kidney failureMission Regional Medical CenterGlucose Xwgjf5639-58-04 03:24:00* Test Item Value Reference Range Interpretation Comments Glucose Level (test code = AHR7570) 202 74-118 H [facility] CenterCalcium Emgln4862-42-69 03:24:00* Test Item Value Reference Range Interpretation Comments Calcium Level (test code = 39668-2) 10.0 8.4-10.2 [facility] CenterMagnesium Byahy8988-29-46 03:24:00* Test Item Value Reference Range Interpretation Comments Magnesium Level (test code = 43448-1) 2.4 1.3-2.1 H [facility] CenterTotal Cqytngrbj0767-87-78 03:24:00* Test Item Value Reference Range Interpretation Comments Total Bilirubin (test code = 1975-2) 0.3 0.2-1.2 [facility] CenterAspartate Amino Transf (AST/SGOT) 2018-11-01 03:24:00* Test Item Value Reference Range Interpretation Comments Aspartate Amino Transf (AST/SGOT) (test code = Aspartate Amino Transf (AST/SGOT)) 24 5-34 [facility] CenterAlanine Aminotransferase (ALT/SGPT) 2018-11-01 03:24:00* Test Item Value Reference Range Interpretation Comments Alanine Aminotransferase (ALT/SGPT) (test code = 1742-6) 22 0-55 [facility] J[facility]hir[facility]5-[facility]-22 03:24:00* Test Item Value Reference Range Interpretation Comments Total Protein (test code = 2885-2) 7.3 6.5-8.1 [facility] CenterAlbumin2018-12-01 03:24:00* Test Item Value Reference Range Interpretation Comments Albumin (test code = 1751-7) 3.7 3.5-5.0 [facility] CenterGlobulin2018-12-01 03:24:00* Test Item Value Reference Range Interpretation Comments Globulin (test code = 24553-1) 3.6 2.3-3.5 H [facility] CenterAlbumin/Globulin Cjpxd9434-15-16 03:24:00 * Test Item Value Reference Range Interpretation Comments Albumin/Globulin Ratio (test code = 1759-0) 1.0 0.8-2.0 [facility] CenterAlkaline Wbaaixomxur8665-40-50 03:24:00* Test Item Value Reference Range Interpretation Comments Alkaline Phosphatase (test code = 6768-6) 114 40-150 [facility] CenterCreatine Yxsqbo8815-43-36 03:24:00* Test Item Value Reference Range Interpretation Comments Creatine Kinase (test code = 2157-6) 188 29-168 H [facility] CenterMagnesium Myuci1048-06-47 03:24:00* Test Item Value Reference Range Interpretation Comments Magnesium Level (test code = 13705-4) 2.4 1.3-2.1 H [facility] CenterCreatine Ijgxip6117-51-28 03:24:00* Test Item Value Reference Range Interpretation Comments Creatine Kinase (test code = 2157-6) 188 29-168 H [facility] CenterUrine NDC9676-90-68 03:23:00* Test Item Value Reference Range Interpretation Comments Urine WBC (test code = 5821-4) 6-10 0-5 H [facility] CenterUrine JZU7000-71-10 03:23:00* Test Item Value Reference Range Interpretation Comments Urine RBC (test code = 58422-3) 0-5 0-5 [facility] CenterUrine Tnxycpsp6456-77-67 03:23:00* Test Item Value Reference Range Interpretation Comments Urine Bacteria (test code = 86786-9) MODERATE NONE H [facility] CenterUrine Epithelial Evplq9066-91-25 03:23:00 * Test Item Value Reference Range Interpretation Comments Urine Epithelial Cells (test code = 16692-7) MANY NONE [facility] CenterU[facility] Vhugz2692-48-61 03:23:00* Test Item Value Reference Range Interpretation Comments Urine Mucus (test code = 8247-9) MANY RARE H [facility] CenterProthrombin Bgih6324-76-29 03:08:00* Test Item Value Reference Range Interpretation Comments Prothrombin Time (test code = 5902-2) 12.0 11.9-14.5 [facility] CenterProthromb Time International Ratio 2018-11-01 03:08:00* Test Item Value Reference Range Interpretation Comments Prothromb Time International Ratio (test code = 6301-6) 0.81 Oral Anticoagulant Therapy INR Values:1. Low Intensity Therapy 1.5 - 2.02 . Moderate Intensity Therapy 2.0 - 3.03. High Intensity Therapy(1) 2.5 - 3. 54. High Intensity Therapy(2) 3.0 - 4.05. Panic Value INR > 5.0 [facility] CenterActivated Partial Thromboplast Time 2018-11-01 03:08:00* Test Item Value Reference Range Interpretation Comments Activated Partial Thromboplast Time (test code = 94165-8) 28.0 23.8-35.5 [facility] CenterProthrombin Slgh1814-97-89 03:08:00* Test Item Value Reference Range Interpretation Comments Prothrombin Time (test code = 5902-2) 12.0 11.9-14.5 [facility] CenterProthromb Time International Ratio 2018-11-01 03:08:00* Test Item Value Reference Range Interpretation Comments Prothromb Time International Ratio (test code = 6301-6) 0.81 Oral Anticoagulant Therapy INR Values:1. Low Intensity Therapy 1.5 - 2.02 . Moderate Intensity Therapy 2.0 - 3.03. High Intensity Therapy(1) 2.5 - 3. 54. High Intensity Therapy(2) 3.0 - 4.05. Panic Value INR > 5.0 [facility] CenterActivated Partial Thromboplast Time 2018-11-01 03:08:00* Test Item Value Reference Range Interpretation Comments Activated Partial Thromboplast Time (test code = 67808-4) 28.0 23.8-35.5 [facility] CenterUrine Vjenv8114-24-69 03:04:00* Test Item Value Reference Range Interpretation Comments Urine Color (test code = 5778-6) YELLOW YELLOW [facility] CenterUrine Frttcqv0085-62-68 03:04:00* Test Item Value Reference Range Interpretation Comments Urine Clarity (test code = 03225-8) CLOUDY CLEAR H [facility] CenterUrine Specific Iixdrjx6358-17-85 03:04:00 * Test Item Value Reference Range Interpretation Comments Urine Specific [place] (test code = 5811-5) 1.020 1.010-1.02 5 [facility] CenterUrine aS4198-08-62 03:04:00* Test Item Value Reference Range Interpretation Comments Urine pH (test code = 88613-1) 6 5-7 [facility] CenterUrine Leukocyte Tbvifoiq0580-95-62 03:04:00* Test Item Value Reference Range Interpretation Comments Urine Leukocyte Esterase (test code = 5799-2) TRACE NEGATIVE H [facility] CenterUrine Kmvkqdw2074-24-59 03:04:00* Test Item Value Reference Range Interpretation Comments Urine Nitrite (test code = 59323-0) NEGATIVE NEGATIVE [facility] CenterU[facility] Gajpsql6109-10-89 03:04:00* Test Item Value Reference Range Interpretation Comments Urine Protein (test code = 5804-0) NEGATIVE NEGATIVE [facility] CenterUrine Glucose (UA)2018-11-01 03:04:00* Test Item Value Reference Range Interpretation Comments Urine Glucose (UA) (test code = 2349-9) 2+ NEGATIVE H [facility] CenterUrine Rritclx8400-86-57 03:04:00* Test Item Value Reference Range Interpretation Comments Urine Ketones (test code = 41133-4) TRACE NEGATIVE H [facility] Evzpidsseciq4911-62-79 03:04:00* Test Item Value Reference Range Interpretation Comments Urine Urobilinogen (test code = 92882-3) 0.2 0.2-1 [facility] CenterUrine Ezgcmkpaz3185-72-54 03:04:00* Test Item Value Reference Range Interpretation Comments Urine Bilirubin (test code = 1978-6) NEGATIVE NEGATIVE [facility] CenterUrine Jnhyr2336-43-50 03:04:00* Test Item Value Reference Range Interpretation Comments Urine Blood (test code = 82859-3) NEGATIVE NEGATIVE [facility] CenterWhite Blood Ciqmf1216-15-66 02:58:00* Test Item Value Reference Range Interpretation Comments White Blood Count (test code = 6690-2) 9.59 4.8-10.8 [facility] CenterRed Blood Kdzsg1334-68-04 02:58:00* Test Item Value Reference Range Interpretation Comments Red Blood Count (test code = 789-8) 4.25 3.6-5.1 [facility] CenterHemoglobin2018-12-01 02:58:00* Test Item Value Reference Range Interpretation Comments Hemoglobin (test code = 40594-2) 11.9 12.0-16.0 L [facility] CenterHematocrit2018-12-01 02:58:00* Test Item Value Reference Range Interpretation Comments Hematocrit (test code = 4544-3) 37.5 34.2-44.1 [facility] CenterMean Corpuscular Naduqe6568-22-82 02:58:00* Test Item Value Reference Range Interpretation Comments Mean Corpuscular Volume (test code = 787-2) 88.2 81-99 [facility] CenterMean Corpuscular Kvenvcgmhw9939-29-56 02:58:00* Test Item Value Reference Range Interpretation Comments Mean Corpuscular Hemoglobin (test code = 785-6) 28.0 28-32 [facility] CenterMean Corpuscular Hemoglobin Concent 2018-11-01 02:58:00* Test Item Value Reference Range Interpretation Comments Mean Corpuscular Hemoglobin Concent (test code = 786-4) 31.7 31-35 [facility] CenterRed Cell Distribution Hqwrs1572-15-16 02:58:00* Test Item Value Reference Range Interpretation Comments Red Cell Distribution Width (test code = 24722-6) 15.8 11.7 -14.4 H [facility] CenterPlatelet Kwinf5689-90-94 02:58:00* Test Item Value Reference Range Interpretation Comments Platelet Count (test code = 777-3) 289 140-360 [facility] CenterNeutrophils (%) (Auto)2018-11-01 02:58:00 * Test Item Value Reference Range Interpretation Comments Neutrophils (%) (Auto) (test code = 57818-9) 64.9 38.7-80.0 [facility] CenterLymphocytes (%) (Auto)2018-11-01 02:58:00 * Test Item Value Reference Range Interpretation Comments Lymphocytes (%) (Auto) (test code = 736-9) 22.0 18.0-39.1 [facility] CenterMonocytes (%) (Auto)2018-11-01 02:58:00* Test Item Value Reference Range Interpretation Comments Monocytes (%) (Auto) (test code = 5905-5) 10.3 4.4-11.3 [facility] CenterEosinophils (%) (Auto)2018-11-01 02:58:00 * Test Item Value Reference Range Interpretation Comments Eosinophils (%) (Auto) (test code = 713-8) 2.4 0.0-6.0 [facility] CenterBasophils (%) (Auto)2018-11-01 02:58:00* Test Item Value Reference Range Interpretation Comments Basophils (%) (Auto) (test code = 706-2) 0.2 0.0-1.0 [facility] CenterIM GRANULOCYTES %2018-11-01 02:58:00* Test Item Value Reference Range Interpretation Comments IM GRANULOCYTES % (test code = IM GRANULOCYTES %) 0.2 0.0- 1.0 [facility] CenterNeutrophils # (Auto)2018-11-01 02:58:00* Test Item Value Reference Range Interpretation Comments Neutrophils # (Auto) (test code = 751-8) 6.2 2.1-6.9 [facility] CenterLymphocytes # (Auto)2018-11-01 02:58:00* Test Item Value Reference Range Interpretation Comments Lymphocytes # (Auto) (test code = 41584-6) 2.1 1.0-3.2 [facility] CenterMonocytes # (Auto)2018-11-01 02:58:00* Test Item Value Reference Range Interpretation Comments Monocytes # (Auto) (test code = 742-7) 1.0 0.2-0.8 H [facility] CenterEosinophils # (Auto)2018-11-01 02:58:00* Test Item Value Reference Range Interpretation Comments Eosinophils # (Auto) (test code = 711-2) 0.2 0.0-0.4 [facility] CenterBasophils # (Auto)2018-11-01 02:58:00* Test Item Value Reference Range Interpretation Comments Basophils # (Auto) (test code = 704-7) 0.0 0.0-0.1 [facility] CenterAbsolute Immature Granulocyte (auto 2018-11-01 02:58:00* Test Item Value Reference Range Interpretation Comments Absolute Immature Granulocyte (auto (nazia t code = Absolute Immature Granulocyte (auto) 0.02 0-0.1 [facility] Aszpqlu4286-68-10 07:14:00* Test Item Value Reference Range Interpretation Comments Blood Culture (test code = 98928990) NO GROWTH AFTER 5 DAYS, FINAL REPORT [facility]2018-03-23 07:14:00* Test Item Value Reference Range Interpretation Comments Blood Culture (test code = 76417808) NO GROWTH AFTER 5 DAYS, FINAL REPORT [facility] Eoriytb2173-98-31 11:53:00* Test Item Value Reference Range Interpretation Comments Bedside Glucose (test code = 78353-6) 208 70-120 H Meter ID: [id number] [facility] Glucose 2018-02-17 11:53:00* Test Item Value Reference Range Interpretation Comments Bedside Glucose (test code = 14607-0) 208 70-120 H [id number] 2018-02-17 11:53:00* Test Item Value Reference Range Interpretation Comments Bedside Glucose (test code = 23526-3) 208 70-120 H Meter ID: [id number] [facility] Culture 2018-02-17 07:14:00* Test Item Value Reference Range Interpretation Comments Blood Culture (test code = 92916471) NO GROWTH AFTER 24 HOURS [facility] Ywofayftz7457-24-09 07:11:00* Test Item Value Reference Range Interpretation Comments Free Thyroxine (test code = 3024-7) 1.08 0.9-1.8 [facility] CenterThyroid Stimulating Hormone (TSH) 2018-02-17 07:11:00* Test Item Value Reference Range Interpretation Comments Thyroid Stimulating Hormone (TSH) (test code = 08339-5) 1.017 0.350-4.940 [facility] Oyjzobgxf9891-08-13 07:11:00* Test Item Value Reference Range Interpretation Comments Free Thyroxine (test code = 3024-7) 1.08 0.9-1.8 [facility] CenterThyroid Stimulating Hormone (TSH) 2018-02-17 07:11:00* Test Item Value Reference Range Interpretation Comments Thyroid Stimulating Hormone (TSH) (test code = 84588-9) 1.017 0.350-4.940 [facility] CenterFree Vkfmtskwg8723-78-78 07:11:00* Test Item Value Reference Range Interpretation Comments Free Thyroxine (test code = 3024-7) 1.08 0.9-1.8 [facility] CenterThyroid Stimulating Hormone (TSH) 2018-02-17 07:11:00* Test Item Value Reference Range Interpretation Comments Thyroid Stimulating Hormone (TSH) (test code = 24626-5) 1.017 0.350-4.940 [facility] Hqmoy8455-56-21 06:51:00* Test Item Value Reference Range Interpretation Comments Sodium Level (test code = 2951-2) 140 136-145 [facility] CenterPotassium Rkzqm7829-71-19 06:51:00* Test Item Value Reference Range Interpretation Comments Potassium Level (test code = 2823-3) 3.7 3.5-5.1 [facility] CenterChloride Jzrvm5991-56-53 06:51:00* Test Item Value Reference Range Interpretation Comments Chloride Level (test code = 2075-0) 104 98-107 [facility] CenterCarbon Dioxide Efmkp3044-89-00 06:51:00* Test Item Value Reference Range Interpretation Comments Carbon Dioxide Level (test code = 2028-9) 27 22-29 [facility] CenterAnion Asi4771-24-01 06:51:00* Test Item Value Reference Range Interpretation Comments Anion Gap (test code = 54452-4) 12.7 8-16 [facility] CenterBlood Urea Vwwfgwls3209-59-21 06:51:00* Test Item Value Reference Range Interpretation Comments Blood Urea Nitrogen (test code = 3094-0) 11 7-26 [facility] CenterCreatinine2018-03-19 06:51:00* Test Item Value Reference Range Interpretation Comments Creatinine (test code = 2160-0) 0.69 0.57-1.11 [facility] CenterBUN/Creatinine Vcnlp1459-62-11 06:51:00* Test Item Value Reference Range Interpretation Comments BUN/Creatinine Ratio (test code = 3097-3) 16 6-25 [facility] CenterEstimat Glomerular Filtration Rate 2018-02-17 06:51:00* Test Item Value Reference Range Interpretation Comments Estimat Glomerular Filtration Rate (test code = 65022-0) 60- >60 Ranges were taken from the National Kidney Disease Education Program and the [facility] Kidney Foundation literature.Reference ranges:60 or greater: Mjppay71-42 ( for 3 consecutive months): Chronic kidney disease 15 or less: Kidney failureMission Regional Medical CenterGlucose Vjtdv1836-90-15 06:51:00* Test Item Value Reference Range Interpretation Comments Glucose Level (test code = CQH4308) 124 74-118 H [facility] CenterCalcium Kdzun1730-88-07 06:51:00* Test Item Value Reference Range Interpretation Comments Calcium Level (test code = 34382-9) 9.1 8.4-10.2 [facility] Ssrfo0557-20-57 06:51:00* Test Item Value Reference Range Interpretation Comments Sodium Level (test code = 2951-2) 140 136-145 [facility] CenterPotassium Mykox5032-05-62 06:51:00* Test Item Value Reference Range Interpretation Comments Potassium Level (test code = 2823-3) 3.7 3.5-5.1 [facility] CenterChloride Einii8600-30-64 06:51:00* Test Item Value Reference Range Interpretation Comments Chloride Level (test code = 2075-0) 104 98-107 [facility] CenterCarbon Dioxide Leokr7139-09-97 06:51:00* Test Item Value Reference Range Interpretation Comments Carbon Dioxide Level (test code = 2028-9) 27 22-29 [facility] CenterAnion Ykv5905-06-95 06:51:00* Test Item Value Reference Range Interpretation Comments Anion Gap (test code = 70331-6) 12.7 8-16 [facility] CenterBlood Urea Bdygmmjf9654-19-43 06:51:00* Test Item Value Reference Range Interpretation Comments Blood Urea Nitrogen (test code = 3094-0) 11 - [facility] CenterCreatinine2018-03-19 06:51:00* Test Item Value Reference Range Interpretation Comments Creatinine (test code = 2160-0) 0.69 0.57-1.11 [facility] CenterBUN/Creatinine Fghem4859-58-69 06:51:00* Test Item Value Reference Range Interpretation Comments BUN/Creatinine Ratio (test code = 3097-3) 16 05-26 [facility] CenterEstimat Glomerular Filtration Rate 2018-02-17 06:51:00* Test Item Value Reference Range Interpretation Comments Estimat Glomerular Filtration Rate (test code = 95867-2) 60- >60 Ranges were taken from the National Kidney Disease Education Program and the [facility] Kidney Foundation literature.Reference ranges:60 or greater: Mkgcsv43-01 ( for 3 consecutive months): Chronic kidney disease 15 or less: Kidney failureM[facility] Regional Medical CenterGlucose Xjdly8819-30-01 06:51:00* Test Item Value Reference Range Interpretation Comments Glucose Level (test code = MOC3639) 124 74-118 H [facility] CenterCalcium Dtikg8130-96-82 06:51:00* Test Item Value Reference Range Interpretation Comments Calcium Level (test code = 86522-8) 9.1 8.4-10.2 [facility] CenterHemoglobin A1c Rheganb1912-88-57 06:50:00 * Test Item Value Reference Range Interpretation Comments Hemoglobin A1c Percent (test code = Hemoglobin A1c Percent) 7.5 4.0-7.0 H [facility] CenterHemoglobin A1c Zqhuuer4503-25-73 06:50:00 * Test Item Value Reference Range Interpretation Comments Hemoglobin A1c Percent (test code = Hemoglobin A1c Percent) 7.5 4.0-7.0 H [facility] CenterHemoglobin A1c Cnzbxjj7514-55-44 06:50:00 * Test Item Value Reference Range Interpretation Comments Hemoglobin A1c Percent (test code = Hemoglobin A1c Percent) 7.5 4.0-7.0 H [facility] CenterWhite Blood Byzyd8401-54-04 06:24:00* Test Item Value Reference Range Interpretation Comments White Blood Count (test code = 6690-2) 5.86 4.8-10.8 [facility] CenterRed Blood Tzfjz2290-96-99 06:24:00* Test Item Value Reference Range Interpretation Comments Red Blood Count (test code = 789-8) 4.18 3.6-5.1 [facility] CenterHemoglobin2018-03-19 06:24:00* Test Item Value Reference Range Interpretation Comments Hemoglobin (test code = 14499-8) 12.0 12.0-16.0 [facility] CenterHematocrit2018-03-19 06:24:00* Test Item Value Reference Range Interpretation Comments Hematocrit (test code = 4544-3) 36.3 34.2-44.1 [facility] CenterMean Corpuscular Xjlthf5096-10-44 06:24:00* Test Item Value Reference Range Interpretation Comments Mean Corpuscular Volume (test code = 787-2) 86.8 81-99 [facility] CenterMean Corpuscular Gimbarmfub7930-89-03 06:24:00* Test Item Value Reference Range Interpretation Comments Mean Corpuscular Hemoglobin (test code = 785-6) 28.7 28-32 [facility] CenterMean Corpuscular Hemoglobin Concent 2018-02-17 06:24:00* Test Item Value Reference Range Interpretation Comments Mean Corpuscular Hemoglobin Concent (test code = 786-4) 33.1 31-35 [facility] CenterRed Cell Distribution Cuxij6174-56-32 06:24:00* Test Item Value Reference Range Interpretation Comments Red Cell Distribution Width (test code = 84511-6) 13.7 11.7 -14.4 [facility] CenterPlatelet Odotk2827-15-13 06:24:00* Test Item Value Reference Range Interpretation Comments Platelet Count (test code = 777-3) 264 140-360 [facility] CenterNeutrophils (%) (Auto)2018-02-17 06:24:00 * Test Item Value Reference Range Interpretation Comments Neutrophils (%) (Auto) (test code = 28523-3) 53.5 38.7-80.0 [facility] CenterLymphocytes (%) (Auto)2018-02-17 06:24:00 * Test Item Value Reference Range Interpretation Comments Lymphocytes (%) (Auto) (test code = 736-9) 34.6 18.0-39.1 [facility] CenterMonocytes (%) (Auto)2018-02-17 06:24:00* Test Item Value Reference Range Interpretation Comments Monocytes (%) (Auto) (test code = 5905-5) 8.5 4.4-11.3 [facility] CenterEosinophils (%) (Auto)2018-02-17 06:24:00 * Test Item Value Reference Range Interpretation Comments Eosinophils (%) (Auto) (test code = 713-8) 3.2 0.0-6.0 [facility] CenterBasophils (%) (Auto)2018-02-17 06:24:00* Test Item Value Reference Range Interpretation Comments Basophils (%) (Auto) (test code = 706-2) 0.0 0.0-1.0 [facility] CenterIM GRANULOCYTES %2018-02-17 06:24:00* Test Item Value Reference Range Interpretation Comments IM GRANULOCYTES % (test code = IM GRANULOCYTES %) 0.2 0.0- 1.0 [facility] CenterNeutrophils # (Auto)2018-02-17 06:24:00* Test Item Value Reference Range Interpretation Comments Neutrophils # (Auto) (test code = 751-8) 3.1 2.1-6.9 [facility] CenterLymphocytes # (Auto)2018-02-17 06:24:00* Test Item Value Reference Range Interpretation Comments Lymphocytes # (Auto) (test code = 56915-7) 2.0 1.0-3.2 [facility] CenterMonocytes # (Auto)2018-02-17 06:24:00* Test Item Value Reference Range Interpretation Comments Monocytes # (Auto) (test code = 742-7) 0.5 0.2-0.8 [facility] CenterEosinophils # (Auto)2018-02-17 06:24:00* Test Item Value Reference Range Interpretation Comments Eosinophils # (Auto) (test code = 711-2) 0.2 0.0-0.4 [facility] CenterBasophils # (Auto)2018-02-17 06:24:00* Test Item Value Reference Range Interpretation Comments Basophils # (Auto) (test code = 704-7) 0.0 0.0-0.1 [facility] CenterAbsolute Immature Granulocyte (auto 2018-02-17 06:24:00* Test Item Value Reference Range Interpretation Comments Absolute Immature Granulocyte (auto (nazia t code = Absolute Immature Granulocyte (auto) 0.01 0-0.1 [facility] CenterWhite Blood Lfxac4722-54-40 06:24:00* Test Item Value Reference Range Interpretation Comments White Blood Count (test code = 6690-2) 5.86 4.8-10.8 [facility] CenterRed Blood Qvsht8866-07-32 06:24:00* Test Item Value Reference Range Interpretation Comments Red Blood Count (test code = 789-8) 4.18 3.6-5.1 [facility] CenterHemoglobin2018-03-19 06:24:00* Test Item Value Reference Range Interpretation Comments Hemoglobin (test code = 55962-8) 12.0 12.0-16.0 [facility] CenterHematocrit2018-03-19 06:24:00* Test Item Value Reference Range Interpretation Comments Hematocrit (test code = 4544-3) 36.3 34.2-44.1 [facility] CenterMean Corpuscular Lqgvvk9628-62-21 06:24:00* Test Item Value Reference Range Interpretation Comments Mean Corpuscular Volume (test code = 787-2) 86.8 81-99 [facility] CenterMean Corpuscular Kgkmoylalt7214-32-77 06:24:00* Test Item Value Reference Range Interpretation Comments Mean Corpuscular Hemoglobin (test code = 785-6) 28.7 28-32 [facility] CenterMean Corpuscular Hemoglobin Concent 2018-02-17 06:24:00* Test Item Value Reference Range Interpretation Comments Mean Corpuscular Hemoglobin Concent (test code = 786-4) 33.1 31-35 [facility] CenterRed Cell Distribution Faxym5591-65-52 06:24:00* Test Item Value Reference Range Interpretation Comments Red Cell Distribution Width (test code = 04491-2) 13.7 11.7 -14.4 [facility] CenterPlatelet Cbtrn2252-27-10 06:24:00* Test Item Value Reference Range Interpretation Comments Platelet Count (test code = 777-3) 264 140-360 [facility] CenterNeutrophils (%) (Auto)2018-02-17 06:24:00 * Test Item Value Reference Range Interpretation Comments Neutrophils (%) (Auto) (test code = 80342-9) 53.5 38.7-80.0 [facility] CenterLymphocytes (%) (Auto)2018-02-17 06:24:00 * Test Item Value Reference Range Interpretation Comments Lymphocytes (%) (Auto) (test code = 736-9) 34.6 18.0-39.1 [facility] CenterMonocytes (%) (Auto)2018-02-17 06:24:00* Test Item Value Reference Range Interpretation Comments Monocytes (%) (Auto) (test code = 5905-5) 8.5 4.4-11.3 [facility] CenterEosinophils (%) (Auto)2018-02-17 06:24:00 * Test Item Value Reference Range Interpretation Comments Eosinophils (%) (Auto) (test code = 713-8) 3.2 0.0-6.0 [facility] [facility] CenterBas[facility] (%) (Auto)2018-02-17 06:24:00* Test Item Value Reference Range Interpretation Comments Basophils (%) (Auto) (test code = 706-2) 0.0 0.0-1.0 [facility]IM [facility]ULOC[facility]TES %2018-02-17 06:24:00* Test Item Value Reference Range Interpretation Comments IM GRANULOCYTES % (test code = IM GRANULOCYTES %) 0.2 0.0- 1.0 [facility] CenterNeutrophils # (Auto)2018-02-17 06:24:00* Test Item Value Reference Range Interpretation Comments Neutrophils # (Auto) (test code = 751-8) 3.1 2.1-6.9 [facility] CenterLymphocytes # (Auto)2018-02-17 06:24:00* Test Item Value Reference Range Interpretation Comments Lymphocytes # (Auto) (test code = 31505-6) 2.0 1.0-3.2 [facility] CenterMonocytes # (Auto)2018-02-17 06:24:00* Test Item Value Reference Range Interpretation Comments Monocytes # (Auto) (test code = 742-7) 0.5 0.2-0.8 [facility] CenterEosinophils # (Auto)2018-02-17 06:24:00* Test Item Value Reference Range Interpretation Comments Eosinophils # (Auto) (test code = 711-2) 0.2 0.0-0.4 [facility] CenterBasophils # (Auto)2018-02-17 06:24:00* Test Item Value Reference Range Interpretation Comments Basophils # (Auto) (test code = 704-7) 0.0 0.0-0.1 [facility] CenterAbsolute Immature Granulocyte (auto 2018-02-17 06:24:00* Test Item Value Reference Range Interpretation Comments Absolute Immature Granulocyte (auto (nazia t code = Absolute Immature Granulocyte (auto) 0.01 0-0.1 [facility] CenterPhosphorus Aspgh5892-43-86 08:19:00* Test Item Value Reference Range Interpretation Comments Phosphorus Level (test code = ACZ8391) 3.2 2.3-4.7 [facility] CenterMagnesium Uvbiz3590-05-66 08:19:00* Test Item Value Reference Range Interpretation Comments Magnesium Level (test code = 51111-4) 1.7 1.3-2.1 [facility] CenterTotal Qvfrsmnua0519-46-41 08:19:00* Test Item Value Reference Range Interpretation Comments Total Bilirubin (test code = 1975-2) 0.4 0.2-1.2 [facility] CenterAspartate Amino Transf (AST/SGOT) 2018-02-16 08:19:00* Test Item Value Reference Range Interpretation Comments Aspartate Amino Transf (AST/SGOT) (test code = Aspartate Amino Transf (AST/SGOT)) 23 5-34 [facility] CenterAlanine Aminotransferase (ALT/SGPT) 2018-02-16 08:19:00* Test Item Value Reference Range Interpretation Comments Alanine Aminotransferase (ALT/SGPT) (test code = 1742-6) 19 0-55 [facility] CenterTotal Oonhnpt2337-94-78 08:19:00* Test Item Value Reference Range Interpretation Comments Total Protein (test code = 2885-2) 6.0 6.5-8.1 L [facility] CenterAlbumin2018-03-18 08:19:00* Test Item Value Reference Range Interpretation Comments Albumin (test code = 1751-7) 3.2 3.5-5.0 L [facility] CenterGlobulin2018-03-18 08:19:00* Test Item Value Reference Range Interpretation Comments Globulin (test code = 22849-7) 2.8 2.3-3.5 [facility] CenterAlbumin/Globulin Kegxg3553-24-61 08:19:00 * Test Item Value Reference Range Interpretation Comments Albumin/Globulin Ratio (test code = 1759-0) 1.1 0.8-2.0 [facility] CenterAlkaline Sbkobzbnwtf4827-92-23 08:19:00* Test Item Value Reference Range Interpretation Comments Alkaline Phosphatase (test code = 6768-6) 70 40-150 [facility] CenterTriglycerides Vbvvp1575-65-76 08:19:00* Test Item Value Reference Range Interpretation Comments Triglycerides Level (test code = 2571-8) 133 0-149 [facility] CenterCholesterol Wxknn9686-43-04 08:19:00* Test Item Value Reference Range Interpretation Comments Cholesterol Level (test code = 2093-3) 125 0-199 Less than 200 mg/dL Low Skcs093 - 239 mg/dL Borderline Mvfe372 m g/dl and greater High Risk [facility] CenterLDL Ysyxtzzncgy6739-11-86 08:19:00* Test Item Value Reference Range Interpretation Comments LDL Cholesterol (test code = 2089-1) 50 60-130 L [facility] CenterHDL Fvtcbdbizkx6346-10-80 08:19:00* Test Item Value Reference Range Interpretation Comments HDL Cholesterol (test code = 2085-9) 48 40-60 [facility] CenterCholesterol/HDL Laubf0537-88-75 08:19:00 * Test Item Value Reference Range Interpretation Comments Cholesterol/HDL Ratio (test code = 9830-1) 2.6 3.0-3.6 L [facility] CenterPhosphorus Usbsj0787-63-52 08:19:00* Test Item Value Reference Range Interpretation Comments Phosphorus Level (test code = WNU6509) 3.2 2.3-4.7 [facility] CenterMagnesium Sradn0879-79-13 08:19:00* Test Item Value Reference Range Interpretation Comments Magnesium Level (test code = 76209-2) 1.7 1.3-2.1 [facility] CenterTotal Eflvrsukg4047-75-24 08:19:00* Test Item Value Reference Range Interpretation Comments Total Bilirubin (test code = 1975-2) 0.4 0.2-1.2 [facility] CenterAspartate Amino Transf (AST/SGOT) 2018-02-16 08:19:00* Test Item Value Reference Range Interpretation Comments Aspartate Amino Transf (AST/SGOT) (test code = Aspartate Amino Transf (AST/SGOT)) 23 5-34 [facility] CenterAlanine Aminotransferase (ALT/SGPT) 2018-02-16 08:19:00* Test Item Value Reference Range Interpretation Comments Alanine Aminotransferase (ALT/SGPT) (test code = 1742-6) 19 0-55 [facility] CenterTotal Xbtbmmk4290-81-62 08:19:00* Test Item Value Reference Range Interpretation Comments Total Protein (test code = 2885-2) 6.0 6.5-8.1 L [facility] CenterAlbumin2018-03-18 08:19:00* Test Item Value Reference Range Interpretation Comments Albumin (test code = 1751-7) 3.2 3.5-5.0 L [facility] CenterGlobulin2018-03-18 08:19:00* Test Item Value Reference Range Interpretation Comments Globulin (test code = 20366-7) 2.8 2.3-3.5 [facility] CenterAlbumin/Globulin Wbdqo3384-16-21 08:19:00 * Test Item Value Reference Range Interpretation Comments Albumin/Globulin Ratio (test code = 1759-0) 1.1 0.8-2.0 [facility] CenterAlkaline Lqsamlptror8893-50-98 08:19:00* Test Item Value Reference Range Interpretation Comments Alkaline Phosphatase (test code = 6768-6) 70 40-150 [facility] CenterTriglycerides Fftfi4489-07-10 08:19:00* Test Item Value Reference Range Interpretation Comments Triglycerides Level (test code = 2571-8) 133 0-149 [facility] CenterCholesterol Sijjm5190-51-58 08:19:00* Test Item Value Reference Range Interpretation Comments Cholesterol Level (test code = 2093-3) 125 0-199 Less than 200 mg/dL Low Imfw959 - 239 mg/dL Borderline Yzix400 m g/dl and greater High Risk [facility] CenterLDL Viemjtzrqub4361-65-15 08:19:00* Test Item Value Reference Range Interpretation Comments LDL Cholesterol (test code = 2089-1) 50 60-130 L [facility] CenterHDL Umrqalffiyu6757-88-52 08:19:00* Test Item Value Reference Range Interpretation Comments HDL Cholesterol (test code = 2085-9) 48 40-60 [facility] CenterCholesterol/HDL Ycikr9591-94-94 08:19:00 * Test Item Value Reference Range Interpretation Comments Cholesterol/HDL Ratio (test code = 9830-1) 2.6 3.0-3.6 L [facility] CenterPhosphorus Umtls3158-73-36 08:19:00* Test Item Value Reference Range Interpretation Comments Phosphorus Level (test code = LZA0175) 3.2 2.3-4.7 [facility] CenterTriglycerides Msahz8967-03-04 08:19:00* Test Item Value Reference Range Interpretation Comments Triglycerides Level (test code = 2571-8) 133 0-149 [facility] CenterCholesterol Cfgsz7531-26-08 08:19:00* Test Item Value Reference Range Interpretation Comments Cholesterol Level (test code = 2093-3) 125 0-199 Less than 200 mg/dL Low Jvrb170 - 239 mg/dL Borderline Cdqz119 m g/dl and greater High Risk [facility] CenterLDL Cdllfpfmiev3910-85-85 08:19:00* Test Item Value Reference Range Interpretation Comments LDL Cholesterol (test code = 2089-1) 50 60-130 L [facility] CenterHDL Mbayumajhmn1760-79-96 08:19:00* Test Item Value Reference Range Interpretation Comments HDL Cholesterol (test code = 2085-9) 48 40-60 [facility] CenterCholesterol/HDL Vzmji6310-94-93 08:19:00 * Test Item Value Reference Range Interpretation Comments Cholesterol/HDL Ratio (test code = 9830-1) 2.6 3.0-3.6 L [facility] CenterCreatine Kinase MI6258-90-50 01:57:00* Test Item Value Reference Range Interpretation Comments Creatine Kinase MB (test code = 19814-3) 3.80 0-5.0 [facility] CenterTroponin S8314-98-87 01:57:00* Test Item Value Reference Range Interpretation Comments Troponin I (test code = EIR5831) 0.002 0-0.300 [facility] CenterCreatine Kinase YU1396-71-47 01:57:00* Test Item Value Reference Range Interpretation Comments Creatine Kinase MB (test code = 10489-0) 3.80 0-5.0 [facility] CenterTroponin S0014-67-96 01:57:00* Test Item Value Reference Range Interpretation Comments Troponin I (test code = LAL8793) 0.002 0-0.300 [facility] CenterCreatine Sxommp5007-62-44 01:40:00* Test Item Value Reference Range Interpretation Comments Creatine Kinase (test code = 2157-6) 119 29-168 [facility] CenterCreatine Zcdqdx0335-86-13 01:40:00* Test Item Value Reference Range Interpretation Comments Creatine Kinase (test code = 2157-6) 119 29-168 [facility] CenterD-Dimer Quantitative (PE/DVT)2018-02-15 14:07:00* Test Item Value Reference Range Interpretation Comments D-Dimer Quantitative (PE/DVT) (test code = 55805-4) 0.48 0. 00-0.45 H As with all in vitro diagnostic tests, the test results should be interpreted by the physician in conjunction with clinical findings and other test results.Test results are reported in NEW D-dimer units(ug/mLFEU).[facility] CenterD-Dimer Quantitative (PE/DVT)2018-02-15 14:07:00* Test Item Value Reference Range Interpretation Comments D-Dimer Quantitative (PE/DVT) (test code = 50975-7) 0.48 0. 00-0.45 H As with all in vitro diagnostic tests, the test results should be interpreted by the physician in conjunction with clinical findings and other test results.Test results are reported in NEW D-dimer units(ug/mLFEU).[facility] CenterD-Dimer Quantitative (PE/DVT)2018-02-15 14:07:00* Test Item Value Reference Range Interpretation Comments D-Dimer Quantitative (PE/DVT) (test code = 19854-1) 0.48 0. 00-0.45 H As with all in vitro diagnostic tests, the test results should be interpreted by the physician in conjunction with clinical findings and other test results.Test results are reported in NEW D-dimer units(ug/mLFEU).[facility] CenterInfluenza Virus Types A,B Iluxmaz0705-98-74 13:55:00* Test Item Value Reference Range Interpretation Comments Influenza Virus Types A,B Antigen (test code = 99582-0) NEGATIVE NEGATIVE [facility] CenterB-Type Natriuretic Laonmzz4165-68-71 13:55:00* Test Item Value Reference Range Interpretation Comments B-Type Natriuretic Peptide (test code = 34950-6) 30.9 0-100 [facility] CenterInfluenza Virus Types A,B Antigen 2018-02-15 13:55:00* Test Item Value Reference Range Interpretation Comments Influenza Virus Types A,B Antigen (test code = 97827-8) NEGATIVE NEGATIVE [facility] CenterB-Type Natriuretic Dmwaxnq0712-35-43 13:55:00* Test Item Value Reference Range Interpretation Comments B-Type Natriuretic Peptide (test code = 79390-0) 30.9 0-100 [facility] CenterInfluenza Virus Types A,B Antigen 2018-02-15 13:55:00* Test Item Value Reference Range Interpretation Comments Influenza Virus Types A,B Antigen (test code = 37998-9) NEGATIVE NEGATIVE [facility] CenterB-Type Natriuretic Gtraphu3868-10-95 13:55:00* Test Item Value Reference Range Interpretation Comments B-Type Natriuretic Peptide (test code = 55167-1) 30.9 0-100 [facility] CenterProthrombin Gnat4025-75-84 13:52:00* Test Item Value Reference Range Interpretation Comments Prothrombin Time (test code = 5902-2) 12.5 11.9-14.5 [facility] CenterProthromb Time International Ratio 2018-02-15 13:52:00* Test Item Value Reference Range Interpretation Comments Prothromb Time International Ratio (test code = 6301-6) 1.01 Oral Anticoagulant Therapy INR Values:1. Low Intensity Therapy 1.5 - 2.02 . Moderate Intensity Therapy 2.0 - 3.03. High Intensity Therapy(1) 2.5 - 3. 54. High Intensity Therapy(2) 3.0 - 4.05. Panic Value INR > 5.0 [facility] CenterActivated Partial Thromboplast Time 2018-02-15 13:52:00* Test Item Value Reference Range Interpretation Comments Activated Partial Thromboplast Time (test code = 86213-3) 30.6 23.8-35.5 [facility] CenterProthrombin Ivyh3184-18-40 13:52:00* Test Item Value Reference Range Interpretation Comments Prothrombin Time (test code = 5902-2) 12.5 11.9-14.5 [facility] CenterProthromb Time International Ratio 2018-02-15 13:52:00* Test Item Value Reference Range Interpretation Comments Prothromb Time International Ratio (test code = 6301-6) 1.01 Oral Anticoagulant Therapy INR Values:1. Low Intensity Therapy 1.5 - 2.02 . Moderate Intensity Therapy 2.0 - 3.03. High Intensity Therapy(1) 2.5 - 3. 54. High Intensity Therapy(2) 3.0 - 4.05. Panic Value INR > 5.0 [facility] CenterActivated Partial Thromboplast Time 2018-02-15 13:52:00* Test Item Value Reference Range Interpretation Comments Activated Partial Thromboplast Time (test code = 17059-4) 30.6 23.8-35.5 [facility] CenterUrine YTK1534-32-03 13:35:00* Test Item Value Reference Range Interpretation Comments Urine WBC (test code = 5821-4) 6-10 0-5 H [facility] CenterUrine PPO7322-37-14 13:35:00* Test Item Value Reference Range Interpretation Comments Urine RBC (test code = 56234-0) 0-5 0-5 [facility] CenterUrine Orrqvnid3578-10-39 13:35:00* Test Item Value Reference Range Interpretation Comments Urine Bacteria (test code = 60585-7) FEW NONE [facility] CenterUrine Epithelial Uvtxi3419-82-70 13:35:00 * Test Item Value Reference Range Interpretation Comments Urine Epithelial Cells (test code = 95221-1) FEW NONE [facility] CenterUrine GDP1697-38-07 13:35:00* Test Item Value Reference Range Interpretation Comments Urine WBC (test code = 5821-4) 6-10 0-5 H [facility] CenterUrine COW8629-90-23 13:35:00* Test Item Value Reference Range Interpretation Comments Urine RBC (test code = 79231-9) 0-5 0-5 [facility] CenterUrine Zcghqsio8088-14-65 13:35:00* Test Item Value Reference Range Interpretation Comments Urine Bacteria (test code = 19486-0) FEW NONE [facility] CenterUrine Epithelial Xnvlj2044-88-61 13:35:00 * Test Item Value Reference Range Interpretation Comments Urine Epithelial Cells (test code = 67728-3) FEW NONE [facility] CenterUrine Cunqk5441-36-21 13:31:00* Test Item Value Reference Range Interpretation Comments Urine Color (test code = 5778-6) YELLOW YELLOW [facility] CenterUrine Deawxlg9441-65-02 13:31:00* Test Item Value Reference Range Interpretation Comments Urine Clarity (test code = 85421-7) HAZY CLEAR [facility] CenterUrine Specific Ttasgmq8483-58-59 13:31:00 * Test Item Value Reference Range Interpretation Comments Urine Specific [place] (test code = 5811-5) 1.005 1.010-1.02 5 L [facility] CenterUrine gM1148-89-84 13:31:00* Test Item Value Reference Range Interpretation Comments Urine pH (test code = 85501-9) 5 5-7 [facility] CenterUrine Leukocyte Yshhygls6954-42-53 13:31:00* Test Item Value Reference Range Interpretation Comments Urine Leukocyte Esterase (test code = 5799-2) 1+ NEGATIVE H [facility] CenterUrine Itkifpq2441-05-44 13:31:00* Test Item Value Reference Range Interpretation Comments Urine Nitrite (test code = 07388-3) NEGATIVE NEGATIVE [facility] CenterUrine Jesdktv9018-68-70 13:31:00* Test Item Value Reference Range Interpretation Comments Urine Protein (test code = 5804-0) NEGATIVE NEGATIVE [facility] CenterUrine Glucose (UA)2018-02-15 13:31:00* Test Item Value Reference Range Interpretation Comments Urine Glucose (UA) (test code = 2349-9) NEGATIVE NEGATIVE [facility] CenterUrine Xfbkakx9280-44-22 13:31:00* Test Item Value Reference Range Interpretation Comments Urine Ketones (test code = 49263-4) NEGATIVE NEGATIVE [facility] CenterUrine Ihhppjwneqwr9276-83-18 13:31:00* Test Item Value Reference Range Interpretation Comments Urine Urobilinogen (test code = 66870-5) 0.2 0.2-1 [facility] CenterUrine Jirkdwtzi4022-35-16 13:31:00* Test Item Value Reference Range Interpretation Comments Urine Bilirubin (test code = 1978-6) NEGATIVE NEGATIVE [facility] CenterUrine Lhjcv6906-28-06 13:31:00* Test Item Value Reference Range Interpretation Comments Urine Blood (test code = 08517-6) NEGATIVE NEGATIVE [facility] CenterUrine Qpfvr0767-02-53 13:31:00* Test Item Value Reference Range Interpretation Comments Urine Color (test code = 5778-6) YELLOW YELLOW [facility] CenterUrine Qjpegir9478-91-64 13:31:00* Test Item Value Reference Range Interpretation Comments Urine Clarity (test code = 69640-8) HAZY CLEAR [facility] CenterUrine Specific Btsofnt4209-18-65 13:31:00 * Test Item Value Reference Range Interpretation Comments Urine Specific [place] (test code = 5811-5) 1.005 1.010-1.02 5 L [facility] CenterUrine xO0933-47-29 13:31:00* Test Item Value Reference Range Interpretation Comments Urine pH (test code = 12350-9) 5 5-7 [facility] CenterUrine Leukocyte Lmnkhdim2416-00-52 13:31:00* Test Item Value Reference Range Interpretation Comments Urine Leukocyte Esterase (test code = 5799-2) 1+ NEGATIVE H [facility] CenterUrine Aslziwe7540-29-00 13:31:00* Test Item Value Reference Range Interpretation Comments Urine Nitrite (test code = 59278-8) NEGATIVE NEGATIVE [facility] CenterUrine Hyhfhxv8721-16-07 13:31:00* Test Item Value Reference Range Interpretation Comments Urine Protein (test code = 5804-0) NEGATIVE NEGATIVE [facility] CenterUrine Glucose (UA)2018-02-15 13:31:00* Test Item Value Reference Range Interpretation Comments Urine Glucose (UA) (test code = 2349-9) NEGATIVE NEGATIVE [facility] CenterUrine Smaaovj1720-55-67 13:31:00* Test Item Value Reference Range Interpretation Comments Urine Ketones (test code = 53950-2) NEGATIVE NEGATIVE [facility] CenterUrine Vrqbaydvosaj0000-73-66 13:31:00* Test Item Value Reference Range Interpretation Comments Urine Urobilinogen (test code = 82813-5) 0.2 0.2-1 [facility] CenterUrine Lcpqknvpx3381-40-32 13:31:00* Test Item Value Reference Range Interpretation Comments Urine Bilirubin (test code = 1978-6) NEGATIVE NEGATIVE [facility] CenterUrine Iwtqr3195-55-77 13:31:00* Test Item Value Reference Range Interpretation Comments Urine Blood (test code = 59001-7) NEGATIVE NEGATIVE [facility] CenterPELVIS AP 1-2 VIEWS [place] [address] Patient Name: SHARI DEAN MR #: [id number] : 1945 Age/Sex: 73/F Req #: [id number] Adm Physician: Ordered by: JEAN CLAUDE MARTINEZ MD Report #: [id number] Location: ER Room/Bed: Procedure: [id number] DX/PELVIS AP 1-2 VIEWS Exam Date: 03/24/18 [...] at 14:35 Dictated By: BALDEMAR COHEN MD 143 COPY TO: THONG MARTINEZ MD CT CHEST W [place] [address] Patient Name: SHARI DEAN MR #: [id number] : 1945 Age/Sex: 73/F Req #: [id number] Adm Physician: MEKHI KLEIN MD Ordered by: SHELL NUNEZ, FROILAN NUNEZ Report #: [id number] Location: [facility] Room/Bed: [place] [address] Procedure: [id number]/CT CHEST W Exam Date: 02/15/18 Exam Time: 1550 REPORT STATUS: Signed EXAM: CT Chest WITH contrast 02/15/2018 3:27 PM INDICATION: Shortness of breath. S PE PROTOCOL. Fell with bruising to the up per body and chest. COMPARISON: None TECHNIQUE: Chest was scanned utili joseng a multidetector helical scanner from the lung [...] COPY TO: FROILAN GOFF CT ABDOMEN/PELVIS W [place] [address] Patient Name: SHARI DEAN MR #: [id number] : 1945 Age/Sex: 73/F Req #: [id number] Adm Physician: MEKHI KLEIN MD Ordered by: FROILAN GOFF MD, MD Report #: [id number] Location: [facility] Room/Bed: [place] [address] Procedure: [id number]/CT ABDOMEN/PELVIS W Exam [...] It is below the limits set by [facility] Radiation Protocol Committee (RPC). FINDINGS: LINES [...] 4:53 PM Dictated By: EMIR MELVIN MD 3539 Transcribed By: DENTON ALAMO on 02/15/18 8142 COPY TO: FROILAN GOFF ECHO COMPLETE (ECHOCARDIOGRAM) [address] [place], [place] [address] Patient Name : SHARI DEAN MR #: [id number] : 1945 Age/Sex: 73/F Adm Physician : MEKHI KLEIN MD Admit Date : 02/15/18 Location : [facility] Room/Bed : [place] [address] REPORT: Cardiology Repor t DATE OF STUDY: [...] or intracardiac thrombi or masses. Elke b#: [id number] STEVO cc: MEKHI KLEIN MD Signature Date Dictated By: MIRELLA SILVER MD Transcribed By: EDS on 02/16/18 < Electronically signed by MIRELLA SILVER MD><<Signature on File>>02/17/18 0988 COPY TO: NOLA FRIEDMAN W/CXR [facility] [address], [place] [address] Patient Name: SHARI DEAN MR #: [id number] : 1945 Age/Sex: 73/F Req #: [id number] Adm Physician: Ordered by: TARIK KAHN OFFBEARER Report #: [id number] Location: ER Room/Bed: Procedure: [id number] DX/RIBS BILAT W/CXR Exam Da te: 02/15/18 Exam Time: [...] on 02/15/181426 COPY T O: TARIK KAHN OFFBEARER
[2020-10-13 01:24] LABS: ALBUMIN 3.6 g/dL (3.5-5.0); ALBUMIN/GLOBULIN RATIO 1.1 (0.8-2.0); ANION GAP 14.2 mmol/L (8-16); CALCIUM 8.8 mg/dL (8.4-10.2); CREATININE, SERUM 0.97 mg/dL (0.57-1.11); POTASSIUM 4.2 mmol/L (3.5-5.1)
[2020-10-13 01:31] LABS: CREATINE KINASE MB 2.1 ng/mL (0-5.0)
[2020-10-13] MEDS ORDERED: INSULIN REGULAR, HUMAN 100 UNIT/1 ML 3ML VIAL IV ONE (02:00)
--- NOTE | 2020-10-13 02:34 | Diagnostic Imaging Report ---
EXAMINATION: CHEST SINGLE (PORTABLE) INDICATION: ^Y ^sob ^[id number] ^0130 COMPARISON: Chest x-ray 04/28/2020 FINDINGS: TUBES and LINES: None. LUNGS: Normal lung volumes. Lungs are clear. Prominent central pulmonary vasculature. PLEURA: No pleural effusion or pneumothorax. HEART AND MEDIASTINUM: Cardiac size is mildly enlarged. There are atherosclerotic calcifications within the aorta. BONES AND SOFT TISSUES: No acute osseous lesion. Soft tissues are unremarkable. UPPER ABDOMEN: No free air under the diaphragm. IMPRESSION: Mild cardiomegaly and pulmonary vascular congestion. Signed by: Grant Chacon DO on 10/13/2020 2:30 AM
--- OUTSIDE RECORDS SUMMARY | 2020-10-13 03:56 | XMS REPORT | Continuity of Care Document ---
Author Author [facility] t Organization [facility] Address [address] [place] [address] Phone Unavailable Care Team Providers Care Headlight Assembler Name Role Phone MARIA E NUNEZ, MD [place] PCP CRISTHIAN, Oscar JUNE Attphys Unavailable SWEET, A KRISTEN Attphys Unavailable REEDER, RENZO Attphys Unavailable HUSBY, T JEAN CLAUDE Attphys Unavailable KILLMEKHI MAURER Attphys Unavailable REEDER, RENZO Admphys Unavailable KILLAM, MEKHI Admphys Unavailable Payers Payer Name Policy Type Policy Number Effective Date Expiration Date Oscar Noonan Plus NA 2019 00:00:00 [facility] Medicare [id number] 2008 00:00:00 [facility] [id number] 2017 00:00:00 [facility] Problems Condition Name Condition Details Condition Category Status Onset Date Resolution Date Last Treatment Date Treating Clinician Comments Source Diabetes mellitus Diabetes Problem Active 2015-11-04 00:00:00 [facility] Dyspnea Dyspnea Problem Active 2015-11-04 00:00:00 [facility] Fever Fever Problem Active 2015-11-04 00:00:00 [facility] Upper respiratory tract infection Upper respiratory infection Probl em Active 2015-11-04 00:00:00 [facility] Contusion of flank Contusion of flank and back Problem Active [facility] Cough Cough Problem Active [facility] Fall Fall Problem Active [facility] Hypoglycemia Hypoglycemia Problem Active [facility] Urinary tract infection UTI (urinary tract infection) Problem Active [facility] Allergies, Adverse Reactions, Alerts Allergy Name Allergy Type Status Severity Reaction(s) Onset Date Inacti ve Date Treating Clinician Comments Source Penicillin Allergy to substance Active Mild 2018-02-15 00:00:00 [facility] Social History Social Habit Start Date Stop Date Quantity Comments Source Sex Assigned At 1945 00:00:00 1945 00:00:00 Female [facility] Medications Ordered Medication Name Filled Medication Name Start Date Stop Da te Current Medication? Ordering Clinician Indication Dosage Frequency Signature (SIG) Comments Components Source Guaifenesin/Dextromethorphan (Mucinex Dm Er 600-30 Mg Tablet) 1 Each TAB.ER.12H Guaifenesin/Dextromethorphan (Mucinex Dm Er 600-30 Mg Tablet) 1 Each TAB.ER.12H 2018-02-17 10:26:00 Yes 1 Every 6 Hours [facility] Azithromycin (Zithromax) 500 Mg TABLET Azithromycin (Zithrom ax) 500 Mg TABLET 2018-02-17 10:26:00 2019-12-28 00:00:00 No 500 Daily [facility] Ceftin Ceftin 2018-02-17 10:26:00 2019-12-28 00:00:00 No 50 0 Twice A Day [facility] Levofloxacin (Levaquin) 500 Mg TABLET Levofloxacin (Levaquin ) 500 Mg TABLET 2015-11-09 15:07:00 2018-02-17 00:00:00 No 500 Daily [facility] Acetaminophen (Acetaminophen 8 Hour) 650 Mg TABLET.ER Acetaminophen (Acetaminophen 8 Hour) 650 Mg TABLET.ER Yes 2 Twice A Day [facility] Atorvastatin Calcium Atorvastatin Calcium Yes 40 Bedtime [facility] Benzonatate Benzonatate Yes 100 Three Times A Da y [facility] Calcium Carbonate/Vitamin D3 (Calcium 600 + Vit D Tabl et) 1 Each TABLET Calcium Carbonate/Vitamin D3 (Calcium 600 + Vit D Tablet) 1 Each TABLET Yes [address] [facility] Diazepam (Valium) 5 Mg TABLET Diazepam (Valium) 5 Mg TABLET Yes [address] [facility] Fluoxetine Hcl Fluoxetine Hcl Yes 20 Daily [facility] Furosemide (Lasix) 40 Mg TABLET Furosemide (Lasix) 40 Mg TABLET Yes 80 Daily [facility] Guaifenesin/Dextromethorphan (Diabetic Tussin Dm Liqui d) 118 Ml LIQUID Guaifenesin/Dextromethorphan (Diabetic Tussin Dm Liquid) 118 Ml LIQUID Yes 10 Every 6 Hours [facility] Insulin Aspart (Novolog 70/30 10ML Vial) 100 Units/Ml ML Insulin Aspart (Novolog 70/30 10ML Vial) 100 Units/Ml ML Yes 35 Twice A Day [facility] Losartan Potassium Losartan Potassium Yes 50 Da darvin [facility] Lutein/Zeaxanthin (Lutein-Zeaxanthin 25-5 Mg Sfgl) 1 E ach CAPSULE Lutein/Zeaxanthin (Lutein-Zeaxanthin 25-5 Mg Sfgl) 1 Each CAPSULE Yes 1 Daily [facility] Menthol (Bengay) 113 Gm GEL..GRAM. Menthol (Bengay) 113 Gm GEL..GRAM. Yes 1 As Needed [facility] Mu-Vits-Min Th/Lycopene/Lutein (Centrum Silver Tablet) 1 Each TABLET Mu-Vits-Min Th/Lycopene/Lutein (Centrum Silver Tablet) 1 Each TABLET Yes 1 Daily [facility] Omeprazole Magnesium (Prilosec Otc) 20 Mg TABLET.DR Goel eprazole Magnesium (Prilosec Otc) 20 Mg TABLET. Yes 20 Daily [facility] Clindamycin Hcl Clindamycin Hcl 2020-04-09 00:00:00 No [address] [facility] Aspirin (Aspir 81) 81 Mg TABLET. Aspirin (Aspir 81) 81 Mg TABKaren ET. 2020-04-07 00:00:00 No 81 Daily [facility] Cephalexin Monohydrate (Keflex) 500 Mg CAPSULE Cephale jazzmine Monohydrate (Keflex) 500 Mg CAPSULE 2020-04-07 00:00:00 No 500 Three Davey es A Day [facility] Fluconazole (Diflucan) 100 Mg TABLET Fluconazole (Diflucan) 100 Mg TABLET 2020-04-07 00:00:00 No 100 Daily [facility] Insulin Aspart (Novolog Mix 70-30 Vial) 100 Units/Ml M L Insulin Aspart (Novolog Mix 70-30 Vial) 100 Units/Ml ML 2020-04-07 00:00:[address] [facility] Potassium Chloride (K-Dur) 20 Meq TAB.ER.PRT Potassium Chloride (K-Dur) 20 Meq TAB.ER.PRT 2020-04-07 00:00:00 No Daily [facility] Tramadol/Acetaminophen (Tramadol-Acetaminophn 37.5-325 ) 1 Ea TAB Tramadol/Acetaminophen (Tramadol-Acetaminophn 37.5-325) 1 Ea TAB 2020-04-07 00:00:00 No 1 As Needed [facility] Acetaminophen (Tylenol) 325 Mg TABLET Acetaminophen (Tylenol) 32 5 Mg TABLET 2019-12-28 00:00:00 No 325 Every 4 Hours as nee ded [facility] Ergocalciferol (Vitamin D2) (Vitamin D2) 50,000 Unit C APSULE Ergocalciferol (Vitamin D2) (Vitamin D2) 50,000 Unit CAPSULE 2019-12-28 00:00:[address] [facility] Furosemide (Lasix) 40 Mg TABLET Furosemide (Lasix) 40 Mg TABLET 2019-12-28 00:00:00 No 40 Daily [facility] Simvastatin (Zocor) 20 Mg TABLET Simvastatin (Zocor) 20 Mg TABLE T 2019-12-28 00:00:00 No 20 Daily [facility] Valsartan (Diovan) 320 Mg TABLET Valsartan (Diovan) 320 Mg TABLE T 2019-12-28 00:00:00 No 160 Daily [facility] Levofloxacin (Levaquin) 500 Mg TABLET Levofloxacin (Levaquin) 50 0 Mg TABLET 2018-02-17 00:00:00 No 500 Daily [facility] Metformin Hcl (Glucophage) 500 Mg TABLET Metformin Hcl (Glucophage) 500 Mg TABLET 2018-02-17 00:00:00 No 1000 Twice Daily Break fast & Supper [facility] Rivaroxaban (Xarelto) 10 Mg TABLET Rivaroxaban (Xarelto) 10 Mg T ABLET 2015-11-04 00:00:00 No 15 Twice A Day [facility] Fluoxetine Hcl Fluoxetine Hcl 2015-02-21 00:00:00 No 10 Daily [facility] Insulin Aspart (Novolog) 100 Unit/1 Ml CARTRIDGE Insul in Aspart (Novolog) 100 Unit/1 Ml CARTRIDGE 2014-06-11 00:00:00 No 25 Pm H ypoglycemic [facility] Diazepam (Valium) 5 Mg/1 Ml VIAL Diazepam (Valium) 5 Mg/1 Ml VIA L 2012-07-23 00:00:00 No Daily as needed [facility] Vital Signs Vital Name Observation Time Observation Value Comments Source Weight 2020-04-28 15:25:00 221 [lb_av] [facility] BMI (Body Mass Index) 2020-04-28 15:25:00 53.3 kg/m2 [facility] Body Temperature 2020-04-09 11:04:00 100.2 [degF] [facility] Weight 2020-04-07 17:40:00 221.31 [lb_av] [facility] BMI (Body Mass Index) 2020-04-07 17:40:00 53.4 kg/m2 [facility] Procedures Procedure Date / Time Performed Performing Clinician [facility] e Computed tomography of abdomen and pelvis with contrast 00:00:00 [facility] Computed tomography of pelvis with contrast 2019-12-27 00:00:00 SUZANNE CARRILLO [facility] Computed tomography of brain without radiopaque contrast 00:00:00 MARTHA MORRIS [facility] Computed tomography of cervical spine without contrast 12-04 00:00:00 MARTHA MORRIS [facility] Plan of Care Planned Activity Planned Date Details Comments Source Instructions Urinary Tract Infection - Women [facility] Encounters Start Date/Time End Date/Time Encounter Type Admission Type Attendi [facility] Care Department Encounter ID Source 2020-04-28 15:05:00 2020-04-28 17:09:00 Departed Emergency Room 1 KRISTEN COLVIN [facility] [id number] [facility] 2020-04-07 09:28:00 2020-04-09 14:02:00 Discharged Inpatient (obs) 1 RENZO REEDER [facility] [id number] [facility] 2019-12-27 16:49:00 2020-01-01 12:22:00 Discharged Inpatient 1 RENZO REEDER [facility] [id number] [facility] 2019-12-18 13:27:00 2019-12-18 15:15:00 Departed Emergency Room [facility] [id number] [facility] 2019-12-04 17:05:00 2019-12-04 20:10:00 Departed Emergency Room 1 SHAYLEE MORROW [facility] [id number] [facility] 2019-05-19 00:23:00 2019-05-19 02:46:00 Departed Emergency Room [facility] [id number] [facility] 2018-11-01 00:53:00 2018-11-01 05:47:00 Departed Emergency Room 1 KRISTEN COLVIN [facility] [id number] [facility] 2018-03-24 13:37:00 2018-03-24 20:41:00 Departed Emergency Room ER JEAN CLAUDE MARTINEZ [facility] [id number] [facility] 2018-02-15 15:35:00 2018-02-17 12:00:00 Discharged Inpatient (obs) ER MEKHI KLEIN [facility] [id number] [facility] 2017-06-03 12:20:00 2017-06-03 16:24:00 Departed Emergency Room [facility] [id number] [facility] Results Test Description Test Time Test Comments Results Result Comments Source CHEST SINGLE (PORTABLE) 2020-10-13 02:30:00 [facility] 1945 Sex: F [place] [address] Patient Name: SHARI DEAN MR #: [id number] : 1945 Age/Sex: 75/F Req #: [id number] Adm Physician: Ordered by: SHAYLEE MORROW DO Report #: [id number] Location: ER Room/Bed: Procedure: [id number] DX/CHEST SINGLE (PORTABLE) Exam Date: 10/13/20 Exam Time: 0130 REPORT STATUS: Signed EXAMINATION: CHEST SINGLE (PORTABLE) INDICATION: [id number] COMPARISON: Chest x-ray 04/28/2020 FINDINGS: TUBES and LINES: None. LUNGS: Normal lung volumes. Lungs are clear. Prominent central pulmonary vasculature. PLEURA: No pleural effusion or pneumothorax. HEART AND MEDIASTINUM: Cardiac size is mildly enlarged. There are atherosclerotic calcifications within the aorta. BONES AND SOFT TISSUES: No acute osseous lesion. Soft tissues are unremarkable. UPPER ABDOMEN: No free air under the diaphragm. IMPRESSION: Mild cardiomegaly an d pulmonary vascular congestion. Signed by: Grant Celeste DO on 10/13/2020 2:30 AM Dictated By: GRANT CELESTE DO 9 Transcribed By: GAUDENCIO on 10/13/20229 COPY TO: SHAYLEE MORROW DO CHEST SINGLE (PORTABLE) 2020-04-28 16:21:00 [place] [address] Patient Name: SHARI DEAN MR #: [id number] : 1945 Age/Sex: 75/F Req #: [id number] Adm Physician: Ordered by: KRISTEN COLVIN MD Report #: [id number] Location: ER Room/Bed: Procedure: [id number] DX/CHEST SINGLE (PORTABLE) Exam Date: 04/28/20 Exam [...] RIZZO MD 20 Transcribed By: GAUDENCIO on 04/28/201620 COPY TO: KRISTEN COLVIN MD Urine color determination 2020-04-28 15:30:00 Test Item Urine Color (test code = 5778-6) YELLOW YELLOW [facility] [id number] 15:30:00* Test Item Value Reference Range Interpretation Comments Urine Clarity (test code = 74927-2) SL CLOUDY CLEAR [facility] Urine by Test strip 2020-04-28 15:30:00* Test Item Value Reference Range Interpretation Comments Urine Specific [place] (test code = 5811-5) 1.015 1.010-1.02 5 [facility] pH measurement by automated test qopdy9418-00-04 15:30:00* Test Item Value Reference Range Interpretation Comments Urine pH (test code = 01033-5) 5.5 5-7 [facility] leukocyte esterase detection by eqbgjjsx1154-27-88 15:30:00* Test Item Value Reference Range Interpretation Comments Urine Leukocyte Esterase (test code = 5799-2) SMALL NEGATIVE [facility] nitrite dzleaqsrn3126-58-17 15:30:00* Test Item Value Reference Range Interpretation Comments Urine Nitrite (test code = 37044-8) NEGATIVE NEGATIVE [facility] protein measurement by test strip (mass/volume)2020-04-28 15:30:00* Test Item Value Reference Range Interpretation Comments Urine Protein (test code = 5804-0) TRACE NEGATIVE [facility] glucose goanyrgzf9341-88-60 15:30:00* Test Item Value Reference Range Interpretation Comments Urine Glucose (UA) (test code = 2349-9) NEGATIVE NEGATIVE [facility]rine ketones detection by automated test [id number] 15:30:00* Test Item Value Reference Range Interpretation Comments Urine Ketones (test code = 55110-6) NEGATIVE NEGATIVE [facility]rine urobilinogen measurement by test strip (mass/volume)2020-04-28 15:30:00* Test Item Value Reference Range Interpretation Comments Urine Urobilinogen (test code = 94999-2) 0.2 0.2-1 [facility] total bilirubin measurement (mass/volume)2020-04-28 15:30:00* Test Item Value Reference Range Interpretation Comments Urine Bilirubin (test code = 1978-6) NEGATIVE NEGATIVE [facility] erythrocytes zdwloshvy0160-47-17 15:30:00* Test Item Value Reference Range Interpretation Comments Urine Blood (test code = 13740-8) MODERATE NEGATIVE [facility] HospitalAutomated urine sediment leukocyte count by microscopy (number/high power field)2020-04-28 15:30:00* Test Item Value Reference Range Interpretation Comments Urine WBC (test code = 5821-4) 6-10 0-5 [facility] HospitalErythrocytes detection in urine sediment by light [id number] 15:30:00* Test Item Value Reference Range Interpretation Comments Urine RBC (test code = 22138-0) 11-20 0-5 [facility] HospitalBacteria detection in urine sediment by light mrqgnjvzqf6286-63-22 15:30:00* Test Item Value Reference Range Interpretation Comments Urine Bacteria (test code = 42410-0) MANY NONE [facility] HospitalEpithelial cells detection in urine sediment by light jtxndneyyx9462-89-56 15:30:00* Test Item Value Reference Range Interpretation Comments Urine Epithelial Cells (test code = 08068-1) MODERATE NONE [facility] HospitalAmorphous sediment detection in urine sediment by light gdkjzmpofq1783-58-66 15:30:00* Test Item Value Reference Range Interpretation Comments Urine Amorphous Sediment (test code = 8246-1) MODERATE FEW [facility] HospitalHyaline casts detection in urine sediment by light aqqpkogftw6592-12-65 15:30:00* Test Item Value Reference Range Interpretation Comments Urine Hyaline Casts (test code = 34845-6) 0-1 0-1 [facility] HospitalWaxy casts detection in urine sediment by light barqdvfflq6388-19-21 15:30:00* Test Item Value Reference Range Interpretation Comments Urine Waxy Casts (test code = 20108-6) 1-5 >0 [facility] glucose measurement by glucometer (mass/volume)2020-04-09 10:58:00* Test Item Value Reference Range Interpretation Comments Bedside Glucose (test code = 96285-1) 324 70-120 Meter ID: [id number] [facility] measurement by glucometer (mass/volume)2020-04-09 10:58:00* Test Item Value Reference Range Interpretation Comments Bedside Glucose (test code = 10822-9) 324 70-120 Meter ID: [id number] [facility]LV[facility] W 2020-04-08 22:13:00 [place] [address] Patient Name: SHARI DEAN MR #: [id number] : 1945 Age/Sex: 75/F Req #: [id number] Adm Physician: RENZO REEDER MD Ordered by: KALYN JOYCE MD Report #: [id number] Location: [facility] Room/Bed: Formerly named [facility] Procedure: [id number] CT/CT ABDOMEN/P JOSS W Exam Date: 04/08/20 [...] JOYCE MD CHEST SINGLE (PORTABLE) 2020-04-08 09:54:00 [place] [address] Patient Name: SHARI DEAN MR #: [id number] : 1945 Age/Sex: 75/F Req #: [id number] Adm Physician: RENZO REEDER MD Ordered by: TARIK REEDER DO Report #: [id number] Location: [facility] Room/Bed: [place] [address] Procedure: [id number] DX/CHEST SINGLE (PORTABLE) Exam Date: 04/08/20 Exam [...] Count (test code = 6690-2) 10.53 4.8-10.8 [facility] erythrocytes automated count (number/volume)2020-04-08 04:30:00* Test Item Value Reference Range Interpretation Comments Red Blood Count (test code = 789-8) 4.58 3.6-5.1 [facility] hemoglobin measurement (moles/volume)2020-04-08 04:30:00* Test Item Value Reference Range Interpretation Comments Hemoglobin (test code = 93818-3) 12.1 12.0-16.0 [facility] HospitalAutomated blood hematocrit (volume fraction)2020-04-08 04:30:00* Test Item Value Reference Range Interpretation Comments Hematocrit (test code = 4544-3) 39.7 34.2-44.1 [facility] HospitalAutomated erythrocyte mean corpuscular sbgjdm4467-54-99 04:30:00* Test Item Value Reference Range Interpretation Comments Mean Corpuscular Volume (test code = 787-2) 86.7 81-99 [facility] HospitalAutomated erythrocyte mean corpuscular hemoglobin (mass per erythrocyte)2020-04-08 04:30:00* Test Item Value Reference Range Interpretation Comments Mean Corpuscular Hemoglobin (test code = 785-6) 26.4 28-32 [facility] HospitalAut[facility] erythrocyte mean corpuscular hemoglobin concentration measurement (mass/volume)2020-04-08 04:30:00* Test Item Value Reference Range Interpretation Comments Mean Corpuscular Hemoglobin Concent (test code = 786-4) 30.5 31-35 [facility] HospitalRD JxgEk-Tjp6358-51-08 04:30:00* Test Item Value Reference Range Interpretation Comments Red Cell Distribution Width (test code = 92652-6) 16.1 11.7 -14.4 [facility] HospitalAut[facility] blood platelet count (count/volume)2020-04-08 04:30:00* Test Item Value Reference Range Interpretation Comments Platelet Count (test code = 777-3) 208 140-360 [facility] segmented neutrophil count as percentage of total ekbjurmwvi6414-73-44 04:30:00* Test Item Value Reference Range Interpretation Comments Neutrophils (%) (Auto) (test code = 58666-3) 67.9 38.7-80.0 [facility] HospitalAutomated blood lymphocyte count as percentage ot total uazwlofatp3388-32-08 04:30:00* Test Item Value Reference Range Interpretation Comments Lymphocytes (%) (Auto) (test code = 736-9) 20.0 18.0-39.1 [facility] HospitalAutomated blood monocyte count as percentage of total fjfpfvvmhp5914-65-89 04:30:00* Test Item Value Reference Range Interpretation Comments Monocytes (%) (Auto) (test code = 5905-5) 10.5 4.4-11.3 [facility] HospitalAutomated blood eosinophil count as percentage of total cjeuskvdga4224-92-58 04:30:00* Test Item Value Reference Range Interpretation Comments Eosinophils (%) (Auto) (test code = 713-8) 1.1 0.0-6.0 [facility] HospitalAutomated blood basophil count as percentage of total dwioellgpl8115-15-75 04:30:00* Test Item Value Reference Range Interpretation Comments Basophils (%) (Auto) (test code = 706-2) 0.2 0.0-1.0 [facility] HospitalFluoroscopic procedure less than one hour qogjteet8693-76-83 04:30:00* Test Item Value Reference Range Interpretation Comments IM GRANULOCYTES % (test code = IM GRANULOCYTES %) 0.3 0.0- 1.0 [facility] HospitalAutomated blood neutrophil count 2020-04-08 04:30:00* Test Item Value Reference Range Interpretation Comments Neutrophils # (Auto) (test code = 751-8) 7.1 2.1-6.9 [facility] HospitalBlood lymphocytes count (number/volume) 2020-04-08 04:30:00* Test Item Value Reference Range Interpretation Comments Lymphocytes # (Auto) (test code = 54671-4) 2.1 1.0-3.2 [facility] HospitalBlood monocytes automated count (number/volume)2020-04-08 04:30:00* Test Item Value Reference Range Interpretation Comments Monocytes # (Auto) (test code = 742-7) 1.1 0.2-0.8 [facility] HospitalAutomated blood eosinophil count 2020-04-08 04:30:00* Test Item Value Reference Range Interpretation Comments Eosinophils # (Auto) (test code = 711-2) 0.1 0.0-0.4 [facility] HospitalAutomated blood basophil count (count/volume)2020-04-08 04:30:00* Test Item Value Reference Range Interpretation Comments Basophils # (Auto) (test code = 704-7) 0.0 0.0-0.1 [facility] HospitalFluoroscopic procedure less than one hour hdxkipwh3059-77-08 04:30:00* Test Item Value Reference Range Interpretation Comments Absolute Immature Granulocyte (auto (nazia t code = Absolute Immature Granulocyte (auto) 0.03 0-0.1 [facility] plasma sodium measurement (moles/volume)2020-04-08 04:30:00* Test Item Value Reference Range Interpretation Comments Sodium Level (test code = 2951-2) 138 136-145 [facility]um or plasma potassium measurement (moles/volume)2020-04-08 04:30:00* Test Item Value Reference Range Interpretation Comments Potassium Level (test code = 2823-3) 4.5 3.5-5.1 [facility] Texas[facility]um or plasma chloride measurement (moles/volume)2020-04-08 04:30:00* Test Item Value Reference Range Interpretation Comments Chloride Level (test code = 2075-0) 101 98-107 [facility]um or plasma carbon dioxide, total measurement (moles/volume)2020-04-08 04:30:00* Test Item Value Reference Range Interpretation Comments Carbon Dioxide Level (test code = 2028-9) 31 22-29 [facility]um or plasma anion tyf4379-65-02 04:30:00* Test Item Value Reference Range Interpretation Comments Anion Gap (test code = 70268-2) 10.5 8-16 [facility] or plasma urea nitrogen measurement (mass/volume)2020-04-08 04:30:00* Test Item Value Reference Range Interpretation Comments Blood Urea Nitrogen (test code = 3094-0) 13 - [facility] Texas[facility]um or plasma creatinine measurement (mass/volume)2020-04-08 04:30:00* Test Item Value Reference Range Interpretation Comments Creatinine (test code = 2160-0) 1.01 0.57-1.11 [facility] or plasma urea nitrogen/creatinine mass ylinq2134-49-70 04:30:00* Test Item Value Reference Range Interpretation Comments BUN/Creatinine Ratio (test code = 3097-3) 13 - [facility] HospitalEstimated glomerular filtration rate (GFR) cragnrcgemimr6689-99-76 04:30:00* Test Item Value Reference Range Interpretation Comments Estimat Glomerular Filtration Rate (test code = 222203956) 53 >60 Ranges were taken from the National Kidney Disease Education Program and the [facility] Kidney Foundation literature.Reference ranges:60 or greater: Smaijy89-34 ( for 3 consecutive months): Chronic kidney disease 15 or less: Kidney failureMethodist Southlake HospitalGlucose vrrvuihelpd0655-89-04 04:30:00* Test Item Value Reference Range Interpretation Comments Glucose Level (test code = FMG4429) 234 74-118 [facility] calcium measurement (mass/volume)2020-04-08 04:30:00* Test Item Value Reference Range Interpretation Comments Calcium Level (test code = 54963-0) 9.0 8.4-10.2 [facility] plasma total bilirubin measurement (mass/volume)2020-04-08 04:30:00* Test Item Value Reference Range Interpretation Comments Total Bilirubin (test code = 1975-2) 0.4 0.2-1.2 [facility] HospitalFluoroscopic procedure less than one hour rxgwrwro6745-07-11 04:30:00* Test Item Value Reference Range Interpretation Comments Aspartate Amino Transf (AST/SGOT) (test code = Aspartate Amino Transf (AST/SGOT)) 20 5-34 [facility] alanine aminotransferase measurement (enzymatic activity/volume)2020-04-08 04:30:00* Test Item Value Reference Range Interpretation Comments Alanine Aminotransferase (ALT/SGPT) (test code = 1742-6) 15 0-55 [facility] protein measurement (mass/volume)2020-04-08 04:30:00* Test Item Value Reference Range Interpretation Comments Total Protein (test code = 2885-2) 6.5 6.5-8.1 [facility] albumin measurement (mass/volume)2020-04-08 04:30:00* Test Item Value Reference Range Interpretation Comments Albumin (test code = 1751-7) 2.8 3.5-5.0 [facility] HospitalPlasma globulin measurement (mass/volume) 2020-04-08 04:30:00* Test Item Value Reference Range Interpretation Comments Globulin (test code = 29015-9) 3.7 2.3-3.5 [facility] plasma albumin/globulin mass mhmti1780-25-44 04:30:00* Test Item Value Reference Range Interpretation Comments Albumin/Globulin Ratio (test code = 1759-0) 0.8 0.8-2.0 [facility] plasma alkaline phosphatase measurement (enzymatic activity/volume)2020-04-08 04:30:00* Test Item Value Reference Range Interpretation Comments Alkaline Phosphatase (test code = 6768-6) 69 40-150 [facility] plasma creatine kinase measurement (enzymatic activity/volume)2020-04-08 04:30:00* Test Item Value Reference Range Interpretation Comments Creatine Kinase (test code = 2157-6) 122 29-168 [facility]um [facility] plasma creatine kinase MB measurement (mass/volume)2020-04-08 04:30:00* Test Item Value Reference Range Interpretation Comments Creatine Kinase MB (test code = 78459-7) 2.30 0-5.0 [facility] HospitalTroponin I measurement by highly sensitive enzyme olndjmxrodp1848-39-41 04:30:00* Test Item Value Reference Range Interpretation Comments Troponin I (test code = 08351-2) 0.011 0-0.300 [facility] HospitalBlood leukocytes automated count (number/volume)2020-04-08 04:30:00* Test Item Value Reference Range Interpretation Comments White Blood Count (test code = 6690-2) 10.53 4.8-10.8 [facility] erythrocytes automated count (number/volume)2020-04-08 04:30:00* Test Item Value Reference Range Interpretation Comments Red Blood Count (test code = 789-8) 4.58 3.6-5.1 [facility] hemoglobin measurement (moles/volume)2020-04-08 04:30:00* Test Item Value Reference Range Interpretation Comments Hemoglobin (test code = 52704-5) 12.1 12.0-16.0 [facility] HospitalAutomated blood hematocrit (volume fraction)2020-04-08 04:30:00* Test Item Value Reference Range Interpretation Comments Hematocrit (test code = 4544-3) 39.7 34.2-44.1 [facility] HospitalAutomated erythrocyte mean corpuscular tulyzo6295-10-72 04:30:00* Test Item Value Reference Range Interpretation Comments Mean Corpuscular Volume (test code = 787-2) 86.7 81-99 [facility] HospitalAutomated erythrocyte mean corpuscular hemoglobin (mass per erythrocyte)2020-04-08 04:30:00* Test Item Value Reference Range Interpretation Comments Mean Corpuscular Hemoglobin (test code = 785-6) 26.4 28-32 [facility] HospitalAutomated erythrocyte mean corpuscular hemoglobin concentration measurement (mass/volume)2020-04-08 04:30:00* Test Item Value Reference Range Interpretation Comments Mean Corpuscular Hemoglobin Concent (test code = 786-4) 30.5 31-35 [facility] HospitalRDW HekFf-Xgq7819-53-08 04:30:00* Test Item Value Reference Range Interpretation Comments Red Cell Distribution Width (test code = 67833-8) 16.1 11.7 -14.4 [facility] HospitalAutomated blood platelet count (count/volume)2020-04-08 04:30:00* Test Item Value Reference Range Interpretation Comments Platelet Count (test code = 777-3) 208 140-360 [facility] HospitalAutomated blood segmented neutrophil count as percentage of total zurzomvjjw7665-96-11 04:30:00* Test Item Value Reference Range Interpretation Comments Neutrophils (%) (Auto) (test code = 02160-2) 67.9 38.7-80.0 [facility] HospitalAutomated blood lymphocyte count as percentage ot total hyczqldowl4910-47-50 04:30:00* Test Item Value Reference Range Interpretation Comments Lymphocytes (%) (Auto) (test code = 736-9) 20.0 18.0-39.1 [facility] HospitalAutomated blood monocyte count as percentage of total trsyvexloj9803-35-22 04:30:00* Test Item Value Reference Range Interpretation Comments Monocytes (%) (Auto) (test code = 5905-5) 10.5 4.4-11.3 [facility] HospitalAutomated blood eosinophil count as percentage of total jloqihhqev0901-94-64 04:30:00* Test Item Value Reference Range Interpretation Comments Eosinophils (%) (Auto) (test code = 713-8) 1.1 0.0-6.0 [facility] HospitalAutomated blood basophil count as percentage of total dqhznqbeti4020-58-04 04:30:00* Test Item Value Reference Range Interpretation Comments Basophils (%) (Auto) (test code = 706-2) 0.2 0.0-1.0 [facility] HospitalFluoroscopic procedure less than one hour oordksqh7138-77-70 04:30:00* Test Item Value Reference Range Interpretation Comments IM GRANULOCYTES % (test code = IM GRANULOCYTES %) 0.3 0.0- 1.0 [facility] HospitalAutomated blood neutrophil count 2020-04-08 04:30:00* Test Item Value Reference Range Interpretation Comments Neutrophils # (Auto) (test code = 751-8) 7.1 2.1-6.9 [facility] HospitalBlood lymphocytes count (number/volume) 2020-04-08 04:30:00* Test Item Value Reference Range Interpretation Comments Lymphocytes # (Auto) (test code = 64838-0) 2.1 1.0-3.2 [facility] HospitalBlood monocytes automated count (number/volume)2020-04-08 04:30:00* Test Item Value Reference Range Interpretation Comments Monocytes # (Auto) (test code = 742-7) 1.1 0.2-0.8 [facility] HospitalAutomated blood eosinophil count 2020-04-08 04:30:00* Test Item Value Reference Range Interpretation Comments Eosinophils # (Auto) (test code = 711-2) 0.1 0.0-0.4 [facility] HospitalAutomated blood basophil count (count/volume)2020-04-08 04:30:00* Test Item Value Reference Range Interpretation Comments Basophils # (Auto) (test code = 704-7) 0.0 0.0-0.1 [facility] HospitalFluoroscopic procedure less than one hour qdwgywqi0684-84-06 04:30:00* Test Item Value Reference Range Interpretation Comments Absolute Immature Granulocyte (auto (nazia t code = Absolute Immature Granulocyte (auto) 0.03 0-0.1 [facility] plasma sodium measurement (moles/volume)2020-04-08 04:30:00* Test Item Value Reference Range Interpretation Comments Sodium Level (test code = 2951-2) 138 136-145 [facility]erum or plasma potassium measurement (moles/volume)2020-04-08 04:30:00* Test Item Value Reference Range Interpretation Comments Potassium Level (test code = 2823-3) 4.5 3.5-5.1 [facility] plasma chloride measurement (moles/volume)2020-04-08 04:30:00* Test Item Value Reference Range Interpretation Comments Chloride Level (test code = 2075-0) 101 98-107 [facility]erum or plasma carbon dioxide, total measurement (moles/volume)2020-04-08 04:30:00* Test Item Value Reference Range Interpretation Comments Carbon Dioxide Level (test code = 2028-9) 31 22-29 [facility]erum or plasma anion nsr3947-99-99 04:30:00* Test Item Value Reference Range Interpretation Comments Anion Gap (test code = 49992-0) 10.5 8-16 [facility] plasma urea nitrogen measurement (mass/volume)2020-04-08 04:30:00* Test Item Value Reference Range Interpretation Comments Blood Urea Nitrogen (test code = 3094-0) 13 - [facility] [place]erum or plasma creatinine measurement (mass/volume)2020-04-08 04:30:00* Test Item Value Reference Range Interpretation Comments Creatinine (test code = 2160-0) 1.01 0.57-1.11 [facility] plasma urea nitrogen/creatinine mass wdvqm7313-45-66 04:30:00* Test Item Value Reference Range Interpretation Comments BUN/Creatinine Ratio (test code = 3097-3) 13 - [facility] HospitalEstimated glomerular filtration rate (GFR) lpeqwjaxnkntk0493-72-62 04:30:00* Test Item Value Reference Range Interpretation Comments Estimat Glomerular Filtration Rate (test code = 845685569) 53 >60 Ranges were taken from the National Kidney Disease Education Program and the [facility] literature.Reference ranges:60 or greater: Gawece17-20 ( for 3 consecutive months): Chronic kidney disease 15 or less: Kidney failureMethodist Southlake HospitalGlucose fwaxbrifilt6474-67-44 04:30:00* Test Item Value Reference Range Interpretation Comments Glucose Level (test code = ZQJ0203) 234 74-118 [facility] calcium measurement (mass/volume)2020-04-08 04:30:00* Test Item Value Reference Range Interpretation Comments Calcium Level (test code = 55462-0) 9.0 8.4-10.2 [facility] [place] plasma total bilirubin measurement (mass/volume)2020-04-08 04:30:00* Test Item Value Reference Range Interpretation Comments Total Bilirubin (test code = 1975-2) 0.4 0.2-1.2 [facility] HospitalFluoroscopic procedure less than one hour vlbqbsiy8175-25-31 04:30:00* Test Item Value Reference Range Interpretation Comments Aspartate Amino Transf (AST/SGOT) (test code = Aspartate Amino Transf (AST/SGOT)) 20 5-34 [facility] plasma alanine aminotransferase measurement (enzymatic activity/volume)2020-04-08 04:30:00* Test Item Value Reference Range Interpretation Comments Alanine Aminotransferase (ALT/SGPT) (test code = 1742-6) 15 0-55 [facility]er[facility] or plasma protein measurement (mass/volume)2020-04-08 04:30:00* Test Item Value Reference Range Interpretation Comments Total Protein (test code = 2885-2) 6.5 6.5-8.1 [facility] [place] or plasma albumin measurement (mass/volume)2020-04-08 04:30:00* Test Item Value Reference Range Interpretation Comments Albumin (test code = 1751-7) 2.8 3.5-5.0 [facility] HospitalPlasma globulin measurement (mass/volume) 2020-04-08 04:30:00* Test Item Value Reference Range Interpretation Comments Globulin (test code = 83461-2) 3.7 2.3-3.5 [facility] or plasma albumin/globulin mass lflne7657-67-55 04:30:00* Test Item Value Reference Range Interpretation Comments Albumin/Globulin Ratio (test code = 1759-0) 0.8 0.8-2.0 [facility]er[facility] or plasma alkaline phosphatase measurement (enzymatic activity/volume)2020-04-08 04:30:00* Test Item Value Reference Range Interpretation Comments Alkaline Phosphatase (test code = 6768-6) 69 40-150 [facility] plasma creatine kinase measurement (enzymatic activity/volume)2020-04-08 04:30:00* Test Item Value Reference Range Interpretation Comments Creatine Kinase (test code = 2157-6) 122 29-168 [facility]erum or plasma creatine kinase MB measurement (mass/volume)2020-04-08 04:30:00* Test Item Value Reference Range Interpretation Comments Creatine Kinase MB (test code = 06272-4) 2.30 0-5.0 [facility] HospitalTroponin I measurement by highly sensitive enzyme eeagohevxte6710-25-87 04:30:00* Test Item Value Reference Range Interpretation Comments Troponin I (test code = 64833-2) 0.011 0-0.300 [facility] SINGLE (PORTABLE)2020-04-07 10:28:00 [facility] [address], [place] [address] Patient Name: SHARI DEAN MR #: [id number] : 1945 Age/Sex: 75/F Req #: [id number] Adm Physician: Ordered by: TARIK REEDER DO Report #: [id number] Location: ER Room/Bed: Procedure: [id number] DX/CHEST SINGLE (PORTABLE) Exam Date: 04/07/20 Exam [...] virus A and B antigen identification by rgsllmmawgeigyesmj8282-83-56 10:09:00* Test Item Value Reference Range Interpretation Comments Influenza Virus Types A,B Antigen (test code = 77288-9) NEGATIVE NEGATIVE [facility] HospitalFluoroscopic procedure less than one hour bzmsfval6764-07-77 10:09:00* Test Item Value Reference Range Interpretation Comments Coronavirus (PCR) (test code = Coronavirus (PCR)) NOT DETECTED NOTD ETECTED [facility] Texastreptococcus pyogenes antigen detection in qdpthw8048-50-46 10:09:00* Test Item Value Reference Range Interpretation Comments Group A Streptococcus Screen (test code = 08543-1) NEGATIVE NEG ATIVE [facility] HospitalInfluenza virus A and B antigen identification by lcrpzxdxxvnhghlzvm4028-44-67 10:09:00* Test Item Value Reference Range Interpretation Comments Influenza Virus Types A,B Antigen (test code = 34998-6) NEGATIVE NEGATIVE [facility] HospitalFluoroscopic procedure less than one hour zpymblgt2849-67-25 10:09:00* Test Item Value Reference Range Interpretation Comments Coronavirus (PCR) (test code = Coronavirus (PCR)) NOT DETECTED NOTD ETECTED [facility] Texastreptococcus pyogenes antigen detection in fxeomf9450-72-46 10:09:00* Test Item Value Reference Range Interpretation Comments Group A Streptococcus Screen (test code = 19276-6) NEGATIVE NEG ATIVE [facility]2020-05-07 09:33:00* Test Item Value Reference Range Interpretation Comments B-Type Natriuretic Peptide (test code = 49633-3) 79.6 0-100 [facility] bxcyxdv0904-17-98 09:33:00* Test Item Value Reference Range Interpretation Comments Blood Culture (test code = 16797756) NO GROWTH AFTER 48 HOURS [facility]2020-05-07 09:33:00* Test Item Value Reference Range Interpretation Comments B-Type Natriuretic Peptide (test code = 17018-3) 79.6 0-100 [facility]2020-05-07 09:33:00* Test Item Value Reference Range Interpretation Comments Blood Culture (test code = 32281760) NO GROWTH AFTER 5 DAYS, FINAL REPORT [facility] HospitalBedside Ljuevwp5679-91-19 12:48:00* Test Item Value Reference Range Interpretation Comments Bedside Glucose (test code = 85729-2) 120 70-120 Meter ID: [id number] Southlake HospitalBlood Culture 2019-12-30 17:49:00* Test Item Value Reference Range Interpretation Comments Blood Culture (test code = 31126644) NO GROWTH AFTER 72 HOURS [facility] HospitalUrine Chzqemj8049-28-11 10:26:00* Test Item Value Reference Range Interpretation Comments Urine Culture (test code = 630-4) No Result Data Provided [facility] Texasodium Uhrdo3768-40-63 06:05:00* Test Item Value Reference Range Interpretation Comments Sodium Level (test code = 2951-2) 134 136-145 L [facility] HospitalPotassium Oxzep9166-93-39 06:05:00* Test Item Value Reference Range Interpretation Comments Potassium Level (test code = 2823-3) 4.6 3.5-5.1 [facility] HospitalChloride Xwhpu7941-06-09 06:05:00* Test Item Value Reference Range Interpretation Comments Chloride Level (test code = 2075-0) 100 98-107 [facility] HospitalCarbon Dioxide Nfseh0640-44-90 06:05:00* Test Item Value Reference Range Interpretation Comments Carbon Dioxide Level (test code = 2028-9) 27 - [facility] HospitalAnion Gkp3860-18-41 06:05:00* Test Item Value Reference Range Interpretation Comments Anion Gap (test code = 41573-5) 11.6 8-16 [facility] HospitalBlood Urea Pqylipow2615-38-76 06:05:00* Test Item Value Reference Range Interpretation Comments Blood Urea Nitrogen (test code = 3094-0) 17 7-26 [facility] HospitalCreatinine2020-01-28 06:05:00* Test Item Value Reference Range Interpretation Comments Creatinine (test code = 2160-0) 0.78 0.57-1.11 [facility] HospitalBUN/Creatinine Kafds3580-11-82 06:05:00* Test Item Value Reference Range Interpretation Comments BUN/Creatinine Ratio (test code = 3097-3) 22 6-25 [facility] HospitalEstimat Glomerular Filtration Rate 2019-12-29 06:05:00* Test Item Value Reference Range Interpretation Comments Estimat Glomerular Filtration Rate (test code = 266082245) > 60 >60 Ranges were taken from the National Kidney Disease Education Program and the [facility] Foundation literature.Reference ranges:60 or greater: Gacmeh74-92 ( for 3 consecutive months): Chronic kidney disease 15 or less: Kidney failureMethodist Southlake HospitalGlucose Ytrdx9587-97-48 06:05:00* Test Item Value Reference Range Interpretation Comments Glucose Level (test code = DKL4937) 198 74-118 H [facility] HospitalCalcium Oyyaj9837-99-05 06:05:00* Test Item Value Reference Range Interpretation Comments Calcium Level (test code = 87416-2) 8.5 8.4-10.2 [facility] HospitalHemoglobin A1c Wrgtkrv0503-23-74 05:55:00 * Test Item Value Reference Range Interpretation Comments Hemoglobin A1c Percent (test code = Hemoglobin A1c Percent) 9.6 4.0-7.0 H [facility] HospitalWhite Blood Ekruo1084-90-87 05:49:00* Test Item Value Reference Range Interpretation Comments White Blood Count (test code = 6690-2) 7.56 4.8-10.8 [facility] HospitalRed Blood Nlkjc2403-09-50 05:49:00* Test Item Value Reference Range Interpretation Comments Red Blood Count (test code = 789-8) 4.02 3.6-5.1 [facility] HospitalHemoglobin2020-01-28 05:49:00* Test Item Value Reference Range Interpretation Comments Hemoglobin (test code = 35128-5) 11.3 12.0-16.0 L [facility] HospitalHematocrit2020-01-28 05:49:00* Test Item Value Reference Range Interpretation Comments Hematocrit (test code = 4544-3) 36.0 34.2-44.1 [facility] HospitalMean Corpuscular Dokamu0539-97-41 05:49:00* Test Item Value Reference Range Interpretation Comments Mean Corpuscular Volume (test code = 787-2) 89.6 81-99 [facility] HospitalMean Corpuscular Wugipvfsen6717-33-29 05:49:00* Test Item Value Reference Range Interpretation Comments Mean Corpuscular Hemoglobin (test code = 785-6) 28.1 28-32 [facility] HospitalMean Corpuscular Hemoglobin Concent 2019-12-29 05:49:00* Test Item Value Reference Range Interpretation Comments Mean Corpuscular Hemoglobin Concent (test code = 786-4) 31.4 31-35 [facility] HospitalRed Cell Distribution Lbcgz5636-29-27 05:49:00* Test Item Value Reference Range Interpretation Comments Red Cell Distribution Width (test code = 76182-8) 15.5 11.7 -14.4 H [facility] HospitalPlatelet Lssjp4675-10-53 05:49:00* Test Item Value Reference Range Interpretation Comments Platelet Count (test code = 777-3) 258 140-360 [facility] HospitalNeutrophils (%) (Auto)2019-12-29 05:49:00 * Test Item Value Reference Range Interpretation Comments Neutrophils (%) (Auto) (test code = 76538-7) 82.9 38.7-80.0 H [facility] HospitalLymphocytes (%) (Auto)2019-12-29 05:49:00 * Test Item Value Reference Range Interpretation Comments Lymphocytes (%) (Auto) (test code = 736-9) 12.6 18.0-39.1 L [facility] HospitalMonocytes (%) (Auto)2019-12-29 05:49:00* Test Item Value Reference Range Interpretation Comments Monocytes (%) (Auto) (test code = 5905-5) 3.6 4.4-11.3 L [facility] HospitalEosinophils (%) (Auto)2019-12-29 05:49:00 * Test Item Value Reference Range Interpretation Comments Eosinophils (%) (Auto) (test code = 713-8) 0.3 0.0-6.0 [facility] HospitalBasophils (%) (Auto)2019-12-29 05:49:00* Test Item Value Reference Range Interpretation Comments Basophils (%) (Auto) (test code = 706-2) 0.1 0.0-1.0 [facility] HospitalIM GRANULOCYTES %2019-12-29 05:49:00* Test Item Value Reference Range Interpretation Comments IM GRANULOCYTES % (test code = IM GRANULOCYTES %) 0.5 0.0- 1.0 [facility] HospitalNeutrophils # (Auto)2019-12-29 05:49:00* Test Item Value Reference Range Interpretation Comments Neutrophils # (Auto) (test code = 751-8) 6.3 2.1-6.9 [facility] HospitalLymphocytes # (Auto)2019-12-29 05:49:00* Test Item Value Reference Range Interpretation Comments Lymphocytes # (Auto) (test code = 15916-4) 1.0 1.0-3.2 [facility] HospitalMonocytes # (Auto)2019-12-29 05:49:00* Test Item Value Reference Range Interpretation Comments Monocytes # (Auto) (test code = 742-7) 0.3 0.2-0.8 [facility] HospitalEosinophils # (Auto)2019-12-29 05:49:00* Test Item Value Reference Range Interpretation Comments Eosinophils # (Auto) (test code = 711-2) 0.0 0.0-0.4 [facility] HospitalBasophils # (Auto)2019-12-29 05:49:00* Test Item Value Reference Range Interpretation Comments Basophils # (Auto) (test code = 704-7) 0.0 0.0-0.1 [facility] HospitalAbsolute Immature Granulocyte (auto 2019-12-29 05:49:00* Test Item Value Reference Range Interpretation Comments Absolute Immature Granulocyte (auto (nazia t code = Absolute Immature Granulocyte (auto) 0.04 0-0.1 [facility] HospitalFluoroscopic procedure less than one hour gqhhlsen2587-26-58 04:35:00* Test Item Value Reference Range Interpretation Comments Hemoglobin A1c Percent (test code = Hemoglobin A1c Percent) 9.6 4.0-7.0 [facility] HospitalFluoroscopic procedure less than one hour zdllmgqm8155-91-84 04:35:00* Test Item Value Reference Range Interpretation Comments Hemoglobin A1c Percent (test code = Hemoglobin A1c Percent) 9.6 4.0-7.0 [facility] HospitalFree Stilfveww0413-34-51 14:50:00* Test Item Value Reference Range Interpretation Comments Free Thyroxine (test code = 3024-7) 0.73 0.8-1.8 L [facility] HospitalThyroid Stimulating Hormone (TSH) 2019-12-28 14:50:00* Test Item Value Reference Range Interpretation Comments Thyroid Stimulating Hormone (TSH) (test code = 42310-2) 2.044 0.350-4.940 [facility] HospitalTotal Ebooovvjg5373-35-63 05:56:00* Test Item Value Reference Range Interpretation Comments Total Bilirubin (test code = 1975-2) 0.4 0.2-1.2 [facility] HospitalAspartate Amino Transf (AST/SGOT) 2019-12-28 05:56:00* Test Item Value Reference Range Interpretation Comments Aspartate Amino Transf (AST/SGOT) (test code = Aspartate Amino Transf (AST/SGOT)) 24 5-34 [facility] HospitalAlanine Aminotransferase (ALT/SGPT) 2019-12-28 05:56:00* Test Item Value Reference Range Interpretation Comments Alanine Aminotransferase (ALT/SGPT) (test code = 1742-6) 32 0-55 [facility] HospitalTotal Eljhbgr2118-47-49 05:56:00* Test Item Value Reference Range Interpretation Comments Total Protein (test code = 2885-2) 5.8 6.5-8.1 L [facility] HospitalAlbumin2020-01-27 05:56:00* Test Item Value Reference Range Interpretation Comments Albumin (test code = 1751-7) 3.1 3.5-5.0 L [facility] HospitalGlobulin2020-01-27 05:56:00* Test Item Value Reference Range Interpretation Comments Globulin (test code = 15243-1) 2.7 2.3-3.5 [facility] HospitalAlbumin/Globulin Jcxbq8281-85-84 05:56:00 * Test Item Value Reference Range Interpretation Comments Albumin/Globulin Ratio (test code = 1759-0) 1.1 0.8-2.0 [facility] HospitalAlkaline Gvitjxvjqhm5114-52-04 05:56:00* Test Item Value Reference Range Interpretation Comments Alkaline Phosphatase (test code = 6768-6) 81 40-150 [facility] Texaserum or plasma thyroxine (T4) free measurement (mass/volume)2019-12-28 04:18:00* Test Item Value Reference Range Interpretation Comments Free Thyroxine (test code = 3024-7) 0.73 0.8-1.8 [facility] [facility] plasma thyrotropin measurement by detection limit <= 0.005 miu/l (units/volume)2019-12-28 04:18:00* Test Item Value Reference Range Interpretation Comments Thyroid Stimulating Hormone (TSH) (test code = 88210-4) 2.044 0.350-4.940 [facility] or plasma thyroxine (T4) free measurement (mass/volume)2019-12-28 04:18:00* Test Item Value Reference Range Interpretation Comments Free Thyroxine (test code = 3024-7) 0.73 0.8-1.8 [facility] or plasma thyrotropin measurement by detection limit <= 0.005 miu/l (units/volume)2019-12-28 04:18:00* Test Item Value Reference Range Interpretation Comments Thyroid Stimulating Hormone (TSH) (test code = 76651-2) 2.044 0.350-4.940 [facility]atelet Morphology Zimxdyf4112-85-33 20:03:00* Test Item Value Reference Range Interpretation Comments Platelet Morphology Comment (test code = 09796-9) FEW LARGE NO EDTA PLT CLUMPS SEENMethodist Southlake HospitalCT PELVIS W 2019-12-27 19:57:00 [facility] [address] [address] Patient Name: SHARI DEAN MR #: [id number] : 1945 Age/Sex: 74/F Req #: [id number] Adm Physician: RENZO REEDER MD Ordered by: SUZANNE CARRILLO [employer] 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 Report #: [id number] Location: [facility] Room/Bed: [place] [address] Procedure: [id number] C T/CT PELVIS W Exam Date: 12/27/19 [...] on 12/27/192002 C OPY TO: SUZANNE CARRILLO [employer] 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 Urine Qjnnv2700-50-82 19:11:00* Test Item Value Reference Range Interpretation Comments Urine Color (test code = 5778-6) YELLOW YELLOW [facility] Eunfppp3567-58-86 19:11:00* Test Item Value Reference Range Interpretation Comments Urine Clarity (test code = 38994-4) CLEAR CLEAR [facility] Specific Qiyrpnm4227-51-96 19:11:00 * Test Item Value Reference Range Interpretation Comments Urine Specific [place] (test code = 5811-5) 1.020 1.010-1.02 5 [facility] uV3230-80-29 19:11:00* Test Item Value Reference Range Interpretation Comments Urine pH (test code = 59308-6) 6 5-7 [facility] Leukocyte Oxuwbfci2894-22-48 19:11:00* Test Item Value Reference Range Interpretation Comments Urine Leukocyte Esterase (test code = 5799-2) NEGATIVE NEGATIVE [facility] Whrrvrn2331-08-92 19:11:00* Test Item Value Reference Range Interpretation Comments Urine Nitrite (test code = 78237-6) POSITIVE NEGATIVE [facility] Mvxmdex6791-64-83 19:11:00* Test Item Value Reference Range Interpretation Comments Urine Protein (test code = 5804-0) NEGATIVE NEGATIVE [facility] Glucose (UA)2019-12-27 19:11:00* Test Item Value Reference Range Interpretation Comments Urine Glucose (UA) (test code = 2349-9) NEGATIVE NEGATIVE [facility] Rsrxzav2869-76-75 19:11:00* Test Item Value Reference Range Interpretation Comments Urine Ketones (test code = 16420-3) NEGATIVE NEGATIVE [facility] Grnearoqztct2801-08-83 19:11:00* Test Item Value Reference Range Interpretation Comments Urine Urobilinogen (test code = 40873-5) 0.2 0.2-1 [facility] Muvqxrkxi8712-58-37 19:11:00* Test Item Value Reference Range Interpretation Comments Urine Bilirubin (test code = 1978-6) NEGATIVE NEGATIVE [facility] Hrfik2448-06-31 19:11:00* Test Item Value Reference Range Interpretation Comments Urine Blood (test code = 78420-2) 1+ NEGATIVE [facility] AQG2883-24-35 19:11:00* Test Item Value Reference Range Interpretation Comments Urine WBC (test code = 5821-4) 6-10 0-5 H [facility] ELB8590-51-85 19:11:00* Test Item Value Reference Range Interpretation Comments Urine RBC (test code = 88801-1) 6-10 0-5 H [facility] Sgjmngza9464-27-79 19:11:00* Test Item Value Reference Range Interpretation Comments Urine Bacteria (test code = 27519-9) FEW NONE [facility] Epithelial Xbjqd3547-55-54 19:11:00 * Test Item Value Reference Range Interpretation Comments Urine Epithelial Cells (test code = 55174-3) FEW NONE [facility] color shvcylqduftnn0750-47-74 17:29:00* Test Item Value Reference Range Interpretation Comments Urine Color (test code = 5778-6) YELLOW YELLOW [facility] HospitalU[facility] qbafiar2126-08-48 17:29:00* Test Item Value Reference Range Interpretation Comments Urine Clarity (test code = 28857-0) CLEAR CLEAR [facility] gravity of Urine by Test strip 2019-12-27 17:29:00* Test Item Value Reference Range Interpretation Comments Urine Specific [place] (test code = 5811-5) 1.020 1.010-1.02 5 [facility] pH measurement by automated test bdbkg2208-22-57 17:29:00* Test Item Value Reference Range Interpretation Comments Urine pH (test code = 08207-1) 6 5-7 [facility] leukocyte esterase detection by rejblwlh2597-95-20 17:29:00* Test Item Value Reference Range Interpretation Comments Urine Leukocyte Esterase (test code = 5799-2) NEGATIVE NEGATIVE [facility] HospitalU[facility] nitrite tgsdilled5600-44-64 17:29:00* Test Item Value Reference Range Interpretation Comments Urine Nitrite (test code = 15253-7) POSITIVE NEGATIVE [facility] HospitalUrine protein measurement by test strip (mass/volume)2019-12-27 17:29:00* Test Item Value Reference Range Interpretation Comments Urine Protein (test code = 5804-0) NEGATIVE NEGATIVE [facility] glucose cmbkcsjya3927-87-32 17:29:00* Test Item Value Reference Range Interpretation Comments Urine Glucose (UA) (test code = 2349-9) NEGATIVE NEGATIVE [facility] HospitalUrine ketones detection by automated test cyngi5342-35-59 17:29:00* Test Item Value Reference Range Interpretation Comments Urine Ketones (test code = 11590-1) NEGATIVE NEGATIVE [facility] HospitalUrine urobilinogen measurement by test strip (mass/volume)2019-12-27 17:29:00* Test Item Value Reference Range Interpretation Comments Urine Urobilinogen (test code = 31514-4) 0.2 0.2-1 [facility] total bilirubin measurement (mass/volume)2019-12-27 17:29:00* Test Item Value Reference Range Interpretation Comments Urine Bilirubin (test code = 1978-6) NEGATIVE NEGATIVE [facility] HospitalU[facility] erythrocytes ejlpvgisx8161-74-27 17:29:00* Test Item Value Reference Range Interpretation Comments Urine Blood (test code = 99929-6) 1+ NEGATIVE [facility] HospitalAutomated urine sediment leukocyte count by microscopy (number/high power field)2019-12-27 17:29:00* Test Item Value Reference Range Interpretation Comments Urine WBC (test code = 5821-4) 6-10 0-5 [facility] HospitalErythrocytes detection in urine sediment by light csqczhjnma5664-83-16 17:29:00* Test Item Value Reference Range Interpretation Comments Urine RBC (test code = 01363-0) 6-10 0-5 [facility] HospitalBacteria detection in urine sediment by light sqwppyahrc9579-62-75 17:29:00* Test Item Value Reference Range Interpretation Comments Urine Bacteria (test code = 89973-3) FEW NONE [facility] HospitalEpithelial cells detection in urine sediment by light dvvnyajzjk2264-78-92 17:29:00* Test Item Value Reference Range Interpretation Comments Urine Epithelial Cells (test code = 34520-3) FEW NONE [facility] HospitalBacterial urine rzlhwaf4679-14-14 17:29:00* Test Item Value Reference Range Interpretation Comments Urine Culture (test code = 630-4) ENTEROBACTER AEROGENES [facility] HospitalBacterial urine tmqsjff8606-66-33 17:29:00* Test Item Value Reference Range Interpretation Comments Urine Culture (test code = 630-4) ENTEROBACTER AEROGENES [facility] HospitalPlatelet tnafogtdue0811-96-45 16:10:00* Test Item Value Reference Range Interpretation Comments Platelet Morphology Comment (test code = 21581-3) FEW LARGE NO EDTA PLT CLUMPS SEENMethodist Southlake HospitalPlatelet fmzxblqeed6170-21-48 16:10:00* Test Item Value Reference Range Interpretation Comments Platelet Morphology Comment (test code = 93406-8) FEW LARGE NO EDTA PLT CLUMPS SEENCHI [facility] GD1677-27-21 19:52:00 [facility] [address] [address] Patient Name: SHARI DEAN MR #: [id number] : 1945 Age/Sex: 74/F Req #: [id number] Adm Physician: Ordered by: MARTHA MORRIS NP Report #: [id number] Location: ER Room/Bed: Procedure: [id number] CT/CT CERVICAL SPINE WO Exam Date: Exam [...] COPY TO: MARTHA MORRIS NP CT BRAIN QU9249-59-01 19:48:[address] [address] Patient Name: SHARI DEAN MR #: [id number] : 1945 Age/Sex: 74/F Req #: [id number] Adm Physician: Ordered by: MARTHA MORRIS NP Report #: [id number] Location: ER Room/Bed: Procedure: [id number] CT/CT BRAIN WO Exam Date: Exam Time: [...] GAUDENCIO on 12/04/191951 COPY TO: MARTHA MORRIS [employer] 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 Urine MUW5481-36-25 01:31:00* Test Item Value Reference Range Interpretation Comments Urine WBC (test code = 5821-4) 21-50 0-5 H [facility] WVX9916-82-18 01:31:00* Test Item Value Reference Range Interpretation Comments Urine RBC (test code = 86175-1) 21-50 0-5 H [facility] HospitalU[facility] Fktrxyvr1631-89-05 01:31:00* Test Item Value Reference Range Interpretation Comments Urine Bacteria (test code = 10518-1) MANY NONE H [facility] HospitalU[facility] Epithelial Raias7974-71-58 01:31:00 * Test Item Value Reference Range Interpretation Comments Urine Epithelial Cells (test code = 78477-3) MANY NONE [facility] Njhhz4184-22-36 01:31:00* Test Item Value Reference Range Interpretation Comments Urine Mucus (test code = 8247-9) MODERATE RARE H [facility] VEY2692-78-63 01:31:00* Test Item Value Reference Range Interpretation Comments Urine WBC (test code = 5821-4) 21-50 0-5 H [facility] LTD4893-91-76 01:31:00* Test Item Value Reference Range Interpretation Comments Urine RBC (test code = 07806-5) 21-50 0-5 H [facility] Wyxiktqz0782-25-46 01:31:00* Test Item Value Reference Range Interpretation Comments Urine Bacteria (test code = 19040-8) MANY NONE H [facility] Epithelial Rxedy3653-92-33 01:31:00 * Test Item Value Reference Range Interpretation Comments Urine Epithelial Cells (test code = 32564-6) MANY NONE [facility] Aqmqo9562-28-43 01:31:00* Test Item Value Reference Range Interpretation Comments Urine Mucus (test code = 8247-9) MODERATE RARE H [facility] HCM2873-66-08 01:31:00* Test Item Value Reference Range Interpretation Comments Urine WBC (test code = 5821-4) 21-50 0-5 H [facility] BUK9680-30-06 01:31:00* Test Item Value Reference Range Interpretation Comments Urine RBC (test code = 69141-4) 21-50 0-5 H [facility] Rcnxrvef2405-33-54 01:31:00* Test Item Value Reference Range Interpretation Comments Urine Bacteria (test code = 31108-7) MANY NONE H [facility] Epithelial Uzpwa2863-37-25 01:31:00 * Test Item Value Reference Range Interpretation Comments Urine Epithelial Cells (test code = 44641-1) MANY NONE [facility] Gnhyt1956-26-52 01:31:00* Test Item Value Reference Range Interpretation Comments Urine Mucus (test code = 8247-9) MODERATE RARE H [facility] Rccjk5970-78-26 01:31:00* Test Item Value Reference Range Interpretation Comments Urine Mucus (test code = 8247-9) MODERATE RARE H [facility] Cqtpg7015-49-12 01:22:00* Test Item Value Reference Range Interpretation Comments Urine Color (test code = 5778-6) YELLOW YELLOW [facility] Uivjqjk0792-89-75 01:22:00* Test Item Value Reference Range Interpretation Comments Urine Clarity (test code = 05622-3) CLOUDY CLEAR H [facility] HospitalUrine Specific Zxneutk5251-13-06 01:22:00 * Test Item Value Reference Range Interpretation Comments Urine Specific [place] (test code = 5811-5) 1.025 1.010-1.02 5 [facility] sZ8965-08-25 01:22:00* Test Item Value Reference Range Interpretation Comments Urine pH (test code = 85834-6) 6 5-7 [facility] Leukocyte Ttzzjoqh6027-69-34 01:22:00* Test Item Value Reference Range Interpretation Comments Urine Leukocyte Esterase (test code = 97876-0) SMALL NEGATIV E [facility] Wpsejug9644-19-30 01:22:00* Test Item Value Reference Range Interpretation Comments Urine Nitrite (test code = 33806-0) NEGATIVE NEGATIVE [facility] Ntkiizk7932-20-32 01:22:00* Test Item Value Reference Range Interpretation Comments Urine Protein (test code = 29180-5) TRACE NEGATIVE H [facility] Glucose (UA)2019-05-19 01:22:00* Test Item Value Reference Range Interpretation Comments Urine Glucose (UA) (test code = 13099-9) 2+ NEGATIVE H [facility] Xrowvmh3223-26-24 01:22:00* Test Item Value Reference Range Interpretation Comments Urine Ketones (test code = 00379-4) 1+ NEGATIVE H [facility] Uaharvuxnnak7633-99-33 01:22:00* Test Item Value Reference Range Interpretation Comments Urine Urobilinogen (test code = 58279-4) 0.2 0.2-1 [facility] Oxghslppv5650-13-59 01:22:00* Test Item Value Reference Range Interpretation Comments Urine Bilirubin (test code = 1977-8) NEGATIVE NEGATIVE [facility] Xczym6153-34-46 01:22:00* Test Item Value Reference Range Interpretation Comments Urine Blood (test code = 26210-6) MODERATE NEGATIVE [facility] Jzeps6805-73-91 01:22:00* Test Item Value Reference Range Interpretation Comments Urine Color (test code = 5778-6) YELLOW YELLOW [facility] Uzbgzhn7454-75-31 01:22:00* Test Item Value Reference Range Interpretation Comments Urine Clarity (test code = 48689-8) CLOUDY CLEAR H [facility] Specific Ahlrjrw3299-15-54 01:22:00 * Test Item Value Reference Range Interpretation Comments Urine Specific [place] (test code = 5811-5) 1.025 1.010-1.02 5 [facility] uJ4793-51-15 01:22:00* Test Item Value Reference Range Interpretation Comments Urine pH (test code = 97467-1) 6 5-7 [facility] Leukocyte Anvupqdp2614-89-35 01:22:00* Test Item Value Reference Range Interpretation Comments Urine Leukocyte Esterase (test code = 64035-7) SMALL NEGATIV E [facility] Jwhfrtu5997-09-51 01:22:00* Test Item Value Reference Range Interpretation Comments Urine Nitrite (test code = 54237-1) NEGATIVE NEGATIVE [facility] Zyvtzqu5791-19-40 01:22:00* Test Item Value Reference Range Interpretation Comments Urine Protein (test code = 82895-1) TRACE NEGATIVE H [facility] Glucose (UA)2019-05-19 01:22:00* Test Item Value Reference Range Interpretation Comments Urine Glucose (UA) (test code = 00394-7) 2+ NEGATIVE H [facility] Gbuwjmy0963-04-67 01:22:00* Test Item Value Reference Range Interpretation Comments Urine Ketones (test code = 44378-6) 1+ NEGATIVE H [facility] Qhknxoyrjsei0651-32-50 01:22:00* Test Item Value Reference Range Interpretation Comments Urine Urobilinogen (test code = 13301-5) 0.2 0.2-1 [facility] Fmvvczrxr7010-33-17 01:22:00* Test Item Value Reference Range Interpretation Comments Urine Bilirubin (test code = 1977-8) NEGATIVE NEGATIVE [facility] Wxqhm6933-97-01 01:22:00* Test Item Value Reference Range Interpretation Comments Urine Blood (test code = 70888-5) MODERATE NEGATIVE [facility] Srrfi7170-25-77 01:22:00* Test Item Value Reference Range Interpretation Comments Urine Color (test code = 5778-6) YELLOW YELLOW [facility] Rugonyk4210-99-31 01:22:00* Test Item Value Reference Range Interpretation Comments Urine Clarity (test code = 21569-8) CLOUDY CLEAR H [facility] Specific Icqgqed2051-01-12 01:22:00 * Test Item Value Reference Range Interpretation Comments Urine Specific [place] (test code = 5811-5) 1.025 1.010-1.02 5 [facility] iU5768-42-45 01:22:00* Test Item Value Reference Range Interpretation Comments Urine pH (test code = 90146-5) 6 5-7 [facility] Leukocyte Lqkzzaqz8289-77-88 01:22:00* Test Item Value Reference Range Interpretation Comments Urine Leukocyte Esterase (test code = 74210-6) SMALL NEGATIV E [facility] Chivcav8663-47-81 01:22:00* Test Item Value Reference Range Interpretation Comments Urine Nitrite (test code = 29797-5) NEGATIVE NEGATIVE [facility] Uuxadsx8404-22-16 01:22:00* Test Item Value Reference Range Interpretation Comments Urine Protein (test code = 10151-5) TRACE NEGATIVE H [facility] Glucose (UA)2019-05-19 01:22:00* Test Item Value Reference Range Interpretation Comments Urine Glucose (UA) (test code = 13514-5) 2+ NEGATIVE H [facility] Aqdjcoq7768-74-12 01:22:00* Test Item Value Reference Range Interpretation Comments Urine Ketones (test code = 89893-5) 1+ NEGATIVE H [facility] Gvzbwojredvq6199-18-77 01:22:00* Test Item Value Reference Range Interpretation Comments Urine Urobilinogen (test code = 08432-7) 0.2 0.2-1 [facility] Ahmcvrwqd3780-71-77 01:22:00* Test Item Value Reference Range Interpretation Comments Urine Bilirubin (test code = 1977-8) NEGATIVE NEGATIVE [facility] Udgum7921-69-77 01:22:00* Test Item Value Reference Range Interpretation Comments Urine Blood (test code = 13775-6) MODERATE NEGATIVE [facility] Ckfft7010-65-69 01:21:00* Test Item Value Reference Range Interpretation Comments Sodium Level (test code = 2951-2) 139 136-145 [facility] HospitalPotassium Vziir3063-29-08 01:21:00* Test Item Value Reference Range Interpretation Comments Potassium Level (test code = 2823-3) 3.9 3.5-5.1 [facility] HospitalChloride Nvvsx4905-02-74 01:21:00* Test Item Value Reference Range Interpretation Comments Chloride Level (test code = 2075-0) 101 98-107 [facility] HospitalCarbon Dioxide Wpdbt9364-95-49 01:21:00* Test Item Value Reference Range Interpretation Comments Carbon Dioxide Level (test code = 2028-9) 29 22-29 [facility] HospitalAnion Nyl9636-85-61 01:21:00* Test Item Value Reference Range Interpretation Comments Anion Gap (test code = 13100-1) 12.9 8-16 [facility] HospitalBlood Urea Fdizfdsm8036-84-27 01:21:00* Test Item Value Reference Range Interpretation Comments Blood Urea Nitrogen (test code = 3094-0) 18 7-26 [facility] HospitalCreatinine2019-06-18 01:21:00* Test Item Value Reference Range Interpretation Comments Creatinine (test code = 2160-0) 0.99 0.57-1.11 [facility] HospitalBUN/Creatinine Zlnnu9410-01-13 01:21:00* Test Item Value Reference Range Interpretation Comments BUN/Creatinine Ratio (test code = 3097-3) 18 6-25 [facility] HospitalEstimat Glomerular Filtration Rate 2019-05-19 01:21:00* Test Item Value Reference Range Interpretation Comments Estimat Glomerular Filtration Rate (test code = 446341036) 55 >60 L Ranges were taken from the National Kidney Disease Education Program and the [facility] literature.Reference ranges:60 or greater: Veaymv86-81 ( for 3 consecutive months): Chronic kidney disease 15 or less: Kidney failureMethodist Southlake HospitalGlucose Adloy9289-32-40 01:21:00* Test Item Value Reference Range Interpretation Comments Glucose Level (test code = OKQ9171) 136 74-118 H [facility] HospitalCalcium Jstal1376-82-21 01:21:00* Test Item Value Reference Range Interpretation Comments Calcium Level (test code = 06376-2) 9.7 8.4-10.2 [facility] HospitalTotal Fexdpigpr4927-25-75 01:21:00* Test Item Value Reference Range Interpretation Comments Total Bilirubin (test code = 1975-2) 0.3 0.2-1.2 [facility] HospitalAspartate Amino Transf (AST/SGOT) 2019-05-19 01:21:00* Test Item Value Reference Range Interpretation Comments Aspartate Amino Transf (AST/SGOT) (test code = Aspartate Amino Transf (AST/SGOT)) 17 5-34 [facility] HospitalAlanine Aminotransferase (ALT/SGPT) 2019-05-19 01:21:00* Test Item Value Reference Range Interpretation Comments Alanine Aminotransferase (ALT/SGPT) (test code = 1742-6) 22 0-55 [facility] HospitalTotal Ilkhfbc9922-80-60 01:21:00* Test Item Value Reference Range Interpretation Comments Total Protein (test code = 2885-2) 7.0 6.5-8.1 [facility] HospitalAlbumin2019-06-18 01:21:00* Test Item Value Reference Range Interpretation Comments Albumin (test code = 1751-7) 3.5 3.5-5.0 [facility] HospitalGlobulin2019-06-18 01:21:00* Test Item Value Reference Range Interpretation Comments Globulin (test code = 66871-1) 3.5 2.3-3.5 [facility] HospitalAlbumin/Globulin Jnocl9713-67-18 01:21:00 * Test Item Value Reference Range Interpretation Comments Albumin/Globulin Ratio (test code = 1759-0) 1.0 0.8-2.0 [facility] HospitalAlkaline Ltcvqnjkszr4693-09-09 01:21:00* Test Item Value Reference Range Interpretation Comments Alkaline Phosphatase (test code = 6768-6) 127 40-150 [facility] Qxycb5375-30-51 01:21:00* Test Item Value Reference Range Interpretation Comments Sodium Level (test code = 2951-2) 139 136-145 [facility] HospitalPotassium Lugik6396-63-44 01:21:00* Test Item Value Reference Range Interpretation Comments Potassium Level (test code = 2823-3) 3.9 3.5-5.1 [facility] HospitalChloride Zrptn1965-78-46 01:21:00* Test Item Value Reference Range Interpretation Comments Chloride Level (test code = 2075-0) 101 98-107 [facility] HospitalCarbon Dioxide Aavig9638-02-83 01:21:00* Test Item Value Reference Range Interpretation Comments Carbon Dioxide Level (test code = 2028-9) 29 22-29 [facility] HospitalAnion Ucr9098-74-22 01:21:00* Test Item Value Reference Range Interpretation Comments Anion Gap (test code = 11001-4) 12.9 8-16 [facility] HospitalBlood Urea Cknhbtmi4859-21-88 01:21:00* Test Item Value Reference Range Interpretation Comments Blood Urea Nitrogen (test code = 3094-0) 18 7-26 [facility] HospitalCreatinine2019-06-18 01:21:00* Test Item Value Reference Range Interpretation Comments Creatinine (test code = 2160-0) 0.99 0.57-1.11 [facility] HospitalBUN/Creatinine Lrofk3326-34-23 01:21:00* Test Item Value Reference Range Interpretation Comments BUN/Creatinine Ratio (test code = 3097-3) 18 6-25 [facility] HospitalEstimat Glomerular Filtration Rate 2019-05-19 01:21:00* Test Item Value Reference Range Interpretation Comments Estimat Glomerular Filtration Rate (test code = 662611760) 55 >60 L Ranges were taken from the National Kidney Disease Education Program and the [facility] literature.Reference ranges:60 or greater: Crwsve24-86 ( for 3 consecutive months): Chronic kidney disease 15 or less: Kidney failureMethodist Southlake HospitalGlucose Axyit1780-12-79 01:21:00* Test Item Value Reference Range Interpretation Comments Glucose Level (test code = ASO3324) 136 74-118 H [facility] HospitalCalcium Pobpp7550-50-97 01:21:00* Test Item Value Reference Range Interpretation Comments Calcium Level (test code = 17345-1) 9.7 8.4-10.2 [facility] HospitalTotal Yhbclezey7771-29-76 01:21:00* Test Item Value Reference Range Interpretation Comments Total Bilirubin (test code = 1975-2) 0.3 0.2-1.2 [facility] HospitalAspartate Amino Transf (AST/SGOT) 2019-05-19 01:21:00* Test Item Value Reference Range Interpretation Comments Aspartate Amino Transf (AST/SGOT) (test code = Aspartate Amino Transf (AST/SGOT)) 17 5-34 [facility] HospitalAlanine Aminotransferase (ALT/SGPT) 2019-05-19 01:21:00* Test Item Value Reference Range Interpretation Comments Alanine Aminotransferase (ALT/SGPT) (test code = 1742-6) 22 0-55 [facility] HospitalTotal Jecocsy5317-52-08 01:21:00* Test Item Value Reference Range Interpretation Comments Total Protein (test code = 2885-2) 7.0 6.5-8.1 [facility] HospitalAlbumin2019-06-18 01:21:00* Test Item Value Reference Range Interpretation Comments Albumin (test code = 1751-7) 3.5 3.5-5.0 [facility] HospitalGlobulin2019-06-18 01:21:00* Test Item Value Reference Range Interpretation Comments Globulin (test code = 00381-0) 3.5 2.3-3.5 [facility] HospitalAlbumin/Globulin Saakr7556-57-21 01:21:00 * Test Item Value Reference Range Interpretation Comments Albumin/Globulin Ratio (test code = 1759-0) 1.0 0.8-2.0 [facility] HospitalAlkaline Ddsqgjyaqsx0693-66-00 01:21:00* Test Item Value Reference Range Interpretation Comments Alkaline Phosphatase (test code = 6768-6) 127 40-150 [facility] Nfvwp6844-55-95 01:21:00* Test Item Value Reference Range Interpretation Comments Sodium Level (test code = 2951-2) 139 136-145 [facility] HospitalPotassium Cpwfc5749-71-42 01:21:00* Test Item Value Reference Range Interpretation Comments Potassium Level (test code = 2823-3) 3.9 3.5-5.1 [facility] HospitalChloride Tzqkv9856-93-78 01:21:00* Test Item Value Reference Range Interpretation Comments Chloride Level (test code = 2075-0) 101 98-107 [facility] HospitalCarbon Dioxide Gsqqx8914-81-16 01:21:00* Test Item Value Reference Range Interpretation Comments Carbon Dioxide Level (test code = 2028-9) 29 22-29 [facility] HospitalAnion Tau5788-43-28 01:21:00* Test Item Value Reference Range Interpretation Comments Anion Gap (test code = 58158-3) 12.9 8-16 [facility] HospitalBlood Urea Gcanqtff0783-84-00 01:21:00* Test Item Value Reference Range Interpretation Comments Blood Urea Nitrogen (test code = 3094-0) 18 7-26 [facility] HospitalCreatinine2019-06-18 01:21:00* Test Item Value Reference Range Interpretation Comments Creatinine (test code = 2160-0) 0.99 0.57-1.11 [facility] HospitalBUN/Creatinine Xvvrr9772-99-00 01:21:00* Test Item Value Reference Range Interpretation Comments BUN/Creatinine Ratio (test code = 3097-3) 18 6-25 [facility] HospitalEstimat Glomerular Filtration Rate 2019-05-19 01:21:00* Test Item Value Reference Range Interpretation Comments Estimat Glomerular Filtration Rate (test code = 498289439) 55 >60 L Ranges were taken from the National Kidney Disease Education Program and the [facility] Foundation literature.Reference ranges:60 or greater: Orjqeu45-58 ( for 3 consecutive months): Chronic kidney disease 15 or less: Kidney failureMethodist Southlake HospitalGlucose Bgoyx5415-13-50 01:21:00* Test Item Value Reference Range Interpretation Comments Glucose Level (test code = WEV9581) 136 74-118 H [facility] HospitalCalcium Zpulp7621-33-47 01:21:00* Test Item Value Reference Range Interpretation Comments Calcium Level (test code = 10235-2) 9.7 8.4-10.2 [facility]Total Ddmjtqfvd4363-24-06 01:21:00* Test Item Value Reference Range Interpretation Comments Total Bilirubin (test code = 1975-2) 0.3 0.2-1.2 [facility] HospitalAspartate Amino Transf (AST/SGOT) 2019-05-19 01:21:00* Test Item Value Reference Range Interpretation Comments Aspartate Amino Transf (AST/SGOT) (test code = Aspartate Amino Transf (AST/SGOT)) 17 5-34 [facility] HospitalAlanine Aminotransferase (ALT/SGPT) 2019-05-19 01:21:00* Test Item Value Reference Range Interpretation Comments Alanine Aminotransferase (ALT/SGPT) (test code = 1742-6) 22 0-55 [facility]Total Emfitnv6318-96-52 01:21:00* Test Item Value Reference Range Interpretation Comments Total Protein (test code = 2885-2) 7.0 6.5-8.1 [facility] HospitalAlbumin2019-06-18 01:21:00* Test Item Value Reference Range Interpretation Comments Albumin (test code = 1751-7) 3.5 3.5-5.0 [facility] HospitalGlobulin2019-06-18 01:21:00* Test Item Value Reference Range Interpretation Comments Globulin (test code = 60854-7) 3.5 2.3-3.5 [facility] HospitalAlbumin/Globulin Spupk6862-37-76 01:21:00 * Test Item Value Reference Range Interpretation Comments Albumin/Globulin Ratio (test code = 1759-0) 1.0 0.8-2.0 [facility] HospitalAlkaline Jbsyhwceugh3642-46-49 01:21:00* Test Item Value Reference Range Interpretation Comments Alkaline Phosphatase (test code = 6768-6) 127 40-150 [facility] HospitalWhite Blood Mammy9057-07-95 00:58:00* Test Item Value Reference Range Interpretation Comments White Blood Count (test code = 6690-2) 7.85 4.8-10.8 [facility] HospitalRed Blood Mwdft5448-08-22 00:58:00* Test Item Value Reference Range Interpretation Comments Red Blood Count (test code = 789-8) 4.54 3.6-5.1 [facility] HospitalHemoglobin2019-06-18 00:58:00* Test Item Value Reference Range Interpretation Comments Hemoglobin (test code = 58488-5) 13.1 12.0-16.0 [facility] HospitalHematocrit2019-06-18 00:58:00* Test Item Value Reference Range Interpretation Comments Hematocrit (test code = 4544-3) 40.4 34.2-44.1 [facility] HospitalMean Corpuscular Oqbzqr9302-31-92 00:58:00* Test Item Value Reference Range Interpretation Comments Mean Corpuscular Volume (test code = 787-2) 89.0 81-99 [facility] HospitalMean Corpuscular Fuqultjakc8455-17-28 00:58:00* Test Item Value Reference Range Interpretation Comments Mean Corpuscular Hemoglobin (test code = 785-6) 28.9 28-32 [facility] HospitalMean Corpuscular Hemoglobin Concent 2019-05-19 00:58:00* Test Item Value Reference Range Interpretation Comments Mean Corpuscular Hemoglobin Concent (test code = 786-4) 32.4 31-35 [facility] HospitalRed Cell Distribution Hplfc0646-33-53 00:58:00* Test Item Value Reference Range Interpretation Comments Red Cell Distribution Width (test code = 02878-1) 14.0 11.7 -14.4 [facility] HospitalPlatelet Dqxsz1404-73-37 00:58:00* Test Item Value Reference Range Interpretation Comments Platelet Count (test code = 777-3) 278 140-360 [facility] HospitalNeutrophils (%) (Auto)2019-05-19 00:58:00 * Test Item Value Reference Range Interpretation Comments Neutrophils (%) (Auto) (test code = 25165-1) 61.6 38.7-80.0 [facility] HospitalLymphocytes (%) (Auto)2019-05-19 00:58:00 * Test Item Value Reference Range Interpretation Comments Lymphocytes (%) (Auto) (test code = 736-9) 27.3 18.0-39.1 [facility] HospitalMonocytes (%) (Auto)2019-05-19 00:58:00* Test Item Value Reference Range Interpretation Comments Monocytes (%) (Auto) (test code = 5905-5) 9.0 4.4-11.3 [facility] HospitalEosinophils (%) (Auto)2019-05-19 00:58:00 * Test Item Value Reference Range Interpretation Comments Eosinophils (%) (Auto) (test code = 713-8) 1.4 0.0-6.0 [facility] HospitalBasophils (%) (Auto)2019-05-19 00:58:00* Test Item Value Reference Range Interpretation Comments Basophils (%) (Auto) (test code = 706-2) 0.3 0.0-1.0 [facility] HospitalIM GRANULOCYTES %2019-05-19 00:58:00* Test Item Value Reference Range Interpretation Comments IM GRANULOCYTES % (test code = IM GRANULOCYTES %) 0.4 0.0- 1.0 [facility] HospitalNeutrophils # (Auto)2019-05-19 00:58:00* Test Item Value Reference Range Interpretation Comments Neutrophils # (Auto) (test code = 751-8) 4.8 2.1-6.9 [facility] HospitalLymphocytes # (Auto)2019-05-19 00:58:00* Test Item Value Reference Range Interpretation Comments Lymphocytes # (Auto) (test code = 80330-9) 2.1 1.0-3.2 [facility] HospitalMonocytes # (Auto)2019-05-19 00:58:00* Test Item Value Reference Range Interpretation Comments Monocytes # (Auto) (test code = 742-7) 0.7 0.2-0.8 [facility] HospitalEosinophils # (Auto)2019-05-19 00:58:00* Test Item Value Reference Range Interpretation Comments Eosinophils # (Auto) (test code = 711-2) 0.1 0.0-0.4 [facility] HospitalBasophils # (Auto)2019-05-19 00:58:00* Test Item Value Reference Range Interpretation Comments Basophils # (Auto) (test code = 704-7) 0.0 0.0-0.1 [facility] HospitalAbsolute Immature Granulocyte (auto 2019-05-19 00:58:00* Test Item Value Reference Range Interpretation Comments Absolute Immature Granulocyte (auto (nazia t code = Absolute Immature Granulocyte (auto) 0.03 0-0.1 [facility] HospitalWhite Blood Psunw0320-67-50 00:58:00* Test Item Value Reference Range Interpretation Comments White Blood Count (test code = 6690-2) 7.85 4.8-10.8 [facility] HospitalRed Blood Wcfpk7539-50-15 00:58:00* Test Item Value Reference Range Interpretation Comments Red Blood Count (test code = 789-8) 4.54 3.6-5.1 [facility] HospitalHemoglobin2019-06-18 00:58:00* Test Item Value Reference Range Interpretation Comments Hemoglobin (test code = 63449-9) 13.1 12.0-16.0 [facility] HospitalHematocrit2019-06-18 00:58:00* Test Item Value Reference Range Interpretation Comments Hematocrit (test code = 4544-3) 40.4 34.2-44.1 [facility] HospitalMean Corpuscular Hstawe7561-02-03 00:58:00* Test Item Value Reference Range Interpretation Comments Mean Corpuscular Volume (test code = 787-2) 89.0 81-99 [facility] HospitalMean Corpuscular Ieateofvla9490-22-35 00:58:00* Test Item Value Reference Range Interpretation Comments Mean Corpuscular Hemoglobin (test code = 785-6) 28.9 28-32 [facility] HospitalMean Corpuscular Hemoglobin Concent 2019-05-19 00:58:00* Test Item Value Reference Range Interpretation Comments Mean Corpuscular Hemoglobin Concent (test code = 786-4) 32.4 31-35 [facility] HospitalRed Cell Distribution Naxlt0156-13-45 00:58:00* Test Item Value Reference Range Interpretation Comments Red Cell Distribution Width (test code = 47729-1) 14.0 11.7 -14.4 [facility] HospitalPlatelet Oqyxn4530-55-18 00:58:00* Test Item Value Reference Range Interpretation Comments Platelet Count (test code = 777-3) 278 140-360 [facility] HospitalNeutrophils (%) (Auto)2019-05-19 00:58:00 * Test Item Value Reference Range Interpretation Comments Neutrophils (%) (Auto) (test code = 40809-4) 61.6 38.7-80.0 [facility] HospitalLymphocytes (%) (Auto)2019-05-19 00:58:00 * Test Item Value Reference Range Interpretation Comments Lymphocytes (%) (Auto) (test code = 736-9) 27.3 18.0-39.1 [facility] HospitalMonocytes (%) (Auto)2019-05-19 00:58:00* Test Item Value Reference Range Interpretation Comments Monocytes (%) (Auto) (test code = 5905-5) 9.0 4.4-11.3 [facility] HospitalEosinophils (%) (Auto)2019-05-19 00:58:00 * Test Item Value Reference Range Interpretation Comments Eosinophils (%) (Auto) (test code = 713-8) 1.4 0.0-6.0 [facility] HospitalBasophils (%) (Auto)2019-05-19 00:58:00* Test Item Value Reference Range Interpretation Comments Basophils (%) (Auto) (test code = 706-2) 0.3 0.0-1.0 [facility] HospitalIM GRANULOCYTES %2019-05-19 00:58:00* Test Item Value Reference Range Interpretation Comments IM GRANULOCYTES % (test code = IM GRANULOCYTES %) 0.4 0.0- 1.0 [facility] HospitalNeutrophils # (Auto)2019-05-19 00:58:00* Test Item Value Reference Range Interpretation Comments Neutrophils # (Auto) (test code = 751-8) 4.8 2.1-6.9 [facility] HospitalLymphocytes # (Auto)2019-05-19 00:58:00* Test Item Value Reference Range Interpretation Comments Lymphocytes # (Auto) (test code = 91334-3) 2.1 1.0-3.2 [facility] HospitalMonocytes # (Auto)2019-05-19 00:58:00* Test Item Value Reference Range Interpretation Comments Monocytes # (Auto) (test code = 742-7) 0.7 0.2-0.8 [facility] HospitalEosinophils # (Auto)2019-05-19 00:58:00* Test Item Value Reference Range Interpretation Comments Eosinophils # (Auto) (test code = 711-2) 0.1 0.0-0.4 [facility] HospitalBasophils # (Auto)2019-05-19 00:58:00* Test Item Value Reference Range Interpretation Comments Basophils # (Auto) (test code = 704-7) 0.0 0.0-0.1 [facility] HospitalAbsolute Immature Granulocyte (auto 2019-05-19 00:58:00* Test Item Value Reference Range Interpretation Comments Absolute Immature Granulocyte (auto (nazia t code = Absolute Immature Granulocyte (auto) 0.03 0-0.1 [facility] HospitalWhite Blood Xzlcw3214-55-83 00:58:00* Test Item Value Reference Range Interpretation Comments White Blood Count (test code = 6690-2) 7.85 4.8-10.8 [facility] HospitalRed Blood Atpac0048-42-42 00:58:00* Test Item Value Reference Range Interpretation Comments Red Blood Count (test code = 789-8) 4.54 3.6-5.1 [facility] HospitalHemoglobin2019-06-18 00:58:00* Test Item Value Reference Range Interpretation Comments Hemoglobin (test code = 44640-7) 13.1 12.0-16.0 [facility] HospitalHematocrit2019-06-18 00:58:00* Test Item Value Reference Range Interpretation Comments Hematocrit (test code = 4544-3) 40.4 34.2-44.1 [facility] HospitalMean Corpuscular Fcznip3910-28-22 00:58:00* Test Item Value Reference Range Interpretation Comments Mean Corpuscular Volume (test code = 787-2) 89.0 81-99 [facility]Mean Corpuscular Qyvgveibyj4610-70-65 00:58:00* Test Item Value Reference Range Interpretation Comments Mean Corpuscular Hemoglobin (test code = 785-6) 28.9 28-32 [facility] HospitalMean Corpuscular Hemoglobin Concent 2019-05-19 00:58:00* Test Item Value Reference Range Interpretation Comments Mean Corpuscular Hemoglobin Concent (test code = 786-4) 32.4 31-35 [facility] HospitalRed Cell Distribution Aivyv6117-06-17 00:58:00* Test Item Value Reference Range Interpretation Comments Red Cell Distribution Width (test code = 50961-5) 14.0 11.7 -14.4 [facility] HospitalPlatelet Jtoqv7090-20-01 00:58:00* Test Item Value Reference Range Interpretation Comments Platelet Count (test code = 777-3) 278 140-360 [facility] HospitalNeutrophils (%) (Auto)2019-05-19 00:58:00 * Test Item Value Reference Range Interpretation Comments Neutrophils (%) (Auto) (test code = 41197-2) 61.6 38.7-80.0 [facility] HospitalLymphocytes (%) (Auto)2019-05-19 00:58:00 * Test Item Value Reference Range Interpretation Comments Lymphocytes (%) (Auto) (test code = 736-9) 27.3 18.0-39.1 [facility] HospitalMonocytes (%) (Auto)2019-05-19 00:58:00* Test Item Value Reference Range Interpretation Comments Monocytes (%) (Auto) (test code = 5905-5) 9.0 4.4-11.3 [facility] HospitalEosinophils (%) (Auto)2019-05-19 00:58:00 * Test Item Value Reference Range Interpretation Comments Eosinophils (%) (Auto) (test code = 713-8) 1.4 0.0-6.0 [facility] HospitalBasophils (%) (Auto)2019-05-19 00:58:00* Test Item Value Reference Range Interpretation Comments Basophils (%) (Auto) (test code = 706-2) 0.3 0.0-1.0 [facility] HospitalIM GRANULOCYTES %2019-05-19 00:58:00* Test Item Value Reference Range Interpretation Comments IM GRANULOCYTES % (test code = IM GRANULOCYTES %) 0.4 0.0- 1.0 [facility] HospitalNeutrophils # (Auto)2019-05-19 00:58:00* Test Item Value Reference Range Interpretation Comments Neutrophils # (Auto) (test code = 751-8) 4.8 2.1-6.9 [facility] HospitalLymphocytes # (Auto)2019-05-19 00:58:00* Test Item Value Reference Range Interpretation Comments Lymphocytes # (Auto) (test code = 01074-7) 2.1 1.0-3.2 [facility] HospitalMonocytes # (Auto)2019-05-19 00:58:00* Test Item Value Reference Range Interpretation Comments Monocytes # (Auto) (test code = 742-7) 0.7 0.2-0.8 [facility] HospitalEosinophils # (Auto)2019-05-19 00:58:00* Test Item Value Reference Range Interpretation Comments Eosinophils # (Auto) (test code = 711-2) 0.1 0.0-0.4 [facility] HospitalBasophils # (Auto)2019-05-19 00:58:00* Test Item Value Reference Range Interpretation Comments Basophils # (Auto) (test code = 704-7) 0.0 0.0-0.1 [facility] HospitalAbsolute Immature Granulocyte (auto 2019-05-19 00:58:00* Test Item Value Reference Range Interpretation Comments Absolute Immature Granulocyte (auto (nazia t code = Absolute Immature Granulocyte (auto) 0.03 0-0.1 [facility] JASON CAD DIGITAL 2019-02-18 16:30:28 - SCR MAMM BILATERAL JASON CAD DIGITALBILATERAL DIGITAL SCREENING MAMMOGRAM 3D/2D WITH CAD: 02/18/2019CLINICAL: Asymptomatic. Current mammographic images were evaluated by either a Amplifinity M-Vu or an iCAD version 7.2 computer aided detection system. Comparison is made to exams dated 10/11/2017 mammogram, 11/10/2015 mammogram, and 11/01/2014 mammogram - [facility]-. There are scattered fibroglandular tissues in both breasts. No suspicious mass, architectural distortion, malignant type calcification, or lymph node abnormality detected. Breast architecture is stable compared to prior exams.IMPRESSION: NEGATIVEThere is no mammographic evidence of malignancy. Resume annual screening mammography in one year. Yordan nguyen/penrad:02/18/2019 16:30:28 Attending Technologist: Albertina MCKNIGHT, [facility]-FWImaging Technologist: Allison MCKNIGHT, [facility]-FWletter sent: BIRADS 1-2 Normal Mammogram BI-RADS: 1 NegativeKNEE RIGHT THREE TBIZX8468-87-57 04:53:00 [place] [address] Patient Name: SHARI DEAN MR #: [id number] : 1945 Age/Sex: 73/F Req #: [id number] Adm Physician: Ordered by: KRISTEN COLVIN MD Report #: [id number] Location: ER Room/Bed: Procedure: [id number] DX/ KNEE RIGHT THREE VIEWS Exam Date: [...] nically Signed By: LIZANDRO RODRÍGUEZ MD on 11/01/18 0455 Transcribed By: GAUDENCIO on 11/01/18 0593 COPY TO: KRISTEN COLVIN MD PELVIS AP 1-2 VIEWS 2018-11-01 04:52:00 [place] [address] Patient Name: SHARI DEAN MR #: [id number] : 1945 Age/Sex: 73/F Req #: [id number] Adm Physician: Ordered by: KRISTEN COLVIN MD Report #: [id number] Location: ER Room/Bed: Procedure: [id number] DX/ PELVIS AP 1-2 VIEWS Exam Date: [...] on 11/01/18452 COPY TO: KRISTEN GRAYSON MD [facility] Sam/QUS5127-43-59 04:50:00 [place] [address] Patient Name: SHARI DEAN MR #: [id number] : 1945 Age/Sex: 73/F Req #: [id number] Adm Physician: Ordered by: KRISTEN COLVIN MD Report #: [id number] Location: ER Room/Bed: Procedure: [id number] DX/ RIBS UNILAT W/CXR Exam Date: 11/01/18 [...] COLVIN MD CHEST 2 VIEWS 2018-11-01 04:50:00 [place] [address] Patient Name: SHARI DEAN MR #: [id number] : 1945 Age/Sex: 73/F Req #: [id number] Adm Physician: Ordered by: KRISTEN COLVIN MD Report #: [id number] Location: ER Room/Bed: Procedure: [id number] DX/ CHEST 2 VIEWS Exam Date: 11/01/18 Exam Time: 414 REPORT STATUS: Signed EXAM: CHEST 2 VIEWS, [...] 4:52 AM Dictated By: LIZANDRO RODRÍGUEZ MD [facility] icall Signed By: LIZANDRO RODRÍGUEZ MD on 11/01/18451 Transcribed By: GAUDENCIO on 11/01/18451 COPY TO: KRISTEN COLVIN MD CT CERVICAL SPINE WO 2018-11-01 04:16:00 [place] [address] Patient Name: SHARI DEAN MR #: [id number] : 1945 Age/Sex: 73/F Req #: [id number] Adm Physician: Ordered by: KRISTEN COLVIN MD Report #: [id number] Location: ER Room/Bed: Procedure: [id number] CT/ CT CERVICAL SPINE WO Exam Date: [...] COPY TO: KRISTEN COLVIN MD CT BRAIN YO1336-86-15 04:14:00 [place] [address] Patient Name: SHARI DEAN MR #: [id number] : 1945 Age/Sex: 73/F Req #: [id number] Adm Physician: Ordered by: KRISTEN COLVIN MD Report #: [id number] Location: ER Room/Bed: Procedure: [id number] CT/ CT BRAIN WO Exam Date: Exam [...] COPY TO: KRISTEN COLVIN MD Creatine Kinase II5183-81-65 03:33:00* Test Item Value Reference Range Interpretation Comments Creatine Kinase MB (test code = 07100-6) 3.00 0-5.0 [facility]Tr[facility] Z5764-66-61 03:33:00* Test Item Value Reference Range Interpretation Comments Troponin I (test code = UJM6452) 0.005 0-0.300 [facility] HospitalCreatine Kinase BC7072-64-56 03:33:00* Test Item Value Reference Range Interpretation Comments Creatine Kinase MB (test code = 65334-9) 3.00 0-5.0 [facility]Tr[facility] hospitaln O7953-77-65 03:33:00* Test Item Value Reference Range Interpretation Comments Troponin I (test code = CKN8581) 0.005 0-0.300 [facility] Cwete7719-96-24 03:24:00* Test Item Value Reference Range Interpretation Comments Sodium Level (test code = 2951-2) 140 136-145 [facility] HospitalPotassium Hviyx9695-30-60 03:24:00* Test Item Value Reference Range Interpretation Comments Potassium Level (test code = 2823-3) 4.0 3.5-5.1 [facility] HospitalChloride Ohfzp8611-31-35 03:24:00* Test Item Value Reference Range Interpretation Comments Chloride Level (test code = 2075-0) 100 98-107 [facility] HospitalCarbon Dioxide Phsmq8120-74-88 03:24:00* Test Item Value Reference Range Interpretation Comments Carbon Dioxide Level (test code = 2028-9) 31 22-29 H [facility] HospitalAnion Bix2260-12-60 03:24:00* Test Item Value Reference Range Interpretation Comments Anion Gap (test code = 03239-1) 13.0 8-16 [facility] HospitalBlood Urea Mvsdfhxv3579-12-42 03:24:00* Test Item Value Reference Range Interpretation Comments Blood Urea Nitrogen (test code = 3094-0) 20 7-26 [facility] HospitalCreatinine2018-12-01 03:24:00* Test Item Value Reference Range Interpretation Comments Creatinine (test code = 2160-0) 0.91 0.57-1.11 [facility] HospitalBUN/Creatinine Gckov0724-91-44 03:24:00* Test Item Value Reference Range Interpretation Comments BUN/Creatinine Ratio (test code = 3097-3) 22 6-25 [facility] HospitalEstimat Glomerular Filtration Rate 2018-11-01 03:24:00* Test Item Value Reference Range Interpretation Comments Estimat Glomerular Filtration Rate (test code = 274935278) 60 >60 Ranges were taken from the National Kidney Disease Education Program and the [facility] Foundation literature.Reference ranges:60 or greater: Miqdtq43-05 ( for 3 consecutive months): Chronic kidney disease 15 or less: Kidney failureMethodist Southlake HospitalGlucose Gpwmc9517-88-39 03:24:00* Test Item Value Reference Range Interpretation Comments Glucose Level (test code = GLM5849) 202 74-118 H [facility] HospitalCalcium Bqamh8178-18-31 03:24:00* Test Item Value Reference Range Interpretation Comments Calcium Level (test code = 70565-0) 10.0 8.4-10.2 [facility] HospitalMagnesium Krpqm1508-56-03 03:24:00* Test Item Value Reference Range Interpretation Comments Magnesium Level (test code = 37862-3) 2.4 1.3-2.1 H [facility] HospitalTotal Pdznovbjr9605-92-50 03:24:00* Test Item Value Reference Range Interpretation Comments Total Bilirubin (test code = 1975-2) 0.3 0.2-1.2 [facility] HospitalAspartate Amino Transf (AST/SGOT) 2018-11-01 03:24:00* Test Item Value Reference Range Interpretation Comments Aspartate Amino Transf (AST/SGOT) (test code = Aspartate Amino Transf (AST/SGOT)) 24 5-34 [facility] HospitalAlanine Aminotransferase (ALT/SGPT) 2018-11-01 03:24:00* Test Item Value Reference Range Interpretation Comments Alanine Aminotransferase (ALT/SGPT) (test code = 1742-6) 22 0-55 [facility] Mmzculv7351-35-70 03:24:00* Test Item Value Reference Range Interpretation Comments Total Protein (test code = 2885-2) 7.3 6.5-8.1 [facility] HospitalAlbumin2018-12-01 03:24:00* Test Item Value Reference Range Interpretation Comments Albumin (test code = 1751-7) 3.7 3.5-5.0 [facility] HospitalGlobulin2018-12-01 03:24:00* Test Item Value Reference Range Interpretation Comments Globulin (test code = 63498-3) 3.6 2.3-3.5 H [facility] HospitalAlbumin/Globulin Mvjzr4583-81-51 03:24:00 * Test Item Value Reference Range Interpretation Comments Albumin/Globulin Ratio (test code = 1759-0) 1.0 0.8-2.0 [facility] HospitalAlkaline Xkxglbmsfdu4985-79-42 03:24:00* Test Item Value Reference Range Interpretation Comments Alkaline Phosphatase (test code = 6768-6) 114 40-150 [facility] HospitalCreatine Liidtg7836-17-33 03:24:00* Test Item Value Reference Range Interpretation Comments Creatine Kinase (test code = 2157-6) 188 29-168 [facility] HospitalMagnesium Nuujd6605-62-53 03:24:00* Test Item Value Reference Range Interpretation Comments Magnesium Level (test code = 48212-7) 2.4 1.3-2.1 [facility] HospitalCreatine Tplras1139-71-02 03:24:00* Test Item Value Reference Range Interpretation Comments Creatine Kinase (test code = 2157-6) 188 29-168 [facility] HospitalUrine ZTS7405-94-13 03:23:00* Test Item Value Reference Range Interpretation Comments Urine WBC (test code = 5821-4) 6-10 0-5 [facility] ZBZ0270-13-01 03:23:00* Test Item Value Reference Range Interpretation Comments Urine RBC (test code = 61440-6) 0-5 0-5 [facility] Yiqxisxw4004-92-35 03:23:00* Test Item Value Reference Range Interpretation Comments Urine Bacteria (test code = 27689-8) MODERATE NONE [facility] HospitalUrine Epithelial Nnael1882-47-30 03:23:00 * Test Item Value Reference Range Interpretation Comments Urine Epithelial Cells (test code = 49082-7) MANY NONE [facility] Tuxjv9771-64-15 03:23:00* Test Item Value Reference Range Interpretation Comments Urine Mucus (test code = 8247-9) MANY RARE H [facility] HospitalProthrombin Fndu7863-41-10 03:08:00* Test Item Value Reference Range Interpretation Comments Prothrombin Time (test code = 5902-2) 12.0 11.9-14.5 [facility] HospitalProthromb Time International Ratio 2018-11-01 03:08:00* Test Item Value Reference Range Interpretation Comments Prothromb Time International Ratio (test code = 6301-6) 0.81 Oral Anticoagulant Therapy INR Values:1. Low Intensity Therapy 1.5 - 2.02 . Moderate Intensity Therapy 2.0 - 3.03. High Intensity Therapy(1) 2.5 - 3. 54. High Intensity Therapy(2) 3.0 - 4.05. Panic Value INR > 5.0 [facility] HospitalActivated Partial Thromboplast Time 2018-11-01 03:08:00* Test Item Value Reference Range Interpretation Comments Activated Partial Thromboplast Time (test code = 06025-3) 28.0 23.8-35.5 [facility] HospitalProthrombin Dubb6744-48-29 03:08:00* Test Item Value Reference Range Interpretation Comments Prothrombin Time (test code = 5902-2) 12.0 11.9-14.5 [facility] HospitalProthromb Time International Ratio 2018-11-01 03:08:00* Test Item Value Reference Range Interpretation Comments Prothromb Time International Ratio (test code = 6301-6) 0.81 Oral Anticoagulant Therapy INR Values:1. Low Intensity Therapy 1.5 - 2.02 . Moderate Intensity Therapy 2.0 - 3.03. High Intensity Therapy(1) 2.5 - 3. 54. High Intensity Therapy(2) 3.0 - 4.05. Panic Value INR > 5.0 [facility] HospitalActivated Partial Thromboplast Time 2018-11-01 03:08:00* Test Item Value Reference Range Interpretation Comments Activated Partial Thromboplast Time (test code = 27797-1) 28.0 23.8-35.5 [facility] HospitalUrine Prezk2617-91-52 03:04:00* Test Item Value Reference Range Interpretation Comments Urine Color (test code = 5778-6) YELLOW YELLOW [facility] Ltukpyw5525-97-11 03:04:00* Test Item Value Reference Range Interpretation Comments Urine Clarity (test code = 52298-5) CLOUDY CLEAR H [facility] HospitalUrine Specific Uauehqj8676-31-73 03:04:00 * Test Item Value Reference Range Interpretation Comments Urine Specific [place] (test code = 5811-5) 1.020 1.010-1.02 5 [facility] HospitalUrine hW8980-17-92 03:04:00* Test Item Value Reference Range Interpretation Comments Urine pH (test code = 17383-8) 6 5-7 [facility] Leukocyte Ktemohnq9620-38-65 03:04:00* Test Item Value Reference Range Interpretation Comments Urine Leukocyte Esterase (test code = 5799-2) TRACE NEGATIVE H [facility] HospitalUrine Hxccmkv8881-73-93 03:04:00* Test Item Value Reference Range Interpretation Comments Urine Nitrite (test code = 18012-1) NEGATIVE NEGATIVE [facility] Axsowrw4549-75-55 03:04:00* Test Item Value Reference Range Interpretation Comments Urine Protein (test code = 5804-0) NEGATIVE NEGATIVE [facility] Glucose (UA)2018-11-01 03:04:00* Test Item Value Reference Range Interpretation Comments Urine Glucose (UA) (test code = 2349-9) 2+ NEGATIVE H [facility] HospitalU[facility] Xcmcpda4225-53-52 03:04:00* Test Item Value Reference Range Interpretation Comments Urine Ketones (test code = 33811-0) TRACE NEGATIVE H [facility] Nepylsoqlmwm0736-11-09 03:04:00* Test Item Value Reference Range Interpretation Comments Urine Urobilinogen (test code = 60973-8) 0.2 0.2-1 [facility] Oyxhhuhas2324-66-11 03:04:00* Test Item Value Reference Range Interpretation Comments Urine Bilirubin (test code = 1978-6) NEGATIVE NEGATIVE [facility] HospitalU[facility] Tqdml4715-82-80 03:04:00* Test Item Value Reference Range Interpretation Comments Urine Blood (test code = 42424-2) NEGATIVE NEGATIVE [facility] HospitalWhite Blood Mysxy1010-79-93 02:58:00* Test Item Value Reference Range Interpretation Comments White Blood Count (test code = 6690-2) 9.59 4.8-10.8 [facility] HospitalRed Blood Nycll2199-96-51 02:58:00* Test Item Value Reference Range Interpretation Comments Red Blood Count (test code = 789-8) 4.25 3.6-5.1 [facility] HospitalHemoglobin2018-12-01 02:58:00* Test Item Value Reference Range Interpretation Comments Hemoglobin (test code = 84462-0) 11.9 12.0-16.0 L [facility] HospitalHematocrit2018-12-01 02:58:00* Test Item Value Reference Range Interpretation Comments Hematocrit (test code = 4544-3) 37.5 34.2-44.1 [facility] HospitalMean Corpuscular Sgqbxv6104-17-67 02:58:00* Test Item Value Reference Range Interpretation Comments Mean Corpuscular Volume (test code = 787-2) 88.2 81-99 [facility] HospitalMean Corpuscular Cpaqxszvgi0394-18-95 02:58:00* Test Item Value Reference Range Interpretation Comments Mean Corpuscular Hemoglobin (test code = 785-6) 28.0 28-32 [facility] HospitalMean Corpuscular Hemoglobin Concent 2018-11-01 02:58:00* Test Item Value Reference Range Interpretation Comments Mean Corpuscular Hemoglobin Concent (test code = 786-4) 31.7 31-35 [facility] HospitalRed Cell Distribution Hrugg3007-24-06 02:58:00* Test Item Value Reference Range Interpretation Comments Red Cell Distribution Width (test code = 56858-2) 15.8 11.7 -14.4 H [facility] HospitalPlatelet Zfzaj5376-47-33 02:58:00* Test Item Value Reference Range Interpretation Comments Platelet Count (test code = 777-3) 289 140-360 [facility] HospitalNeutrophils (%) (Auto)2018-11-01 02:58:00 * Test Item Value Reference Range Interpretation Comments Neutrophils (%) (Auto) (test code = 25434-7) 64.9 38.7-80.0 [facility] HospitalLymphocytes (%) (Auto)2018-11-01 02:58:00 * Test Item Value Reference Range Interpretation Comments Lymphocytes (%) (Auto) (test code = 736-9) 22.0 18.0-39.1 [facility] HospitalMonocytes (%) (Auto)2018-11-01 02:58:00* Test Item Value Reference Range Interpretation Comments Monocytes (%) (Auto) (test code = 5905-5) 10.3 4.4-11.3 [facility] HospitalEosinophils (%) (Auto)2018-11-01 02:58:00 * Test Item Value Reference Range Interpretation Comments Eosinophils (%) (Auto) (test code = 713-8) 2.4 0.0-6.0 [facility] HospitalBasophils (%) (Auto)2018-11-01 02:58:00* Test Item Value Reference Range Interpretation Comments Basophils (%) (Auto) (test code = 706-2) 0.2 0.0-1.0 [facility] HospitalIM GRANULOCYTES %2018-11-01 02:58:00* Test Item Value Reference Range Interpretation Comments IM GRANULOCYTES % (test code = IM GRANULOCYTES %) 0.2 0.0- 1.0 [facility] HospitalNeutrophils # (Auto)2018-11-01 02:58:00* Test Item Value Reference Range Interpretation Comments Neutrophils # (Auto) (test code = 751-8) 6.2 2.1-6.9 [facility] HospitalLymphocytes # (Auto)2018-11-01 02:58:00* Test Item Value Reference Range Interpretation Comments Lymphocytes # (Auto) (test code = 64601-9) 2.1 1.0-3.2 [facility] HospitalMonocytes # (Auto)2018-11-01 02:58:00* Test Item Value Reference Range Interpretation Comments Monocytes # (Auto) (test code = 742-7) 1.0 0.2-0.8 H [facility] HospitalEosinophils # (Auto)2018-11-01 02:58:00* Test Item Value Reference Range Interpretation Comments Eosinophils # (Auto) (test code = 711-2) 0.2 0.0-0.4 [facility] HospitalBasophils # (Auto)2018-11-01 02:58:00* Test Item Value Reference Range Interpretation Comments Basophils # (Auto) (test code = 704-7) 0.0 0.0-0.1 [facility] HospitalAbsolute Immature Granulocyte (auto 2018-11-01 02:58:00* Test Item Value Reference Range Interpretation Comments Absolute Immature Granulocyte (auto (nazia t code = Absolute Immature Granulocyte (auto) 0.02 0-0.1 [facility] Smkvbsn6963-28-42 07:14:00* Test Item Value Reference Range Interpretation Comments Blood Culture (test code = 40907291) NO GROWTH AFTER 5 DAYS, FINAL REPORT [facility] Rqpidys7743-24-66 07:14:00* Test Item Value Reference Range Interpretation Comments Blood Culture (test code = 17457154) NO GROWTH AFTER 5 DAYS, FINAL REPORT [facility] Ioqwydf9444-71-79 11:53:00* Test Item Value Reference Range Interpretation Comments Bedside Glucose (test code = 44354-2) 208 70-120 H Meter ID: [id number]ucose 2018-02-17 11:53:00* Test Item Value Reference Range Interpretation Comments Bedside Glucose (test code = 99548-8) 208 70-120 H Meter ID: [id number] [facility] Glucose 2018-02-17 11:53:00* Test Item Value Reference Range Interpretation Comments Bedside Glucose (test code = 42568-0) 208 70-120 H [id number] 2018-02-17 07:14:00* Test Item Value Reference Range Interpretation Comments Blood Culture (test code = 67283378) NO GROWTH AFTER 24 HOURS [facility] HospitalFree Kydxdrgok9825-41-87 07:11:00* Test Item Value Reference Range Interpretation Comments Free Thyroxine (test code = 3024-7) 1.08 0.9-1.8 [facility] HospitalThyroid Stimulating Hormone (TSH) 2018-02-17 07:11:00* Test Item Value Reference Range Interpretation Comments Thyroid Stimulating Hormone (TSH) (test code = 10169-7) 1.017 0.350-4.940 [facility] Giplqterb7534-27-12 07:11:00* Test Item Value Reference Range Interpretation Comments Free Thyroxine (test code = 3024-7) 1.08 0.9-1.8 [facility] HospitalThyroid Stimulating Hormone (TSH) 2018-02-17 07:11:00* Test Item Value Reference Range Interpretation Comments Thyroid Stimulating Hormone (TSH) (test code = 73628-2) 1.017 0.350-4.940 [facility] Ftcoeslxx2071-78-23 07:11:00* Test Item Value Reference Range Interpretation Comments Free Thyroxine (test code = 3024-7) 1.08 0.9-1.8 [facility] HospitalThyroid Stimulating Hormone (TSH) 2018-02-17 07:11:00* Test Item Value Reference Range Interpretation Comments Thyroid Stimulating Hormone (TSH) (test code = 66694-7) 1.017 0.350-4.940 [facility]odium Odouk0723-54-72 06:51:00* Test Item Value Reference Range Interpretation Comments Sodium Level (test code = 2951-2) 140 136-145 [facility] HospitalPotassium Bdegb6471-10-89 06:51:00* Test Item Value Reference Range Interpretation Comments Potassium Level (test code = 2823-3) 3.7 3.5-5.1 [facility] HospitalChloride Eilxj9354-14-09 06:51:00* Test Item Value Reference Range Interpretation Comments Chloride Level (test code = 2075-0) 104 98-107 [facility] HospitalCarbon Dioxide Dptzb4540-25-15 06:51:00* Test Item Value Reference Range Interpretation Comments Carbon Dioxide Level (test code = 2028-9) 27 22-29 [facility] HospitalAnion Tqi5253-91-31 06:51:00* Test Item Value Reference Range Interpretation Comments Anion Gap (test code = 65444-4) 12.7 8-16 [facility] HospitalBlood Urea Tnmfswjr7255-51-28 06:51:00* Test Item Value Reference Range Interpretation Comments Blood Urea Nitrogen (test code = 3094-0) 11 7-26 [facility] HospitalCreatinine2018-03-19 06:51:00* Test Item Value Reference Range Interpretation Comments Creatinine (test code = 2160-0) 0.69 0.57-1.11 [facility] HospitalBUN/Creatinine Otzmy1426-95-46 06:51:00* Test Item Value Reference Range Interpretation Comments BUN/Creatinine Ratio (test code = 3097-3) 16 - [facility] HospitalEstimat Glomerular Filtration Rate 2018-02-17 06:51:00* Test Item Value Reference Range Interpretation Comments Estimat Glomerular Filtration Rate (test code = 24286-0) 60- >60 Ranges were taken from the National Kidney Disease Education Program and the [facility] literature.Reference ranges:60 or greater: Pyeztw41-21 ( for 3 consecutive months): Chronic kidney disease 15 or less: Kidney failureMethodist Southlake HospitalGlucose Zahkc2335-48-58 06:51:00* Test Item Value Reference Range Interpretation Comments Glucose Level (test code = RAG0122) 124 74-118 H [facility] HospitalCalcium Fewni2578-72-72 06:51:00* Test Item Value Reference Range Interpretation Comments Calcium Level (test code = 43205-9) 9.1 8.4-10.2 [facility]odium Oxpqs9085-82-68 06:51:00* Test Item Value Reference Range Interpretation Comments Sodium Level (test code = 2951-2) 140 136-145 [facility] HospitalPotassium Fcceh0326-67-02 06:51:00* Test Item Value Reference Range Interpretation Comments Potassium Level (test code = 2823-3) 3.7 3.5-5.1 [facility] HospitalChloride Oasyd2778-55-76 06:51:00* Test Item Value Reference Range Interpretation Comments Chloride Level (test code = 2075-0) 104 98-107 [facility] HospitalCarbon Dioxide Lqone3783-75-15 06:51:00* Test Item Value Reference Range Interpretation Comments Carbon Dioxide Level (test code = 2028-9) 27 22-29 [facility] HospitalAnion Kvg6242-17-85 06:51:00* Test Item Value Reference Range Interpretation Comments Anion Gap (test code = 65095-4) 12.7 8-16 [facility] HospitalBlood Urea Qmjbuldj3923-21-53 06:51:00* Test Item Value Reference Range Interpretation Comments Blood Urea Nitrogen (test code = 3094-0) 11 7-26 [facility] HospitalCreatinine2018-03-19 06:51:00* Test Item Value Reference Range Interpretation Comments Creatinine (test code = 2160-0) 0.69 0.57-1.11 [facility] HospitalBUN/Creatinine Qxjxv2857-29-86 06:51:00* Test Item Value Reference Range Interpretation Comments BUN/Creatinine Ratio (test code = 3097-3) 16 6-25 [facility] HospitalEstimat Glomerular Filtration Rate 2018-02-17 06:51:00* Test Item Value Reference Range Interpretation Comments Estimat Glomerular Filtration Rate (test code = 18020-3) 60- >60 Ranges were taken from the National Kidney Disease Education Program and the [facility] literature.Reference ranges:60 or greater: Uaozpt13-19 ( for 3 consecutive months): Chronic kidney disease 15 or less: Kidney failureMethodist Southlake HospitalGlucose Srtif3873-22-89 06:51:00* Test Item Value Reference Range Interpretation Comments Glucose Level (test code = JFP1488) 124 74-118 H [facility] HospitalCalcium Wlrnb8043-80-79 06:51:00* Test Item Value Reference Range Interpretation Comments Calcium Level (test code = 16041-2) 9.1 8.4-10.2 [facility] HospitalHemoglobin A1c Kwsxmfv7063-36-64 06:50:00 * Test Item Value Reference Range Interpretation Comments Hemoglobin A1c Percent (test code = Hemoglobin A1c Percent) 7.5 4.0-7.0 H [facility] HospitalHemoglobin A1c Bdpeawx1950-48-06 06:50:00 * Test Item Value Reference Range Interpretation Comments Hemoglobin A1c Percent (test code = Hemoglobin A1c Percent) 7.5 4.0-7.0 H [facility] HospitalHemoglobin A1c Lxczyhz8948-79-29 06:50:00 * Test Item Value Reference Range Interpretation Comments Hemoglobin A1c Percent (test code = Hemoglobin A1c Percent) 7.5 4.0-7.0 H [facility] HospitalWhite Blood Ucwtd5379-71-73 06:24:00* Test Item Value Reference Range Interpretation Comments White Blood Count (test code = 6690-2) 5.86 4.8-10.8 [facility] HospitalRed Blood Njxea6860-32-06 06:24:00* Test Item Value Reference Range Interpretation Comments Red Blood Count (test code = 789-8) 4.18 3.6-5.1 [facility] HospitalHemoglobin2018-03-19 06:24:00* Test Item Value Reference Range Interpretation Comments Hemoglobin (test code = 94794-7) 12.0 12.0-16.0 [facility] HospitalHematocrit2018-03-19 06:24:00* Test Item Value Reference Range Interpretation Comments Hematocrit (test code = 4544-3) 36.3 34.2-44.1 [facility] HospitalMean Corpuscular Wzupgo2395-02-91 06:24:00* Test Item Value Reference Range Interpretation Comments Mean Corpuscular Volume (test code = 787-2) 86.8 81-99 [facility] HospitalMean Corpuscular Rwueerofwv8295-86-85 06:24:00* Test Item Value Reference Range Interpretation Comments Mean Corpuscular Hemoglobin (test code = 785-6) 28.7 28-32 [facility] Corpuscular Hemoglobin Concent 2018-02-17 06:24:00* Test Item Value Reference Range Interpretation Comments Mean Corpuscular Hemoglobin Concent (test code = 786-4) 33.1 31-35 [facility] HospitalRed Cell Distribution Tgnnv9548-62-87 06:24:00* Test Item Value Reference Range Interpretation Comments Red Cell Distribution Width (test code = 40258-9) 13.7 11.7 -14.4 [facility] HospitalPlatelet Ffggw6992-42-18 06:24:00* Test Item Value Reference Range Interpretation Comments Platelet Count (test code = 777-3) 264 140-360 [facility] HospitalNeutrophils (%) (Auto)2018-02-17 06:24:00 * Test Item Value Reference Range Interpretation Comments Neutrophils (%) (Auto) (test code = 63983-6) 53.5 38.7-80.0 [facility] HospitalLymphocytes (%) (Auto)2018-02-17 06:24:00 * Test Item Value Reference Range Interpretation Comments Lymphocytes (%) (Auto) (test code = 736-9) 34.6 18.0-39.1 [facility] HospitalMonocytes (%) (Auto)2018-02-17 06:24:00* Test Item Value Reference Range Interpretation Comments Monocytes (%) (Auto) (test code = 5905-5) 8.5 4.4-11.3 [facility] HospitalEosinophils (%) (Auto)2018-02-17 06:24:00 * Test Item Value Reference Range Interpretation Comments Eosinophils (%) (Auto) (test code = 713-8) 3.2 0.0-6.0 [facility] HospitalBasophils (%) (Auto)2018-02-17 06:24:00* Test Item Value Reference Range Interpretation Comments Basophils (%) (Auto) (test code = 706-2) 0.0 0.0-1.0 [facility] HospitalIM GRANULOCYTES %2018-02-17 06:24:00* Test Item Value Reference Range Interpretation Comments IM GRANULOCYTES % (test code = IM GRANULOCYTES %) 0.2 0.0- 1.0 [facility] HospitalNeutrophils # (Auto)2018-02-17 06:24:00* Test Item Value Reference Range Interpretation Comments Neutrophils # (Auto) (test code = 751-8) 3.1 2.1-6.9 [facility] HospitalLymphocytes # (Auto)2018-02-17 06:24:00* Test Item Value Reference Range Interpretation Comments Lymphocytes # (Auto) (test code = 95199-5) 2.0 1.0-3.2 [facility] HospitalMonocytes # (Auto)2018-02-17 06:24:00* Test Item Value Reference Range Interpretation Comments Monocytes # (Auto) (test code = 742-7) 0.5 0.2-0.8 [facility] HospitalEosinophils # (Auto)2018-02-17 06:24:00* Test Item Value Reference Range Interpretation Comments Eosinophils # (Auto) (test code = 711-2) 0.2 0.0-0.4 [facility] HospitalBasophils # (Auto)2018-02-17 06:24:00* Test Item Value Reference Range Interpretation Comments Basophils # (Auto) (test code = 704-7) 0.0 0.0-0.1 [facility] HospitalAbsolute Immature Granulocyte (auto 2018-02-17 06:24:00* Test Item Value Reference Range Interpretation Comments Absolute Immature Granulocyte (auto (nazia t code = Absolute Immature Granulocyte (auto) 0.01 0-0.1 [facility] HospitalWhite Blood Xkcwr9118-12-28 06:24:00* Test Item Value Reference Range Interpretation Comments White Blood Count (test code = 6690-2) 5.86 4.8-10.8 [facility] HospitalRed Blood Zojzj3265-09-13 06:24:00* Test Item Value Reference Range Interpretation Comments Red Blood Count (test code = 789-8) 4.18 3.6-5.1 [facility] HospitalHemoglobin2018-03-19 06:24:00* Test Item Value Reference Range Interpretation Comments Hemoglobin (test code = 91699-0) 12.0 12.0-16.0 [facility] HospitalHematocrit2018-03-19 06:24:00* Test Item Value Reference Range Interpretation Comments Hematocrit (test code = 4544-3) 36.3 34.2-44.1 [facility] HospitalMean Corpuscular Ofliel0288-18-26 06:24:00* Test Item Value Reference Range Interpretation Comments Mean Corpuscular Volume (test code = 787-2) 86.8 81-99 [facility] HospitalMean Corpuscular Uedhrabwbf5647-22-33 06:24:00* Test Item Value Reference Range Interpretation Comments Mean Corpuscular Hemoglobin (test code = 785-6) 28.7 28-32 [facility] HospitalMean Corpuscular Hemoglobin Concent 2018-02-17 06:24:00* Test Item Value Reference Range Interpretation Comments Mean Corpuscular Hemoglobin Concent (test code = 786-4) 33.1 31-35 [facility] HospitalRed Cell Distribution Wolou0194-00-00 06:24:00* Test Item Value Reference Range Interpretation Comments Red Cell Distribution Width (test code = 54024-8) 13.7 11.7 -14.4 [facility] HospitalPlatelet Kcguw0417-83-86 06:24:00* Test Item Value Reference Range Interpretation Comments Platelet Count (test code = 777-3) 264 140-360 [facility] HospitalNeutrophils (%) (Auto)2018-02-17 06:24:00 * Test Item Value Reference Range Interpretation Comments Neutrophils (%) (Auto) (test code = 00315-2) 53.5 38.7-80.0 [facility] HospitalLymphocytes (%) (Auto)2018-02-17 06:24:00 * Test Item Value Reference Range Interpretation Comments Lymphocytes (%) (Auto) (test code = 736-9) 34.6 18.0-39.1 [facility] HospitalMonocytes (%) (Auto)2018-02-17 06:24:00* Test Item Value Reference Range Interpretation Comments Monocytes (%) (Auto) (test code = 5905-5) 8.5 4.4-11.3 [facility] HospitalEosinophils (%) (Auto)2018-02-17 06:24:00 * Test Item Value Reference Range Interpretation Comments Eosinophils (%) (Auto) (test code = 713-8) 3.2 0.0-6.0 [facility] HospitalBasophils (%) (Auto)2018-02-17 06:24:00* Test Item Value Reference Range Interpretation Comments Basophils (%) (Auto) (test code = 706-2) 0.0 0.0-1.0 [facility] HospitalIM GRANULOCYTES %2018-02-17 06:24:00* Test Item Value Reference Range Interpretation Comments IM GRANULOCYTES % (test code = IM GRANULOCYTES %) 0.2 0.0- 1.0 [facility] HospitalNeutrophils # (Auto)2018-02-17 06:24:00* Test Item Value Reference Range Interpretation Comments Neutrophils # (Auto) (test code = 751-8) 3.1 2.1-6.9 [facility] HospitalLymphocytes # (Auto)2018-02-17 06:24:00* Test Item Value Reference Range Interpretation Comments Lymphocytes # (Auto) (test code = 25354-3) 2.0 1.0-3.2 [facility] HospitalMonocytes # (Auto)2018-02-17 06:24:00* Test Item Value Reference Range Interpretation Comments Monocytes # (Auto) (test code = 742-7) 0.5 0.2-0.8 [facility] HospitalEosinophils # (Auto)2018-02-17 06:24:00* Test Item Value Reference Range Interpretation Comments Eosinophils # (Auto) (test code = 711-2) 0.2 0.0-0.4 [facility] HospitalBasophils # (Auto)2018-02-17 06:24:00* Test Item Value Reference Range Interpretation Comments Basophils # (Auto) (test code = 704-7) 0.0 0.0-0.1 [facility] HospitalAbsolute Immature Granulocyte (auto 2018-02-17 06:24:00* Test Item Value Reference Range Interpretation Comments Absolute Immature Granulocyte (auto (nazia t code = Absolute Immature Granulocyte (auto) 0.01 0-0.1 [facility] HospitalPhosphorus Fgrkl4147-58-71 08:19:00* Test Item Value Reference Range Interpretation Comments Phosphorus Level (test code = DEH4529) 3.2 2.3-4.7 [facility] HospitalMagnesium Xwrad8164-69-08 08:19:00* Test Item Value Reference Range Interpretation Comments Magnesium Level (test code = 33300-6) 1.7 1.3-2.1 [facility] HospitalTotal Grenatfaa8654-37-07 08:19:00* Test Item Value Reference Range Interpretation Comments Total Bilirubin (test code = 1975-2) 0.4 0.2-1.2 [facility] HospitalAspartate Amino Transf (AST/SGOT) 2018-02-16 08:19:00* Test Item Value Reference Range Interpretation Comments Aspartate Amino Transf (AST/SGOT) (test code = Aspartate Amino Transf (AST/SGOT)) 23 5-34 [facility] HospitalAlanine Aminotransferase (ALT/SGPT) 2018-02-16 08:19:00* Test Item Value Reference Range Interpretation Comments Alanine Aminotransferase (ALT/SGPT) (test code = 1742-6) 19 0-55 [facility] HospitalTotal Dctvbnw8345-05-72 08:19:00* Test Item Value Reference Range Interpretation Comments Total Protein (test code = 2885-2) 6.0 6.5-8.1 L [facility] HospitalAlbumin2018-03-18 08:19:00* Test Item Value Reference Range Interpretation Comments Albumin (test code = 1751-7) 3.2 3.5-5.0 L [facility] HospitalGlobulin2018-03-18 08:19:00* Test Item Value Reference Range Interpretation Comments Globulin (test code = 10271-4) 2.8 2.3-3.5 [facility] HospitalAlbumin/Globulin Metyb7264-43-17 08:19:00 * Test Item Value Reference Range Interpretation Comments Albumin/Globulin Ratio (test code = 1759-0) 1.1 0.8-2.0 [facility] HospitalAlkaline Qifjikcpmas1945-77-16 08:19:00* Test Item Value Reference Range Interpretation Comments Alkaline Phosphatase (test code = 6768-6) 70 40-150 [facility] HospitalTriglycerides Wegbm6345-98-35 08:19:00* Test Item Value Reference Range Interpretation Comments Triglycerides Level (test code = 2571-8) 133 0-149 [facility] HospitalCholesterol Xgxam0883-45-36 08:19:00* Test Item Value Reference Range Interpretation Comments Cholesterol Level (test code = 2093-3) 125 0-199 Less than 200 mg/dL Low Slri180 - 239 mg/dL Borderline Albi589 m g/dl and greater High Risk [facility] HospitalLDL Wpyctbnjahe3632-89-77 08:19:00* Test Item Value Reference Range Interpretation Comments LDL Cholesterol (test code = 2089-1) 50 60-130 L [facility]HDL Myqkmdssfys2278-05-25 08:19:00* Test Item Value Reference Range Interpretation Comments HDL Cholesterol (test code = 2085-9) 48 40-60 [facility] HospitalCholesterol/HDL Pbacb2987-92-01 08:19:00 * Test Item Value Reference Range Interpretation Comments Cholesterol/HDL Ratio (test code = 9830-1) 2.6 3.0-3.6 L [facility] HospitalPhosphorus Jcqrq4509-08-00 08:19:00* Test Item Value Reference Range Interpretation Comments Phosphorus Level (test code = CXM3523) 3.2 2.3-4.7 [facility] HospitalMagnesium Gziom9442-68-96 08:19:00* Test Item Value Reference Range Interpretation Comments Magnesium Level (test code = 88743-8) 1.7 1.3-2.1 [facility]Total Zbhyqiyuz5114-65-25 08:19:00* Test Item Value Reference Range Interpretation Comments Total Bilirubin (test code = 1975-2) 0.4 0.2-1.2 [facility] HospitalAspartate Amino Transf (AST/SGOT) 2018-02-16 08:19:00* Test Item Value Reference Range Interpretation Comments Aspartate Amino Transf (AST/SGOT) (test code = Aspartate Amino Transf (AST/SGOT)) 23 5-34 [facility] HospitalAlanine Aminotransferase (ALT/SGPT) 2018-02-16 08:19:00* Test Item Value Reference Range Interpretation Comments Alanine Aminotransferase (ALT/SGPT) (test code = 1742-6) 19 0-55 [facility] HospitalTotal Bdfdycm2698-00-45 08:19:00* Test Item Value Reference Range Interpretation Comments Total Protein (test code = 2885-2) 6.0 6.5-8.1 L [facility] HospitalAlbumin2018-03-18 08:19:00* Test Item Value Reference Range Interpretation Comments Albumin (test code = 1751-7) 3.2 3.5-5.0 L [facility] HospitalGlobulin2018-03-18 08:19:00* Test Item Value Reference Range Interpretation Comments Globulin (test code = 81369-3) 2.8 2.3-3.5 [facility] HospitalAlbumin/Globulin Okylv1288-18-96 08:19:00 * Test Item Value Reference Range Interpretation Comments Albumin/Globulin Ratio (test code = 1759-0) 1.1 0.8-2.0 [facility] HospitalAlkaline Iaxrkucchbe1635-84-35 08:19:00* Test Item Value Reference Range Interpretation Comments Alkaline Phosphatase (test code = 6768-6) 70 40-150 [facility] HospitalTriglycerides Bheek3427-89-61 08:19:00* Test Item Value Reference Range Interpretation Comments Triglycerides Level (test code = 2571-8) 133 0-149 [facility] HospitalCholesterol Klusx0653-92-15 08:19:00* Test Item Value Reference Range Interpretation Comments Cholesterol Level (test code = 2093-3) 125 0-199 Less than 200 mg/dL Low Axxd580 - 239 mg/dL Borderline Qoby830 m g/dl and greater High Risk [facility] HospitalLDL Gnejhfparix6157-25-21 08:19:00* Test Item Value Reference Range Interpretation Comments LDL Cholesterol (test code = 2089-1) 50 60-130 L [facility] HospitalHDL Dmqmogcfbko4237-01-69 08:19:00* Test Item Value Reference Range Interpretation Comments HDL Cholesterol (test code = 2085-9) 48 40-60 [facility] HospitalCholesterol/HDL Qydbm7656-95-60 08:19:00 * Test Item Value Reference Range Interpretation Comments Cholesterol/HDL Ratio (test code = 9830-1) 2.6 3.0-3.6 L [facility] HospitalPhosphorus Wwfyj6352-22-76 08:19:00* Test Item Value Reference Range Interpretation Comments Phosphorus Level (test code = XQD2271) 3.2 2.3-4.7 [facility] HospitalTriglycerides Rgsnv3649-46-58 08:19:00* Test Item Value Reference Range Interpretation Comments Triglycerides Level (test code = 2571-8) 133 0-149 [facility] HospitalCholesterol Uofve8720-86-43 08:19:00* Test Item Value Reference Range Interpretation Comments Cholesterol Level (test code = 2093-3) 125 0-199 Less than 200 mg/dL Low Mvuu932 - 239 mg/dL Borderline Cnpw130 m g/dl and greater High Risk [facility] HospitalLDL Kowxgigszmv2755-93-59 08:19:00* Test Item Value Reference Range Interpretation Comments LDL Cholesterol (test code = 2089-1) 50 60-130 L [facility]HDL Nbriwdhoelg0512-96-42 08:19:00* Test Item Value Reference Range Interpretation Comments HDL Cholesterol (test code = 2085-9) 48 40-60 [facility] HospitalCholesterol/HDL Fgehc1423-85-10 08:19:00 * Test Item Value Reference Range Interpretation Comments Cholesterol/HDL Ratio (test code = 9830-1) 2.6 3.0-3.6 L [facility] HospitalCreatine Kinase PJ0639-93-27 01:57:00* Test Item Value Reference Range Interpretation Comments Creatine Kinase MB (test code = 57485-4) 3.80 0-5.0 [facility] HospitalTroponin K0521-42-43 01:57:00* Test Item Value Reference Range Interpretation Comments Troponin I (test code = HOT9992) 0.002 0-0.300 [facility] HospitalCreatine Kinase DO8875-31-07 01:57:00* Test Item Value Reference Range Interpretation Comments Creatine Kinase MB (test code = 63425-3) 3.80 0-5.0 [facility] HospitalTroponin S4071-02-80 01:57:00* Test Item Value Reference Range Interpretation Comments Troponin I (test code = CHL2110) 0.002 0-0.300 [facility] HospitalCreatine Qfdpsh4299-54-89 01:40:00* Test Item Value Reference Range Interpretation Comments Creatine Kinase (test code = 2157-6) 119 29-168 [facility] HospitalCreatine Tqkger0772-23-59 01:40:00* Test Item Value Reference Range Interpretation Comments Creatine Kinase (test code = 2157-6) 119 29-168 [facility] HospitalD-Dimer Quantitative (PE/DVT)2018-02-15 14:07:00* Test Item Value Reference Range Interpretation Comments D-Dimer Quantitative (PE/DVT) (test code = 95078-4) 0.48 0. 00-0.45 H As with all in vitro diagnostic tests, the test results should be interpreted by the physician in conjunction with clinical findings and other test results.Test results are reported in NEW D-dimer units(ug/mLFEU).[facility] HospitalD-Dimer Quantitative (PE/DVT)2018-02-15 14:07:00* Test Item Value Reference Range Interpretation Comments D-Dimer Quantitative (PE/DVT) (test code = 55560-4) 0.48 0. 00-0.45 H As with all in vitro diagnostic tests, the test results should be interpreted by the physician in conjunction with clinical findings and other test results.Test results are reported in NEW D-dimer units(ug/mLFEU).[facility] HospitalD-Dimer Quantitative (PE/DVT)2018-02-15 14:07:00* Test Item Value Reference Range Interpretation Comments D-Dimer Quantitative (PE/DVT) (test code = 77113-2) 0.48 0. 00-0.45 H As with all in vitro diagnostic tests, the test results should be interpreted by the physician in conjunction with clinical findings and other test results.Test results are reported in NEW D-dimer units(ug/mLFEU).[facility] HospitalInfluenza Virus Types A,B Dvnzhkj8946-05-67 13:55:00* Test Item Value Reference Range Interpretation Comments Influenza Virus Types A,B Antigen (test code = 60908-7) NEGATIVE NEGATIVE [facility] HospitalB-Type Natriuretic Ugbqxkq2849-96-81 13:55:00* Test Item Value Reference Range Interpretation Comments B-Type Natriuretic Peptide (test code = 03044-8) 30.9 0-100 [facility] HospitalInfluenza Virus Types A,B Antigen 2018-02-15 13:55:00* Test Item Value Reference Range Interpretation Comments Influenza Virus Types A,B Antigen (test code = 71129-9) NEGATIVE NEGATIVE [facility] HospitalB-Type Natriuretic Prjjcnr0555-59-42 13:55:00* Test Item Value Reference Range Interpretation Comments B-Type Natriuretic Peptide (test code = 11138-1) 30.9 0-100 [facility] HospitalInfluenza Virus Types A,B Antigen 2018-02-15 13:55:00* Test Item Value Reference Range Interpretation Comments Influenza Virus Types A,B Antigen (test code = 78127-7) NEGATIVE NEGATIVE [facility] HospitalB-Type Natriuretic Zfzbwkt4083-44-97 13:55:00* Test Item Value Reference Range Interpretation Comments B-Type Natriuretic Peptide (test code = 96964-0) 30.9 0-100 [facility] HospitalProthrombin Zdjm8950-98-96 13:52:00* Test Item Value Reference Range Interpretation Comments Prothrombin Time (test code = 5902-2) 12.5 11.9-14.5 [facility] HospitalProthromb Time International Ratio 2018-02-15 13:52:00* Test Item Value Reference Range Interpretation Comments Prothromb Time International Ratio (test code = 6301-6) 1.01 Oral Anticoagulant Therapy INR Values:1. Low Intensity Therapy 1.5 - 2.02 . Moderate Intensity Therapy 2.0 - 3.03. High Intensity Therapy(1) 2.5 - 3. 54. High Intensity Therapy(2) 3.0 - 4.05. Panic Value INR > 5.0 [facility] HospitalActivated Partial Thromboplast Time 2018-02-15 13:52:00* Test Item Value Reference Range Interpretation Comments Activated Partial Thromboplast Time (test code = 42459-6) 30.6 23.8-35.5 [facility] HospitalProthrombin Wauh1319-22-52 13:52:00* Test Item Value Reference Range Interpretation Comments Prothrombin Time (test code = 5902-2) 12.5 11.9-14.5 [facility] HospitalProthromb Time International Ratio 2018-02-15 13:52:00* Test Item Value Reference Range Interpretation Comments Prothromb Time International Ratio (test code = 6301-6) 1.01 Oral Anticoagulant Therapy INR Values:1. Low Intensity Therapy 1.5 - 2.02 . Moderate Intensity Therapy 2.0 - 3.03. High Intensity Therapy(1) 2.5 - 3. 54. High Intensity Therapy(2) 3.0 - 4.05. Panic Value INR > 5.0 [facility] HospitalActivated Partial Thromboplast Time 2018-02-15 13:52:00* Test Item Value Reference Range Interpretation Comments Activated Partial Thromboplast Time (test code = 61939-2) 30.6 23.8-35.5 [facility] HospitalUrine AVA3274-32-57 13:35:00* Test Item Value Reference Range Interpretation Comments Urine WBC (test code = 5821-4) 6-10 0-5 H [facility] HospitalUrine DQD9033-08-33 13:35:00* Test Item Value Reference Range Interpretation Comments Urine RBC (test code = 73950-7) 0-5 0-5 [facility] HospitalUrine Ejiavwue3574-34-62 13:35:00* Test Item Value Reference Range Interpretation Comments Urine Bacteria (test code = 55974-3) FEW NONE [facility] HospitalU[facility] Epithelial Jizvv2665-25-27 13:35:00 * Test Item Value Reference Range Interpretation Comments Urine Epithelial Cells (test code = 14900-3) FEW NONE [facility] HospitalUrine QAO6649-16-89 13:35:00* Test Item Value Reference Range Interpretation Comments Urine WBC (test code = 5821-4) 6-10 0-5 H [facility] HospitalU[facility] OQA1621-58-73 13:35:00* Test Item Value Reference Range Interpretation Comments Urine RBC (test code = 89766-0) 0-5 0-5 [facility] HospitalU[facility] Uwqulxvx3759-99-72 13:35:00* Test Item Value Reference Range Interpretation Comments Urine Bacteria (test code = 06357-3) FEW NONE [facility] Epithelial Oojlg4430-72-90 13:35:00 * Test Item Value Reference Range Interpretation Comments Urine Epithelial Cells (test code = 00836-8) FEW NONE [facility] HospitalU[facility] Bgemw3906-37-81 13:31:00* Test Item Value Reference Range Interpretation Comments Urine Color (test code = 5778-6) YELLOW YELLOW [facility] HospitalU[facility] Inrkhey4543-29-34 13:31:00* Test Item Value Reference Range Interpretation Comments Urine Clarity (test code = 15051-0) HAZY CLEAR [facility] HospitalUrine Specific Uhznoic3408-89-85 13:31:00 * Test Item Value Reference Range Interpretation Comments Urine Specific [place] (test code = 5811-5) 1.005 1.010-1.02 5 L [facility] HospitalUrine rF9448-69-85 13:31:00* Test Item Value Reference Range Interpretation Comments Urine pH (test code = 99327-2) 5 5-7 [facility] Leukocyte Yvqaornk1334-55-38 13:31:00* Test Item Value Reference Range Interpretation Comments Urine Leukocyte Esterase (test code = 5799-2) 1+ NEGATIVE H [facility] Xlotbjl6162-90-71 13:31:00* Test Item Value Reference Range Interpretation Comments Urine Nitrite (test code = 44027-0) NEGATIVE NEGATIVE [facility] Fewdzjn7160-28-02 13:31:00* Test Item Value Reference Range Interpretation Comments Urine Protein (test code = 5804-0) NEGATIVE NEGATIVE [facility] HospitalUrine Glucose (UA)2018-02-15 13:31:00* Test Item Value Reference Range Interpretation Comments Urine Glucose (UA) (test code = 2349-9) NEGATIVE NEGATIVE [facility] HospitalU[facility] Vjibfue7443-99-95 13:31:00* Test Item Value Reference Range Interpretation Comments Urine Ketones (test code = 03220-3) NEGATIVE NEGATIVE [facility] Chpeweufdtgn7269-10-63 13:31:00* Test Item Value Reference Range Interpretation Comments Urine Urobilinogen (test code = 28981-2) 0.2 0.2-1 [facility] Fdvgriusy9031-62-47 13:31:00* Test Item Value Reference Range Interpretation Comments Urine Bilirubin (test code = 1978-6) NEGATIVE NEGATIVE [facility] Btlsl3633-32-44 13:31:00* Test Item Value Reference Range Interpretation Comments Urine Blood (test code = 09148-0) NEGATIVE NEGATIVE [facility] Ovynm4849-59-66 13:31:00* Test Item Value Reference Range Interpretation Comments Urine Color (test code = 5778-6) YELLOW YELLOW [facility] HospitalU[facility] Etqrifc2612-72-00 13:31:00* Test Item Value Reference Range Interpretation Comments Urine Clarity (test code = 26613-3) HAZY CLEAR [facility] Specific Rhicltu7276-44-38 13:31:00 * Test Item Value Reference Range Interpretation Comments Urine Specific [place] (test code = 5811-5) 1.005 1.010-1.02 5 L [facility] HospitalUrine oU3414-35-53 13:31:00* Test Item Value Reference Range Interpretation Comments Urine pH (test code = 52178-3) 5 5-7 [facility] Leukocyte Ssaongdb6103-69-63 13:31:00* Test Item Value Reference Range Interpretation Comments Urine Leukocyte Esterase (test code = 5799-2) 1+ NEGATIVE H [facility] HospitalU[facility] Ebhvymu9265-82-02 13:31:00* Test Item Value Reference Range Interpretation Comments Urine Nitrite (test code = 63479-7) NEGATIVE NEGATIVE [facility] HospitalU[facility] Cttpwvh4758-77-29 13:31:00* Test Item Value Reference Range Interpretation Comments Urine Protein (test code = 5804-0) NEGATIVE NEGATIVE [facility] HospitalU[facility] Glucose (UA)2018-02-15 13:31:00* Test Item Value Reference Range Interpretation Comments Urine Glucose (UA) (test code = 2349-9) NEGATIVE NEGATIVE [facility] HospitalU[facility] Tixhcaq3023-64-63 13:31:00* Test Item Value Reference Range Interpretation Comments Urine Ketones (test code = 33506-6) NEGATIVE NEGATIVE [facility] HospitalU[facility] Yxyacbspidub9817-26-41 13:31:00* Test Item Value Reference Range Interpretation Comments Urine Urobilinogen (test code = 87762-4) 0.2 0.2-1 [facility] Qwkgqgszj0293-08-89 13:31:00* Test Item Value Reference Range Interpretation Comments Urine Bilirubin (test code = 1978-6) NEGATIVE NEGATIVE [facility] HospitalU[facility] Zwkam2898-80-20 13:31:00* Test Item Value Reference Range Interpretation Comments Urine Blood (test code = 65971-2) NEGATIVE NEGATIVE [facility] HospitalPELVIS AP 1-2 VIEWS [place] [address] Patient Name: SHARI DEAN MR #: [id number] : 1945 Age/Sex: 73/F Req #: [id number] Adm Physician: Ordered by: JEAN CLAUDE MARTINEZ MD Report #: [id number] Location: ER Room/Bed: Procedure: [id number] DX/PELVIS AP 1-2 VIEWS Exam Date: 03/24/18 [...] TO: THONG MARTINEZ MD CT CHEST W [place] [address] Patient Name: SHARI DEAN MR #: [id number] : 1945 Age/Sex: 73/F Req #: [id number] Adm Physician: MEKHI KLEIN MD Ordered by: SHELL NUNEZ, FROILAN NUNEZ Report #: [id number] Location: [facility] Room/Bed: [place] [address] Procedure: [id number]/CT CHEST W Exam Date: 02/15/18 Exam Time: 1550 REPORT STATUS: Signed EXAM: CT Chest WITH contrast 02/15/2018 3:27 PM INDICATION: Shortness of breath. S PE PROTOCOL. Fell with bruising to the up per body and chest. COMPARISON: None TECHNIQUE: Chest was scanned utili zing a multidetector helical scanner from the lung [...] no pericardial effusion. . Main pulmonary ar cohlo measures 2.7 cm in diameter and the [...] 1636 COPY TO: FROILAN GOFF CT ABDOMEN/PELVIS [place] [address] Patient Name: SHARI DEAN MR #: [id number] : 1945 Age/Sex: 73/F Req #: [id number] Adm Physician: MEKHI KLEIN MD Ordered by: FROILAN GOFF MD, MD Report #: [id number] Location: [facility] Room/Bed: [place] [address] Procedure: [id number]/CT ABDOMEN/PELVIS W Exam [...] It is below the limits set by [facility] Radiation Protocol Committee (RPC). FINDINGS: LINES and [...] COPY TO: FROILAN GOFF ECHO COMPLETE (ECHOCARDIOGRAM) [place] [address] Patient Name : SHARI DEAN MR #: [id number] : 1945 Age/Sex: 73/F Adm Physician : MEKHI KLEIN MD Admit Date : 02/15/18 Location : [facility] Room/Bed : [place] [address] REPORT: Cardiology Repor t DATE OF STUDY: [...] or intracardiac thrombi or masses. Elke b#: [id number] STEOV cc: MEKHI KLEIN MD Signature Date Dictated By: MIRELLA SILVER MD Transcribed By: AJ on 02/16/18 < Electronically signed by MIRELLA SILVER MD><<Signature on File>>02/17/18 0930 COPY TO: RIBS BILAT W/CXR [place] [address] Patient Name: SHARI DEAN MR #: [id number] : 1945 Age/Sex: 73/F Req #: [id number] Adm Physician: Ordered by: TARIK KAHN 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 Report #: [id number] Location: ER Room/Bed: Procedure: [id number] DX/RIBS BILAT W/CXR Exam Da te: 02/15/18 Exam Time: 1335 REPORT STATUS: Sig orsie EXAMINATION: RIBS BILAT W/CXR INDICATION: Low sugar. [...] MPRESSION: No acute thoracic abnormality. Signed by: Barb Brooks 02/15/2018 2:27 PM Dictated By: EMIR MELVIN MD 26 Transcribed By: GAUDENCIO on 02/15/181426 COPY T O: TARIK KAHN [employer] 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
--- NOTE | 2020-10-13 07:07 | NUR ---
Report to FAIZAN Sanders
[2020-10-13 10:36] LABS: CREATINE KINASE MB 1.7 ng/mL (0-5.0)
--- NOTE | 2020-10-13 12:42 | NUR ---
Family members: Mali ayala (Daughter) [phone] (plans on calling to check in), Tiffany Narendra (Daughter) [phone] (plans on being visitor)
[2020-10-13 13:46] VITALS: BP 131/56
[2020-10-13] MEDS: ACETAMINOPHEN 325 MG TAB PO PRN (15:42)
[2020-10-13 17:02] LABS: CREATINE KINASE MB 1.8 ng/mL (0-5.0)
[2020-10-13] MEDS: INSULIN ASPART 70/30 100 UNITS/ML VIAL SC SCH (17:29)
[2020-10-13 17:32] VITALS: BP 146/64
--- NOTE | 2020-10-13 19:10 | NUR ---
RECEIVED BEDSIDE SHIFT REPORT FROM PREVIOUS NURSE. CALL LIGHT WITHIN REACH. PATIENT IN BED.
[2020-10-13 20:00] VITALS: BP 130/80
[2020-10-13] MEDS ORDERED: ATORVASTATIN 20 MG TAB PO SCH (21:00)
[2020-10-13] MEDS: DIAZEPAM 5 MG TAB PO SCH (21:05)
[2020-10-13] MEDS: FUROSEMIDE INJ 10 MG/ML 4 ML VIAL IV SCH (21:05)
[2020-10-13] MEDS: ATORVASTATIN 40 MG TAB PO SCH (21:05)
--- NOTE | 2020-10-13 23:18 | History and Physical ---
CHIEF COMPLAINT: Swelling on the lower extremities and some shortness of breath. HISTORY OF PRESENT ILLNESS: A 75-year-old female patient, presented to the emergency room department complaining of pain under the left breast. The patient has been complaining only of pain upon deep inspiration. The patient denies having chest pain symptoms, however, complaining of generalized weakness. No fever or chills. Having increasing swelling on the lower extremities. The patient denies abdominal pain. No nausea, vomiting, or diarrhea. PAST MEDICAL HISTORY: History of hypertension, diabetes mellitus, depression, osteoarthritis, CVA, and anxiety. She denies myocardial infarction. History of venous stasis. Morbid obesity. PAST SURGICAL HISTORY: Previous appendectomy, hysterectomy, and cataract removal. REVIEW OF SYSTEMS: CONSTITUTIONAL: No fever. No chills. CARDIOVASCULAR: No chest pain symptoms. No palpitations. Complains of swelling of the legs. RESPIRATORY: Complains of some shortness of breath. No hemoptysis. pain. GI: No nausea, vomiting, or diarrhea. No hematemesis. No melena. GENITOURINARY: No dysuria, hematuria, or frequency. NEUROLOGIC: Nonfocal. PHYSICAL EXAMINATION: GENERAL: The patient is alert and oriented to person, time, and place. The patient did not appear to be in distress. VITAL SIGNS: Blood pressure 146/64, respirations 16, pulse 81, temperature 97.7. HEENT: Head is normocephalic and atraumatic. Extraocular movements intact. NECK: Supple. No JVD. Thyroid gland was not enlarged. LUNGS: Clear to auscultation. HEART: Regular rate and rhythm. No murmurs or gallops could be appreciated. ABDOMEN: Voluminous abdomen. EXTREMITIES: 3+ edema. NEUROLOGIC: Nonfocal. IMAGING DATA: Chest x-ray report did reveal increased vascular congestion. Mild cardiomegaly. LABORATORY DATA: CBC did reveal hemoglobin 11.3, white blood cell count 8.62, platelet count 322,000. Sodium 136, potassium 4.2, chloride 98, CO2 of 28, BUN 22, creatinine 0.97. ASSESSMENT: 1. pain. 2. Increased vascular congestion, suspected congestive heart failure. 3. Leg edema. 4. History of hypertension. 5. Diabetes mellitus type 2. 6. Morbid obesity. 7. Hyperglycemia. PLAN OF CARE: Control blood pressure. Request echocardiogram. Request Pulmonary evaluation in view of ongoing type pain. Request D-dimer. Further recommendation depending on the patient's clinical course. MD KEVIN Jett/MODL /[id number]
[2020-10-14] VITALS (7 sets, daily range): BP systolic 114–142; BP diastolic 56–78
--- NOTE | 2020-10-14 00:13 | NUR ---
PULMONARY Seen 10/13/20 CHF acute NOS. Under evaluation. Leg edema, suspect pulmonary HTN (mixed etiology?) Left rib / back pain NOS Obesity, r/o ELISSA 98% saturation, RA FIO2 rec: Diuresis, follow K/Cr. TSH Venous US legs Echo PT evaluation. Check left rib and Tspine back pains during mobility, and consider w/u if needed Ensure appropriate improvement, as for a fluid overload patient. If there is a lag in improvement, r/o other pulmonary processes. Dr Marin to see tomorrow Thanks Dr Gillis and Dr Rousseau.
--- NOTE | 2020-10-14 00:42 | NUR ---
PATIENT ASLEEP IN BED. HOURLY ROUNDING PERFORMED
--- NOTE | 2020-10-14 04:29 | Consultation ---
DATE OF CONSULTATION: 10/13/2020 Pulmonary Medicine Consult PRIMARY CARE DOCTOR: North Rousseau MD CHIEF COMPLAINT: Shortness of breath. HISTORY OF PRESENT ILLNESS: Ms. Parmar is a pleasant 75-year-old female with shortness of breath. The patient with increased symptoms for one day. The patient with chest tightness and also some left rib area pain. She is having trouble lying flat. She has had increased leg swelling for last week. She comes to the emergency room. 97% oxygen saturation on room air. No asthma. No allergies. Moderate GERD. No history of any sleep apnea evaluations, although she was recommended one time to go. She fell one year ago and had some rib and some back pain for years. She has not had a cardiac evaluation in the last 5 years since she had her left knee replacement. PAST MEDICAL HISTORY: Hypertension, diabetes, CVA, depression, osteoarthritis, morbid obesity, left total knee replacement, appendectomy, hysterectomy, and cataract removal. MEDICATIONS: Medication list reviewed per the chart record. ALLERGIES: PENICILLIN. SOCIAL HISTORY: No smoking. No drinking. No drugs. The patient lives with her 32-year-old granddaughter, who is healthy. FAMILY HISTORY: Noncontributory. REVIEW OF SYSTEMS: GENERAL: No weight changes. OPHTHALMOLOGIC: No floaters. ENT: No mouth ulcers. ENDOCRINE: No known thyroid disease. PULMONARY: No hemoptysis. CARDIAC: No heart attack. GI: No constipation. : No blood in the urine. DERMATOLOGIC: There is some painful stasis on both legs, pretibial mainly, but also around the calf. NEUROLOGIC: No seizures. MUSCULOSKELETAL: There is some mild active arthritis pain. PHYSICAL EXAMINATION: VITAL SIGNS: Afebrile, vital signs noted reviewed per the chart record. GENERAL: In no acute distress, in bed. Difficulty moving due to her leg pain. HEENT: Normocephalic and atraumatic. NECK: Supple. Throat midline. LUNGS: Bilateral air entry, few crackles. CARDIOVASCULAR: S1, S2. No murmurs, rubs, or gallops. ABDOMEN: Soft and nontender. EXTREMITIES: No clubbing, no cyanosis, 1+ leg edema. Painful. No large erythema, only mildly pink. NEUROLOGIC: Moves all four extremities, grossly nonfocal. LABORATORY DATA: 8.6 white count, 35 hematocrit, 322 platelets. 4.2 potassium, 22 BUN, creatinine 0.97. LFTs noted with alkaline phosphatase 176. Other LFTs normal. Albumin 3.6. Chest x-ray, mild cardiomegaly and pulmonary vascular congestion pattern. IMPRESSION AND PLAN: 1. Acute congestive heart failure. Under evaluation. January 2018, LVEF 55%. 2. Leg edema, pulmonary hypertension, suspected component. 3. Morbid obesity. 4. Moderate gastroesophageal reflux disease. 5. Possible obstructive sleep apnea. 6. Hypertension. 7. Diabetes. 8. Reported CVA. 9. Depression. Admit for now. Give aggressive diuresis. Follow up electrolytes. Check ultrasound venous of legs. Check thyroid function testing. Check echocardiogram. The patient with a reasonable recommendation for sleep studies to rule out sleep apnea. Physical therapy evaluation. Ensure oxygenation remained well and appropriate history suggestive of heart failure, remains. Otherwise, other workup should ensue including to rule out diagnosis or pneumonia. For now, this seems more likely fluid overload. Thank you very much, Dr. Rousseau and Dr. Gillis. Please call for questions. Zuhair Tejada MD [facility] /[id number]
[2020-10-14] MEDS: FUROSEMIDE INJ 10 MG/ML 4 ML VIAL IV SCH ×3 (05:25→21:14)
[2020-10-14 06:14] LABS: CHOL/HDL RATIO 2.3 (3.0-3.6)
[2020-10-14 06:48] LABS: THYROID STIMULATING HORMONE 2.24 uIU/mL (0.350-4.940)
--- NOTE | 2020-10-14 06:58 | NUR ---
GAVE BEDSIDE SHIFT REPORT TO ONCOMING NURSE. CALL LIGHT WITHIN REACH. PATIENT IN BED. HOURLY ROUNDING DONE.
--- NOTE | 2020-10-14 07:10 | NUR ---
RCD PT AT BED PT IS ALERT AND ORIENTED IV PATENT BED LOW AND LOCKED CALL LIGHT IN REACH
[2020-10-14] MEDS: INSULIN ASPART 70/30 100 UNITS/ML VIAL SC SCH ×3 (08:00→16:52)
[2020-10-14] MEDS: ENOXAPARIN SOD INJ 40 MG/0.4 ML SYR SC SCH (09:00)
[2020-10-14] MEDS ORDERED: FUROSEMIDE 40 MG TAB PO SCH (09:00)
[2020-10-14] MEDS: FLUOXETINE HCL 20 MG CAP PO SCH (09:00)
[2020-10-14] MEDS: POTASSIUM CHLORIDE 20 MEQ TAB CR PO SCH (09:00)
[2020-10-14] MEDS: DOCUSATE SODIUM 100 MG CAP PO SCH ×2 (09:00→16:52)
[2020-10-14] MEDS: LOSARTAN POTASSIUM 25 MG TAB PO SCH (09:00)
[2020-10-14] MEDS: ACETAMINOPHEN 325 MG TAB PO PRN (10:53)
--- NOTE | 2020-10-14 14:12 | Progress Note ---
DATE: SUBJECTIVE: The patient is still having leg edema, although it is less. She does not complain of dyspnea. She is not having chest pain. PHYSICAL EXAMINATION: VITAL SIGNS: Stable. Blood pressure is 114/65, saturation is 98%. HEENT: Shows no facial swelling or erythema. LYMPHATIC: Shows no submandibular, cervical, or supraclavicular adenopathy. CARDIAC: Reveals regular rate and rhythm with normal S1 and S2. LUNGS: Auscultation of lungs shows decreased breath sounds at the bases. There is no wheezing. ABDOMEN: Soft, nontender. There is no rebound or guarding. EXTREMITIES: Shows 2 to 3+ leg edema. IMPRESSION: 1. Acute on chronic diastolic heart failure. 2. Chronic lymphedema. 3. Morbid obesity. 4. Obstructive sleep apnea. 5. Hypertension. PLAN: 1. Continue current diuretic regimen. 2. CPAP at night. 3. Await official interpretation of echocardiogram. 4. Continue to monitor and control blood pressure. Farzad Marin MD [facility] /[id number]
--- NOTE | 2020-10-14 17:00 | NUR ---
pt had 4 times bm today she voided with bm
--- NOTE | 2020-10-14 18:44 | NUR ---
PT RESTING ON BED BED SIDE REPOT GIVEN TO ONCOMING NURSE
--- NOTE | 2020-10-14 19:00 | NUR ---
RECEIVED BEDSIDE SHIFT REPORT FROM PREVIOUS NURSE. CALL LIGHT WITHIN REACH. PATIENT IN BED.
[2020-10-14] MEDS: ATORVASTATIN 40 MG TAB PO SCH (21:14)
[2020-10-14] MEDS: DIAZEPAM 5 MG TAB PO SCH (21:14)
[2020-10-15] VITALS (9 sets, daily range): BP systolic 105–124; BP diastolic 37–59
--- NOTE | 2020-10-15 01:30 | Progress Note ---
DATE: 10/14/2020 SUBJECTIVE: The patient is breathing better. The patient is in no distress and was not having chest pain at the time of my admission, having swelling on the lower extremities. No abdominal pain. No nausea or vomiting. No fever. No chills. OBJECTIVE: GENERAL: The patient has been alert and oriented to person, time, and place. The patient in no apparent distress. VITAL SIGNS: Blood pressure 121/57, respirations 18, pulse 72, and temperature 98.0 HEENT: Head is normocephalic and atraumatic. NECK: Supple. No JVD. LUNGS: Clear to auscultation. HEART: Regular rate and rhythm. ABDOMEN: Soft, nontender. EXTREMITIES: 2+ edema. NEURO: Nonfocal. LABORATORY DATA: As of October 13, hemoglobin is 11.3, white blood cell count 8.62, platelet count 322,000. Sodium 126, potassium 4.2, chloride 98, CO2 28, BUN 22 and creatinine 0.97. Blood sugars being elevated at 425. ASSESSMENT: 1. Acute congestive heart failure, which was the presentation, at time of the evaluation and as of January 2018, left ventricular ejection fraction of 55%. 2. Leg edema. Pulmonary hypertension is suspected. 3. Morbid obesity. 4. Suspected obstructive sleep apnea. 5. Hypertension. 6. Diabetes mellitus. 7. Previous cerebrovascular accident. 8. History of depression. 9. Morbid obesity. PLAN OF CARE: Continue with IV diuresis. Venous Doppler studies order. No evidence of DVT. Follow up with the echocardiogram. The patient will need a sleep study on an outpatient basis. PT evaluation. Monitor O2. Continue to monitor labs. C. diff has been advised. Glycemic control. MD KEVIN Jett/ALOL /[id number]
[2020-10-15] MEDS: FUROSEMIDE INJ 10 MG/ML 4 ML VIAL IV SCH ×3 (05:16→21:44)
[2020-10-15 06:33] LABS: BASOPHILS % 0.2 % (0.0-1.0); EOSINOPHILS # (AUTO) 0.3 (0.0-0.4); EOSINOPHILS % 3.6 % (0.0-6.0); HEMATOCRIT 36.7 % (34.2-44.1); HEMOGLOBIN 11.7 g/dL (12.0-16.0); LYMPHOCYTES # (AUTO) 1.9 (1.0-3.2); MEAN CORPUSCULAR HEMOGLOBIN 28.9 pg (28-32); MEAN CORPUSCULAR HGB CONC 31.9 g/dL (31-35); MEAN CORPUSCULAR VOLUME 90.6 fL (81-99); MONOCYTES # (AUTO) 0.8 (0.2-0.8); MONOCYTES % 9.8 % (4.4-11.3); NEUTROPHILS # (AUTO) 5.1 (2.1-6.9); NEUTROPHILS % 63.2 % (38.7-80.0); PLATELET COUNT 329 x10e3/uL (140-360); RED BLOOD COUNT 4.05 x10e6/uL (3.6-5.1); RED CELL DISTRIBUTION WIDTH 14.3 % (11.7-14.4)
[2020-10-15 06:47] LABS: ALANINE AMINOTRANSFERASE 31 IU/L (0-55); ALBUMIN 3.4 g/dL (3.5-5.0); ALBUMIN/GLOBULIN RATIO 1.1 (0.8-2.0); ALKALINE PHOSPHATASE 85 IU/L (40-150); ANION GAP 12.7 mmol/L (8-16); BLOOD UREA NITROGEN 17 mg/dL (7-26); BUN/CREATININE RATIO 23 (6-25); CALCIUM 8.8 mg/dL (8.4-10.2); CARBON DIOXIDE 34 mmol/L (22-29); CHLORIDE 98 mmol/L (98-107); CREATININE, SERUM 0.75 mg/dL (0.57-1.11); EST GLOMERULAR FILTRATION RATE > 60 ML/MIN (60-); GLUCOSE 65 mg/dL (74-118); POTASSIUM 3.7 mmol/L (3.5-5.1); SODIUM 141 mmol/L (136-145)
--- NOTE | 2020-10-15 07:00 | NUR ---
RCD PT AT BED PT IS ALERT AND ORIENTED IV PATENT BED LOW AND LOCKED CALL LIGHT IN REACH
--- NOTE | 2020-10-15 07:04 | NUR ---
RECEIVED BEDSIDE SHIFT REPORT FROM PREVIOUS NURSE. CALL LIGHT WITHIN REACH. PATIENT IN BED. Addendum: 10/15/20 at 705 by Taniya Gao RN GAVE BEDSIDE SHIFT REPORT TO PREVIOUS NURSE. CALL LIGHT WITHIN REACH. PATIENT IN BED. HOURLY ROUNDING PERFORMED. Addendum: 10/15/20 at 706 by Taniya Gao RN GAVE BEDSIDE SHIFT REPORT TO DELILAH NURSE. NOT PREVIOUS NURSE
[2020-10-15] MEDS: INSULIN ASPART 70/30 100 UNITS/ML VIAL SC SCH ×3 (08:00→17:00)
[2020-10-15] MEDS: LOSARTAN POTASSIUM 25 MG TAB PO SCH (09:00)
[2020-10-15] MEDS: DOCUSATE SODIUM 100 MG CAP PO SCH ×2 (09:00→17:00)
[2020-10-15] MEDS: FLUOXETINE HCL 20 MG CAP PO SCH (09:00)
[2020-10-15] MEDS: POTASSIUM CHLORIDE 20 MEQ TAB CR PO SCH (09:00)
[2020-10-15] MEDS: ENOXAPARIN SOD INJ 40 MG/0.4 ML SYR SC SCH (09:00)
[2020-10-15 09:30] LABS: BILIRUBIN,URINE NEGATIVE (NEGATIVE); CLARITY,URINE CLEAR (CLEAR); COLOR,URINE YELLOW (YELLOW); KETONES,URINE NEGATIVE (NEGATIVE); LEUKOCYTE ESTERASE ,URINE NEGATIVE (NEGATIVE); NITRITE,URINE NEGATIVE (NEGATIVE); PROTEIN,URINE DIPSTICK NEGATIVE (NEGATIVE); URINE UROBILINOGEN 0.2 mg/dL (0.2 - 1)
[2020-10-15 09:33] LABS: EPITHELIAL CELLS,URINE FEW /LPF; RBC,URINE 0-5 /HPF (0-5); WBC,URINE (MAN) 0-5 /HPF (0-5)
[2020-10-15] MEDS: ACETAMINOPHEN 325 MG TAB PO PRN ×2 (09:59→22:00)
--- NOTE | 2020-10-15 15:17 | Progress Note ---
DATE: SUBJECTIVE: The patient still has swelling in the legs, less than yesterday. She complains of some pain in the left side. PHYSICAL EXAMINATION: VITAL SIGNS: The patient is afebrile. The blood pressure is 113/37, saturation is 95% and the pulse is 77. HEENT: Shows no facial swelling or erythema. LYMPHATIC: Shows no submandibular, cervical, or supraclavicular adenopathy. CARDIAC: Regular rate and rhythm with normal S1 and S2. LUNGS: Auscultation of lungs shows decreased breath sounds at the bases. There is no wheezing. ABDOMEN: Soft, nontender. EXTREMITIES: There is 2 to 3+ leg edema. LABORATORY DATA: White blood cell count is 8.08, hemoglobin is 11.7, platelet count is 329. BUN to creatinine ratio is normal. Other electrolytes are within normal limits. IMPRESSION: 1. Acute on chronic lymphedema. 2. Acute on chronic diastolic heart failure. 3. Morbid obesity. 4. Obstructive sleep apnea. 5. Diabetes. 6. Hypertension. PLAN: 1. Continue diuretics. 2. Out of bed as tolerated. 3. Continue oxygen. 4. CPAP at night. Farzad Marin MD [facility] /[id number]
--- NOTE | 2020-10-15 18:53 | NUR ---
PT RESTING ON BED BED SIDE REPOT GIVEN TO ONCOMING NURSE
[2020-10-15] MEDS: DIAZEPAM 5 MG TAB PO SCH (21:44)
[2020-10-15] MEDS: ATORVASTATIN 40 MG TAB PO SCH (21:44)
--- NOTE | 2020-10-15 23:19 | Progress Note ---
DATE: 10/15/2020 SUBJECTIVE: The patient is feeling much better. The patient is having less swelling on the lower extremities. No chest pain. No shortness of breath. No abdominal pain. No nausea, vomiting, or diarrhea. No fever. No chills. OBJECTIVE: GENERAL: The patient is alert and oriented to person, time, and place. The patient has been in no distress. VITAL SIGNS: Blood pressure 116/55, respirations 18, pulse is 80, and temperature is 98.2. HEENT: Normocephalic and atraumatic. NECK: Supple. No JVD. LUNGS: Clear to auscultation. HEART: Regular rate and rhythm. ABDOMEN: Soft and nontender. EXTREMITIES: 1+ edema. NEURO: Nonfocal. LABORATORY DATA: CBC disclosed hemoglobin of 11.5, white blood cell count 8.08, platelet count of 339,000. Chem profile revealed sodium of 141, potassium 3.7, chloride 98, CO2 34, BUN 17, creatinine 0.7. Normal liver function tests. Glucose has been elevated. ASSESSMENT: 1. Acute congestive heart failure. 2. Leg edema. 3. Suspected pulmonary hypertension. 4. Morbid obesity. 5. Uncontrolled diabetes mellitus, type 2. 6. Suspected obstructive sleep apnea. 7. Hypertension. 8. Previous cerebrovascular accident. 9. History of depression. 10. Morbid obesity. PLAN OF CARE: Continue present care as advised. Continue diuretics. CPAP at night. Continue oxygen supplementation. The patient does have acute on chronic diastolic heart failure. The patient does have acute on chronic lymphedema. Pulmonary evaluation ordered. MD KEVIN Jett/LIAM /[id number]
[2020-10-16 01:38] VITALS: BP 100/44
[2020-10-16 05:47] VITALS: BP 125/49
[2020-10-16] MEDS: FUROSEMIDE INJ 10 MG/ML 4 ML VIAL IV SCH ×3 (06:29→22:43)
--- NOTE | 2020-10-16 07:10 | NUR ---
RCD PT AT BED PT IS ALERT AND ORIENTED PT RESTING ON BED IV PATENT BED LOW AND LOCKED CALL LIGHT IN REACH
[2020-10-16] MEDS: INSULIN ASPART 70/30 100 UNITS/ML VIAL SC SCH ×2 (08:00→17:00)
[2020-10-16 08:32] VITALS: BP 127/49
[2020-10-16] MEDS: LOSARTAN POTASSIUM 25 MG TAB PO SCH (08:37)
[2020-10-16] MEDS: POTASSIUM CHLORIDE 20 MEQ TAB CR PO SCH (08:37)
[2020-10-16] MEDS: DOCUSATE SODIUM 100 MG CAP PO SCH ×2 (08:37→17:00)
[2020-10-16] MEDS: FLUOXETINE HCL 20 MG CAP PO SCH (08:38)
[2020-10-16] MEDS: ENOXAPARIN SOD INJ 40 MG/0.4 ML SYR SC SCH (08:38)
[2020-10-16 12:02] VITALS: BP 103/46
[2020-10-16 16:04] VITALS: BP 115/47
--- NOTE | 2020-10-16 18:41 | NUR ---
PT RESTING ON BED BED SIDE REPORT GIVEN TO ONCOMING NURSE
[2020-10-16 20:20] VITALS: BP 118/44
[2020-10-16] MEDS: ATORVASTATIN 40 MG TAB PO SCH (22:43)
[2020-10-16] MEDS: DIAZEPAM 5 MG TAB PO SCH (22:43)
[2020-10-17 00:20] VITALS: BP 122/45
--- NOTE | 2020-10-17 00:54 | Progress Note ---
DATE: 10/16/2020 SUBJECTIVE: The patient was doing fine at the time of evaluation. The patient had no complaints. No fever or chills. No chest pain or shortness of breath. No abdominal pain. No nausea or vomiting. Does have decreased swelling on the lower extremities. OBJECTIVE: GENERAL: The patient has been alert and oriented to person, time, and place. The patient has been in no distress. VITAL SIGNS: Blood pressure 115/47, respirations 20, pulse is 86, temperature is 98.4. HEENT: Head is normocephalic and atraumatic. NECK: Supple. No JVD. LUNGS: Clear to auscultation. HEART: Regular rate and rhythm. ABDOMEN: Soft, nontender. EXTREMITIES: 1+ edema. NEURO: Nonfocal. LABORATORY DATA: No new lab data. ASSESSMENT: 1. Acute congestive heart failure. 2. Leg edema. 3. Suspected pulmonary hypertension. 4. Morbid obesity. 5. Uncontrolled diabetes mellitus type 2. 6. Suspected obstructive sleep apnea. 7. Hypertension. 8. Previous cerebrovascular accident. 9. History of depression. 10. Morbid obesity. PLAN OF CARE: Continue present care. List of medications noted. We will review labs in a.m. MD KEVIN Jett/LIAM /[id number]
[2020-10-17 04:10] VITALS: BP_SYST 120; BP_SYST 136; BP_DIAS 48; BP_DIAS 87
[2020-10-17 06:23] LABS: ANION GAP 7.5 mmol/L (8-16); BLOOD UREA NITROGEN 20 mg/dL (7-26); BUN/CREATININE RATIO 29 (6-25); CALCIUM 8.4 mg/dL (8.4-10.2); CARBON DIOXIDE 34 mmol/L (22-29); CHLORIDE 101 mmol/L (98-107); CREATININE, SERUM 0.68 mg/dL (0.57-1.11); EST GLOMERULAR FILTRATION RATE > 60 ML/MIN (60-); GLUCOSE 82 mg/dL (74-118); POTASSIUM 3.5 mmol/L (3.5-5.1); SODIUM 139 mmol/L (136-145)
[2020-10-17] MEDS: FUROSEMIDE INJ 10 MG/ML 4 ML VIAL IV SCH ×2 (06:33→14:25)
[2020-10-17 08:00] VITALS: BP 112/47
[2020-10-17 08:08] VITALS: BP 112/47
[2020-10-17] MEDS: DOCUSATE SODIUM 100 MG CAP PO SCH ×2 (09:00→17:00)
[2020-10-17] MEDS: ENOXAPARIN SOD INJ 40 MG/0.4 ML SYR SC SCH (09:19)
[2020-10-17] MEDS: FLUOXETINE HCL 20 MG CAP PO SCH (09:19)
[2020-10-17] MEDS: INSULIN ASPART 70/30 100 UNITS/ML VIAL SC SCH ×2 (09:19→17:32)
[2020-10-17] MEDS: LOSARTAN POTASSIUM 25 MG TAB PO SCH (09:19)
--- NOTE | 2020-10-17 10:11 | Progress Note ---
DATE: SUBJECTIVE: The patient has less leg swelling. She is not having fever. She has no chest pain. PHYSICAL EXAMINATION: VITAL SIGNS: The blood pressure is 112/47, saturation is 97% and the pulse is 88. HEENT: Shows no facial swelling or erythema. LYMPHATIC: Shows no submandibular, cervical, or supraclavicular adenopathy. CARDIAC: Reveals regular rate and rhythm with normal S1, S2. LUNGS: Auscultation of lungs reveals decreased breath sounds at the bases. There is no wheezing. ABDOMEN: Soft, nontender. There is no rebound or guarding. EXTREMITIES: Shows 2 to 3+ leg edema. LABORATORY DATA: White blood cell count is 8.08, hemoglobin is 11.7. The platelet count is 329. The BUN to creatinine ratio is 20 to 0.68. The other electrolytes within normal limits. IMPRESSION: 1. Acute on chronic lymphedema. 2. Acute on chronic diastolic heart failure. 3. Morbid obesity. 4. Obstructive sleep apnea. 5. Diabetes. 6. Hypertension. PLAN: 1. Continue diuretics. 2. Out of bed as tolerated. 3. Continue CPAP at night. 4. Continue oxygen. 5. Arrange disposition with attending case management. MD JOSEPH Manning/LIAM /[id number]
[2020-10-17] MEDS ORDERED: FLUOXETINE HCL20 MG PO (11:48)
[2020-10-17] MEDS ORDERED: COLACE100 MG PO (11:48)
[2020-10-17 12:00] VITALS: BP 140/50
[2020-10-17] MEDS ORDERED: FLUOXETINE HCL25 GM PO (12:47)
[2020-10-17 15:52] VITALS: BP 98/47
--- NOTE | 2020-10-17 19:09 | NUR ---
Pt discharged home at this time. 0 s/s of acute distress noted at time of discharge. Pt and family verbalized understanding of all discharge instructions and follow up appointments.
== END 2020-10-17 19:12 | disposition home or self-care (01) ==
LOC: ER 01:14 → ERHOLD 03:37 → MED/SURG2 12:57
PROVIDERS: ADMIT Internal Medicine; ATTEND Internal Medicine
DX: I11.0 Hypertensive heart disease with heart failure (principal); I50.33 Acute on chronic diastolic (congestive) heart failure; E11.65 Type 2 diabetes mellitus with hyperglycemia; E66.01 Morbid (severe) obesity due to excess calories; M19.90 Unspecified osteoarthritis, unspecified site; K21.9 Gastro-esophageal reflux disease without esophagitis; Z96.652 Presence of left artificial knee joint; Z86.73 Personal history of transient ischemic attack (TIA), and cerebral infarction without residual deficits; Z88.0 Allergy status to penicillin; F32.9 Major depressive disorder, single episode, unspecified; I89.0 Lymphedema, not elsewhere classified; Z20.828 Contact with and (suspected) exposure to other viral communicable diseases; Z68.43 Body mass index [BMI] 50.0-59.9, adult; Z79.4 Long term (current) use of insulin
CPT/HCPCS: 36415 ×5; 71045; 80048; 80053 ×2; 80061; 81001; 82550; 82553; 82948 ×5; 83880; 84436; 84443; 84479; 84484; 85025 ×2; 85379; 93005; 93306; 93970; 97116 ×3; 97139 ×3; 97162; 97530 ×3; 99284; G0378 ×5; J1650 ×4; J1815; J1817; J1940 ×5; U0002

== ENCOUNTER 2020-12-10 05:07 | Emergency (ER) | payer MEDICARE, OTHER ==
[~2020-12-10] VITALS: Ht 137.2 cm; Wt 97.1 kg
[~2020-12-10 05:07] MED LIST changes: +COLACE100 MG PO; +FLUOXETINE HCL25 GM PO
[2020-12-10] MEDS ORDERED: ONDANSETRON HCL INJ 2MG/ML 2ML 2 MG/ML VIAL ONE (05:32)
[2020-12-10] MEDS ORDERED: ACETAMINOPHEN 325 MG TAB ONE (05:32)
[2020-12-10] MEDS ORDERED: ONDANSETRON HCL 4 MG ORAL DISINTEGRATING TAB ONE (05:34)
[2020-12-10] MEDS ORDERED: AZITHROMYCIN250 MG PO (05:44)
[2020-12-10] MEDS ORDERED: ZOFRAN4 MG SL (05:44)
[2020-12-10] MEDS ORDERED: ACETAMINOPHEN 325 MG TAB PO ONE (05:45)
[2020-12-10] MEDS ORDERED: ONDANSETRON HCL 4 MG ORAL DISINTEGRATING TAB PO ONE (05:45)
== END 2020-12-10 07:42 | disposition home or self-care (01) ==
LOC: ER 05:13
DX: U07.1 COVID-19 (principal); R50.9 Fever, unspecified; R05 Cough; I10 Essential (primary) hypertension; E11.9 Type 2 diabetes mellitus without complications; I87.8 Other specified disorders of veins; F41.9 Anxiety disorder, unspecified; Z86.73 Personal history of transient ischemic attack (TIA), and cerebral infarction without residual deficits
CPT/HCPCS: 99283; Q0162; J2405